=== PATIENT | male | born 1940 | race Caucasian/White ===

== ENCOUNTER 2017-06-21 13:30 | Emergency (ER) | payer OTHER ==
[~2017-06-21] VITALS: Ht 167.6 cm; Wt 50.0 kg
[2017-06-21 13:32] VITALS: BP 138/74; PULSE 90; RESP 16; TEMP 98.2; O2SAT 99
--- NOTE | 2017-06-21 14:06 | PD ---
HPI Chief Complaint: Respiratory Distress Time Seen by Provider: 13:45 Travel History International Travel<30 days: No Contact w/Intl Traveler<30days: No Traveled to known affect area: No History of Present Illness HPI This patient complains of shortness of breath. He is been short of breath for many many years. Worse with exertion. Has been diagnosed with [facility]best[facility]. He came here today after 42 years of these symptoms because he is frustrated and doesn't believe that the asbestosis is causing the shortness of breath. He notes that his oxygen saturations always seem to be good when checked so he thinks it might be something else. He denies fever or productive cough. He has no chest pain today. Patient has poor appetite and is very malnourished. He denies any acute pain. Symptoms severity is moderate. No alleviating factors. PFSH Past Medical History COPD: Yes Respiratory: Yes (asbestosis) Tetanus Vaccination: Unknown Social History Alcohol Use: No Tobacco Use: No Substance Use: No Allergies-Medications (Allergen,Severity, Reaction): Coded Allergies: No Known Allergies (Verified Allergy, Unknown, 06/21/17) Reported Meds & Prescriptions Reported Meds & Active Scripts Active No Active Prescriptions or Reported Medications Review of Systems General / Constitutional: Positive: Weight Loss, No: Fever Eyes: No: Visual changes HENT: No: Headaches Cardiovascular: No: Chest Pain or Discomfort Respiratory: Positive: Shortness of Breath Gastrointestinal: Positive: Loss of Appetite, No: Abdominal Pain Genitourinary: No: Dysuria Musculoskeletal: No: Pain Skin: No Rash Neurologic: No: Weakness Psychiatric: No: Depression Endocrine: No: Polydipsia Hematologic/Lymphatic: No: Easy Bruising Physical Exam Narrative GENERAL: Malnourished appearing well-developed patient in no apparent distress. SKIN: Focused skin assessment reveals no rash and nodules. Skin is Warm and dry. HEAD: Atraumatic. Normocephalic. Has temporal wasting EYES: Pupils equal and round. No scleral icterus. No injection or drainage. ENT: No nasal bleeding or discharge. Mucous membranes pink and moist. NECK: Trachea midline. No JVD. CARDIOVASCULAR: Regular rate and rhythm. No murmur appreciated. RESPIRATORY: No accessory muscle use. Diminished breath sounds but Clear to auscultation. Breath sounds equal bilaterally. GASTROINTESTINAL: Abdomen soft, non-tender, nondistended. Hepatic and splenic margins not palpable. MUSCULOSKELETAL: No obvious deformities. No clubbing. No cyanosis. No edema. All of his ribs visible beneath the skin NEUROLOGICAL: Awake and alert. No obvious cranial nerve deficits. Motor grossly within normal limits. Normal speech. PSYCHIATRIC: Appropriate mood and affect; insight and judgment normal. Data Data Last Documented VS Vital Signs Date Time Temp Pulse Resp B/P (MAP) Pulse Ox O2 Delivery O2 Flow Rate FiO2 06/21/17 13:46 19 06/21/17 13:32 98.2 90 138/74 (95) 99 Orders Orders Iv Access Insert/Monitor (06/21/17 13:54) Complete Blood Count With Diff (06/21/17 13:54) Comprehensive Metabolic Panel (06/21/17 13:54) Chest, Single Ap (06/21/17 ) Electrocardiogram (06/21/17 ) Preparation Plant Supervisor / Telemetry [id number] (06/21/17 13:54) Labs Laboratory Tests Test 06/21/17 14:00 White Blood Count 7.2 TH/MM3 Red Blood Count 5.22 MIL/MM3 Hemoglobin 15.5 GM/DL Hematocrit 46.8 % Mean Corpuscular Volume 89.7 FL Mean Corpuscular Hemoglobin 29.6 PG Mean Corpuscular Hemoglobin Concent 33.0 % Red Cell Distribution Width 14.4 % Platelet Count 214 TH/MM3 Mean Platelet Volume 8.4 FL Neutrophils (%) (Auto) 69.7 % Lymphocytes (%) (Auto) 21.1 % Monocytes (%) (Auto) 7.2 % Eosinophils (%) (Auto) 1.5 % Basophils (%) (Auto) 0.5 % Neutrophils # (Auto) 5.0 TH/MM3 Lymphocytes # (Auto) 1.5 TH/MM3 Monocytes # (Auto) 0.5 TH/MM3 Eosinophils # (Auto) 0.1 TH/MM3 Basophils # (Auto) 0.0 TH/MM3 CBC Comment DIFF FINAL Differential Comment Blood Urea Nitrogen 14 MG/DL Creatinine 0.69 MG/DL Random Glucose 100 MG/DL Total Protein 8.3 GM/DL Albumin 3.5 GM/DL Calcium Level 9.0 MG/DL Alkaline Phosphatase 81 U/L Aspartate Amino Transf (AST/SGOT) 22 U/L Alanine Aminotransferase (ALT/SGPT) 22 U/L Total Bilirubin 0.7 MG/DL Sodium Level 138 MEQ/L Potassium Level 4.4 MEQ/L Chloride Level 101 MEQ/L Carbon Dioxide Level 32.3 MEQ/L Anion Gap 5 MEQ/L Estimat Glomerular Filtration Rate 112 ML/MIN MDM Medical Decision Making Medical Screen Exam Complete: Yes Emergency Medical Condition: Yes Medical Record Reviewed: Yes Differential Diagnosis asbestosis, asthma, COPD, undiagnosed cancer Narrative Course I have reviewed the patient's electronic medical record. IV placed CBC is normal Metabolic profile is normal LFTs are normal I reviewed his EKG which shows sinus rhythm with occasional ectopic beat, rate 85 Extended cardiac monitoring shows sinus rhythm in the 80s with occasional ectopic beat I reviewed his chest x-ray which shows abnormal findings which would be consistent with asbestosis or silicosis. Radiology suggested an outpatient CT might be of benefit. I reviewed this with the patient. He has already had a CT of the chest done by the DC. It was done several years ago. I asked him to follow his [place] physician discussed whether repeating that or any other testing would be important. His saturations are good and he is stable for outpatient follow-up. Diagnosis Primary Impression: Shortness of breath Additional Impression: Malnourished Qualified Codes: E46 - Unspecified protein-calorie malnutrition Additional Instructions: The patient was advised to follow up with their physician and return if they worsen. Med/Other Pt SpecificInfo: Other Scripts No Active Prescriptions or Reported Meds Disposition: 01 DISCHARGE HOME Condition: Stable Esdras Kaye MD Jun 21, 2017 14:06
[2017-06-21 14:13] LABS: BASOPHIL % 0.5 % (0.0-2.0); EOSINOPHIL # 0.1 TH/MM3 (0-0.4); EOSINOPHIL % 1.5 % (0.0-4.0); HEMATOCRIT 46.8 % (39.0-51.0); HEMO FLAGS DIFF FINAL; LYMPH % 21.1 % (9.0-44.0); LYMPHOCYTE # 1.5 TH/MM3 (1.0-4.8); MEAN CELL VOLUME 89.7 FL (80.0-100.0); MEAN CORPUSCULAR HEMOGLOBIN 29.6 PG (27.0-34.0); MONO % 7.2 % (0.0-8.0); NEUT % 69.7 % (16.0-70.0); PLATELET COUNT 214 TH/MM3 (150-450); RED BLOOD COUNT 5.22 MIL/MM3 (4.50-5.90); RED CELL DISTRIBUTION WIDTH 14.4 % (11.6-17.2); WHITE BLOOD COUNT 7.2 TH/MM3 (4.0-11.0)
[2017-06-21 14:30] LABS: ALKALINE PHOSPHATASE 81 U/L (45-117); TOTAL BILIRUBIN ADULT 0.7 MG/DL (0.2-1.0)
[2017-06-21 14:35] LABS: ALT (GPT) 22 U/L (12-78); ANION GAP 5 MEQ/L (5-15); AST (GOT) 22 U/L (15-37); BICARBONATE 32.3 MEQ/L (21.0-32.0); BLOOD UREA NITROGEN 14 MG/DL (7-18); CHLORIDE 101 MEQ/L (98-107); GLOMERULAR FILTRATION RATE 112 ML/MIN (>89); POTASSIUM 4.4 MEQ/L (3.5-5.1); SODIUM (NA) 138 MEQ/L (136-145)
--- NOTE | 2017-06-21 15:01 | RADRPT ---
EXAM DATE/TIME: 06/21/2017 14:27 [facility] COMPARISON: No previous studies available for comparison. EXTERNAL COMPARISON : [facility] a couple years ago, pt. unsure. INDICATIONS : Short of breath. weakness a,d chest pain. MEDICAL HISTORY : None. SURGICAL HISTORY : None. ENCOUNTER: Initial ACUITY: >1 year PAIN SCORE: 3/10 LOCATION: Bilateral chest FINDINGS: There is severe pulmonary fibrosis with volume loss and severe retraction of the mediastinum and june r structures bilaterally with extensive pleural thickening in the right apex. There is bilateral pleu ral calcification characteristic of asbestos exposure. There is pleural plaque on both hemidiaphragms . No calcified nodes are identified. There is no evidence of pneumonia. CONCLUSION: 1. Severe hilar retraction and upper lobe volume loss with bilateral pleural calcification. The findi ngs could be seen with asbestosis or silicosis. CT scan is recommended for further evaluation if clin ically indicated. Cruz Byrd MD on June 21, 2017 at 14:55 Board Certified Radiologist. This report was verified electronically.
[2017-06-21 16:53] VITALS: BP 107/58
--- NOTE | 2017-06-22 14:26 | EKG ---
Date Performed: 06/21/2017 Time Performed: 14:03:33 PTAGE: 76 years EKG: Normal Sinus rhythm Atrial premature complexes Nonspecific atrial abnormality NO PREVIOUS TRACING DOCTOR: Kilo Hassan Interpretating Date/Time 06/22/2017 14:25:43
== END 2017-06-21 16:56 | disposition home or self-care (01) ==
LOC: NEPD 13:30
DX: R06.02 Shortness of breath (principal); E46 Unspecified protein-calorie malnutrition; R94.31 Abnormal electrocardiogram [ECG] [EKG]; Z87.09 Personal history of other diseases of the respiratory system
CPT/HCPCS: 71010; 80053; 85025; 93005; 99285

== ENCOUNTER 2017-09-23 07:56 | Inpatient (IN) | payer OTHER, MEDICARE ==
[~2017-09-23] VITALS: Ht 167.6 cm; Wt 46.0 kg
[2017-09-23] VITALS (11 sets, daily range): BP systolic 81–112; BP diastolic 52–69; PULSE 103–152; RESP 20–40; TEMP 97.4–98.3; O2SAT 90–100
[2017-09-23] MEDS ORDERED: DIGOXIN 0.5 MG/2 ML VIAL IV PUSH ONE (08:15)
[2017-09-23] MEDS: SODIUM CHLORIDE 0.9% FLUSH 10 ML FLUSH IVF PRN (08:23)
[2017-09-23] MEDS ORDERED: DILTIAZEM HCL 25 MG/5 ML VIAL IV ONE (08:30)
[2017-09-23] MEDS ORDERED: PHENYLEPH/NS 1000 MCG/10 ML SYR IV ONE (08:30)
--- NOTE | 2017-09-23 08:46 | PD ---
HPI Chief Complaint: Cardiac Complaint Time Seen by Provider: 08:10 Travel History International Travel<30 days: No Contact w/Intl Traveler<30days: No Traveled to known affect area: No History of Present Illness HPI This is a 77-year-old male who presents to the emergency department with increasing shortness of breath overnight, constant, severe. His reports that he's been gasping for air. History is somewhat limited as the patient is in respiratory distress. reports that [facility] He has known asbestosis but it's never been decided that he needed oxygen. He also has an irregular heartbeat. Currently he is not on any medicines. He was told by the CA that he may have a lesion in his heart described as a " maker". They have a cardiac catheterization scheduled for him in November. She says for 6-7 years he's been losing weight and has been increasingly short of breath. She says he mostly sits on the couch. He denies any chest pain, productive cough or fever. PFS Past Medical History Atrial Fibrillation: Yes COPD: Yes Respiratory: Yes (asbestosis) Past Surgical History Surgical History: No Previous Surgery Social History Alcohol Use: No Tobacco Use: No Substance Use: No Allergies-Medications (Allergen,Severity, Reaction): Coded Allergies: No Known Allergies (Verified , 06/21/17) Reported Meds & Prescriptions Reported Meds & Active Scripts Active No Active Prescriptions or Reported Medications Review of Systems Except as stated in HPI: all other systems reviewed are Neg Physical Exam Narrative GENERAL: Cachectic, moderate respiratory distress SKIN: Dry with skin tenting HEAD: Atraumatic. Normocephalic. EYES: Pupils equal and round. No injection or drainage. ENT: Moist mucous membranes NECK: Trachea midline. CARDIOVASCULAR: Regular rate and rhythm. No murmur appreciated. RESPIRATORY: No wheezing, tachypnea, accessory muscle use, speaking 2-3 word sentences GASTROINTESTINAL: Abdomen soft, non-tender, nondistended. MUSCULOSKELETAL: No obvious deformities. NEUROLOGICAL: Awake and alert. No obvious cranial nerve deficits. Moving all extremities. PSYCHIATRIC: Appropriate mood and affect; insight and judgment normal. Data Data Last Documented VS Vital Signs Date Time Temp Pulse Resp B/P (MAP) Pulse Ox O2 Delivery O2 Flow Rate FiO2 09/23/17 10:17 124 24 106/61 (76) 97 Nasal Cannula 3.00 09/23/17 08:49 40 09/23/17 08:16 97.4 Orders Orders Complete Blood Count With Diff (09/23/17 08:11) Comprehensive Metabolic Panel (09/23/17 08:11) B-Type Natriuretic Peptide (09/23/17 08:11) Act Partial Throm Time (Ptt) (09/23/17 08:11) Prothrombin Time / Inr (Pt) (09/23/17 08:11) Troponin I (09/23/17 08:11) Arterial Blood Gas (Abg) (09/23/17 08:11) Iv Access Insert/Monitor (09/23/17 08:11) Ecg Monitoring (09/23/17 08:11) Oximetry (09/23/17 08:11) Oxygen Administration (09/23/17 08:11) Chest, Single Ap (09/23/17 08:11) Ct Pulmonary Angiogram (09/23/17 08:11) Sodium Chloride 0.9% Flush (Ns Flush) (09/23/17 08:15) Resp Bipap / Cpap Non Invas Vt (09/23/17 08:11) Digoxin Inj (Lanoxin Inj) (09/23/17 08:15) Phenyleph/Ns 1000 Mcg/10ml Syr (Neosynep (09/23/17 08:30) Diltiazem Inj (Cardizem Inj) (09/23/17 08:30) Blood Culture (09/23/17 09:35) Lactic Acid (09/23/17 09:35) Vancomycin Inj (Vancomycin Inj) (09/23/17 09:45) Cefepime Inj (Maxipime Inj) (09/23/17 09:45) Sodium Chlorid 0.9% 500 Ml Inj (Ns 500 M (09/23/17 09:45) Sodium Chlorid 0.9% 500 Ml Inj (Ns 500 M (09/23/17 09:45) Admit Order (Ed Use Only) (09/23/17 11:09) Labs Laboratory Tests Test 09/23/17 08:22 09/23/17 09:00 09/23/17 10:00 White Blood Count 25.7 TH/MM3 Red Blood Count 4.64 MIL/MM3 Hemoglobin 13.9 GM/DL Hematocrit 42.6 % Mean Corpuscular Volume 91.8 FL Mean Corpuscular Hemoglobin 30.0 PG Mean Corpuscular Hemoglobin Concent 32.7 % Red Cell Distribution Width 15.0 % Platelet Count 177 TH/MM3 Mean Platelet Volume 9.4 FL Neutrophils (%) (Auto) 93.1 % Lymphocytes (%) (Auto) 1.8 % Monocytes (%) (Auto) 5.0 % Eosinophils (%) (Auto) 0.0 % Basophils (%) (Auto) 0.1 % Neutrophils # (Auto) 23.9 TH/MM3 Lymphocytes # (Auto) 0.5 TH/MM3 Monocytes # (Auto) 1.3 TH/MM3 Eosinophils # (Auto) 0.0 TH/MM3 Basophils # (Auto) 0.0 TH/MM3 CBC Comment AUTO DIFF Differential Total Cells Counted 100 Neutrophils % (Manual) 72 % Band Neutrophils % 22 % Lymphocytes % 2 % Monocytes % 3 % Neutrophils # (Manual) 24.4 TH/MM3 Metamyelocytes 1 % Differential Comment FINAL DIFF MANUAL Platelet Estimate NORMAL Platelet Morphology Comment NORMAL Red Cell Morphology Comment NORMAL Prothrombin Time 15.6 SEC Prothromb Time International Ratio 1.5 RATIO Activated Partial Thromboplast Time 33.2 SEC Blood Urea Nitrogen 21 MG/DL Creatinine 1.07 MG/DL Random Glucose 71 MG/DL Total Protein 6.8 GM/DL Albumin 2.5 GM/DL Calcium Level 8.1 MG/DL Alkaline Phosphatase 73 U/L Aspartate Amino Transf (AST/SGOT) 36 U/L Alanine Aminotransferase (ALT/SGPT) 18 U/L Total Bilirubin 2.2 MG/DL Sodium Level 134 MEQ/L Potassium Level 4.8 MEQ/L Chloride Level 102 MEQ/L Carbon Dioxide Level 19.9 MEQ/L Anion Gap 12 MEQ/L Estimat Glomerular Filtration Rate 67 ML/MIN Troponin I 0.02 NG/ML B-Type Natriuretic Peptide 287 PG/ML Blood Gas Puncture Site LT BRACHIAL Blood Gas Patient Temperature 37.0 Blood Gas HCO3 21 mmol/L Blood Gas Base Excess -3.6 mmol/L Blood Gas Oxygen Saturation 96 % Arterial Blood pH 7.38 Arterial Blood Partial Pressure CO2 36 mmHg Arterial Blood Partial Pressure O2 104 mmHG Arterial Blood Oxygen Content 17.9 Vol % Arterial Blood Carboxyhemoglobin 1.2 % Arterial Blood Methemoglobin 0.6 % Blood Gas Hemoglobin 13.1 G/DL Oxygen Delivery Device BIPAP Blood Gas Ventilator Setting 8 IPAP/4 EPAP Blood Gas Inspired Oxygen 40 % Lactic Acid Level 7.1 mmol/L MDM Medical Decision Making Medical Screen Exam Complete: Yes Emergency Medical Condition: Yes Interpretation(s) Afebrile, tachycardic, hypoxic, normotensive Leukocytosis 22% bands Lactic acid is 7.1 Last 24 hours Impressions Chest X-Ray 09/23/17810 Signed Impressions: Service Date/Time: Saturday, September 23, 2017 09:00 - CONCLUSION: 1. Stable chest x-ray with abnormal bilateral upper lung zone pleural-parenchymal opacity with areas of cavitation. There is also abnormal volume loss in the upper lung zones. 2. 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 Nathan Cid MD CT Angiography 09/23/17810 Signed Impressions: Service Date/Time: Saturday, September 23, 2017 11:49 - CONCLUSION: 1. No evidence for pulmonary embolism. 2. Extensive bilateral cavitary pneumonia in the upper lobes, could be necrotizing pneumonia, tuberculosis, or secondary fungal infection with progressive massive fibrosis. 3. Prominent cavity right apex measures 3.8 x 4.1 cm. 4. Pleural plaques which can be seen with asbestosis exposure. Joni Galo MD Differential Diagnosis Atrial fibrillation with RVR, pneumonia, sepsis, malignancy Narrative Course This is a 77-year-old male who presents to the emergency department with increasing shortness of breath that has been going on for several days. When EMS arrived the patient received a 20 mg IV diltiazem bolus because his heart rate was in the 200s. Here in the emergency department the patient continued to be in atrial fibrillation with RVR. His blood pressure was on the low side. He was given a dose of IV digoxin. He was started on BiPAP for increased work of breathing. Chest x-ray demonstrated bilateral upper lobe cavitary lesions. Patient was found to have a leukocytosis and a 22% bandemia. Cultures were obtained and he was started on broad-spectrum antibiotics. He was put in isolation for possible tuberculosis. Lactic acid was 7.1. Patient was resuscitated with 1.5 L of normal saline. This was done at a slower rate initially due to the patient's atrial fibrillation because I was concerned for potential volume overload. Patient's blood pressure and heart rate significantly improved. Patient was titrated off of BiPAP. He is admitted to the intensive care unit for further management. Critical Care Narrative Aggregate critical care time was 50 minutes. Time to perform other separately billable procedures was not included in the critical care time. My time did not include minutes spent treating any other patients simultaneously or on activities that did not directly contribute to the patient's treatment. The services I provided to this patient were to treat and/or prevent clinically significant deterioration that could result in: Disability, I provided critical care services requiring my management, as noted below: Chart data review, documentation time, medication orders and management, vital sign assessments/reviewing monitor data, ordering and reviewing lab tests, ordering and interpreting/reviewing x-rays and diagnostic studies, care of the patient and discussion of the patient with the admitting physicians. Physician Communication Physician Communication Discussed with Dr. Armando Diagnosis Primary Impression: Severe sepsis Admitting Information Admitting Physician Requests: Admit Scripts No Active Prescriptions or Reported Meds Yvonne Mott MD Sep 23, 2017 08:46
[2017-09-23 08:49] LABS: AUTOMATED NEUTROPHIL # 23.9 TH/MM3 (1.8-7.7); BASOPHIL % 0.1 % (0.0-2.0); HEMATOCRIT 42.6 % (39.0-51.0); LYMPH % 1.8 % (9.0-44.0); LYMPHOCYTE # 0.5 TH/MM3 (1.0-4.8); MEAN CELL VOLUME 91.8 FL (80.0-100.0); MEAN CORPUSCULAR HGB CONC 32.7 % (32.0-36.0); NEUT % 93.1 % (16.0-70.0); PLATELET COUNT 177 TH/MM3 (150-450); RED BLOOD COUNT 4.64 MIL/MM3 (4.50-5.90); WHITE BLOOD COUNT 25.7 TH/MM3 (4.0-11.0)
[2017-09-23 08:53] LABS: HEMO FLAGS AUTO DIFF
[2017-09-23 08:58] LABS: APTT (PATIENT) 33.2 SEC (24.3-30.1); INTERNATIONAL NORMALIZED RATIO 1.5 RATIO; PROTHROMBIN TIME - PATIENT 15.6 SEC (9.8-11.6)
[2017-09-23 09:09] LABS: ALKALINE PHOSPHATASE 73 U/L (45-117); TOTAL BILIRUBIN ADULT 2.2 MG/DL (0.2-1.0)
[2017-09-23 09:16] LABS: BLOOD GAS BASE EXCESS -3.6 mmol/L (-2-2); BLOOD GAS CARBOXYHEMOGLOBIN 1.2 % (0-4); BLOOD GAS HCO3 21 mmol/L (22-26); BLOOD GAS METHEMOGLOBIN 0.6 % (0-2); BLOOD GAS O2 HGB SATURATION 96 % (90-100); BLOOD GAS OXYGEN CONTENT 17.9 Vol % (12.0-20.0); BLOOD GAS PCO2 36 mmHg (38-42); BLOOD GAS PO2 104 mmHG (61-120); BLOOD GAS TOTAL HGB 13.1 G/DL (12.0-16.0); CRITICAL VALUE NO; DRAW SITE LT BRACHIAL; FIO2 40 %; OXYGEN DEVICE BIPAP; VENT SETTINGS 8 IPAP/4 EPAP
[2017-09-23 09:17] LABS: NUMBER OF ARTERIAL PUNCTURES 1; STAT YES
--- NOTE | 2017-09-23 09:26 | RADRPT ---
EXAM DATE/TIME: 09/23/2017 09:00 [facility] COMPARISON: CHEST SINGLE AP, June 21, 2017, 14:27. INDICATIONS : Short of breath. MEDICAL HISTORY : asbestosis SURGICAL HISTORY : None. ENCOUNTER: Initial ACUITY: 1 day PAIN SCORE: 0/10 LOCATION: Bilateral chest FINDINGS: Portable AP view of the chest demonstrates a normal-sized cardiac silhouette. There is severe bilater al upper lung zone pleural-parenchymal opacity with areas of cavitation. Pleural based calcifications are present. There is volume loss in the upper lung zones with elevation of the hilar structures. No pleural effusion is identified. No pneumothorax is seen. Bones demonstrate no acute finding. CONCLUSION: 1. Stable chest x-ray with abnormal bilateral upper lung zone pleural-parenchymal opacity with areas of cavitation. There is also abnormal volume loss in the upper lung zones. 2. 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 Nathan Cid MD on September 23, 2017 at 9:15 Board Certified Radiologist. This report was verified electronically.
[2017-09-23 09:27] LABS: ALT (GPT) 18 U/L (12-78); ANION GAP 12 MEQ/L (5-15); AST (GOT) 36 U/L (15-37); BICARBONATE 19.9 MEQ/L (21.0-32.0); BLOOD UREA NITROGEN 21 MG/DL (7-18); CHLORIDE 102 MEQ/L (98-107); GLOMERULAR FILTRATION RATE 67 ML/MIN (>89); SODIUM (NA) 134 MEQ/L (136-145)
[2017-09-23 09:28] LABS: POTASSIUM 4.8 MEQ/L (3.5-5.1)
[2017-09-23 09:33] LABS: BANDS 22 % (0-6); METAMYELOCYTES 1 % (0-1); NEUTROPHIL # MANUAL DIFF 24.4 TH/MM3 (1.8-7.7); PLATELET ESTIMATE SMEAR NORMAL (NORMAL); PLATELET MORPHOLOGY NORMAL (NORMAL); POLYS (SEG NEUTROPHILS) 72 % (16-70); SCAN/DIFF FINAL DIFF MANUAL; WBC DIFF SAMPLE 100
[2017-09-23] MEDS ORDERED: CEFEPIME INJ 2,000 MG in SODIUM CHLORIDE 0.9% INJ 100 ML IV ONE (09:45)
[2017-09-23] MEDS ORDERED: VANCOMYCIN INJ 600 MG in SODIUM CHLOR 0.9% 250 ML INJ 250 ML IV ONE (09:45)
[2017-09-23] MEDS ORDERED: SODIUM CHLORID 0.9% 500 ML INJ 500 ML IV ONE ×3 (09:45→11:30)
[2017-09-23] MEDS ORDERED: GLUCAGON 1 MG/ML VIAL OTHER PRN (12:00)
[2017-09-23] MEDS ORDERED: SENNOSIDES 8.6 MG TAB PO PRN (12:00)
[2017-09-23] MEDS ORDERED: DEXTROSE 50% IN WATER 50 ML VIAL(D50) IV PUSH PRN (12:00)
[2017-09-23] MEDS ORDERED: MAGNESIUM HYDROXIDE SUSP 30 ML CUP PO PRN (12:00)
[2017-09-23] MEDS ORDERED: MISCELLANEOUS NURSING INFORMATION XX SCH (12:00)
[2017-09-23] MEDS ORDERED: RESP: ALBUTEROL 2.5 MG/IPRATROPIUM 0.5 MG NEB (PRN) INH (12:00)
[2017-09-23] MEDS ORDERED: LACTULOSE SYRUP 20 GM/30 ML CUP PO PRN (12:00)
[2017-09-23] MEDS: INSULIN NovoLIN REGULAR SUPPLEMENTAL SCALE SQ SCH ×3 (12:00→20:00)
[2017-09-23] MEDS ORDERED: CHLORHEXIDINE GLUCONATE 2 % 1 PACK (2 CLOTHS) TOP PRN (12:00)
[2017-09-23] MEDS ORDERED: BISACODYL 10 MG SUPP RECTAL PRN (12:00)
[2017-09-23] MEDS: RESP: ALBUTEROL 2.5 MG/IPRATROPIUM 0.5 MG NEB (SCH) INH ×4 (12:00→20:54)
[2017-09-23] MEDS ORDERED: IOHEXOL 350 MG/ML 10 ML VIAL (for RAD DIAG) IVCONTRAST ONE (12:09)
--- NOTE | 2017-09-23 12:34 | MH ---
cc: FAUSTINO PEREA M.D. DATE OF ADMISSION 09/23/2017 DATE OF 1940 HISTORY The patient is a 77-year-old male with a past medical history of asbestos exposure, paroxysmal atrial fibrillation who presented to [facility] ED with worsening shortness of breath. The patient states that he has been short of breath for several years. However, his dyspnea worsened last night. He also reports productive cough with clear phlegm, however he denies any fever, chills or any constitutional symptoms. He was hospitalized five years ago for pneumonia in [place]. The patient denies any use of oxygen at home and he is not on any bronchodilators. He denies any hemoptysis. He was seen by a rack washer [place] the [place], however, he has not seen him for a long time. Also, he is scheduled to undergo cardiac catheterization in November for a lesion in his heart according to his . On arrival to the ED, the patient was hypotensive with a systolic blood pressure in the 80s, tachycardiac with a heart rate of 130-150. He was given 1.5 liters of normal saline. His laboratory data is significant for leukocytosis with WBC 25.7 associated with bandemia and lactic acid level of 7.1. Chest x-ray in the ED showed bilateral upper lung zone pleural parenchymal opacity with areas of cavitation and volume loss in the upper lung zones. 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 He was given vancomycin and cefepime in the ED. Also, he received digoxin 0.25, Cardizem 50 mg IV push. PAST MEDICAL HISTORY Significant for: 1. Paroxysmal atrial fibrillation 2. History of asbestos exposure. PAST SURGICAL HISTORY Unremarkable SOCIAL HISTORY Nonsmoker, nondrinker. MEDICATIONS AT HOME None reported. FAMILY HISTORY Reviewed and noncontributory to present illness. ALLERGIES NO KNOWN DRUG ALLERGIES. REVIEW OF SYSTEMS As per HPI. The rest of the review of systems is unremarkable PHYSICAL EXAM This is a 77-year-old male lying in bed in mild respiratory distress. VITAL SIGNS: Temperature 97.4 rectally, pulse of 132, blood pressure 106/61, sats 97-99% on three liters oxygen. HEENT: Atraumatic, normocephalic, pupils equal, round and reactive to light and accommodation, extraocular muscles intact. Conjunctivae pink. Nonicteric sclerae. Oral mucosa within normal. NECK: Supple. No JVD, adenopathy or thyromegaly. Trachea midline. CARDIOVASCULAR: Tachycardiac normal S1-S2. No murmurs, rubs or gallops. PULMONARY: Bilateral equal entry with coarse breath sounds. ABDOMEN: Soft, nontender, no distension. Positive bowel sounds. EXTREMITIES: No cyanosis, or edema. NEUROLOGIC: No focal sensory deficit. LABORATORY DATA Sodium 134, potassium 4.8, chloride 102, CO2 19.9, BUN 21, creatinine 1.27, glucose 71, lactic acid 7.1, total bilirubin 2.2, AST 36, ALT 18, total bili 2.2, troponin 0.02, BNP 287. WBC 25.7, hemoglobin 13.9, hematocrit 42, platelet count 177, INR 1.5, PT 50.6, PTT 33.2. Blood gas on BiPap showed a pH of 7.38, CO2 36, pAO2 104, bicarb of 21, saturation 96%. RADIOGRAPHY CT chest showed bilateral upper lung zone pleural parenchymal opacity with areas of cavitation and volume loss in the upper lobe lung zone. 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 Initial EKG in the ED showed a sinus rhythm with a rate of 77 beats per minute. IMPRESSION 1. Acute hypoxemic respiratory insufficiency. 2. Probable pneumonia 3. Leukocytosis with bandemia. 4. Lactic acidemia 5. History of asbestos exposure. 6. Paroxysmal atrial fibrillation 7. Mild hyponatremia RECOMMENDATIONS 1. Monitor neuro status closely and avoid any sedatives. 2. Continue with oxygen and maintain sats above 92%. 3. Bronchodilators in the form of DuoNeb q. 4+ q. two p.r.n. for shortness of breath. 4. Noninvasive positive pressure ventilation p.r.n. 5. Agree with CT scan of the chest for further evaluation of the pulmonary parenchyma. We will consult pulmonary service. The patient might need bronchoscopy with a BAL. 6. Monitor heart rate and blood pressure closely and maintain MAP greater than 65 mmHg. We will obtain 2-D echo to evaluate LV function and to rule out regional wall motion abnormalities. Serial lactic acid monitoring. He received 1.5 liters of crystalloid in the ED. 7. We will continue with maintenance fluids D5 NS at 84 mL an hour. 8. Monitor renal function I's and O's and electrolyte replacement per protocol. 9. Keep n.p.o. for now and place on Protonix 40 mg daily for GI prophylaxis. 10. We will place on broad-spectrum antibiotics in the form of vancomycin and Zosyn. Monitor for signs of infections which include fever and WBC. 11. Follow up on blood cultures which was performed in the ED. 12. In addition, we will obtain a sputum culture with gram stain. 13. Also, we will check strep pneumonia and Legionella antigen and rule out influenza. 14. We will consult infectious disease service. 15. Monitor CBC. 16. Place on sliding scale insulin with Accu-Chek's to maintain euglycemia. 17. GI prophylaxis with Protonix 40 mg daily and DVT prophylaxis with SCD's on heparin subcu. 18. Further recommendations will be based on hospital course. Thank you. MD BERTRAND Vieira/CHRISTO /11:57 AM /12:18 PM
--- NOTE | 2017-09-23 12:49 | RADRPT ---
EXAM DATE/TIME: 09/23/2017 11:49 [facility] COMPARISON: CHEST SINGLE AP, September 23, 2017, 9:00. INDICATIONS : Shortness of breath. IV CONTRAST: 70 cc Omnipaque 350 (iohexol) IV RADIATION DOSE: 6.00 CTDIvol (mGy) MEDICAL HISTORY : Cardiovascular disease. Chronic obstructive pulmonary disease. SURGICAL HISTORY : None. ENCOUNTER: Initial ACUITY: 1 day PAIN SCALE: 0/10 LOCATION: chest TECHNIQUE: Volumetric scanning of the chest was performed using a pulmonary embolism protocol MIP images were re constructed. Using automated exposure control and adjustment of the mA and/or kV according to patien t size, radiation dose was kept as low as reasonably achievable to obtain optimal diagnostic quality images. DICOM format image data is available electronically for review and comparison. Follow-up recommendations for detected pulmonary nodules are based at a minimum on nodule size and pa tient risk factors according to Fleischner Society Guidelines. FINDINGS: PULMONARY ARTERIES: No filling defects are seen in the pulmonary arteries through the segmental level. LUNGS: There is extensive upper lobe consolidation with cavitary process bilaterally. Consolidation also see n within the left lower lobe and patchy densities right lower lobe. Bronchiectatic changes in the rig ht middle lobe. Right upper lobe cavity with fluid measures 4.1 x 3.8 cm. PLEURAE: Calcified bilateral pleural plaques. MEDIASTINUM: There is good visualization of the great vessels of the middle mediastinum. No evidence of mediastin al or hilar adenopathy/mass. MUSCULOSKELETAL: Within normal limits for patient age. MISCELLANEOUS: The visualized upper abdominal organs demonstrate no acute abnormality. CONCLUSION: 1. No evidence for pulmonary embolism. 2. Extensive bilateral cavitary pneumonia in the upper lobes, could be necrotizing pneumonia, tubercu losis, or secondary fungal infection with progressive massive fibrosis. 3. Prominent cavity right apex measures 3.8 x 4.1 cm. 4. Pleural plaques which can be seen with asbestosis exposure. Joni Galo MD on September 23, 2017 at 12:44 Board Certified Radiologist. This report was verified electronically.
[2017-09-23] MEDS: DEXT 5%-NACL 0.9% 1000 ML INJ 1,000 ML IV SCH ×3 (13:37→19:00)
[2017-09-23] MEDS: PANTOPRAZOLE SODIUM 40 MG VIAL IV PUSH SCH (13:37)
[2017-09-23] MEDS: HEPARIN SODIUM - SQ 10,000 UNITS/ML VIAL SQ SCH (14:00)
--- NOTE | 2017-09-23 14:15 | EKG ---
Date Performed: 09/23/2017 Time Performed: 11:22:24 PTAGE: 77 years EKG: Sinus rhythm RIGHT BUNDLE BRANCH BLOCK LEFT ANTERIOR FASCICULAR BLOCK ABNORMAL ECG Compared to prior electrocardi ogram, complete right bundle branch block and left anterior fascicular joyce now present. DOCTOR: Chucky Lyles Interpretating Date/Time 09/23/2017 14:14:54
[2017-09-23] MEDS: PIPERACIL-TAZO 4.5 GM PREMIX 100 ML IV SCH ×2 (15:00→20:08)
--- NOTE | 2017-09-23 16:06 | PD.ID.CON ---
History of Present Illness Service ID Consult Requested By Dr Fitzpatrick Reason for Consult PNA, leukocytosis Primary Care Physician [facility] Diagnoses: History of Present Illness 77 yo male with long standing COPD, asbestosis and silicosis presents with long standing worsening SOB, prooductive cough and new onset hemoptysis Pt is loosing weight and now looks very emaciated On presentation he is afebrile amnd hypotensive His WBC is 25 Ka nd he has lactic acodosis of 7.1 CTA showed Extensive bilateral cavitary pneumonia in the upper lobes, could be necrotizing pneumonia, tuberculosis, or secondary fungal infection with progressive massive fibrosis, prominent cavity right apex measures 3.8 x 4.1 cm. Pt denies known exposure to TB Travel history includes [place], [place] (remote) Lived in [place] and [place] Review of Systems Constitutional: COMPLAINS OF: Weight loss Respiratory: COMPLAINS OF: Cough, Hemoptysis, Shortness of breath Except as stated in HPI: all other systems reviewed are Neg Past Family Social History Allergies: Coded Allergies: No Known Allergies (Verified , 06/21/17) Past Medical History 1. Atrial arrhythmias. 2. Questionable coronary disease, not confirmed. 3. COPD Past Surgical History none Active Ordered Medications Medications where reviewed in EMR Antibiotics Include: lolis cesar Family History reviewed non contributoryu Social History and living with his . 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 Smoked many, many years ago but quit 40+ years ago and there is no alcohol use. Physical Exam Vital Signs Vital Signs Date Time Temp Pulse Resp B/P (MAP) Pulse Ox O2 Delivery O2 Flow Rate FiO2 09/23/17 15:00 105 09/23/17 14:21 (82) Nasal Cannula 3.00 40 09/23/17 14:04 104 28 109/69 (82) 95 Nasal Cannula 3.00 09/23/17 11:21 132 25 94/64 (74) 99 Nasal Cannula 3.00 09/23/17 10:17 124 24 106/61 (76) 97 Nasal Cannula 3.00 09/23/17 08:49 130 24 92/66 (75) 100 BiPAP 40 09/23/17 08:30 95 BiPAP 40 09/23/17 08:30 123 31 81/59 (66) BiPAP 2.00 40 12/8/17 08:25 99 40 09/23/17 08:16 97.4 152 40 83/52 (62) 09/23/17 08:15 152 40 88 Nasal Cannula 2.00 Physical Exam CONSTITUTIONAL/GENERAL: This is a thin cachectic elderly patient, in no apparent distress. TUBES/LINES/DRAINS: SKIN: No jaundice, rashes, or lesions. Skin temperature appropriate. Not diaphoretic. HEAD: Atraumatic. Normocephalic. EYES: Pupils equal and round and reactive. Extraocular motions intact. No scleral icterus. No injection or drainage. Fundi not examined. ENT: Hearing grossly normal. Nose without bleeding or purulent drainage. Throat without visible erythema, exudates, masses, or lesions. NECK: Trachea midline. Supple, nontender. No palpable thyroid enlargement or nodularity. CARDIOVASCULAR: Regular rate and rhythm without murmurs, gallops, or rubs. No JVD. Peripheral pulses symmetric. RESPIRATORY/CHEST: Symmetric, unlabored respirations. Rhonchi mosly on the L to auscultation. Breath sounds diminished bilaterally. No wheezes, rales, or rhonchi. GASTROINTESTINAL: Abdomen soft, non-tender, nondistended. No hepato-splenomegaly , or palpable masses. No guarding. Bowel sounds present. GENITOURINARY: Without palpable bladder distension. MUSCULOSKELETAL: Extremities without clubbing, cyanosis, or edema. No joint tenderness or effusion noted. No calf tenderness. No mottling or clubbing. LYMPHATICS: No palpable cervical or supraclavicular adenopathy. NEUROLOGICAL: Awake and alert. Motor and sensory grossly within normal limits. Follows commands. Clear speech. Moves all extremities. PSYCHIATRIC: No obvious anxiety/depression. no apparent hallucinations or other psychotic thought process. Laboratory Laboratory Tests Test 09/23/17 08:22 09/23/17 09:00 09/23/17 10:00 09/23/17 13:30 White Blood Count 25.7 Red Blood Count 4.64 Hemoglobin 13.9 Hematocrit 42.6 Mean Corpuscular Volume 91.8 Mean Corpuscular Hemoglobin 30.0 Mean Corpuscular Hemoglobin Concent 32.7 Red Cell Distribution Width 15.0 Platelet Count 177 Mean Platelet Volume 9.4 Neutrophils (%) (Auto) 93.1 Lymphocytes (%) (Auto) 1.8 Monocytes (%) (Auto) 5.0 Eosinophils (%) (Auto) 0.0 Basophils (%) (Auto) 0.1 Neutrophils # (Auto) 23.9 Lymphocytes # (Auto) 0.5 Monocytes # (Auto) 1.3 Eosinophils # (Auto) 0.0 Basophils # (Auto) 0.0 CBC Comment AUTO DIFF Differential Total Cells Counted 100 Neutrophils % (Manual) 72 Band Neutrophils % 22 Lymphocytes % 2 Monocytes % 3 Neutrophils # (Manual) 24.4 Metamyelocytes 1 Differential Comment FINAL DIFF MANUAL Platelet Estimate NORMAL Platelet Morphology Comment NORMAL Red Cell Morphology Comment NORMAL Prothrombin Time 15.6 Prothromb Time International Ratio 1.5 Activated Partial Thromboplast Time 33.2 Blood Urea Nitrogen 21 Creatinine 1.07 Random Glucose 71 Total Protein 6.8 Albumin 2.5 Calcium Level 8.1 Alkaline Phosphatase 73 Aspartate Amino Transf (AST/SGOT) 36 Alanine Aminotransferase (ALT/SGPT) 18 Total Bilirubin 2.2 Sodium Level 134 Potassium Level 4.8 Chloride Level 102 Carbon Dioxide Level 19.9 Anion Gap 12 Estimat Glomerular Filtration Rate 67 Troponin I 0.02 B-Type Natriuretic Peptide 287 Blood Gas Puncture Site LT BRACHIAL Blood Gas Patient Temperature 37.0 Blood Gas HCO3 21 Blood Gas Base Excess -3.6 Blood Gas Oxygen Saturation 96 Arterial Blood pH 7.38 Arterial Blood Partial Pressure CO2 36 Arterial Blood Partial Pressure O2 104 Arterial Blood Oxygen Content 17.9 Arterial Blood Carboxyhemoglobin 1.2 Arterial Blood Methemoglobin 0.6 Blood Gas Hemoglobin 13.1 Oxygen Delivery Device BIPAP Blood Gas Ventilator Setting 8 IPAP/4 EPAP Blood Gas Inspired Oxygen 40 Lactic Acid Level 7.1 Date/Time Source Procedure Growth Status 09/23/17 10:00 Blood Peripheral Aerobic Blood Culture Pending Received 09/23/17 10:00 Blood Peripheral Anaerobic Blood Culture Pending Received Result Diagram: 09/23/1782109/23/17821 Imaging Last Impressions Chest X-Ray 09/23/17810 Signed Impressions: Service Date/Time: Saturday, September 23, 2017 09:00 - CONCLUSION: 1. Stable chest x-ray with abnormal bilateral upper lung zone pleural-parenchymal opacity with areas of cavitation. There is also abnormal volume loss in the upper lung zones. 2. 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 Nathan Cid MD CT Angiography 09/23/17810 Signed Impressions: Service Date/Time: Saturday, September 23, 2017 11:49 - CONCLUSION: 1. No evidence for pulmonary embolism. 2. Extensive bilateral cavitary pneumonia in the upper lobes, could be necrotizing pneumonia, tuberculosis, or secondary fungal infection with progressive massive fibrosis. 3. Prominent cavity right apex measures 3.8 x 4.1 cm. 4. Pleural plaques which can be seen with asbestosis exposure. Joni Galo MD Assessment and Plan Assessment and Plan Extensive bilateral cavitary pneumonia in the upper lobes, ( necrotizing pneumonia, tuberculosis, or secondary fungal infection) with progressive massive fibrosis cont broad spectrum abx fu routine, AFB, fungal clx isolation P MTB probe ? bronchoscopy Discussed Condition With Bailey Hernandes MD Sep 23, 2017 16:06
[2017-09-23] MEDS: VANCOMYCIN INJ 1,000 MG in SODIUM CHLOR 0.9% 250 ML INJ 250 ML IV SCH (17:29)
--- NOTE | 2017-09-23 18:34 | MB ---
cc: Samantha MORALES M.D. DATE OF CONSULTATION: 09/23/2017. HISTORY OF PRESENT ILLNESS: Mr. Albarran is a 77-year-old white male with an apparent longstanding history of asbestosis / silicosis with fibrosis. He told me that a pulmonary physician in [place] told him as long ago as thirty years ago that he asbestosis of the lung. 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 He has lived in this area for about four years and is followed by the [facility] [place] locally and a [place] pulmonary physician as well. Treatment really is not available for this disease, but he has been under supervision with them. No chronic oxygen use. No history of bronchodilator use. He presented yesterday to the hospital very ill in respiratory distress, fever, lactic acidosis with a white count of 25,000 and a probable new left lower lobe infiltrate. CT scan is quite abnormal with almost complete scarring and fibrosis with cysts in the upper lobe and a new left lower lobe infiltrate as I suspect this is the area of infection. The patient is not aware of having had previous exposure to tuberculosis. He has only been ill for about 48 hours, although he is chronically ill with shortness of breath, weakness and gradual weight loss over the last few years. His confirms this at the bedside. He was resuscitated in the emergency room with fluids, antibiotics, oxygen and placed on BiPAP and is currently on several liters of oxygen by nasal cannula and comfortable. PAST MEDICAL HISTORY: 1. Atrial arrhythmias. 2. Questionable coronary disease, not confirmed. 3. No previous history of stroke, diabetes or myocardial infarction. SOCIAL HISTORY: and living with his . 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 Smoked many, many years ago but quit years ago and there is no alcohol use. ALLERGIES: NONE KNOWN. MEDICATIONS: Reviewed in the electronic medical record. PHYSICAL EXAMINATION: GENERAL: This is a thin white male really in no distress at rest although he does speak in chopped up sentences. VITAL SIGNS: Saturations are 95% on nasal cannula, currently afebrile, heart rate is 100, blood pressure is 100/60, respirations 24. HEAD, EYES, EARS, NOSE, THROAT: The sclerae are nonicteric. NECK: No adenopathy in the neck or supraclavicular regions. CHEST/LUNGS: Breath sounds are diminished in the upper lobes, congestion with rales, particularly at the left base. No wheezing. Regular rhythm. No harsh murmur. No audible S3. No pitting edema or calf tenderness. LABS: Labs are reviewed. CT scan is very abnormal with multiple cysts in the upper lobe and extensive scarring and fibrosis. He has calcification in the pleura and an infiltrate in the left lower lobe. DISCUSSION: Mr. Albarran presents probably with silicosis/asbestosis, progressive massive fibrosis with infection in the lung presumably. Cultures have been sent including sputum. He is on broad-spectrum antibiotics and infectious disease was consulted. I have asked his to pick up man the disc, he has had CT scans at the [facility] so that we can compare the previous scans to the one that he has currently. At some point, when his condition is stabilized, depending on what those other scans look like, bronchoscopy may be helpful. Further diagnostic and/or therapeutic intervention will depend on his ongoing clinical course. R. MD SULEIMAN Howard/JUAN CARLOS /3:48 PM /6:20 PM
[2017-09-23] MEDS: DOCUSATE SODIUM 50 MG/SENNA 8.6 MG TAB PO SCH (20:07)
[2017-09-24] VITALS (13 sets, daily range): BP systolic 75–191; BP diastolic 53–88; PULSE 89–164; RESP 16–28; TEMP 97–98.5; O2SAT 24–100
[2017-09-24] MEDS: HEPARIN SODIUM - SQ 10,000 UNITS/ML VIAL SQ SCH ×2 (00:34→14:00)
[2017-09-24] MEDS: RESP: ALBUTEROL 2.5 MG/IPRATROPIUM 0.5 MG NEB (SCH) INH ×4 (01:05→20:48)
[2017-09-24] MEDS: PIPERACIL-TAZO 4.5 GM PREMIX 100 ML IV SCH ×4 (01:38→19:54)
[2017-09-24] MEDS: VANCOMYCIN INJ 1,000 MG in SODIUM CHLOR 0.9% 250 ML INJ 250 ML IV SCH (04:00)
[2017-09-24] MEDS ORDERED: SODIUM CHLOR 0.9% 1000 ML INJ 1,000 ML IV ONE ×2 (04:00)
[2017-09-24] MEDS ORDERED: ALBUMIN 5% INJ 500 ML IV ONE (04:00)
[2017-09-24] MEDS: CHLORHEXIDINE GLUCONATE 2 % 1 PACK (2 CLOTHS) TOP SCH (04:00)
[2017-09-24] MEDS: INSULIN NovoLIN REGULAR SUPPLEMENTAL SCALE SQ SCH ×6 (04:00→20:00)
[2017-09-24 05:09] LABS: ALKALINE PHOSPHATASE 56 U/L (45-117); ALT (GPT) 16 U/L (12-78); ANION GAP 7 MEQ/L (5-15); AST (GOT) 28 U/L (15-37); BICARBONATE 26.1 MEQ/L (21.0-32.0); BLOOD UREA NITROGEN 16 MG/DL (7-18); CHLORIDE 104 MEQ/L (98-107); GLOMERULAR FILTRATION RATE 131 ML/MIN (>89); MAGNESIUM 1.8 MG/DL (1.5-2.5); POTASSIUM 4.1 MEQ/L (3.5-5.1); SODIUM (NA) 137 MEQ/L (136-145); TOTAL BILIRUBIN ADULT 1.3 MG/DL (0.2-1.0)
[2017-09-24] MEDS ORDERED: FUROSEMIDE 40 MG/4 ML VIAL ONE (06:48)
[2017-09-24 07:14] LABS: BLOOD GAS BASE EXCESS -7.5 mmol/L (-2-2); BLOOD GAS CARBOXYHEMOGLOBIN 0.4 % (0-4); BLOOD GAS HCO3 20 mmol/L (22-26); BLOOD GAS METHEMOGLOBIN 1.1 % (0-2); BLOOD GAS O2 HGB SATURATION 96 % (90-100); BLOOD GAS OXYGEN CONTENT 16.3 Vol % (12.0-20.0); BLOOD GAS PCO2 58 mmHg (38-42); BLOOD GAS PO2 133 mmHg (61-120); BLOOD GAS TOTAL HGB 11.9 G/DL (12.0-16.0); TEMP CORR TO 98.6
[2017-09-24 07:15] LABS: CRITICAL VALUE YES; DRAW SITE RT RADIAL; FIO2 100 %; NUMBER OF ARTERIAL PUNCTURES 1; OXYGEN DEVICE BIPAP 5EPAP/12IPAP; STAT YES; ULNAR PULSE PRESENT
[2017-09-24] MEDS ORDERED: ETOMIDATE 40 MG/20 ML VIAL ONE (07:27)
[2017-09-24] MEDS ORDERED: PROPOFOL 500 MG/50 ML INJ 50 ML ONE (07:27)
--- NOTE | 2017-09-24 07:55 | HHI.CCPN ---
Subjective Remarks/Hospital Course The patient is a 77-year-old male with a past medical history of asbestos exposure, paroxysmal atrial fibrillation who presented to [facility] ED with worsening shortness of breath. The patient states that he has been short of breath for several years. However, his dyspnea worsened last night. He also reports productive cough with clear phlegm, however he denies any fever, chills or any constitutional symptoms. He was hospitalized five years ago for pneumonia in [place]. The patient denies any use of oxygen at home and he is not on any bronchodilators. He denies any hemoptysis. He was seen by a engine boss at the [facility], however, he has not seen him for a long time. Also, he is scheduled to undergo cardiac catheterization in November for a lesion in his heart according to his . On arrival to the ED, the patient was hypotensive with a systolic blood pressure in the 80s, tachycardiac with a heart rate of 130-150. He was given 1.5 liters of normal saline. His laboratory data is significant for leukocytosis with WBC 25.7 associated with bandemia and lactic acid level of 7.1. Chest x-ray in the ED showed bilateral upper lung zone pleural parenchymal opacity with areas of cavitation and volume loss in the upper lung zones. 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 He was given vancomycin and cefepime in the ED. Also, he received digoxin 0.25, Cardizem 15 mg IV push. 09/24 Patient was given 2L NS boluses and Albumin overnight for tachycardia ABG showed acute hypercapnic resp acidosis he was subsequently intubated and placed on mechanical ventilation. Afebrile. Objective Vital Signs Date Time Temp Pulse Resp B/P (MAP) Pulse Ox O2 Delivery O2 Flow Rate FiO2 09/24/17 06:45 96 100 09/24/17 04:00 164 09/24/17 04:00 98.4 27 93/65 (74) 09/23/17 20:58 Nasal Cannula 2.00 Intake and Output 09/24/17 09/24/17 09/25/17 08:00 16:00 00:00 Intake Total 3050 ml Output Total 450 ml Balance 2600 ml Result Diagram: 09/23/17 0822 09/24/17 0414 Other Results Laboratory Tests Test 09/23/17 08:22 09/23/17 09:00 09/23/17 10:00 09/23/17 14:50 White Blood Count 25.7 TH/MM3 Red Blood Count 4.64 MIL/MM3 Hemoglobin 13.9 GM/DL Hematocrit 42.6 % Mean Corpuscular Volume 91.8 FL Mean Corpuscular Hemoglobin 30.0 PG Mean Corpuscular Hemoglobin Concent 32.7 % Red Cell Distribution Width 15.0 % Platelet Count 177 TH/MM3 Mean Platelet Volume 9.4 FL Neutrophils (%) (Auto) 93.1 % Lymphocytes (%) (Auto) 1.8 % Monocytes (%) (Auto) 5.0 % Eosinophils (%) (Auto) 0.0 % Basophils (%) (Auto) 0.1 % Neutrophils # (Auto) 23.9 TH/MM3 Lymphocytes # (Auto) 0.5 TH/MM3 Monocytes # (Auto) 1.3 TH/MM3 Eosinophils # (Auto) 0.0 TH/MM3 Basophils # (Auto) 0.0 TH/MM3 CBC Comment AUTO DIFF Differential Total Cells Counted 100 Neutrophils % (Manual) 72 % Band Neutrophils % 22 % Lymphocytes % 2 % Monocytes % 3 % Neutrophils # (Manual) 24.4 TH/MM3 Metamyelocytes 1 % Differential Comment FINAL DIFF MANUAL Platelet Estimate NORMAL Platelet Morphology Comment NORMAL Red Cell Morphology Comment NORMAL Prothrombin Time 15.6 SEC Prothromb Time International Ratio 1.5 RATIO Activated Partial Thromboplast Time 33.2 SEC Blood Urea Nitrogen 21 MG/DL Creatinine 1.07 MG/DL Random Glucose 71 MG/DL Total Protein 6.8 GM/DL Albumin 2.5 GM/DL Calcium Level 8.1 MG/DL Alkaline Phosphatase 73 U/L Aspartate Amino Transf (AST/SGOT) 36 U/L Alanine Aminotransferase (ALT/SGPT) 18 U/L Total Bilirubin 2.2 MG/DL Sodium Level 134 MEQ/L Potassium Level 4.8 MEQ/L Chloride Level 102 MEQ/L Carbon Dioxide Level 19.9 MEQ/L Anion Gap 12 MEQ/L Estimat Glomerular Filtration Rate 67 ML/MIN Troponin I 0.02 NG/ML B-Type Natriuretic Peptide 287 PG/ML Blood Gas Puncture Site LT BRACHIAL Blood Gas Patient Temperature 37.0 Blood Gas HCO3 21 mmol/L Blood Gas Base Excess -3.6 mmol/L Blood Gas Oxygen Saturation 96 % Arterial Blood pH 7.38 Arterial Blood Partial Pressure CO2 36 mmHg Arterial Blood Partial Pressure O2 104 mmHG Arterial Blood Oxygen Content 17.9 Vol % Arterial Blood Carboxyhemoglobin 1.2 % Arterial Blood Methemoglobin 0.6 % Blood Gas Hemoglobin 13.1 G/DL Oxygen Delivery Device BIPAP Blood Gas Ventilator Setting 8 IPAP/4 EPAP Blood Gas Inspired Oxygen 40 % Lactic Acid Level 7.1 mmol/L Test 09/23/17 16:09 09/24/17 01:05 09/24/17 04:14 09/24/17 07:06 Lactic Acid Level 3.5 mmol/L 2.1 mmol/L Blood Urea Nitrogen 16 MG/DL Creatinine 0.60 MG/DL Random Glucose 105 MG/DL Total Protein 6.1 GM/DL Albumin 2.1 GM/DL Calcium Level 8.3 MG/DL Phosphorus Level 2.3 MG/DL Magnesium Level 1.8 MG/DL Alkaline Phosphatase 56 U/L Aspartate Amino Transf (AST/SGOT) 28 U/L Alanine Aminotransferase (ALT/SGPT) 16 U/L Total Bilirubin 1.3 MG/DL Sodium Level 137 MEQ/L Potassium Level 4.1 MEQ/L Chloride Level 104 MEQ/L Carbon Dioxide Level 26.1 MEQ/L Anion Gap 7 MEQ/L Estimat Glomerular Filtration Rate 131 ML/MIN Blood Gas Puncture Site RT RADIAL Blood Gas Patient Temperature 98.6 Blood Gas HCO3 20 mmol/L Blood Gas Base Excess -7.5 mmol/L Blood Gas Oxygen Saturation 96 % Arterial Blood pH 7.16 Arterial Blood Partial Pressure CO2 58 mmHg Arterial Blood Partial Pressure O2 133 mmHg Arterial Blood Oxygen Content 16.3 Vol % Arterial Blood Carboxyhemoglobin 0.4 % Arterial Blood Methemoglobin 1.1 % Blood Gas Hemoglobin 11.9 G/DL Oxygen Delivery Device BIPAP 5EPAP/12IPAP Blood Gas Inspired Oxygen 100 % Imaging Last Impressions Chest X-Ray 09/23/17810 Signed Impressions: Service Date/Time: Saturday, September 23, 2017 09:00 - CONCLUSION: 1. Stable chest x-ray with abnormal bilateral upper lung zone pleural-parenchymal opacity with areas of cavitation. There is also abnormal volume loss in the upper lung zones. 2. 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 Nathan Cid MD CT Angiography 09/23/17810 Signed Impressions: Service Date/Time: Saturday, September 23, 2017 11:49 - CONCLUSION: 1. No evidence for pulmonary embolism. 2. Extensive bilateral cavitary pneumonia in the upper lobes, could be necrotizing pneumonia, tuberculosis, or secondary fungal infection with progressive massive fibrosis. 3. Prominent cavity right apex measures 3.8 x 4.1 cm. 4. Pleural plaques which can be seen with asbestosis exposure. Joni Galo MD Objective Remarks GENERAL: Patient is intubated and on mechanical ventilation SKIN: Warm and dry. HEAD: Normocephalic. EYES: No scleral icterus. No injection or drainage. NECK: Supple, trachea midline. No JVD or lymphadenopathy. CARDIOVASCULAR:Tachycardic without murmurs, gallops, or rubs. RESPIRATORY: Breath sounds equal bilaterally. Coarse BS GASTROINTESTINAL: Abdomen soft, non-tender, nondistended. MUSCULOSKELETAL: No cyanosis, or edema. Neuro: Intubated A/P Assessment and Plan 1. Acute hypoxemic respiratory Resp - intubated today 2. Probable pneumonia 3. Leukocytosis with bandemia. 4. Lactic acidemia.. resolving 5. History of asbestos exposure. 6. Paroxysmal atrial fibrillation 7. Mild hyponatremia Plan Neuro: Place on Fentanyl/ Versed infusion for sedation. Monitor neuro status. Daily sedation vacation when appropriate Pulm: Continue with vent support and maintain sats above 92%. Bronchodilators, vent bundle. Check CXR and ABG post intubation. Pulm is following- Dr. Aly. ? need bronch CT chest: Extensive bilateral cavitary pneumonia in the upper lobes, ( necrotizing pneumonia, tuberculosis, or secondary fungal infection) with progressive massive fibrosis CV: Monitor HR and BP and maintain MAP>65 mmHg. For 2-D echo to evaluate LV function Serial lactic acid monitoring ( trending down) : Monitor renal function I's and O's and electrolyte replacement per protocol. d/c IVF and diurese with Lasix 40mg x1 GI: on Protonix 40 mg daily for GI prophylaxis. Start tube feeds- Glucerna 1.5 with goal rate 45ml/hr ID: Continue with abx( vancomycin and Zosyn). Monitor for signs of infections ( fever and WBC) ID is following- Dr. Samson Follow up on BC, strep pneumonia and Legionella urinary Ag pending Heme: Monitor CBC. Endo: SSI with Accu-Chek's to maintain euglycemia. GI prophylaxis with Protonix 40 mg daily and DVT prophylaxis with SCD's on heparin subcu. Level 3 Prabha,Alaa MD Sep 24, 2017 07:55
[2017-09-24] MEDS ORDERED: POTASSIUM PHOSPHATE MONOBASIC 500 MG TAB PO PRN (08:00)
[2017-09-24] MEDS ORDERED: POTASSIUM CHLOR 40 MEQ PREMIX 100 ML IV PRN ×2 (08:00)
[2017-09-24] MEDS ORDERED: POTASSIUM PHOSPHATE MONOBASIC 500 MG TAB PO/TUBE PRN (08:00)
[2017-09-24] MEDS ORDERED: MAGNESIUM OXIDE 400 MG TAB PO PRN (08:00)
[2017-09-24] MEDS ORDERED: POTASSIUM CHLORIDE 25 MEQ EFFERVESCENT TAB PO PRN (08:00)
[2017-09-24] MEDS ORDERED: MAGNESIUM SULFATE INJ 4 GM in SODIUM CHLORIDE 0.9% INJ 92 ML IV PRN (08:00)
[2017-09-24] MEDS ORDERED: SODIUM PHOSPHATE INJ 30 MMOL in SODIUM CHLOR 0.9% 250 ML INJ 240 ML IV PRN (08:00)
[2017-09-24] MEDS ORDERED: POTASSIUM PHOSPHATE INJ 30 MMOL in SODIUM CHLOR 0.9% 250 ML INJ 250 ML IV PRN (08:00)
[2017-09-24] MEDS ORDERED: MAGNESIUM SULFATE INJ 2 GM in SODIUM CHLORIDE 0.9% INJ 96 ML IV PRN (08:00)
[2017-09-24] MEDS ORDERED: fentaNYL DRIP 250 ML IV PRN (08:00)
[2017-09-24] MEDS ORDERED: FUROSEMIDE 40 MG/4 ML VIAL IV PUSH ONE (08:00)
--- NOTE | 2017-09-24 08:17 | RADRPT ---
EXAM DATE/TIME: 09/24/2017 07:56 [facility] COMPARISON: CT PULMONARY ANGIOGRAM, September 23, 2017, 11:49. CHEST SINGLE AP, September 23, 2017, 9:00. INDICATIONS : Status post intubation. Evaluate for ET tube placement. MEDICAL HISTORY : Asbestosis. SURGICAL HISTORY : None. ENCOUNTER: Subsequent ACUITY: 1 day PAIN SCORE: Non-responsive. LOCATION: chest FINDINGS: Patient has been intubated with ET tube approximately 6 and is above the fabián. There is redemonstra tion of extensive bilateral airspace consolidation with cavitary change in the upper lobes. No signif icant pneumothorax. Cardiomediastinal contours are stable. Remainder of exam is unchanged. CONCLUSION: 1. ET tube 6 cm above the fabián. 2. Redemonstration of extensive bilateral airspace consolidation with cavitary change in the upper lo bes. 3. No significant interval change. Varun Simmons MD on September 24, 2017 at 8:11 Board Certified Radiologist. This report was verified electronically.
[2017-09-24 08:39] LABS: AUTOMATED NEUTROPHIL # 12.3 TH/MM3 (1.8-7.7); BASOPHIL % 0.1 % (0.0-2.0); HEMATOCRIT 39.9 % (39.0-51.0); LYMPH % 4.2 % (9.0-44.0); LYMPHOCYTE # 0.6 TH/MM3 (1.0-4.8); MEAN CELL VOLUME 92.4 FL (80.0-100.0); MEAN CORPUSCULAR HEMOGLOBIN 29.6 PG (27.0-34.0); MONO % 4.4 % (0.0-8.0); NEUT % 91.3 % (16.0-70.0); PLATELET COUNT 172 TH/MM3 (150-450); RED BLOOD COUNT 4.32 MIL/MM3 (4.50-5.90); RED CELL DISTRIBUTION WIDTH 15.1 % (11.6-17.2); WHITE BLOOD COUNT 13.5 TH/MM3 (4.0-11.0)
[2017-09-24 08:42] LABS: HEMO FLAGS AUTO DIFF
[2017-09-24] MEDS ORDERED: MIDAZOLAM HCL 5 MG/ML VIAL (1 ML) ONE (08:47)
[2017-09-24] MEDS ORDERED: MIDAZOLAM 100 MG/100 ML INJ 100 ML IV PRN (09:00)
[2017-09-24] MEDS ORDERED: MIDAZOLAM HCL 2 MG/2 ML VIAL IV PUSH ONE (09:00)
[2017-09-24] MEDS: DOCUSATE SODIUM 50 MG/SENNA 8.6 MG TAB PO SCH ×2 (09:00→19:54)
[2017-09-24] MEDS: PANTOPRAZOLE SODIUM 40 MG VIAL IV PUSH SCH (09:03)
[2017-09-24 09:10] LABS: BANDS 15 % (0-6); NEUTROPHIL # MANUAL DIFF 12.2 TH/MM3 (1.8-7.7); POLYS (SEG NEUTROPHILS) 75 % (16-70); TOXIC GRANULATION 1+ (NORMAL); TOXIC VACUOLATION PRESENT (NONE SEEN); WBC DIFF SAMPLE 100
[2017-09-24 09:11] LABS: OVALOCYTES 1+ (NORMAL); PLATELET ESTIMATE SMEAR NORMAL (NORMAL); PLATELET MORPHOLOGY NORMAL (NORMAL); SCAN/DIFF FINAL DIFF MANUAL
[2017-09-24 09:56] LABS: BLOOD GAS BASE EXCESS -6.7 mmol/L (-2-2); BLOOD GAS CARBOXYHEMOGLOBIN 0.6 % (0-4); BLOOD GAS HCO3 20 mmol/L (22-26); BLOOD GAS METHEMOGLOBIN 1.2 % (0-2); BLOOD GAS O2 HGB SATURATION 97 % (90-100); BLOOD GAS OXYGEN CONTENT 15.8 Vol % (12.0-20.0); BLOOD GAS PCO2 57 mmHg (38-42); BLOOD GAS PO2 172 mmHg (61-120); BLOOD GAS TOTAL HGB 11.4 G/DL (12.0-16.0); CRITICAL VALUE YES; FIO2 80 %; OXYGEN DEVICE VENTILATOR; TEMP CORR TO 98.6; VENT SETTINGS A/C 450/16/5PEEP
[2017-09-24 09:57] LABS: DRAW SITE RT FEMORAL; NUMBER OF ARTERIAL PUNCTURES 1; STAT NO
[2017-09-24 11:28] LABS: MAGNESIUM 1.7 MG/DL (1.5-2.5)
[2017-09-24 12:52] LABS: BLOOD GAS BASE EXCESS -4.1 mmol/L (-2-2); BLOOD GAS CARBOXYHEMOGLOBIN 0.8 % (0-4); BLOOD GAS HCO3 20 mmol/L (22-26); BLOOD GAS O2 HGB SATURATION 98 % (90-100); BLOOD GAS OXYGEN CONTENT 15.8 Vol % (12.0-20.0); BLOOD GAS PCO2 33 mmHg (38-42); BLOOD GAS PO2 206 mmHg (61-120); BLOOD GAS TOTAL HGB 11.2 G/DL (12.0-16.0); CRITICAL VALUE NO; DRAW SITE RT FEMORAL; FIO2 60 %; NUMBER OF ARTERIAL PUNCTURES 1; OXYGEN DEVICE VENTILATOR; STAT NO; TEMP CORR TO 98.6; VENT SETTINGS A/C 500/24/5PEEP
[2017-09-24] MEDS: AZITHROMYCIN INJ 500 MG in SODIUM CHLOR 0.9% 250 ML INJ 250 ML IV SCH (14:20)
[2017-09-24] MEDS: methylPREDNISolone SOD SUCC 40 MG/1 ML VIAL IV PUSH SCH ×2 (14:22→19:54)
--- NOTE | 2017-09-24 14:52 | ECHRPT ---
Indication: afib CONCLUSIONS The left ventricular systolic function is mildly reduced with an estimated ejection fraction in the range of 45- 50%. Normal left ventricular size. The left ventricle is not well visualized. [id number] mitral valve regurgitation. No aortic valve regurgitation. No aortic valve stenosis. There is mild tricuspid valve regurgitation. The estimated pulmonary arterial pressure is 39.4 mmHg. BP: / HR: Rhythm: MEASUREMENTS (Male / Female) Normal Values Technical Quality:Fair 2D ECHO LV Diastolic Diameter PLAX 3.3 cm 4.2 - 5.9 / 3.9 - 5.3 cm LV Systolic Diameter PLAX 2.8 cm IVS Diastolic Thickness 1.4 cm 0.6 - 1.0 / 0.6 - 0.9 cm LVPW Diastolic Thickness 1.0 cm 0.6 - 1.0 / 0.6 - 0.9 cm LV Relative Wall Thickness 0.7 RV Internal Dim ED PLAX 2.4 cm M-MODE Aortic Root Diameter MM 3.3 cm LA Systolic Diameter MM 3.3 cm LA Ao Ratio MM 1.0 AV Cusp Separation MM 1.9 cm DOPPLER TR Peak Velocity 271.0 cm/s TR Peak Gradient 29.4 mmHg Right Atrial Pressure 10.0 mmHg Pulmonary Artery Systolic Pressu 39.4 mmHg Right Ventricular Systolic Press 39.4 mmHg FINDINGS LEFT VENTRICLE The left ventricular systolic function is mildly reduced with an estimated ejection fraction in the range of 45- 50%. Normal left ventricular size. The left ventricle is not well visualized. RIGHT VENTRICLE Normal right ventricular size and systolic function. LEFT ATRIUM The left atrial size is normal. RIGHT ATRIUM The right atrial size is normal. ATRIAL SEPTUM Normal atrial septal thickness without atrial level shunting by limited color doppler interrogation. AORTA The aortic root and proximal ascending aorta are normal in size on limited imaging. MITRAL VALVE [id number] mitral valve regurgitation. AORTIC VALVE Trileaflet aortic valve. No aortic valve regurgitation. No aortic valve stenosis. TRICUSPID VALVE Structurally normal tricuspid valve. There is mild tricuspid valve regurgitation. The estimated pulmonary arterial pressure is 39.4 mmHg. PULMONARY VALVE No pulmonary valve regurgitation or stenosis. VESSELS The inferior vena cava is normal in size. PERICARDIUM No pericardial effusion. Juvenal Wong MD, FACC (Electronically Signed) Final Date:24 September 2017 14:51
[2017-09-25] VITALS (18 sets, daily range): BP systolic 91–109; BP diastolic 58–64; PULSE 82–91; RESP 24; TEMP 97.2–98.3; O2SAT 96–100
[2017-09-25] MEDS: PIPERACIL-TAZO 4.5 GM PREMIX 100 ML IV SCH ×4 (03:39→19:54)
[2017-09-25] MEDS: HEPARIN SODIUM - SQ 10,000 UNITS/ML VIAL SQ SCH ×2 (03:39→15:27)
[2017-09-25] MEDS: VANCOMYCIN INJ 1,000 MG in SODIUM CHLOR 0.9% 250 ML INJ 250 ML IV SCH ×2 (03:40→16:00)
[2017-09-25] MEDS: INSULIN NovoLIN REGULAR SUPPLEMENTAL SCALE SQ SCH ×6 (03:40→19:55)
[2017-09-25] MEDS: CHLORHEXIDINE GLUCONATE 2 % 1 PACK (2 CLOTHS) TOP SCH (04:00)
[2017-09-25] MEDS: methylPREDNISolone SOD SUCC 40 MG/1 ML VIAL IV PUSH SCH ×2 (05:39→19:54)
[2017-09-25 07:02] LABS: AUTOMATED NEUTROPHIL # 6.3 TH/MM3 (1.8-7.7); BASOPHIL % 0.1 % (0.0-2.0); HEMATOCRIT 31.8 % (39.0-51.0); HEMO FLAGS DIFF FINAL; LYMPHOCYTE # 0.4 TH/MM3 (1.0-4.8); MEAN CELL VOLUME 88.5 FL (80.0-100.0); MEAN CORPUSCULAR HEMOGLOBIN 30.3 PG (27.0-34.0); MEAN CORPUSCULAR HGB CONC 34.2 % (32.0-36.0); MONO % 4.2 % (0.0-8.0); NEUT % 89.7 % (16.0-70.0); PLATELET COUNT 160 TH/MM3 (150-450); RED BLOOD COUNT 3.59 MIL/MM3 (4.50-5.90); RED CELL DISTRIBUTION WIDTH 14.4 % (11.6-17.2)
[2017-09-25 07:20] LABS: ALKALINE PHOSPHATASE 125 U/L (45-117); ALT (GPT) 98 U/L (12-78); ANION GAP 11 MEQ/L (5-15); AST (GOT) 105 U/L (15-37); BICARBONATE 25.6 MEQ/L (21.0-32.0); BLOOD UREA NITROGEN 23 MG/DL (7-18); CHLORIDE 102 MEQ/L (98-107); GLOMERULAR FILTRATION RATE 131 ML/MIN (>89); SODIUM (NA) 139 MEQ/L (136-145); TOTAL BILIRUBIN ADULT 1.7 MG/DL (0.2-1.0)
--- NOTE | 2017-09-25 07:40 | HHI.CCPN ---
Subjective Remarks/Hospital Course The patient is a 77-year-old male with a past medical history of asbestos exposure, paroxysmal atrial fibrillation who presented to [facility] ED with worsening shortness of breath. The patient states that he has been short of breath for several years. However, his dyspnea worsened last night. He also reports productive cough with clear phlegm, however he denies any fever, chills or any constitutional symptoms. He was hospitalized five years ago for pneumonia in [place]. The patient denies any use of oxygen at home and he is not on any bronchodilators. He denies any hemoptysis. He was seen by a line locator at the [place], however, he has not seen him for a long time. Also, he is scheduled to undergo cardiac catheterization in November for a lesion in his heart according to his . On arrival to the ED, the patient was hypotensive with a systolic blood pressure in the 80s, tachycardiac with a heart rate of 130-150. He was given 1.5 liters of normal saline. His laboratory data is significant for leukocytosis with WBC 25.7 associated with bandemia and lactic acid level of 7.1. Chest x-ray in the ED showed bilateral upper lung zone pleural parenchymal opacity with areas of cavitation and volume loss in the upper lung zones. 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 He was given vancomycin and cefepime in the ED. Also, he received digoxin 0.25, Cardizem 15 mg IV push. 09/24 Patient was given 2L NS boluses and Albumin overnight for tachycardia ABG showed acute hypercapnic resp acidosis he was subsequently intubated and placed on mechanical ventilation. Afebrile. 09/25 Patient is sedated with Versed, Fentanyl and intubated. Afebrile. Objective Vital Signs Date Time Temp Pulse Resp B/P (MAP) Pulse Ox O2 Delivery O2 Flow Rate FiO2 09/25/17 07:30 100 35 09/25/17 06:00 83 09/25/17 04:00 98.3 24 92/64 (73) 09/23/17 20:58 Nasal Cannula 2.00 Intake and Output 09/25/17 09/25/17 09/26/17 08:00 16:00 00:00 Intake Total 100 ml Output Total 1400 ml Balance -1300 ml Result Diagram: 09/25/17 0532 09/24/17 0414 Other Results Laboratory Tests Test 09/24/17 08:25 09/24/17 09:50 09/24/17 10:18 09/24/17 12:45 White Blood Count 13.5 TH/MM3 Red Blood Count 4.32 MIL/MM3 Hemoglobin 12.8 GM/DL Hematocrit 39.9 % Mean Corpuscular Volume 92.4 FL Mean Corpuscular Hemoglobin 29.6 PG Mean Corpuscular Hemoglobin Concent 32.0 % Red Cell Distribution Width 15.1 % Platelet Count 172 TH/MM3 Mean Platelet Volume 8.5 FL Neutrophils (%) (Auto) 91.3 % Lymphocytes (%) (Auto) 4.2 % Monocytes (%) (Auto) 4.4 % Eosinophils (%) (Auto) 0.0 % Basophils (%) (Auto) 0.1 % Neutrophils # (Auto) 12.3 TH/MM3 Lymphocytes # (Auto) 0.6 TH/MM3 Monocytes # (Auto) 0.6 TH/MM3 Eosinophils # (Auto) 0.0 TH/MM3 Basophils # (Auto) 0.0 TH/MM3 CBC Comment AUTO DIFF Differential Total Cells Counted 100 Neutrophils % (Manual) 75 % Band Neutrophils % 15 % Lymphocytes % 6 % Monocytes % 4 % Neutrophils # (Manual) 12.2 TH/MM3 Differential Comment FINAL DIFF MANUAL Toxic Granulation 1+ Toxic Vacuolation PRESENT Platelet Estimate NORMAL Platelet Morphology Comment NORMAL Ovalocytes 1+ Lactic Acid Level 3.9 mmol/L Blood Gas Puncture Site RT FEMORAL RT FEMORAL Blood Gas Patient Temperature 98.6 98.6 Blood Gas HCO3 20 mmol/L 20 mmol/L Blood Gas Base Excess -6.7 mmol/L -4.1 mmol/L Blood Gas Oxygen Saturation 97 % 98 % Arterial Blood pH 7.18 7.40 Arterial Blood Partial Pressure CO2 57 mmHg 33 mmHg Arterial Blood Partial Pressure O2 172 mmHg 206 mmHg Arterial Blood Oxygen Content 15.8 Vol % 15.8 Vol % Arterial Blood Carboxyhemoglobin 0.6 % 0.8 % Arterial Blood Methemoglobin 1.2 % 1.0 % Blood Gas Hemoglobin 11.4 G/DL 11.2 G/DL Oxygen Delivery Device VENTILATOR VENTILATOR Blood Gas Ventilator Setting A/C 450/16/5PEEP A/C 500/24/5PEEP Blood Gas Inspired Oxygen 80 % 60 % Phosphorus Level 3.1 MG/DL Magnesium Level 1.7 MG/DL Test 09/25/17 05:32 White Blood Count 7.0 TH/MM3 Red Blood Count 3.59 MIL/MM3 Hemoglobin 10.9 GM/DL Hematocrit 31.8 % Mean Corpuscular Volume 88.5 FL Mean Corpuscular Hemoglobin 30.3 PG Mean Corpuscular Hemoglobin Concent 34.2 % Red Cell Distribution Width 14.4 % Platelet Count 160 TH/MM3 Mean Platelet Volume 8.9 FL Neutrophils (%) (Auto) 89.7 % Lymphocytes (%) (Auto) 6.0 % Monocytes (%) (Auto) 4.2 % Eosinophils (%) (Auto) 0.0 % Basophils (%) (Auto) 0.1 % Neutrophils # (Auto) 6.3 TH/MM3 Lymphocytes # (Auto) 0.4 TH/MM3 Monocytes # (Auto) 0.3 TH/MM3 Eosinophils # (Auto) 0.0 TH/MM3 Basophils # (Auto) 0.0 TH/MM3 CBC Comment DIFF FINAL Differential Comment Imaging Last Impressions Chest X-Ray 09/24/17 0000 Signed Impressions: Service Date/Time: Sunday, September 24, 2017 07:56 - CONCLUSION: 1. ET tube 6 cm above the fabián. 2. Redemonstration of extensive bilateral airspace consolidation with cavitary change in the upper lobes. 3. No significant interval change. Varun Simmons MD CT Angiography 09/23/17 0811 Signed Impressions: Service Date/Time: Saturday, September 23, 2017 11:49 - CONCLUSION: 1. No evidence for pulmonary embolism. 2. Extensive bilateral cavitary pneumonia in the upper lobes, could be necrotizing pneumonia, tuberculosis, or secondary fungal infection with progressive massive fibrosis. 3. Prominent cavity right apex measures 3.8 x 4.1 cm. 4. Pleural plaques which can be seen with asbestosis exposure. Joni Galo MD Objective Remarks GENERAL: Patient is intubated and on mechanical ventilation SKIN: Warm and dry. HEAD: Normocephalic. EYES: No scleral icterus. No injection or drainage. NECK: Supple, trachea midline. No JVD or lymphadenopathy. CARDIOVASCULAR:Tachycardic without murmurs, gallops, or rubs. RESPIRATORY: Breath sounds equal bilaterally. Coarse BS GASTROINTESTINAL: Abdomen soft, non-tender, nondistended. MUSCULOSKELETAL: No cyanosis, or edema. Neuro: Intubated A/P Assessment and Plan 1. Acute hypoxemic respiratory Resp - intubated today 2. Probable pneumonia 3. Leukocytosis with bandemia. 4. Lactic acidemia.. resolving 5. History of asbestos exposure. 6. Paroxysmal atrial fibrillation 7. Mild hyponatremia Plan Neuro: On Fentanyl/ Versed infusion for sedation. Monitor neuro status. Daily sedation vacation Pulm: Continue with vent support and maintain sats above 92%. Bronchodilators, vent bundle., solumederol 40mg Q8, check CXR Pulm is following- Dr. Aly. will likely need bronch when stable discussed with patient's . CT chest: Extensive bilateral cavitary pneumonia in the upper lobes, ( necrotizing pneumonia, tuberculosis, or secondary fungal infection) with progressive massive fibrosis CV: Monitor HR and BP and maintain MAP>65 mmHg. For 2-D echo to evaluate LV function Serial lactic acid monitoring : Monitor renal function I's and O's and electrolyte replacement per protocol. Place on Lasix 40mg IV daily GI: on Protonix 40 mg daily for GI prophylaxis. On tube feeds- Glucerna 1.5 with goal rate 45ml/hr Monitor LFT's, check US liver and Hepatis profile. ID: Continue with abx( vancomycin and Zosyn). Monitor for signs of infections ( fever and WBC) ID is following- Dr. Samson Follow up on BC, strep pneumonia and Legionella urinary Ag pending Heme: Monitor CBC. Endo: SSI with Accu-Chek's to maintain euglycemia. GI prophylaxis with Protonix 40 mg daily and DVT prophylaxis with SCD's on heparin subcu. Level 3 Mellisa Armando MD Sep 25, 2017 07:40
[2017-09-25 07:49] LABS: POTASSIUM 2.8 MEQ/L (3.5-5.1)
[2017-09-25] MEDS ORDERED: FUROSEMIDE 40 MG/4 ML VIAL IV PUSH SCH (08:00)
[2017-09-25] MEDS: RESP: ALBUTEROL 2.5 MG/IPRATROPIUM 0.5 MG NEB (SCH) INH ×3 (08:00→19:46)
--- NOTE | 2017-09-25 08:49 | RADRPT ---
EXAM DATE/TIME: 09/25/2017 08:03 [facility] COMPARISON: CHEST SINGLE AP, September 24, 2017, 7:56. INDICATIONS : Ventilator dependent respiratory failure. MEDICAL HISTORY : Asbestosis. SURGICAL HISTORY : ENCOUNTER: Subsequent ACUITY: 2 days PAIN SCORE: Non-responsive. LOCATION: Bilateral chest FINDINGS: Extensive bilateral upper lobe predominant consolidation again noted. Calcified bilateral fiber thora antonietta. No pleural effusion seen. No pneumothorax. Endotracheal tube tip is approximately 4 cm above the fabián. There is a nasogastric tube coiled in t he stomach. CONCLUSION: No significant change extensive, bilateral upper lobe predominant pulmonary consolidation. Nathan Trujillo MD on September 25, 2017 at 8:46 Board Certified Radiologist. This report was verified electronically.
[2017-09-25] MEDS: PANTOPRAZOLE SODIUM 40 MG VIAL IV PUSH SCH (09:00)
[2017-09-25] MEDS: DOCUSATE SODIUM 50 MG/SENNA 8.6 MG TAB PO SCH ×2 (09:00→19:54)
[2017-09-25] MEDS: AZITHROMYCIN INJ 500 MG in SODIUM CHLOR 0.9% 250 ML INJ 250 ML IV SCH (13:15)
[2017-09-25] MEDS: POTASSIUM CHLOR 20 MEQ PREMIX 100 ML IV PRN ×2 (13:16→15:27)
[2017-09-26] VITALS (25 sets, daily range): BP systolic 74–147; BP diastolic 50–100; PULSE 68–95; RESP 17–25; TEMP 96.8–97.5; O2SAT 83–100
[2017-09-26] MEDS: PIPERACIL-TAZO 4.5 GM PREMIX 100 ML IV SCH ×4 (01:50→21:00)
[2017-09-26] MEDS: HEPARIN SODIUM - SQ 10,000 UNITS/ML VIAL SQ SCH ×2 (01:50→15:51)
[2017-09-26] MEDS: VANCOMYCIN INJ 1,000 MG in SODIUM CHLOR 0.9% 250 ML INJ 250 ML IV SCH (03:21)
[2017-09-26] MEDS: CHLORHEXIDINE GLUCONATE 2 % 1 PACK (2 CLOTHS) TOP SCH (04:00)
[2017-09-26] MEDS: INSULIN NovoLIN REGULAR SUPPLEMENTAL SCALE SQ SCH ×6 (04:00→20:00)
[2017-09-26 05:49] LABS: AUTOMATED NEUTROPHIL # 9.7 TH/MM3 (1.8-7.7); BASOPHIL % 0.1 % (0.0-2.0); EOSINOPHIL % 0.1 % (0.0-4.0); HEMATOCRIT 32.1 % (39.0-51.0); HEMO FLAGS DIFF FINAL; LYMPH % 4.6 % (9.0-44.0); LYMPHOCYTE # 0.5 TH/MM3 (1.0-4.8); MEAN CELL VOLUME 89.2 FL (80.0-100.0); MEAN CORPUSCULAR HGB CONC 33.6 % (32.0-36.0); MONO % 5.9 % (0.0-8.0); NEUT % 89.3 % (16.0-70.0); PLATELET COUNT 172 TH/MM3 (150-450); RED CELL DISTRIBUTION WIDTH 14.8 % (11.6-17.2); WHITE BLOOD COUNT 10.8 TH/MM3 (4.0-11.0)
[2017-09-26 06:01] LABS: BICARBONATE 28.8 MEQ/L (21.0-32.0); POTASSIUM 3.1 MEQ/L (3.5-5.1)
[2017-09-26] MEDS: POTASSIUM CHLOR 20 MEQ PREMIX 100 ML IV PRN ×2 (06:38→12:01)
--- NOTE | 2017-09-26 07:34 | HHI.CCPN ---
Subjective Remarks/Hospital Course The patient is a 77-year-old male with a past medical history of asbestos exposure, paroxysmal atrial fibrillation who presented to [facility] ED with worsening shortness of breath. The patient states that he has been short of breath for several years. However, his dyspnea worsened last night. He also reports productive cough with clear phlegm, however he denies any fever, chills or any constitutional symptoms. He was hospitalized five years ago for pneumonia in [place]. The patient denies any use of oxygen at home and he is not on any bronchodilators. He denies any hemoptysis. He was seen by a global recruiter at the [place], however, he has not seen him for a long time. Also, he is scheduled to undergo cardiac catheterization in November for a lesion in his heart according to his . On arrival to the ED, the patient was hypotensive with a systolic blood pressure in the 80s, tachycardiac with a heart rate of 130-150. He was given 1.5 liters of normal saline. His laboratory data is significant for leukocytosis with WBC 25.7 associated with bandemia and lactic acid level of 7.1. Chest x-ray in the ED showed bilateral upper lung zone pleural parenchymal opacity with areas of cavitation and volume loss in the upper lung zones. 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 He was given vancomycin and cefepime in the ED. Also, he received digoxin 0.25, Cardizem 15 mg IV push. 09/24 Patient was given 2L NS boluses and Albumin overnight for tachycardia ABG showed acute hypercapnic resp acidosis he was subsequently intubated and placed on mechanical ventilation. Afebrile. 09/25 Patient is sedated with Versed, Fentanyl and intubated. Afebrile. 09/26 No events overnight. Sedated and intubated. Afebrile. Objective Vital Signs Date Time Temp Pulse Resp B/P (MAP) Pulse Ox O2 Delivery O2 Flow Rate FiO2 09/26/17 06:00 95 09/26/17 04:34 100 35 09/26/17 04:00 97.1 24 92/57 (69) 09/23/17 20:58 Nasal Cannula 2.00 Intake and Output 09/26/17 09/26/17 09/27/17 08:00 16:00 00:00 Intake Total 900 ml Output Total 450 ml Balance 450 ml Result Diagram: 09/26/17 0416 09/26/17 0416 Other Results Laboratory Tests Test 09/25/17 09:20 09/25/17 17:58 09/26/17 04:16 Lactic Acid Level 1.5 mmol/L White Blood Count 10.8 TH/MM3 Red Blood Count 3.60 MIL/MM3 Hemoglobin 10.8 GM/DL Hematocrit 32.1 % Mean Corpuscular Volume 89.2 FL Mean Corpuscular Hemoglobin 30.0 PG Mean Corpuscular Hemoglobin Concent 33.6 % Red Cell Distribution Width 14.8 % Platelet Count 172 TH/MM3 Mean Platelet Volume 9.0 FL Neutrophils (%) (Auto) 89.3 % Lymphocytes (%) (Auto) 4.6 % Monocytes (%) (Auto) 5.9 % Eosinophils (%) (Auto) 0.1 % Basophils (%) (Auto) 0.1 % Neutrophils # (Auto) 9.7 TH/MM3 Lymphocytes # (Auto) 0.5 TH/MM3 Monocytes # (Auto) 0.6 TH/MM3 Eosinophils # (Auto) 0.0 TH/MM3 Basophils # (Auto) 0.0 TH/MM3 CBC Comment DIFF FINAL Differential Comment Blood Urea Nitrogen 31 MG/DL Creatinine 0.56 MG/DL Random Glucose 123 MG/DL Calcium Level 7.9 MG/DL Sodium Level 143 MEQ/L Potassium Level 3.1 MEQ/L Chloride Level 106 MEQ/L Carbon Dioxide Level 28.8 MEQ/L Anion Gap 8 MEQ/L Estimat Glomerular Filtration Rate 142 ML/MIN Imaging Last Impressions Chest X-Ray 09/25/17 0000 Signed Impressions: Service Date/Time: Monday, September 25, 2017 08:03 - CONCLUSION: No significant change extensive, bilateral upper lobe predominant pulmonary consolidation. Nathan Trujillo MD CT Angiography 09/23/17 0811 Signed Impressions: Service Date/Time: Saturday, September 23, 2017 11:49 - CONCLUSION: 1. No evidence for pulmonary embolism. 2. Extensive bilateral cavitary pneumonia in the upper lobes, could be necrotizing pneumonia, tuberculosis, or secondary fungal infection with progressive massive fibrosis. 3. Prominent cavity right apex measures 3.8 x 4.1 cm. 4. Pleural plaques which can be seen with asbestosis exposure. Joni Galo MD Objective Remarks GENERAL: Patient is intubated and on mechanical ventilation SKIN: Warm and dry. HEAD: Normocephalic. EYES: No scleral icterus. No injection or drainage. NECK: Supple, trachea midline. No JVD or lymphadenopathy. CARDIOVASCULAR:Tachycardic without murmurs, gallops, or rubs. RESPIRATORY: Breath sounds equal bilaterally. Coarse BS GASTROINTESTINAL: Abdomen soft, non-tender, nondistended. MUSCULOSKELETAL: No cyanosis, or edema. Neuro: Intubated A/P Assessment and Plan 1. Acute hypoxemic respiratory Resp - intubated today 2. Probable pneumonia 3. Leukocytosis with bandemia. 4. Lactic acidemia.. resolving 5. History of asbestos exposure. 6. Paroxysmal atrial fibrillation 7. Mild hyponatremia Plan Neuro: On Fentanyl/ Versed infusion for sedation. Monitor neuro status. Daily sedation vacation Pulm: Continue with vent support and maintain sats above 92%. Bronchodilators, vent bundle., solumederol 40mg BID Pulm is following- Dr. Aly. Discussed with patient's re need for bronch and she is agreeable to it. CT chest: Extensive bilateral cavitary pneumonia in the upper lobes, ( necrotizing pneumonia, tuberculosis, or secondary fungal infection) with progressive massive fibrosis CV: Monitor HR and BP and maintain MAP>65 mmHg. Echo showed EF 45=50% Lactic acid resolved : Monitor renal function I's and O's and electrolyte replacement per protocol. On Lasix 40mg IV daily. Needs K replacement today GI: on Protonix 40 mg daily for GI prophylaxis. On tube feeds- TF on hold for US today(Glucerna 1.5 with goal rate 45ml/hr) Monitor LFT's, for US liver, Hepatis profile pending ID: Continue with abx( vancomycin and Zosyn). Monitor for signs of infections ( fever and WBC) ID is following- Dr. Samson Follow up on BC, strep pneumonia and Legionella urinary Ag pending Heme: Monitor CBC. Endo: SSI with Accu-Chek's to maintain euglycemia. GI prophylaxis with Protonix 40 mg daily and DVT prophylaxis with SCD's on heparin subcu. Level 3 Mellisa Armando MD Sep 26, 2017 07:34
[2017-09-26] MEDS: RESP: ALBUTEROL 2.5 MG/IPRATROPIUM 0.5 MG NEB (SCH) INH ×3 (07:46→20:18)
[2017-09-26 07:52] LABS: INDIRECT BILIRUBIN 0.6 MG/DL (0.0-0.8); MAGNESIUM 1.7 MG/DL (1.5-2.5); TOTAL BILIRUBIN ADULT 0.9 MG/DL (0.2-1.0)
[2017-09-26] MEDS: FUROSEMIDE 40 MG/4 ML VIAL IV PUSH SCH (09:20)
[2017-09-26] MEDS: methylPREDNISolone SOD SUCC 40 MG/1 ML VIAL IV PUSH SCH ×2 (09:21→21:00)
[2017-09-26] MEDS: PANTOPRAZOLE SODIUM 40 MG VIAL IV PUSH SCH (09:21)
--- NOTE | 2017-09-26 11:22 | RADRPT ---
EXAM DATE/TIME: 09/26/2017 10:44 [facility] COMPARISON: No previous studies available for comparison. INDICATIONS : Increased lab values. MEDICAL HISTORY : Afib. COPD. Dyspnea. Hemoptysis. SURGICAL HISTORY : Unable to obtain ENCOUNTER: Initial ACUITY: 1 day PAIN SCORE: Nonresponsive. LOCATION: Bilateral upper quadrant MEASUREMENTS: LIVER: 14.3 cm length COMMON DUCT: 6 mm RIGHT KIDNEY: 11.3 x 5.2 x 4.9 cm SPLEEN: 8.8 cm length FINDINGS: LIVER: Normal echotexture without focal lesion or ductal dilatation. COMMON DUCT: No intraluminal mass or stone visualized. GALLBLADDER: Mild prominence of the gallbladder wall is noted. There is trace pericholecystic fluid. There are no intraluminal filling defects. PANCREAS: The visualized portions are within normal limits. RIGHT KIDNEY: No hydronephrosis, stone or mass. SPLEEN: No focal lesion. CONCLUSION: 1. Mildly distended gallbladder with minimal wall prominence and trace pericholecystic fluid. 2. No evidence of cholelithiasis. 3. Otherwise unremarkable exam. Kun Garcia MD on September 26, 2017 at 11:18 Board Certified Radiologist. This report was verified electronically.
[2017-09-26] MEDS: DOCUSATE SODIUM 50 MG/SENNA 8.6 MG TAB PO SCH ×2 (12:02→21:00)
--- NOTE | 2017-09-26 13:12 | HHI.IDPN ---
Subjective Subjective Remarks now intubated sp bronch afebrile, VSS are o/w unstable Antibiotics antwon cesar Allergies: Coded Allergies: No Known Allergies (Verified , 06/21/17) Objective . Vital Signs Date Time Temp Pulse Resp B/P (MAP) Pulse Ox O2 Delivery O2 Flow Rate FiO2 09/26/17 11:36 99 40 09/26/17 10:10 100 100 09/26/17 07:46 100 35 09/26/17 06:00 95 09/26/17 04:34 100 35 09/26/17 04:00 78 09/26/17 04:00 35 09/26/17 04:00 97.1 78 24 92/57 (69) 100 09/26/17 02:00 82 09/26/17 01:04 99 35 09/26/17 00:00 97.5 87 19 91/59 (70) 100 09/26/17 00:00 35 09/26/17 00:00 87 09/25/17 22:00 87 09/25/17 20:00 85 09/25/17 20:00 97.2 85 24 98/61 (73) 100 09/25/17 20:00 35 09/25/17 19:46 96 35 09/25/17 18:00 86 09/25/17 16:00 97.7 91 24 101/58 (72) 96 09/25/17 16:00 86 09/25/17 15:16 100 35 09/25/17 14:00 86 . Laboratory Tests Test 09/25/17 05:32 09/26/17 04:16 White Blood Count 7.0 TH/MM3 10.8 TH/MM3 Red Blood Count 3.59 MIL/MM3 3.60 MIL/MM3 Hemoglobin 10.9 GM/DL 10.8 GM/DL Hematocrit 31.8 % 32.1 % Mean Corpuscular Volume 88.5 FL 89.2 FL Mean Corpuscular Hemoglobin 30.3 PG 30.0 PG Mean Corpuscular Hemoglobin Concent 34.2 % 33.6 % Red Cell Distribution Width 14.4 % 14.8 % Platelet Count 160 TH/MM3 172 TH/MM3 Mean Platelet Volume 8.9 FL 9.0 FL Neutrophils (%) (Auto) 89.7 % 89.3 % Lymphocytes (%) (Auto) 6.0 % 4.6 % Monocytes (%) (Auto) 4.2 % 5.9 % Eosinophils (%) (Auto) 0.0 % 0.1 % Basophils (%) (Auto) 0.1 % 0.1 % Neutrophils # (Auto) 6.3 TH/MM3 9.7 TH/MM3 Lymphocytes # (Auto) 0.4 TH/MM3 0.5 TH/MM3 Monocytes # (Auto) 0.3 TH/MM3 0.6 TH/MM3 Eosinophils # (Auto) 0.0 TH/MM3 0.0 TH/MM3 Basophils # (Auto) 0.0 TH/MM3 0.0 TH/MM3 CBC Comment DIFF FINAL DIFF FINAL Differential Comment Laboratory Tests Test 09/25/17 05:32 09/25/17 09:20 09/26/17 04:16 Blood Urea Nitrogen 23 MG/DL 31 MG/DL Creatinine 0.60 MG/DL 0.56 MG/DL Random Glucose 91 MG/DL 123 MG/DL Total Protein 5.7 GM/DL 5.3 GM/DL Albumin 2.2 GM/DL 2.0 GM/DL Calcium Level 8.1 MG/DL 7.9 MG/DL Alkaline Phosphatase 125 U/L 104 U/L Aspartate Amino Transf (AST/SGOT) 105 U/L 49 U/L Alanine Aminotransferase (ALT/SGPT) 98 U/L 73 U/L Total Bilirubin 1.7 MG/DL 0.9 MG/DL Sodium Level 139 MEQ/L 143 MEQ/L Potassium Level 2.8 MEQ/L 3.1 MEQ/L Chloride Level 102 MEQ/L 106 MEQ/L Carbon Dioxide Level 25.6 MEQ/L 28.8 MEQ/L Anion Gap 11 MEQ/L 8 MEQ/L Estimat Glomerular Filtration Rate 131 ML/MIN 142 ML/MIN Lactic Acid Level 1.5 mmol/L Phosphorus Level 1.6 MG/DL Magnesium Level 1.7 MG/DL Direct Bilirubin 0.3 MG/DL Indirect Bilirubin 0.6 MG/DL Microbiology Date/Time Source Procedure Growth Status 09/26/17 10:30 Bronchial Washings Right Upper Lobe Fungal Smear Pending Received 09/26/17 10:30 Bronchial Washings Right Upper Lobe Fungal Culture Pending Received 09/26/17 10:30 Bronchial Washings Right Upper Lobe Acid Fast Stain Pending Received 09/26/17 10:30 Bronchial Washings Right Upper Lobe Mycobacterial Culture Pending Received 09/26/17 10:30 Bronchial Washings Right Upper Lobe Gram Stain Pending Received 09/26/17 10:30 Bronchial Washings Right Upper Lobe Bronchial Culture Pending Received 09/24/17 12:10 Sputum Endotracheal Fungal Smear - Final NO FUNGAL ELEMENTS SEEN. Resulted 09/24/17 12:10 Sputum Endotracheal Fungal Culture Pending Resulted 09/24/17 12:10 Sputum Endotracheal Gram Stain - Final Resulted 09/24/17 12:10 Sputum Endotracheal Sputum Culture - Preliminary LIGHT GROWTH NORMAL RESPIRATORY CHI... Resulted 09/23/17 14:50 Sputum Expectorated Sputum Gram Stain - Final Resulted 09/23/17 14:50 Sputum Expectorated Sputum Sputum Culture - Preliminary HEAVY GROWTH NORMAL RESPIRATORY CHI... Resulted Imaging Last Impressions Liver Ultrasound 09/26/17 0000 Signed Impressions: Service Date/Time: Tuesday, September 26, 2017 10:44 - CONCLUSION: 1. Mildly distended gallbladder with minimal wall prominence and trace pericholecystic fluid. 2. No evidence of cholelithiasis. 3. Otherwise unremarkable exam. Kun Garcia MD Chest X-Ray 09/25/17 0000 Signed Impressions: Service Date/Time: Monday, September 25, 2017 08:03 - CONCLUSION: No significant change extensive, bilateral upper lobe predominant pulmonary consolidation. Nathan Trujillo MD CT Angiography 09/23/17 0811 Signed Impressions: Service Date/Time: Saturday, September 23, 2017 11:49 - CONCLUSION: 1. No evidence for pulmonary embolism. 2. Extensive bilateral cavitary pneumonia in the upper lobes, could be necrotizing pneumonia, tuberculosis, or secondary fungal infection with progressive massive fibrosis. 3. Prominent cavity right apex measures 3.8 x 4.1 cm. 4. Pleural plaques which can be seen with asbestosis exposure. Joni Galo MD Physical Exam CONSTITUTIONAL/GENERAL: This is a thin cachectic elderly patient, in no apparent distress. TUBES/LINES/DRAINS: SKIN: No jaundice, rashes, or lesions. Skin temperature appropriate. EYES: Pupils equal and round and reactive. No scleral icterus. No injection or drainage. Fundi not examined. ENT: Nose without bleeding or purulent drainage. Orally intubated CARDIOVASCULAR: Regular rate and rhythm without murmurs, gallops, or rubs. No JVD. Peripheral pulses symmetric. RESPIRATORY/CHEST: Symmetric, unlabored respirations.Clear to auscultation. Breath sounds diminished bilaterally. No wheezes, rales, or rhonchi. GASTROINTESTINAL: Abdomen soft, non-tender, nondistended. No hepato-splenomegaly , or palpable masses. No guarding. Bowel sounds present. GENITOURINARY: Without palpable bladder distension. MUSCULOSKELETAL: Extremities without clubbing, cyanosis, or edema. No joint tenderness or effusion noted. No calf tenderness. No mottling or clubbing. NEUROLOGICAL:sedated intubated PSYCHIATRIC: unable to assess Assessment & Plan Remarks Extensive bilateral cavitary pneumonia in the upper lobes, ( necrotizing pneumonia, tuberculosis, or secondary fungal infection) with progressive massive fibrosis sp bronch - P studies Abn LFTs and mild changes on US - dw Dr Babb: no specific findings cont broad spectrum abx fu routine, AFB, fungal clx will add more fungal studies if bronch is unrevealing cont isolation P MTB probe fu LFTs, clincially Bailey Samson MD Sep 26, 2017 13:12
[2017-09-26] MEDS: AZITHROMYCIN INJ 500 MG in SODIUM CHLOR 0.9% 250 ML INJ 250 ML IV SCH (14:00)
[2017-09-26] MEDS ORDERED: Vancomycin Consult Pharmacy 1 EA OTHER SCH (19:00)
[2017-09-26] MEDS ORDERED: PHARMACY ORDERED LAB ONE (19:45)
[2017-09-27] VITALS (18 sets, daily range): BP systolic 90–145; BP diastolic 53–90; PULSE 78–112; RESP 18–35; TEMP 97.5–97.9; O2SAT 94–100
[2017-09-27] MEDS: HEPARIN SODIUM - SQ 10,000 UNITS/ML VIAL SQ SCH ×2 (01:12→16:08)
[2017-09-27] MEDS: PIPERACIL-TAZO 4.5 GM PREMIX 100 ML IV SCH ×4 (01:12→20:56)
[2017-09-27 03:00] LABS: POTASSIUM 3.7 MEQ/L (3.5-5.1); VANCOMYCIN TROUGH 6.5 MCG/ML (5.0-10.0)
[2017-09-27] MEDS: INSULIN NovoLIN REGULAR SUPPLEMENTAL SCALE SQ SCH ×6 (04:00→20:00)
[2017-09-27] MEDS: CHLORHEXIDINE GLUCONATE 2 % 1 PACK (2 CLOTHS) TOP SCH (04:00)
[2017-09-27] MEDS ORDERED: VANCOMYCIN INJ 1,000 MG in SODIUM CHLOR 0.9% 250 ML INJ 250 ML IV SCH (07:00)
--- NOTE | 2017-09-27 07:58 | HHI.CCPN ---
Subjective Remarks/Hospital Course The patient is a 77-year-old male with a past medical history of asbestos exposure, paroxysmal atrial fibrillation who presented to [facility] ED with worsening shortness of breath. The patient states that he has been short of breath for several years. However, his dyspnea worsened last night. He also reports productive cough with clear phlegm, however he denies any fever, chills or any constitutional symptoms. He was hospitalized five years ago for pneumonia in [place]. The patient denies any use of oxygen at home and he is not on any bronchodilators. He denies any hemoptysis. He was seen by a sales appointment coordinator at the [place], however, he has not seen him for a long time. Also, he is scheduled to undergo cardiac catheterization in November for a lesion in his heart according to his . On arrival to the ED, the patient was hypotensive with a systolic blood pressure in the 80s, tachycardiac with a heart rate of 130-150. He was given 1.5 liters of normal saline. His laboratory data is significant for leukocytosis with WBC 25.7 associated with bandemia and lactic acid level of 7.1. Chest x-ray in the ED showed bilateral upper lung zone pleural parenchymal opacity with areas of cavitation and volume loss in the upper lung zones. 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 He was given vancomycin and cefepime in the ED. Also, he received digoxin 0.25, Cardizem 15 mg IV push. 09/24 Patient was given 2L NS boluses and Albumin overnight for tachycardia ABG showed acute hypercapnic resp acidosis he was subsequently intubated and placed on mechanical ventilation. Afebrile. 09/25 Patient is sedated with Versed, Fentanyl and intubated. Afebrile. 09/26 No events overnight. Sedated and intubated. Afebrile. 09/27 Patient was self extubated overnight. Awake and alert. On 3L oxygen Objective Vital Signs Date Time Temp Pulse Resp B/P (MAP) Pulse Ox O2 Delivery O2 Flow Rate FiO2 09/27/17 04:30 100 Nasal Cannula 3 09/27/17 04:00 97.5 85 18 90/53 (65) 09/27/17 04:00 40 Intake and Output 09/27/17 09/27/17 09/28/17 08:00 16:00 00:00 Intake Total 1596 ml Output Total 1100 ml Balance 496 ml Result Diagram: 09/26/17 0416 09/27/17 0130 Other Results Laboratory Tests Test 09/27/17 01:30 Potassium Level 3.7 MEQ/L Phosphorus Level 3.6 MG/DL Vancomycin Level Trough 6.5 MCG/ML Imaging Last Impressions Liver Ultrasound 09/26/17 0000 Signed Impressions: Service Date/Time: Tuesday, September 26, 2017 10:44 - CONCLUSION: 1. Mildly distended gallbladder with minimal wall prominence and trace pericholecystic fluid. 2. No evidence of cholelithiasis. 3. Otherwise unremarkable exam. Kun Garcia MD Chest X-Ray 09/25/17 0000 Signed Impressions: Service Date/Time: Monday, September 25, 2017 08:03 - CONCLUSION: No significant change extensive, bilateral upper lobe predominant pulmonary consolidation. Nathan Trujillo MD CT Angiography 09/23/17 0811 Signed Impressions: Service Date/Time: Saturday, September 23, 2017 11:49 - CONCLUSION: 1. No evidence for pulmonary embolism. 2. Extensive bilateral cavitary pneumonia in the upper lobes, could be necrotizing pneumonia, tuberculosis, or secondary fungal infection with progressive massive fibrosis. 3. Prominent cavity right apex measures 3.8 x 4.1 cm. 4. Pleural plaques which can be seen with asbestosis exposure. Joni Galo MD Objective Remarks GENERAL: Patient is 77 yo lying in be din NAD SKIN: Warm and dry. HEAD: Normocephalic. EYES: No scleral icterus. No injection or drainage. NECK: Supple, trachea midline. No JVD or lymphadenopathy. CARDIOVASCULAR:Tachycardic without murmurs, gallops, or rubs. RESPIRATORY: Breath sounds equal bilaterally. few Coarse BS GASTROINTESTINAL: Abdomen soft, non-tender, nondistended. MUSCULOSKELETAL: No cyanosis, or edema. Neuro: Awake. A/P Assessment and Plan 1. Acute hypoxemic respiratory Resp - self extubated 2. Probable pneumonia 3. Leukocytosis with bandemia. 4. Lactic acidemia.. resolving 5. History of asbestos exposure. 6. Paroxysmal atrial fibrillation 7. Mild hyponatremia Plan Neuro: Awake and alert Pulm: Continue with oxygen and maintain sats above 92%. Bronchodilators., solumederol 40mg BID, IS Pulm is following- Dr. Aly. s/p bronch 09/26: Minimal secretions b/ l. Follow up on BAL results CT chest: Extensive bilateral cavitary pneumonia in the upper lobes, ( necrotizing pneumonia, tuberculosis, or secondary fungal infection) with progressive massive fibrosis CV: Monitor HR and BP and maintain MAP>65 mmHg. Echo showed EF 45=50% Lactic acid resolved : Monitor renal function I's and O's and electrolyte replacement per protocol. On Lasix 40mg IV daily. GI: on Protonix 40 mg daily for GI prophylaxis. Speech eval, diet per speech Monitor LFT's, for US liver:Mildly distended gallbladder with minimal wall prominence and trace pericholecystic fluid. No evidence of cholelithiasis Hepatis profile negative ID: Continue with abx( vancomycin and Zosyn). Monitor for signs of infections ( fever and WBC) ID is following- Dr. Samson, Follow up on BAL results Heme: Monitor CBC. Endo: SSI with Accu-Chek's to maintain euglycemia. GI prophylaxis with Protonix 40 mg daily and DVT prophylaxis with SCD's on heparin subcu. Follow up on labs Level 3 Mellisa Armando MD Sep 27, 2017 07:58
[2017-09-27] MEDS: RESP: ALBUTEROL 2.5 MG/IPRATROPIUM 0.5 MG NEB (SCH) INH ×3 (08:10→20:14)
[2017-09-27] MEDS: DOCUSATE SODIUM 50 MG/SENNA 8.6 MG TAB PO SCH ×2 (09:00→20:56)
[2017-09-27 09:05] LABS: AUTOMATED NEUTROPHIL # 9.7 TH/MM3 (1.8-7.7); BASOPHIL % 0.3 % (0.0-2.0); HEMATOCRIT 38.4 % (39.0-51.0); LYMPH % 3.7 % (9.0-44.0); LYMPHOCYTE # 0.4 TH/MM3 (1.0-4.8); MEAN CELL VOLUME 89.7 FL (80.0-100.0); MEAN CORPUSCULAR HGB CONC 33.4 % (32.0-36.0); MONO % 6.8 % (0.0-8.0); NEUT % 89.2 % (16.0-70.0); PLATELET COUNT 215 TH/MM3 (150-450); RED BLOOD COUNT 4.28 MIL/MM3 (4.50-5.90); RED CELL DISTRIBUTION WIDTH 14.8 % (11.6-17.2); WHITE BLOOD COUNT 10.9 TH/MM3 (4.0-11.0)
[2017-09-27 09:12] LABS: HEMO FLAGS AUTO DIFF
[2017-09-27] MEDS: FUROSEMIDE 40 MG/4 ML VIAL IV PUSH SCH (09:18)
[2017-09-27] MEDS: methylPREDNISolone SOD SUCC 40 MG/1 ML VIAL IV PUSH SCH ×2 (09:18→20:56)
[2017-09-27] MEDS: PANTOPRAZOLE SODIUM 40 MG VIAL IV PUSH SCH (09:21)
[2017-09-27 09:52] LABS: ACANTHOCYTES OCC (NORMAL); OVALOCYTES 1+ (NORMAL); PLATELET ESTIMATE SMEAR NORMAL (NORMAL); PLATELET MORPHOLOGY ENLARGED (NORMAL); SCAN/DIFF AUTO DIFF CONFIRMED; TOXIC GRANULATION 1+ (NORMAL)
[2017-09-27 09:53] LABS: ANION GAP 8 MEQ/L (5-15); AST (GOT) 52 U/L (15-37); BICARBONATE 31.1 MEQ/L (21.0-32.0); BLOOD UREA NITROGEN 38 MG/DL (7-18); CHLORIDE 105 MEQ/L (98-107); GLOMERULAR FILTRATION RATE 92 ML/MIN (>89); MAGNESIUM 2.3 MG/DL (1.5-2.5); POTASSIUM 3.9 MEQ/L (3.5-5.1); SODIUM (NA) 144 MEQ/L (136-145)
[2017-09-27 10:01] LABS: ALKALINE PHOSPHATASE 119 U/L (45-117); ALT (GPT) 76 U/L (12-78); TOTAL BILIRUBIN ADULT 0.8 MG/DL (0.2-1.0)
--- NOTE | 2017-09-27 12:35 | HHI.IDPN ---
Subjective Subjective Remarks pt self extubated and is doing remakably well he is on ventimask and is faily alert and coherent Prelim studies all negative (AFB/fungal/g-stain), immature growth on bronch Antibiotics azithro zosyn vanco Allergies: Coded Allergies: No Known Allergies (Verified , 06/21/17) Objective . Vital Signs Date Time Temp Pulse Resp B/P (MAP) Pulse Ox O2 Delivery O2 Flow Rate FiO2 09/27/17 04:30 100 Nasal Cannula 3 09/27/17 04:00 97.5 85 18 90/53 (65) 99 09/27/17 04:00 40 09/27/17 01:08 99 40 09/27/17 00:00 40 09/27/17 00:00 97.5 78 18 99/57 (71) 100 09/26/17 20:17 100 Ventilator 40 09/26/17 20:04 100 35 09/26/17 20:00 96.8 85 19 95/61 (72) 100 09/26/17 20:00 40 09/26/17 16:00 35 09/26/17 16:00 77 24 104/61 (75) 99 09/26/17 15:40 99 40 09/26/17 15:00 74 24 88/52 (64) 99 09/26/17 14:00 70 24 98/59 (72) 100 09/26/17 13:00 70 17 107/64 (78) 100 09/26/17 12:45 77 25 105/64 (78) 97 09/26/17 12:30 68 24 92/55 (67) 99 . Laboratory Tests Test 09/26/17 04:16 09/27/17 06:40 White Blood Count 10.8 TH/MM3 10.9 TH/MM3 Red Blood Count 3.60 MIL/MM3 4.28 MIL/MM3 Hemoglobin 10.8 GM/DL 12.8 GM/DL Hematocrit 32.1 % 38.4 % Mean Corpuscular Volume 89.2 FL 89.7 FL Mean Corpuscular Hemoglobin 30.0 PG 30.0 PG Mean Corpuscular Hemoglobin Concent 33.6 % 33.4 % Red Cell Distribution Width 14.8 % 14.8 % Platelet Count 172 TH/MM3 215 TH/MM3 Mean Platelet Volume 9.0 FL 9.6 FL Neutrophils (%) (Auto) 89.3 % 89.2 % Lymphocytes (%) (Auto) 4.6 % 3.7 % Monocytes (%) (Auto) 5.9 % 6.8 % Eosinophils (%) (Auto) 0.1 % 0.0 % Basophils (%) (Auto) 0.1 % 0.3 % Neutrophils # (Auto) 9.7 TH/MM3 9.7 TH/MM3 Lymphocytes # (Auto) 0.5 TH/MM3 0.4 TH/MM3 Monocytes # (Auto) 0.6 TH/MM3 0.7 TH/MM3 Eosinophils # (Auto) 0.0 TH/MM3 0.0 TH/MM3 Basophils # (Auto) 0.0 TH/MM3 0.0 TH/MM3 CBC Comment DIFF FINAL AUTO DIFF Differential Comment AUTO DIFF CONFIRMED Toxic Granulation 1+ Platelet Estimate NORMAL Platelet Morphology Comment ENLARGED Ovalocytes 1+ Acanthocytes OCC Laboratory Tests Test 09/26/17 04:16 09/27/17 01:30 09/27/17 06:40 Blood Urea Nitrogen 31 MG/DL 38 MG/DL Creatinine 0.56 MG/DL 0.82 MG/DL Random Glucose 123 MG/DL 132 MG/DL Calcium Level 7.9 MG/DL 8.4 MG/DL Sodium Level 143 MEQ/L 144 MEQ/L Potassium Level 3.1 MEQ/L 3.7 MEQ/L 3.9 MEQ/L Chloride Level 106 MEQ/L 105 MEQ/L Carbon Dioxide Level 28.8 MEQ/L 31.1 MEQ/L Anion Gap 8 MEQ/L 8 MEQ/L Estimat Glomerular Filtration Rate 142 ML/MIN 92 ML/MIN Phosphorus Level 1.6 MG/DL 3.6 MG/DL 4.8 MG/DL Magnesium Level 1.7 MG/DL 2.3 MG/DL Total Bilirubin 0.9 MG/DL 0.8 MG/DL Direct Bilirubin 0.3 MG/DL Indirect Bilirubin 0.6 MG/DL Aspartate Amino Transf (AST/SGOT) 49 U/L 52 U/L Alanine Aminotransferase (ALT/SGPT) 73 U/L 76 U/L Alkaline Phosphatase 104 U/L 119 U/L Total Protein 5.3 GM/DL 6.4 GM/DL Albumin 2.0 GM/DL 2.3 GM/DL Microbiology Date/Time Source Procedure Growth Status 09/26/17 10:30 Bronchial Washings Right Upper Lobe Fungal Smear - Final NO FUNGAL ELEMENTS SEEN. Resulted 09/26/17 10:30 Bronchial Washings Right Upper Lobe Fungal Culture Pending Resulted 09/26/17 10:30 Bronchial Washings Right Upper Lobe Acid Fast Stain - Final NO ACID FAST BACILLI SEEN Resulted 09/26/17 10:30 Bronchial Washings Right Upper Lobe Mycobacterial Culture Pending Resulted 09/26/17 10:30 Bronchial Washings Right Upper Lobe Gram Stain - Final Resulted 09/26/17 10:30 Bronchial Washings Right Upper Lobe Bronchial Culture - Preliminary IMMATURE GROWTH - REINCUBATE Resulted Imaging Last Impressions Liver Ultrasound 09/26/17 0000 Signed Impressions: Service Date/Time: Tuesday, September 26, 2017 10:44 - CONCLUSION: 1. Mildly distended gallbladder with minimal wall prominence and trace pericholecystic fluid. 2. No evidence of cholelithiasis. 3. Otherwise unremarkable exam. Kun Garcia MD Chest X-Ray 09/25/17 0000 Signed Impressions: Service Date/Time: Monday, September 25, 2017 08:03 - CONCLUSION: No significant change extensive, bilateral upper lobe predominant pulmonary consolidation. Nathan Trujillo MD CT Angiography 09/23/17 0811 Signed Impressions: Service Date/Time: Saturday, September 23, 2017 11:49 - CONCLUSION: 1. No evidence for pulmonary embolism. 2. Extensive bilateral cavitary pneumonia in the upper lobes, could be necrotizing pneumonia, tuberculosis, or secondary fungal infection with progressive massive fibrosis. 3. Prominent cavity right apex measures 3.8 x 4.1 cm. 4. Pleural plaques which can be seen with asbestosis exposure. Joni Galo MD Physical Exam CONSTITUTIONAL/GENERAL: This is a thin cachectic elderly patient, in no apparent distress. TUBES/LINES/DRAINS: SKIN: No jaundice, rashes, or lesions. Skin temperature appropriate. EYES: Pupils equal and round and reactive. No scleral icterus. No injection or drainage. Fundi not examined. ENT: Nose without bleeding or purulent drainage. Orally intubated CARDIOVASCULAR: Regular rate and rhythm without murmurs, gallops, or rubs. No JVD. Peripheral pulses symmetric. RESPIRATORY/CHEST: Symmetric, unlabored respirations. b/l rhonchi to auscultation. Breath sounds diminished bilaterally. No wheezes, rales, or rhonchi. GASTROINTESTINAL: Abdomen soft, non-tender, nondistended. No hepato-splenomegaly , or palpable masses. No guarding. Bowel sounds present. GENITOURINARY: Without palpable bladder distension. MUSCULOSKELETAL: Extremities without clubbing, cyanosis, or edema. No joint tenderness or effusion noted. No calf tenderness. No mottling or clubbing. NEUROLOGICAL: awake, alert PSYCHIATRIC: calm and cooperative Assessment & Plan Remarks Extensive bilateral cavitary pneumonia in the upper lobes, ( necrotizing pneumonia, tuberculosis, or secondary fungal infection) with progressive massive fibrosis sp bronch - P studies AFB, fungal stains negative Abn LFTs and mild changes on US - dw Dr Babb: no specific findings cont broad spectrum abx fu routine, AFB, fungal clx cont isolation P MTB probe fu LFTs, clincially dw Bailey Hernandes MD Sep 27, 2017 12:35
[2017-09-27] MEDS: AZITHROMYCIN INJ 500 MG in SODIUM CHLOR 0.9% 250 ML INJ 250 ML IV SCH (16:07)
[2017-09-27] MEDS: VANCOMYCIN INJ 1,000 MG in SODIUM CHLOR 0.9% 250 ML INJ 250 ML IV SCH (20:56)
[2017-09-28] VITALS (14 sets, daily range): BP systolic 113–138; BP diastolic 68–96; PULSE 85–105; RESP 24–28; TEMP 97.8–98.4; O2SAT 94–99
[2017-09-28] MEDS: HEPARIN SODIUM - SQ 10,000 UNITS/ML VIAL SQ SCH ×2 (02:12→14:08)
[2017-09-28] MEDS: PIPERACIL-TAZO 4.5 GM PREMIX 100 ML IV SCH ×4 (02:12→20:59)
[2017-09-28] MEDS: INSULIN NovoLIN REGULAR SUPPLEMENTAL SCALE SQ SCH ×6 (04:00→20:00)
[2017-09-28] MEDS: CHLORHEXIDINE GLUCONATE 2 % 1 PACK (2 CLOTHS) TOP SCH (04:00)
[2017-09-28 04:37] LABS: M. TUBERCULOSIS PCR NOT DETECTED (NOT DETECT)
[2017-09-28] MEDS: VANCOMYCIN INJ 1,000 MG in SODIUM CHLOR 0.9% 250 ML INJ 250 ML IV SCH ×2 (05:32→17:25)
[2017-09-28 07:16] LABS: AUTOMATED NEUTROPHIL # 8.5 TH/MM3 (1.8-7.7); BASOPHIL % 0.1 % (0.0-2.0); HEMO FLAGS DIFF FINAL; LYMPH % 4.4 % (9.0-44.0); LYMPHOCYTE # 0.4 TH/MM3 (1.0-4.8); MEAN CELL VOLUME 89.9 FL (80.0-100.0); MEAN CORPUSCULAR HEMOGLOBIN 29.5 PG (27.0-34.0); MEAN CORPUSCULAR HGB CONC 32.9 % (32.0-36.0); MONO % 6.4 % (0.0-8.0); NEUT % 89.1 % (16.0-70.0); PLATELET COUNT 214 TH/MM3 (150-450); RED BLOOD COUNT 4.23 MIL/MM3 (4.50-5.90); RED CELL DISTRIBUTION WIDTH 14.7 % (11.6-17.2); WHITE BLOOD COUNT 9.5 TH/MM3 (4.0-11.0)
[2017-09-28 07:44] LABS: ALT (GPT) 71 U/L (12-78); ANION GAP 6 MEQ/L (5-15); AST (GOT) 41 U/L (15-37); BICARBONATE 36.1 MEQ/L (21.0-32.0); BLOOD UREA NITROGEN 30 MG/DL (7-18); CHLORIDE 104 MEQ/L (98-107); GLOMERULAR FILTRATION RATE 152 ML/MIN (>89); MAGNESIUM 2.3 MG/DL (1.5-2.5); POTASSIUM 3.3 MEQ/L (3.5-5.1); SODIUM (NA) 146 MEQ/L (136-145)
[2017-09-28 07:58] LABS: ALKALINE PHOSPHATASE 97 U/L (45-117); TOTAL BILIRUBIN ADULT 0.8 MG/DL (0.2-1.0)
--- NOTE | 2017-09-28 08:17 | HHI.CCPN ---
Subjective Remarks/Hospital Course The patient is a 77-year-old male with a past medical history of asbestos exposure, paroxysmal atrial fibrillation who presented to [facility] ED with worsening shortness of breath. The patient states that he has been short of breath for several years. However, his dyspnea worsened last night. He also reports productive cough with clear phlegm, however he denies any fever, chills or any constitutional symptoms. He was hospitalized five years ago for pneumonia in [place]. The patient denies any use of oxygen at home and he is not on any bronchodilators. He denies any hemoptysis. He was seen by a liquor inspector at the [place], however, he has not seen him for a long time. Also, he is scheduled to undergo cardiac catheterization in November for a lesion in his heart according to his . On arrival to the ED, the patient was hypotensive with a systolic blood pressure in the 80s, tachycardiac with a heart rate of 130-150. He was given 1.5 liters of normal saline. His laboratory data is significant for leukocytosis with WBC 25.7 associated with bandemia and lactic acid level of 7.1. Chest x-ray in the ED showed bilateral upper lung zone pleural parenchymal opacity with areas of cavitation and volume loss in the upper lung zones. 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 He was given vancomycin and cefepime in the ED. Also, he received digoxin 0.25, Cardizem 15 mg IV push. 09/24 Patient was given 2L NS boluses and Albumin overnight for tachycardia ABG showed acute hypercapnic resp acidosis he was subsequently intubated and placed on mechanical ventilation. Afebrile. 09/25 Patient is sedated with Versed, Fentanyl and intubated. Afebrile. 09/26 No events overnight. Sedated and intubated. Afebrile. 09/27 Patient was self extubated overnight. Awake and alert. On 3L oxygen 09/28 No events overnight. On 4L oxygen with good sats. Objective Vital Signs Date Time Temp Pulse Resp B/P (MAP) Pulse Ox O2 Delivery O2 Flow Rate FiO2 09/28/17 06:00 86 09/28/17 04:00 98.3 28 126/72 (90) 98 09/27/17 20:14 Nasal Cannula 4.00 09/27/17 04:00 40 Intake and Output 09/28/17 09/28/17 09/29/17 08:00 16:00 00:00 Intake Total 350 ml Output Total 300 ml Balance 50 ml Result Diagram: 09/28/17 0455 09/28/17 0455 Other Results Laboratory Tests Test 09/27/17 23:00 09/28/17 04:55 M. tuberculosis Complex DNA (PCR) NOT DETECTED White Blood Count 9.5 TH/MM3 Red Blood Count 4.23 MIL/MM3 Hemoglobin 12.5 GM/DL Hematocrit 38.0 % Mean Corpuscular Volume 89.9 FL Mean Corpuscular Hemoglobin 29.5 PG Mean Corpuscular Hemoglobin Concent 32.9 % Red Cell Distribution Width 14.7 % Platelet Count 214 TH/MM3 Mean Platelet Volume 9.0 FL Neutrophils (%) (Auto) 89.1 % Lymphocytes (%) (Auto) 4.4 % Monocytes (%) (Auto) 6.4 % Eosinophils (%) (Auto) 0.0 % Basophils (%) (Auto) 0.1 % Neutrophils # (Auto) 8.5 TH/MM3 Lymphocytes # (Auto) 0.4 TH/MM3 Monocytes # (Auto) 0.6 TH/MM3 Eosinophils # (Auto) 0.0 TH/MM3 Basophils # (Auto) 0.0 TH/MM3 CBC Comment DIFF FINAL Differential Comment Blood Urea Nitrogen 30 MG/DL Creatinine 0.53 MG/DL Random Glucose 114 MG/DL Total Protein 6.3 GM/DL Albumin 2.5 GM/DL Calcium Level 8.6 MG/DL Phosphorus Level 3.1 MG/DL Magnesium Level 2.3 MG/DL Alkaline Phosphatase 97 U/L Aspartate Amino Transf (AST/SGOT) 41 U/L Alanine Aminotransferase (ALT/SGPT) 71 U/L Total Bilirubin 0.8 MG/DL Sodium Level 146 MEQ/L Potassium Level 3.3 MEQ/L Chloride Level 104 MEQ/L Carbon Dioxide Level 36.1 MEQ/L Anion Gap 6 MEQ/L Estimat Glomerular Filtration Rate 152 ML/MIN Imaging Last Impressions Liver Ultrasound 09/26/17 0000 Signed Impressions: Service Date/Time: Tuesday, September 26, 2017 10:44 - CONCLUSION: 1. Mildly distended gallbladder with minimal wall prominence and trace pericholecystic fluid. 2. No evidence of cholelithiasis. 3. Otherwise unremarkable exam. Kun Garcia MD Chest X-Ray 09/25/17 0000 Signed Impressions: Service Date/Time: Monday, September 25, 2017 08:03 - CONCLUSION: No significant change extensive, bilateral upper lobe predominant pulmonary consolidation. Nathan Trujillo MD CT Angiography 09/23/17 0811 Signed Impressions: Service Date/Time: Saturday, September 23, 2017 11:49 - CONCLUSION: 1. No evidence for pulmonary embolism. 2. Extensive bilateral cavitary pneumonia in the upper lobes, could be necrotizing pneumonia, tuberculosis, or secondary fungal infection with progressive massive fibrosis. 3. Prominent cavity right apex measures 3.8 x 4.1 cm. 4. Pleural plaques which can be seen with asbestosis exposure. Joni Galo MD Objective Remarks GENERAL: Patient is 77 yo lying in be din NAD SKIN: Warm and dry. HEAD: Normocephalic. EYES: No scleral icterus. No injection or drainage. NECK: Supple, trachea midline. No JVD or lymphadenopathy. CARDIOVASCULAR:Tachycardic without murmurs, gallops, or rubs. RESPIRATORY: Breath sounds equal bilaterally. few Coarse BS GASTROINTESTINAL: Abdomen soft, non-tender, nondistended. MUSCULOSKELETAL: No cyanosis, or edema. Neuro: Awake. A/P Assessment and Plan 1. Acute hypoxemic respiratory Resp - self extubated 2. Probable pneumonia 3. Leukocytosis with bandemia. 4. Lactic acidemia.. resolving 5. History of asbestos exposure. 6. Paroxysmal atrial fibrillation 7. Mild hyponatremia Plan Neuro: Awake and alert Pulm: Continue with oxygen and maintain sats above 92%. Bronchodilators., solumederol 40mg BID, IS, add Symbicort. Check CXR Pulm is following- Dr. Aly. s/p bronch 09/26: Minimal secretions b/ l. Follow up on BAL results CT chest: Extensive bilateral cavitary pneumonia in the upper lobes, ( necrotizing pneumonia, tuberculosis, or secondary fungal infection) with progressive massive fibrosis CV: Monitor HR and BP and maintain MAP>65 mmHg. Echo showed EF 45=50% Lactic acid resolved : Monitor renal function I's and O's and electrolyte replacement per protocol. On Lasix 40mg IV daily. GI: on Protonix 40 mg daily for GI prophylaxis. Speech eval- diet per speech Monitor LFT's( trending down) US liver: Mildly distended gallbladder with minimal wall prominence and trace pericholecystic fluid. No evidence of cholelithiasis Hepatis profile negative ID: Continue with abx(Azithromycin, vancomycin and Zosyn). Monitor for signs of infections( fever and WBC) ID is following- Dr. Samson, Follow up on BAL results-NGTD M. TB DNA PCR is negative Heme: Monitor CBC. Endo: SSI with Accu-Chek's to maintain euglycemia. GI prophylaxis with Protonix 40 mg daily and DVT prophylaxis with SCD's on heparin subcu. PT/OT Level 3 Mellisa Armando MD Sep 28, 2017 08:17
[2017-09-28] MEDS: BUDESONIDE-FORMOTEROL 160/4.5 MCG INHALER INH SCH ×2 (09:00→20:59)
[2017-09-28] MEDS: DOCUSATE SODIUM 50 MG/SENNA 8.6 MG TAB PO SCH ×2 (09:00→21:00)
--- NOTE | 2017-09-28 09:12 | RADRPT ---
EXAM DATE/TIME: 09/28/2017 08:26 [facility] COMPARISON: CHEST SINGLE AP, June 21, 2017, 14:27. CHEST SINGLE AP, September 25, 2017, 8:03. INDICATIONS : Infiltrates. MEDICAL HISTORY : Cardiovascular disease. Chronic obstructive pulmonary disease SURGICAL HISTORY : None. ENCOUNTER: Subsequent ACUITY: 4 - 6 days PAIN SCORE: 0/10 LOCATION: Bilateral chest FINDINGS: Extensive pleural parenchymal opacity remains evident throughout the upper lung hernandez. Dense calcifi ed pleural plaque remains evident bilaterally. Lower lobes are hyperinflated but demonstrate significant interstitial disease. Endotracheal and nasogastric tubes have been removed. There has been no overall change in the appearance of the chest following extubation. CONCLUSION: 1. Status post extubation with no significant change in appearance the chest. 2. Extensive pleural-parenchymal density with calcified pleural plaque as described characteristic of severe chronic fibrotic disease. Kun Garcia MD on September 28, 2017 at 9:06 Board Certified Radiologist. This report was verified electronically.
[2017-09-28] MEDS: RESP: ALBUTEROL 2.5 MG/IPRATROPIUM 0.5 MG NEB (SCH) INH (09:14)
[2017-09-28] MEDS: methylPREDNISolone SOD SUCC 40 MG/1 ML VIAL IV PUSH SCH ×2 (09:30→20:59)
[2017-09-28] MEDS: FUROSEMIDE 40 MG/4 ML VIAL IV PUSH SCH (09:30)
[2017-09-28] MEDS: PANTOPRAZOLE SODIUM 40 MG VIAL IV PUSH SCH (09:31)
[2017-09-28] MEDS: POTASSIUM CHLOR 20 MEQ PREMIX 100 ML IV PRN ×2 (10:54→15:40)
[2017-09-28] MEDS: AZITHROMYCIN INJ 500 MG in SODIUM CHLOR 0.9% 250 ML INJ 250 ML IV SCH (14:09)
[2017-09-29] VITALS (11 sets, daily range): BP systolic 117–137; BP diastolic 73–95; PULSE 96–121; RESP 17–23; TEMP 97.5–98.1; O2SAT 95–100
[2017-09-29] MEDS: HEPARIN SODIUM - SQ 10,000 UNITS/ML VIAL SQ SCH ×2 (02:06→13:50)
[2017-09-29] MEDS: PIPERACIL-TAZO 4.5 GM PREMIX 100 ML IV SCH ×2 (02:06→08:16)
[2017-09-29] MEDS: INSULIN NovoLIN REGULAR SUPPLEMENTAL SCALE SQ SCH ×6 (04:00→20:00)
[2017-09-29] MEDS: CHLORHEXIDINE GLUCONATE 2 % 1 PACK (2 CLOTHS) TOP SCH (04:00)
[2017-09-29 04:54] LABS: AUTOMATED NEUTROPHIL # 8.8 TH/MM3 (1.8-7.7); HEMATOCRIT 38.3 % (39.0-51.0); HEMO FLAGS DIFF FINAL; LYMPH % 4.4 % (9.0-44.0); LYMPHOCYTE # 0.4 TH/MM3 (1.0-4.8); MEAN CELL VOLUME 90.1 FL (80.0-100.0); MEAN CORPUSCULAR HEMOGLOBIN 29.2 PG (27.0-34.0); MEAN CORPUSCULAR HGB CONC 32.4 % (32.0-36.0); MONO % 6.1 % (0.0-8.0); NEUT % 89.5 % (16.0-70.0); PLATELET COUNT 234 TH/MM3 (150-450); RED BLOOD COUNT 4.25 MIL/MM3 (4.50-5.90); RED CELL DISTRIBUTION WIDTH 14.4 % (11.6-17.2); WHITE BLOOD COUNT 9.8 TH/MM3 (4.0-11.0)
[2017-09-29 05:19] LABS: BICARBONATE 35.4 MEQ/L (21.0-32.0); POTASSIUM 3.8 MEQ/L (3.5-5.1)
[2017-09-29] MEDS ORDERED: PHARMACY ORDERED LAB ONE (05:45)
--- NOTE | 2017-09-29 07:38 | HHI.CCPN ---
Subjective Remarks/Hospital Course The patient is a 77-year-old male with a past medical history of asbestos exposure, paroxysmal atrial fibrillation who presented to [facility] ED with worsening shortness of breath. The patient states that he has been short of breath for several years. However, his dyspnea worsened last night. He also reports productive cough with clear phlegm, however he denies any fever, chills or any constitutional symptoms. He was hospitalized five years ago for pneumonia in [place]. The patient denies any use of oxygen at home and he is not on any bronchodilators. He denies any hemoptysis. He was seen by a buhr mill operator at the [place], however, he has not seen him for a long time. Also, he is scheduled to undergo cardiac catheterization in November for a lesion in his heart according to his . On arrival to the ED, the patient was hypotensive with a systolic blood pressure in the 80s, tachycardiac with a heart rate of 130-150. He was given 1.5 liters of normal saline. His laboratory data is significant for leukocytosis with WBC 25.7 associated with bandemia and lactic acid level of 7.1. Chest x-ray in the ED showed bilateral upper lung zone pleural parenchymal opacity with areas of cavitation and volume loss in the upper lung zones. 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 He was given vancomycin and cefepime in the ED. Also, he received digoxin 0.25, Cardizem 15 mg IV push. 09/24 Patient was given 2L NS boluses and Albumin overnight for tachycardia ABG showed acute hypercapnic resp acidosis he was subsequently intubated and placed on mechanical ventilation. Afebrile. 09/25 Patient is sedated with Versed, Fentanyl and intubated. Afebrile. 09/26 No events overnight. Sedated and intubated. Afebrile. 09/27 Patient was self extubated overnight. Awake and alert. On 3L oxygen 09/28 No events overnight. On 4L oxygen with good sats. 09/29 No events overnight. On 4L oxygen. Afebrile. Objective Vital Signs Date Time Temp Pulse Resp B/P (MAP) Pulse Ox O2 Delivery O2 Flow Rate FiO2 09/29/17 06:00 96 09/29/17 04:00 98.1 22 137/79 (98) 95 09/28/17 20:45 Nasal Cannula 4.00 09/27/17 04:00 40 Intake and Output 09/29/17 09/29/17 09/30/17 08:00 16:00 00:00 Intake Total 580 ml Output Total 450 ml Balance 130 ml Result Diagram: 09/29/17 0430 09/29/17 0430 Other Results Laboratory Tests Test 09/28/17 15:49 09/29/17 04:30 White Blood Count 9.8 TH/MM3 Red Blood Count 4.25 MIL/MM3 Hemoglobin 12.4 GM/DL Hematocrit 38.3 % Mean Corpuscular Volume 90.1 FL Mean Corpuscular Hemoglobin 29.2 PG Mean Corpuscular Hemoglobin Concent 32.4 % Red Cell Distribution Width 14.4 % Platelet Count 234 TH/MM3 Mean Platelet Volume 8.6 FL Neutrophils (%) (Auto) 89.5 % Lymphocytes (%) (Auto) 4.4 % Monocytes (%) (Auto) 6.1 % Eosinophils (%) (Auto) 0.0 % Basophils (%) (Auto) 0.0 % Neutrophils # (Auto) 8.8 TH/MM3 Lymphocytes # (Auto) 0.4 TH/MM3 Monocytes # (Auto) 0.6 TH/MM3 Eosinophils # (Auto) 0.0 TH/MM3 Basophils # (Auto) 0.0 TH/MM3 CBC Comment DIFF FINAL Differential Comment Blood Urea Nitrogen 26 MG/DL Creatinine 0.53 MG/DL Random Glucose 135 MG/DL Calcium Level 8.4 MG/DL Phosphorus Level 2.8 MG/DL Magnesium Level 2.0 MG/DL Sodium Level 141 MEQ/L Potassium Level 3.8 MEQ/L Chloride Level 102 MEQ/L Carbon Dioxide Level 35.4 MEQ/L Anion Gap 4 MEQ/L Estimat Glomerular Filtration Rate 152 ML/MIN Imaging Last Impressions Chest X-Ray 09/28/17 0000 Signed Impressions: Service Date/Time: Thursday, September 28, 2017 08:26 - CONCLUSION: 1. Status post extubation with no significant change in appearance the chest. 2. Extensive pleural-parenchymal density with calcified pleural plaque as described characteristic of severe chronic fibrotic disease. Kun Garcia MD Liver Ultrasound 09/26/17 0000 Signed Impressions: Service Date/Time: Tuesday, September 26, 2017 10:44 - CONCLUSION: 1. Mildly distended gallbladder with minimal wall prominence and trace pericholecystic fluid. 2. No evidence of cholelithiasis. 3. Otherwise unremarkable exam. Kun Garcia MD CT Angiography 09/23/17 0811 Signed Impressions: Service Date/Time: Saturday, September 23, 2017 11:49 - CONCLUSION: 1. No evidence for pulmonary embolism. 2. Extensive bilateral cavitary pneumonia in the upper lobes, could be necrotizing pneumonia, tuberculosis, or secondary fungal infection with progressive massive fibrosis. 3. Prominent cavity right apex measures 3.8 x 4.1 cm. 4. Pleural plaques which can be seen with asbestosis exposure. Joni Galo MD Objective Remarks GENERAL: Patient is 77 yo lying in be din NAD SKIN: Warm and dry. HEAD: Normocephalic. EYES: No scleral icterus. No injection or drainage. NECK: Supple, trachea midline. No JVD or lymphadenopathy. CARDIOVASCULAR:Tachycardic without murmurs, gallops, or rubs. RESPIRATORY: Breath sounds equal bilaterally. few Coarse BS GASTROINTESTINAL: Abdomen soft, non-tender, nondistended. MUSCULOSKELETAL: No cyanosis, or edema. Neuro: Awake. A/P Assessment and Plan 1. Acute hypoxemic respiratory Resp - self extubated 2. Probable pneumonia 3. Leukocytosis with bandemia. 4. Lactic acidemia.. resolving 5. History of asbestos exposure. 6. Paroxysmal atrial fibrillation 7. Mild hyponatremia Plan Neuro: Awake and alert Pulm: Continue with oxygen and maintain sats above 92%. Bronchodilators., solumederol 40mg BID, IS, Symbicort Pulm is following- Dr. Aly. s/p bronch 09/26: Minimal secretions b/ l. Follow up on BAL results CT chest: Extensive bilateral cavitary pneumonia in the upper lobes, ( necrotizing pneumonia, tuberculosis, or secondary fungal infection) with progressive massive fibrosis CV: Monitor HR and BP and maintain MAP>65 mmHg. Echo showed EF 45-50% Lactic acid resolved. Cards eval. : Monitor renal function I's and O's and electrolyte replacement per protocol. d/c Lasix GI: on Protonix 40 mg daily for GI prophylaxis. On PO diet Monitor LFT's( trending down) US liver: Mildly distended gallbladder with minimal wall prominence and trace pericholecystic fluid. No evidence of cholelithiasis Hepatis profile negative ID: Continue with abx per ID( Zosyn, Vanco). Monitor for signs of infections( fever and WBC) ID is following- Dr. Samson, Follow up on BAL results-NGTD M. TB DNA PCR is negative Heme: Monitor CBC. Endo: SSI with Accu-Chek's to maintain euglycemia. GI prophylaxis with Protonix 40 mg daily and DVT prophylaxis with SCD's on heparin subcu. PT/OT Will transfer to floor and consult HEPAS Level 3 Mellisa Armando MD Sep 29, 2017 07:38
[2017-09-29] MEDS: methylPREDNISolone SOD SUCC 40 MG/1 ML VIAL IV PUSH SCH ×2 (08:16→21:14)
[2017-09-29] MEDS: PANTOPRAZOLE SODIUM 40 MG VIAL IV PUSH SCH (08:16)
[2017-09-29] MEDS: FUROSEMIDE 40 MG/4 ML VIAL IV PUSH SCH (08:17)
[2017-09-29] MEDS: DOCUSATE SODIUM 50 MG/SENNA 8.6 MG TAB PO SCH ×2 (08:17→21:00)
[2017-09-29] MEDS: BUDESONIDE-FORMOTEROL 160/4.5 MCG INHALER INH SCH ×2 (09:10→21:13)
--- NOTE | 2017-09-29 11:05 | HHI.IDPN ---
Subjective Subjective Remarks doing well, transferred to floor he is on NC O2 and is faily alert and coherent Prelim studies all negative (AFB/fungal/g-stain), routine with nl resp nely Antibiotics antwon cesar Allergies: Coded Allergies: No Known Allergies (Verified , 06/21/17) Objective . Vital Signs Date Time Temp Pulse Resp B/P (MAP) Pulse Ox O2 Delivery O2 Flow Rate FiO2 09/29/17 10:00 104 09/29/17 10:00 104 20 117/76 (90) 100 09/29/17 09:00 96 23 133/90 (104) 100 09/29/17 08:00 97 09/29/17 08:00 97.8 97 20 133/95 (108) 97 09/29/17 06:00 96 09/29/17 04:00 97 09/29/17 04:00 98.1 97 22 137/79 (98) 95 09/29/17 02:00 97 09/29/17 00:00 98.1 97 22 124/85 (98) 97 09/29/17 00:00 97 09/28/17 22:00 101 09/28/17 20:45 99 Nasal Cannula 4.00 09/28/17 20:00 104 09/28/17 20:00 97.9 104 24 113/79 (90) 95 09/28/17 18:00 100 09/28/17 16:00 101 09/28/17 16:00 98.4 101 25 136/81 (99) 94 09/28/17 14:00 104 09/28/17 12:00 98.0 105 26 130/96 (107) 95 09/28/17 12:00 105 . Laboratory Tests Test 09/28/17 04:55 09/29/17 04:30 White Blood Count 9.5 TH/MM3 9.8 TH/MM3 Red Blood Count 4.23 MIL/MM3 4.25 MIL/MM3 Hemoglobin 12.5 GM/DL 12.4 GM/DL Hematocrit 38.0 % 38.3 % Mean Corpuscular Volume 89.9 FL 90.1 FL Mean Corpuscular Hemoglobin 29.5 PG 29.2 PG Mean Corpuscular Hemoglobin Concent 32.9 % 32.4 % Red Cell Distribution Width 14.7 % 14.4 % Platelet Count 214 TH/MM3 234 TH/MM3 Mean Platelet Volume 9.0 FL 8.6 FL Neutrophils (%) (Auto) 89.1 % 89.5 % Lymphocytes (%) (Auto) 4.4 % 4.4 % Monocytes (%) (Auto) 6.4 % 6.1 % Eosinophils (%) (Auto) 0.0 % 0.0 % Basophils (%) (Auto) 0.1 % 0.0 % Neutrophils # (Auto) 8.5 TH/MM3 8.8 TH/MM3 Lymphocytes # (Auto) 0.4 TH/MM3 0.4 TH/MM3 Monocytes # (Auto) 0.6 TH/MM3 0.6 TH/MM3 Eosinophils # (Auto) 0.0 TH/MM3 0.0 TH/MM3 Basophils # (Auto) 0.0 TH/MM3 0.0 TH/MM3 CBC Comment DIFF FINAL DIFF FINAL Differential Comment Laboratory Tests Test 09/28/17 04:55 09/29/17 04:30 Blood Urea Nitrogen 30 MG/DL 26 MG/DL Creatinine 0.53 MG/DL 0.53 MG/DL Random Glucose 114 MG/DL 135 MG/DL Total Protein 6.3 GM/DL Albumin 2.5 GM/DL Calcium Level 8.6 MG/DL 8.4 MG/DL Phosphorus Level 3.1 MG/DL 2.8 MG/DL Magnesium Level 2.3 MG/DL 2.0 MG/DL Alkaline Phosphatase 97 U/L Aspartate Amino Transf (AST/SGOT) 41 U/L Alanine Aminotransferase (ALT/SGPT) 71 U/L Total Bilirubin 0.8 MG/DL Sodium Level 146 MEQ/L 141 MEQ/L Potassium Level 3.3 MEQ/L 3.8 MEQ/L Chloride Level 104 MEQ/L 102 MEQ/L Carbon Dioxide Level 36.1 MEQ/L 35.4 MEQ/L Anion Gap 6 MEQ/L 4 MEQ/L Estimat Glomerular Filtration Rate 152 ML/MIN 152 ML/MIN Imaging Last Impressions Chest X-Ray 09/28/17 0000 Signed Impressions: Service Date/Time: Thursday, September 28, 2017 08:26 - CONCLUSION: 1. Status post extubation with no significant change in appearance the chest. 2. Extensive pleural-parenchymal density with calcified pleural plaque as described characteristic of severe chronic fibrotic disease. Kun Garcia MD Liver Ultrasound 09/26/17 0000 Signed Impressions: Service Date/Time: Tuesday, September 26, 2017 10:44 - CONCLUSION: 1. Mildly distended gallbladder with minimal wall prominence and trace pericholecystic fluid. 2. No evidence of cholelithiasis. 3. Otherwise unremarkable exam. Kun Garcia MD CT Angiography 09/23/17 0811 Signed Impressions: Service Date/Time: Saturday, September 23, 2017 11:49 - CONCLUSION: 1. No evidence for pulmonary embolism. 2. Extensive bilateral cavitary pneumonia in the upper lobes, could be necrotizing pneumonia, tuberculosis, or secondary fungal infection with progressive massive fibrosis. 3. Prominent cavity right apex measures 3.8 x 4.1 cm. 4. Pleural plaques which can be seen with asbestosis exposure. Joni Galo MD Physical Exam CONSTITUTIONAL/GENERAL: This is a thin cachectic elderly patient, in no apparent distress. TUBES/LINES/DRAINS: SKIN: No jaundice, rashes, or lesions. Skin temperature appropriate. EYES: Pupils equal and round and reactive. No scleral icterus. No injection or drainage. Fundi not examined. ENT: Nose without bleeding or purulent drainage. Orally intubated CARDIOVASCULAR: Regular rate and rhythm without murmurs, gallops, or rubs. No JVD. Peripheral pulses symmetric. RESPIRATORY/CHEST: Symmetric, unlabored respirations. b/l rhonchi to auscultation. Breath sounds diminished bilaterally. No wheezes, rales, or rhonchi. GASTROINTESTINAL: Abdomen soft, non-tender, nondistended. No hepato-splenomegaly , or palpable masses. No guarding. Bowel sounds present. GENITOURINARY: Without palpable bladder distension. MUSCULOSKELETAL: Extremities without clubbing, cyanosis, or edema. No joint tenderness or effusion noted. No calf tenderness. No mottling or clubbing. NEUROLOGICAL: awake, alert PSYCHIATRIC: calm and cooperative Assessment & Plan Remarks Extensive bilateral cavitary pneumonia in the upper lobes, ( necrotizing pneumonia, tuberculosis, or secondary fungal infection) with progressive massive fibrosis sp bronch - P studies AFB, fungal stains negative Abn LFTs and mild changes on US - dw Dr Babb: no specific findings His findings are probably from his exctensive fibrosis, doubt infection dc broad spectrum abx fu AFB, fungal clx untill final fu LFTs, clincially dw Bailey Hernandes MD Sep 29, 2017 11:05
--- NOTE | 2017-09-29 12:26 | PD.CONS ---
HPI Consult Requested By Primary Care Physician [facility] History of Present Illness 77 y/o M male with long standing COPD, asbestosis and silicosis with long standing worsening SOB admitted with SOB, productive cough and new onset hemoptysis, associated with weight loss. On admission leukocytosis, lactic acidosis and afib with RVR. CTA showed extensive bilateral cavitary pneumonia in the upper lobes and prominent cavity right apex. Echo performed showed EF 45 -50% Cardiology consulted for evaluation. Negative Troponin, elevated BNP. Now reports atypical chest pain at times localized on the left precordium, lasting seconds, no palpations. He is followed by [facility] cardiology schedule to have a LHC on 11/29/17. Review of Systems Consitutional: DENIES: Fatigue, Fever, Chills, Weight gain, Weight loss Eyes: DENIES: Amaurosis Fugax, Change in vision HEENT: DENIES: Lightheadedness, Change in hearing Respiratory: COMPLAINS OF: Shortness of breath, DENIES: See HPI, Cough, Snoring , Wheezing, Sputum production Cardiovascular: COMPLAINS OF: Chest pain, DENIES: See HPI, Palpitations, Syncope, Tachycardia Gastrointestinal: DENIES: Nausea, Vomiting, Change in bowel habits, Reflux, Bloody stools, Melena Genitourinary: DENIES: Urinary incontinence, Difficulty voiding Integumentary: DENIES: Rash Neurologic: DENIES: Tingling or numbness, Memory problems, Poor Balance, Stroke symptoms Musculoskeletal: DENIES: Joint pain, Muscle pain, Limited range of motion, Back pain Psychiatric: DENIES: Anxiety, Depression, Sleep disturbances Hematologic: DENIES: Bruising tendencies, Bleeding tendencies Endocrine: DENIES: Weight gain, Weight loss, Thyroid disease Past Family Social History Allergies: Coded Allergies: No Known Allergies (Verified , 06/21/17) Past Medical History 1. Atrial arrhythmias. 2. Questionable coronary disease, not confirmed. 3. COPD Past Surgical History none Reported Medications Reported Meds & Active Scripts Active No Active Prescriptions or Reported Medications Active Ordered Medications Current Medications Medications (Trade) Dose Ordered Sig/Jacob Route Start Time Stop Time Status Last Admin (NS Flush) 2 ml UNSCH PRN IVF 09/23/17 08:15 09/23/17 08:23 (Protonix Inj) 40 mg DAILY IV PUSH 09/23/17 12:00 09/29/17 08:16 (Duoneb Neb) 1 ampule Q2HR NEB PRN INH 09/23/17 12:00 09/28/17 20:39 (Heparin Inj) 5,000 units Q12H SQ 09/23/17 14:00 09/29/17 02:06 Miscellaneous Information 1 Q361D XX 09/23/17 12:00 (Chlorhexidine 2% Cloth) Taper DAILY@04 TOP 09/24/17 04:00 09/20/18 03:59 09/29/17 04:00 (Chlorhexidine 2% Cloth) 3 pack UNSCH PRN TOP 09/23/17 12:00 (Vielka-Colace) 1 tab BID PO 09/23/17 21:00 09/26/17 12:02 (Milk Of Magnesia Liq) 30 ml Q12H PRN PO 09/23/17 12:00 09/26/17 12:02 (Senokot) 17.2 mg Q12H PRN PO 09/23/17 12:00 (Dulcolax Supp) 10 mg DAILY PRN RECTAL 09/23/17 12:00 (Lactulose Liq) 30 ml DAILY PRN PO 09/23/17 12:00 (D50w (Vial) Inj) 50 ml UNSCH PRN IV PUSH 09/23/17 12:00 (Glucagon Inj) 1 mg UNSCH PRN OTHER 09/23/17 12:00 (NovoLIN R SUPPLEMENTAL SCALE) 1 Q4H SQ 09/23/17 12:00 09/28/17 16:31 Potassium Chloride 100 ml @ 50 mls/hr Q2H PRN IV 09/24/17 08:00 Potassium Chloride 100 ml @ 50 mls/hr Q2H PRN IV 09/24/17 08:00 09/26/17 12:01 (K-Lyte Cl Eff) 50 meq UNSCH PRN PO 09/24/17 08:00 Potassium Chloride 100 ml @ 25 mls/hr UNSCH PRN IV 09/24/17 08:00 Potassium Chloride 100 ml @ 50 mls/hr Q2H PRN IV 09/24/17 08:00 09/28/17 15:40 Magnesium Sulfate 4 gm/Sodium Chloride 100 ml @ 50 mls/hr UNSCH PRN IV 09/24/17 08:00 (Mag-Ox) 800 mg UNSCH PRN PO 09/24/17 08:00 Magnesium Sulfate 2 gm/Sodium Chloride 100 ml @ 50 mls/hr UNSCH PRN IV 09/24/17 08:00 (K-Phos) 2,000 mg Q4H PRN PO 09/24/17 08:00 Sodium Phosphate 30 mmol/Sodium Chloride 250 ml @ 42 mls/hr UNSCH PRN IV 09/24/17 08:00 (K-Phos) 2,000 mg UNSCH PRN PO/TUBE 09/24/17 08:00 Potassium Phosphate 30 mmol/ Sodium Chloride 260 ml @ 42 mls/hr UNSCH PRN IV 09/24/17 08:00 (Lasix Inj) 40 mg DAILY IV PUSH 09/26/17 09:00 09/29/17 08:17 (SoluMEDROL INJ) 40 mg BID IV PUSH 09/25/17 21:00 09/29/17 08:16 (Symbicort 160-4.5 Mcg Inh) 2 puff Q12HR INH 09/28/17 09:00 09/29/17 09:10 Family History reviewed non contributory Social History and living with his . 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 Smoked many, many years ago but quit 40+ years ago and there is no alcohol use. Physical Exam Vital Signs Vital Signs Date Time Temp Pulse Resp B/P (MAP) Pulse Ox O2 Delivery O2 Flow Rate FiO2 09/29/17 10:00 104 09/29/17 10:00 97.7 104 20 117/76 (90) 100 09/29/17 09:00 96 23 133/90 (104) 100 09/29/17 08:00 97 09/29/17 08:00 97.8 97 20 133/95 (108) 97 09/29/17 06:00 96 09/29/17 04:00 97 09/29/17 04:00 98.1 97 22 137/79 (98) 95 09/29/17 02:00 97 09/29/17 00:00 98.1 97 22 124/85 (98) 97 09/29/17 00:00 97 09/28/17 22:00 101 09/28/17 20:45 99 Nasal Cannula 4.00 09/28/17 20:00 104 09/28/17 20:00 97.9 104 24 113/79 (90) 95 09/28/17 18:00 100 09/28/17 16:00 101 09/28/17 16:00 98.4 101 25 136/81 (99) 94 09/28/17 14:00 104 Physical Exam GENERAL: Well-nourished, well-developed patient. SKIN: Warm and dry. HEAD: Normocephalic. EYES: No scleral icterus. No injection or drainage. NECK: Supple, trachea midline. No JVD or lymphadenopathy. CARDIOVASCULAR: Regular rate and rhythm without murmurs, gallops, or rubs. RESPIRATORY: Breath sounds equal bilaterally. No accessory muscle use. GASTROINTESTINAL: Abdomen soft, non-tender, nondistended. EXTREMITIES: No cyanosis, or edema. NEUROLOGICAL: Awake, alert, and oriented x 3. Non-focal. Laboratory Laboratory Tests Test 09/28/17 15:49 09/29/17 04:30 White Blood Count 9.8 Red Blood Count 4.25 Hemoglobin 12.4 Hematocrit 38.3 Mean Corpuscular Volume 90.1 Mean Corpuscular Hemoglobin 29.2 Mean Corpuscular Hemoglobin Concent 32.4 Red Cell Distribution Width 14.4 Platelet Count 234 Mean Platelet Volume 8.6 Neutrophils (%) (Auto) 89.5 Lymphocytes (%) (Auto) 4.4 Monocytes (%) (Auto) 6.1 Eosinophils (%) (Auto) 0.0 Basophils (%) (Auto) 0.0 Neutrophils # (Auto) 8.8 Lymphocytes # (Auto) 0.4 Monocytes # (Auto) 0.6 Eosinophils # (Auto) 0.0 Basophils # (Auto) 0.0 CBC Comment DIFF FINAL Differential Comment Blood Urea Nitrogen 26 Creatinine 0.53 Random Glucose 135 Calcium Level 8.4 Phosphorus Level 2.8 Magnesium Level 2.0 Sodium Level 141 Potassium Level 3.8 Chloride Level 102 Carbon Dioxide Level 35.4 Anion Gap 4 Estimat Glomerular Filtration Rate 152 Date/Time Source Procedure Growth Status 09/23/17 10:00 Blood Peripheral Aerobic Blood Culture - Final NO GROWTH IN 5 DAYS Complete 09/23/17 10:00 Blood Peripheral Anaerobic Blood Culture - Final NO GROWTH IN 5 DAYS Complete 09/26/17 10:30 Bronchial Washings Right Upper Lobe Fungal Smear - Final NO FUNGAL ELEMENTS SEEN. Resulted 09/26/17 10:30 Bronchial Washings Right Upper Lobe Fungal Culture Pending Resulted Result Diagram: 09/29/17 0430 09/29/17 0430 Imaging Last Impressions Chest X-Ray 09/28/17 0000 Signed Impressions: Service Date/Time: Thursday, September 28, 2017 08:26 - CONCLUSION: 1. Status post extubation with no significant change in appearance the chest. 2. Extensive pleural-parenchymal density with calcified pleural plaque as described characteristic of severe chronic fibrotic disease. Kun Garcia MD Liver Ultrasound 09/26/17 0000 Signed Impressions: Service Date/Time: Tuesday, September 26, 2017 10:44 - CONCLUSION: 1. Mildly distended gallbladder with minimal wall prominence and trace pericholecystic fluid. 2. No evidence of cholelithiasis. 3. Otherwise unremarkable exam. Kun Garcia MD CT Angiography 09/23/17 0811 Signed Impressions: Service Date/Time: Saturday, September 23, 2017 11:49 - CONCLUSION: 1. No evidence for pulmonary embolism. 2. Extensive bilateral cavitary pneumonia in the upper lobes, could be necrotizing pneumonia, tuberculosis, or secondary fungal infection with progressive massive fibrosis. 3. Prominent cavity right apex measures 3.8 x 4.1 cm. 4. Pleural plaques which can be seen with asbestosis exposure. Joni Galo MD Assessment and Plan Problem List: (1) Atrial fibrillation ICD Codes: I48.91 - Unspecified atrial fibrillation Plan: 77 y/o M with atypical chest pain. PMHx significant for severe Lung disease. ECHO reviewed by me EF 45-50% in the setting of Afib with RVR. Agree that we will need invasive cardiac work up at some point, however Mr Albarran wants to wait until his schedule [facility]. In the meantime we can optimize CAD therapy as tolerated by HR and BP. Recommendations: 1. ASA 2. Afib rate control and OAC if no contraindications 3 BB, ACEi, Statins, Imdur 4. PT/OT 5. 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 F/U with [facility] upon discharge Thank you for the opportunity to participate in the care of this patient Will be available on a PRN basis for any questions or concerns Problem Qualifiers (1) Atrial fibrillation: Qualified Codes: I48.2 - Chronic atrial fibrillation Juan Ng MD Sep 29, 2017 12:26
[2017-09-29] MEDS: METOPROLOL TARTRATE 25 MG TAB PO SCH (21:14)
[2017-09-30] VITALS (10 sets, daily range): BP systolic 117–151; BP diastolic 65–95; PULSE 82–113; RESP 17–18; TEMP 97.3–98.8; O2SAT 94–99
[2017-09-30] MEDS: INSULIN NovoLIN REGULAR SUPPLEMENTAL SCALE SQ SCH ×3 (04:00→08:00)
[2017-09-30] MEDS: CHLORHEXIDINE GLUCONATE 2 % 1 PACK (2 CLOTHS) TOP SCH (04:00)
[2017-09-30] MEDS: HEPARIN SODIUM - SQ 10,000 UNITS/ML VIAL SQ SCH ×2 (04:11→12:58)
[2017-09-30 06:18] LABS: HEMO FLAGS DIFF FINAL; LYMPH % 4.8 % (9.0-44.0); LYMPHOCYTE # 0.5 TH/MM3 (1.0-4.8); MEAN CELL VOLUME 90.4 FL (80.0-100.0); MEAN CORPUSCULAR HEMOGLOBIN 29.5 PG (27.0-34.0); MEAN CORPUSCULAR HGB CONC 32.6 % (32.0-36.0); MONO % 6.2 % (0.0-8.0); PLATELET COUNT 262 TH/MM3 (150-450); RED BLOOD COUNT 4.43 MIL/MM3 (4.50-5.90); RED CELL DISTRIBUTION WIDTH 14.2 % (11.6-17.2); WHITE BLOOD COUNT 11.2 TH/MM3 (4.0-11.0)
[2017-09-30 06:53] LABS: ALT (GPT) 63 U/L (12-78); ANION GAP 3 MEQ/L (5-15); AST (GOT) 25 U/L (15-37); BICARBONATE 36.8 MEQ/L (21.0-32.0); BLOOD UREA NITROGEN 22 MG/DL (7-18); CHLORIDE 98 MEQ/L (98-107); GLOMERULAR FILTRATION RATE 188 ML/MIN (>89); POTASSIUM 3.9 MEQ/L (3.5-5.1); SODIUM (NA) 138 MEQ/L (136-145)
[2017-09-30 06:55] LABS: ALKALINE PHOSPHATASE 103 U/L (45-117); TOTAL BILIRUBIN ADULT 0.9 MG/DL (0.2-1.0)
[2017-09-30] MEDS: ISOSORBIDE MONONITRATE 30 MG TAB PO SCH (06:56)
[2017-09-30] MEDS: DOCUSATE SODIUM 50 MG/SENNA 8.6 MG TAB PO SCH ×2 (09:00→21:00)
[2017-09-30] MEDS ORDERED: ASPIRIN EC 81 MG TABEC PO SCH (09:00)
[2017-09-30] MEDS: BUDESONIDE-FORMOTEROL 160/4.5 MCG INHALER INH SCH ×2 (09:00→21:18)
[2017-09-30] MEDS: FUROSEMIDE 40 MG/4 ML VIAL IV PUSH SCH (10:13)
[2017-09-30] MEDS: PANTOPRAZOLE SODIUM 40 MG VIAL IV PUSH SCH (10:13)
[2017-09-30] MEDS: methylPREDNISolone SOD SUCC 40 MG/1 ML VIAL IV PUSH SCH ×2 (10:13→21:18)
[2017-09-30] MEDS: METOPROLOL TARTRATE 25 MG TAB PO SCH ×2 (10:13→21:15)
[2017-09-30] MEDS: ATORVASTATIN 10 MG TAB PO SCH (10:14)
--- NOTE | 2017-09-30 10:51 | HHI.FF ---
Face to Face Verification Diagnosis: (1) Silicotic fibrosis (massive) of lung (2) Asbestosis (3) Pulmonary fibrosis (4) Atrial fibrillation Physical Therapy Order: Evaluate and Treat, Improve ambulation, Strength and gait training Home Health Nursing Order: Signs/symptoms of disease process Oxygen administration education Medication education-adverse effect Nursing assessment with vital signs I have seen patient Radha AlbarranJr on 09/30/17. My clinical findings support the need for the requested home health care services because: Ltd mobility - disease progression Patient has SOB Deconditioned w/ increased weakness Limited ability to care for self Need for psychosocial assistance High risk of falls Infection w/ risk of complications I certify that my clinical findings support that this patient is homebound because: Unsteady gait/balance Unsafe to leave home unassisted Need for psychosocial assistance [id number] bed/chair Unable to use public transportation Kimberly Bynum DO Sep 30, 2017 10:51 am
[2017-09-30] MEDS ORDERED: WALKER WHEELS/F1 MIS (10:53)
[2017-09-30 11:37] LABS: BLOOD GAS CARBOXYHEMOGLOBIN 1.5 % (0-4); BLOOD GAS HCO3 34 mmol/L (22-26); BLOOD GAS METHEMOGLOBIN 1.1 % (0-2); BLOOD GAS O2 HGB SATURATION 92 % (90-100); BLOOD GAS PCO2 50 mmHg (38-42); BLOOD GAS PO2 72 mmHg (61-120); BLOOD GAS TOTAL HGB 13.9 G/DL (12.0-16.0); CRITICAL VALUE NO; DRAW SITE RT RADIAL; NUMBER OF ARTERIAL PUNCTURES 1; TEMP CORR TO 98.6
[2017-09-30 11:38] LABS: STAT NO; ULNAR PULSE PRESENT
[2017-09-30 12:39] LABS: C. DIFF EPI 027 PRESUMPTIVE NEGATIVE (NEGATIVE)
[2017-09-30 14:35] LABS: CRYPTOCOCCUS ANTIGEN Negative (Negative)
--- NOTE | 2017-09-30 14:51 | HHI.PR ---
Subjective Remarks Follow up for asbestosis, silicosis associated pulmonary fibrosis, Atrial fibrillation. Patient is doing well at rest, does not require any supplemental O2. However, on ambulation he gets short of breath. Denies any fever, chills. However, he complains of significant diarrhea. Objective Vitals Vital Signs Date Time Temp Pulse Resp B/P (MAP) Pulse Ox O2 Delivery O2 Flow Rate FiO2 09/30/17 11:44 97.5 106 18 117/80 (92) 98 09/30/17 07:45 Room Air 09/30/17 07:45 102 09/30/17 07:35 98.4 108 17 128/95 (106) 94 09/30/17 04:59 97.7 102 18 151/87 (108) 94 09/30/17 01:02 97.6 82 18 124/69 (87) 99 09/29/17 20:32 98.0 120 20 120/73 (89) 95 09/29/17 20:23 Nasal Cannula 4.00 09/29/17 20:23 121 09/29/17 16:52 98.1 98 17 124/75 (91) 98 I/O 09/29/17 09/29/17 09/29/17 09/30/17 09/30/17 09/30/17 07:00 15:00 23:00 07:00 15:00 23:00 Intake Total 580 ml 240 ml 200 ml Output Total 450 ml 1200 ml 550 ml 1 ml Balance 130 ml -1200 ml -310 ml 199 ml Intake Oral 480 ml 240 ml 200 ml IV Total 100 ml Output Urine Total 450 ml 1200 ml 550 ml Stool Total 1 ml # Bowel Movements 1 Result Diagram: 09/30/17 0543 09/30/17 0543 Imaging Last Impressions Chest X-Ray 09/28/17 0000 Signed Impressions: Service Date/Time: Thursday, September 28, 2017 08:26 - CONCLUSION: 1. Status post extubation with no significant change in appearance the chest. 2. Extensive pleural-parenchymal density with calcified pleural plaque as described characteristic of severe chronic fibrotic disease. Kun Garcia MD Liver Ultrasound 09/26/17 0000 Signed Impressions: Service Date/Time: Tuesday, September 26, 2017 10:44 - CONCLUSION: 1. Mildly distended gallbladder with minimal wall prominence and trace pericholecystic fluid. 2. No evidence of cholelithiasis. 3. Otherwise unremarkable exam. Kun Garcia MD CT Angiography 09/23/17 0811 Signed Impressions: Service Date/Time: Saturday, September 23, 2017 11:49 - CONCLUSION: 1. No evidence for pulmonary embolism. 2. Extensive bilateral cavitary pneumonia in the upper lobes, could be necrotizing pneumonia, tuberculosis, or secondary fungal infection with progressive massive fibrosis. 3. Prominent cavity right apex measures 3.8 x 4.1 cm. 4. Pleural plaques which can be seen with asbestosis exposure. Joni Galo MD Objective Remarks GENERAL: Alert, Oriented x 3, NAD. SKIN: Warm and dry. HEAD: Normocephalic. EYES: No scleral icterus. No injection or drainage. NECK: Supple, trachea midline. No JVD or lymphadenopathy. CARDIOVASCULAR: Irreg irreg without murmurs, gallops, or rubs. RESPIRATORY: Poor air entry, diminished breath sounds. No accessory muscle use. GASTROINTESTINAL: Abdomen soft, non-tender, nondistended. MUSCULOSKELETAL: No cyanosis, or edema. BACK: Nontender without obvious deformity. No CVA tenderness. Procedures Echo 09/24/2017 The left ventricular systolic function is mildly reduced with an estimated ejection fraction in the range of 45- 50%. Normal left ventricular size. The left ventricle is not well visualized. [id number] mitral valve regurgitation. No aortic valve regurgitation. No aortic valve stenosis. There is mild tricuspid valve regurgitation. The estimated pulmonary arterial pressure is 39.4 mmHg. A/P Problem List: (1) Pulmonary fibrosis ICD Code: J84.10 - Pulmonary fibrosis, unspecified (2) Asbestosis ICD Code: J61 - Pneumoconiosis due to asbestos and other mineral fibers (3) Silicotic fibrosis (massive) of lung ICD Code: J62.8 - Pneumoconiosis due to other dust containing silica (4) Atrial fibrillation ICD Code: I48.91 - Unspecified atrial fibrillation (5) Diarrhea ICD Code: R19.7 - Diarrhea, unspecified Assessment and Plan Mr. Albarran is a pleasant 77 year old male with a history of asbestosis, silicosis , afib who was admitted to the hospital on 09/23/2017 due to shortness of breath. He reported acute on chronic dyspnea. At home he does not use supplemental O2 and does not use bronchodilators. His laboratory data is significant for leukocytosis with WBC 25.7 associated with bandemia and lactic acid level of 7.1. Chest x-ray in the ED showed bilateral upper lung zone pleural parenchymal opacity with areas of cavitation and volume loss in the upper lung zones. 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 He was given vancomycin and cefepime in the ED. Also, he received digoxin 0.25, Cardizem 15 mg IV push. He was intubated on 09/24/2017 due to hypercapnic respiratory failure. Following self-extubation on 09/27/2017 , he remained on 3L of O2 via [place]. Pulmonology, ID, hospitalist were consulted. - Pulmonary fibrosis - Silicotic fibrosis - Asbestosis - Acute hypercapnic respiratory failure - Acute hypoxic respiratory failure - Currently at rest does not require any supplemental O2. - We will obtain O2 walk test. Due to diarrhea, he could to perform the test. RT will try in the AM. - Continue DuoNeb, Symbicort. - Discussed with Pulm (Dr. Aly). We will switch steroid from IV to Prednisone 20mg Qday - Upon discharge, consider Prednisone 20mg Qday X 5 days then 10mg Qday X 5 days then 5mg Qday X 5 days. - ID recommends no abx at this point. - Follow up with Pulmonology in the outpatient setting. - Atrial fibrillation - [id number] score would be 2 (Age > 74). - Discussed at length with patient/ regarding anti-coagulation - Will start patient on Apixaban 5mg BID. Once he reaches age 80, this can be reduced to 2.5mg BID. - Continue Metoprolol 25mg BID for rate control. - Will add Diltiazem 120mg Qday. - Follow up with [facility]. - Diarrhea - We obtained C. Diff PCR which was negative. - Will start patient on Loperamide. - If diarrhea subsides, patient can likely be discharged on 10/01/2017 Full code. Heparin SQ for now. D/C heparin and start Apixaban tomorrow AM. Problem Qualifiers (1) Atrial fibrillation: Qualified Codes: I48.2 - Chronic atrial fibrillation Kimberly Bynum DO Sep 30, 2017 14:51
[2017-09-30] MEDS: LOPERAMIDE HCL 2 MG CAP PO PRN ×2 (17:48→21:15)
[2017-09-30] MEDS: SODIUM CHLORIDE 0.9% FLUSH 10 ML FLUSH IVF PRN (21:18)
[2017-10-01] VITALS (8 sets, daily range): BP systolic 86–124; BP diastolic 53–81; PULSE 98–112; RESP 18–20; TEMP 97.3–98.2; O2SAT 93–98
[2017-10-01] MEDS: CHLORHEXIDINE GLUCONATE 2 % 1 PACK (2 CLOTHS) TOP SCH (04:00)
[2017-10-01] MEDS: ISOSORBIDE MONONITRATE 30 MG TAB PO SCH (06:23)
[2017-10-01] MEDS ORDERED: DILTIAZEM-CD 120 MG CAP ER PO SCH (09:00)
[2017-10-01] MEDS: BUDESONIDE-FORMOTEROL 160/4.5 MCG INHALER INH SCH ×2 (09:00→22:00)
[2017-10-01] MEDS: TORSEMIDE 5 MG TAB PO SCH (09:29)
[2017-10-01] MEDS: DOCUSATE SODIUM 50 MG/SENNA 8.6 MG TAB PO SCH ×2 (09:29→21:00)
[2017-10-01] MEDS: PANTOPRAZOLE SOD 40 MG DELAYED RELEASE TAB PO SCH (09:29)
[2017-10-01] MEDS: ATORVASTATIN 10 MG TAB PO SCH (09:30)
[2017-10-01] MEDS: METOPROLOL TARTRATE 25 MG TAB PO SCH ×2 (09:30→21:49)
[2017-10-01] MEDS: APIXABAN 5 MG TABLET PO SCH ×2 (09:30→21:49)
[2017-10-01] MEDS: predniSONE 20 MG TAB PO SCH (09:30)
--- NOTE | 2017-10-01 09:43 | HHI.PR ---
Subjective Remarks patient seen with heart rate in the 110-120s- -telemetry in sinus rhythm with occasional PVCs subjectively he can feel palpitations when HR goes up and gets short of breath Objective Vitals Vital Signs Date Time Temp Pulse Resp B/P (MAP) Pulse Ox O2 Delivery O2 Flow Rate FiO2 10/01/17 08:00 97.8 106 18 118/70 (86) 93 10/01/17 05:07 97.5 98 18 122/81 (95) 94 10/01/17 04:02 100 10/01/17 00:56 98.2 103 18 124/75 (91) 94 09/30/17 23:10 98 09/30/17 21:58 Room Air 09/30/17 20:38 97.3 113 18 125/65 (85) 94 09/30/17 20:36 101 09/30/17 15:39 98.8 113 18 123/92 (102) 94 09/30/17 12:10 102 09/30/17 11:44 97.5 106 18 117/80 (92) 98 I/O 09/30/17 09/30/17 09/30/17 10/01/17 10/01/17 10/01/17 07:00 15:00 23:00 07:00 15:00 23:00 Intake Total 200 ml 360 ml Output Total 1 ml 400 ml 300 ml Balance 199 ml -40 ml -300 ml Intake Oral 200 ml 360 ml Output Urine Total 400 ml 300 ml Stool Total 1 ml # Voids 2 # Bowel Movements 3 Result Diagram: 09/30/17 0543 09/30/17 0543 Imaging Last Impressions Chest X-Ray 09/28/17 0000 Signed Impressions: Service Date/Time: Thursday, September 28, 2017 08:26 - CONCLUSION: 1. Status post extubation with no significant change in appearance the chest. 2. Extensive pleural-parenchymal density with calcified pleural plaque as described characteristic of severe chronic fibrotic disease. Kun Garcia MD Liver Ultrasound 09/26/17 0000 Signed Impressions: Service Date/Time: Tuesday, September 26, 2017 10:44 - CONCLUSION: 1. Mildly distended gallbladder with minimal wall prominence and trace pericholecystic fluid. 2. No evidence of cholelithiasis. 3. Otherwise unremarkable exam. Kun Garcia MD CT Angiography 09/23/17 0811 Signed Impressions: Service Date/Time: Saturday, September 23, 2017 11:49 - CONCLUSION: 1. No evidence for pulmonary embolism. 2. Extensive bilateral cavitary pneumonia in the upper lobes, could be necrotizing pneumonia, tuberculosis, or secondary fungal infection with progressive massive fibrosis. 3. Prominent cavity right apex measures 3.8 x 4.1 cm. 4. Pleural plaques which can be seen with asbestosis exposure. Joni Galo MD Objective Remarks awake and alert, oriented x 3 anicteric lungs- decreased breath sounds, no rales or wheezes regular rhythm HR- 116 abdomen soft, nontender extremities no edema neuro exam- non focal Procedures Echo 09/24/2017 The left ventricular systolic function is mildly reduced with an estimated ejection fraction in the range of 45- 50%. Normal left ventricular size. The left ventricle is not well visualized. [id number]-mg-[id number] mitral valve regurgitation. No aortic valve regurgitation. No aortic valve stenosis. There is mild tricuspid valve regurgitation. The estimated pulmonary arterial pressure is 39.4 mmHg. A/P Problem List: (1) Pulmonary fibrosis ICD Code: J84.10 - Pulmonary fibrosis, unspecified (2) Asbestosis ICD Code: J61 - Pneumoconiosis due to asbestos and other mineral fibers (3) Silicotic fibrosis (massive) of lung ICD Code: J62.8 - Pneumoconiosis due to other dust containing silica (4) Atrial fibrillation ICD Code: I48.91 - Unspecified atrial fibrillation (5) Diarrhea ICD Code: R19.7 - Diarrhea, unspecified Assessment and Plan Mr. Albarran is a pleasant 77 year old male with a history of asbestosis, silicosis , afib who was admitted to the hospital on 09/23/2017 due to shortness of breath. He reported acute on chronic dyspnea. At home he does not use supplemental O2 and does not use bronchodilators. His laboratory data is significant for leukocytosis with WBC 25.7 associated with bandemia and lactic acid level of 7.1. Chest x-ray in the ED showed bilateral upper lung zone pleural parenchymal opacity with areas of cavitation and volume loss in the upper lung zones. 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 He was given vancomycin and cefepime in the ED. Also, he received digoxin 0.25, Cardizem 15 mg IV push. He was intubated on 09/24/2017 due to hypercapnic respiratory failure. Following self-extubation on 09/27/2017 , he remained on 3L of O2 via [place]. Pulmonology, ID, hospitalist were consulted. 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 - Perform a walk test now - - Continue DuoNeb, Symbicort. - Pulm (Dr. Aly). switched steroid from IV to Prednisone 20mg Qday 10/01 - Upon discharge, consider Prednisone 20mg Qday X 5 days then 10mg Qday X 5 days then 5mg Qday X 5 days. - ID recommends no abx at this point. - Follow up with Pulmonology in the outpatient setting. - CM- consult- arrange for home 02 - Atrial fibrillation- now in SR- possibly intermittent a fib - [id number] score would be 2 (Age > 74). - Discussed at length with patient/ regarding anti-coagulation - started patient on Apixaban 5mg BID. Once he reaches age 80, this can be reduced to 2.5mg BID. - Continue Metoprolol 25mg BID for rate control. - increase Cardizem CD 180 mg daily- - continue to monitor- increase and adjust dose for better rate control - Follow up with [facility]. - Diarrhea - resolved - We obtained C. Diff PCR which was negative. - Will start patient on Loperamide. - If diarrhea subsides, patient can likely be discharged on 10/01/2017 Full code. on Apixaban D/w and patient- that his pulmonary status is limiting his physical activity and can cause tachycardia learn to walk and pace and limited as tolerated by his pulmonary status has walker at home Home health care arranged- through [place] Problem Qualifiers (1) Atrial fibrillation: Qualified Codes: I48.2 - Chronic atrial fibrillation Skip Boyd MD Oct 01, 2017 09:43
[2017-10-01] MEDS ORDERED: OXYGENDME NAS.CANULA (12:50)
[2017-10-01] MEDS ORDERED: NEBUKIT5 FACE.MASK (13:00)
[2017-10-02] VITALS (8 sets, daily range): BP systolic 90–112; BP diastolic 55–69; PULSE 73–94; RESP 18–19; TEMP 97.1–98; O2SAT 93–99
[2017-10-02] MEDS: CHLORHEXIDINE GLUCONATE 2 % 1 PACK (2 CLOTHS) TOP SCH (04:00)
[2017-10-02] MEDS: ISOSORBIDE MONONITRATE 30 MG TAB PO SCH (06:30)
[2017-10-02] MEDS: predniSONE 20 MG TAB PO SCH (08:37)
[2017-10-02] MEDS: TORSEMIDE 5 MG TAB PO SCH (08:37)
[2017-10-02] MEDS: DOCUSATE SODIUM 50 MG/SENNA 8.6 MG TAB PO SCH ×3 (08:37→21:00)
[2017-10-02] MEDS: DILTIAZEM-CD 180 MG CAP ER PO SCH (08:37)
[2017-10-02] MEDS: PANTOPRAZOLE SOD 40 MG DELAYED RELEASE TAB PO SCH (08:37)
[2017-10-02] MEDS: APIXABAN 5 MG TABLET PO SCH (08:37)
[2017-10-02] MEDS: ATORVASTATIN 10 MG TAB PO SCH (08:38)
[2017-10-02] MEDS: METOPROLOL TARTRATE 25 MG TAB PO SCH (08:38)
[2017-10-02] MEDS: BUDESONIDE-FORMOTEROL 160/4.5 MCG INHALER INH SCH ×2 (08:38→21:00)
--- NOTE | 2017-10-02 10:06 | HHI.PR ---
Subjective Remarks feeling better review telemetry- sinus rhythm- occasionally goes into fib rhythm overall rate better controlled Objective Vitals Vital Signs Date Time Temp Pulse Resp B/P (MAP) Pulse Ox O2 Delivery O2 Flow Rate FiO2 10/02/17 08:00 97.1 92 18 112/69 (83) 97 10/02/17 04:00 97.2 94 18 106/68 (81) 97 10/02/17 00:30 79 10/02/17 00:00 97.1 73 18 96/65 (75) 95 10/01/17 20:00 98.0 112 20 116/74 (88) 98 10/01/17 20:00 109 10/01/17 20:00 Nasal Cannula 2.00 10/01/17 16:13 97/53 (68) 10/01/17 16:00 108 10/01/17 16:00 97.3 100 18 86/56 (66) 97 10/01/17 12:00 97.7 102 18 99/67 (78) 96 10/01/17 11:33 2.00 I/O 10/01/17 10/01/17 10/01/17 10/02/17 10/02/17 10/02/17 07:00 15:00 23:00 07:00 15:00 23:00 Output Total 300 ml 1300 ml Balance -300 ml -1300 ml Output Urine Total 300 ml 1300 ml Result Diagram: 09/30/17 0543 09/30/17 0543 Imaging Last Impressions Chest X-Ray 09/28/17 0000 Signed Impressions: Service Date/Time: Thursday, September 28, 2017 08:26 - CONCLUSION: 1. Status post extubation with no significant change in appearance the chest. 2. Extensive pleural-parenchymal density with calcified pleural plaque as described characteristic of severe chronic fibrotic disease. Kun Garcia MD Liver Ultrasound 09/26/17 0000 Signed Impressions: Service Date/Time: Tuesday, September 26, 2017 10:44 - CONCLUSION: 1. Mildly distended gallbladder with minimal wall prominence and trace pericholecystic fluid. 2. No evidence of cholelithiasis. 3. Otherwise unremarkable exam. Kun Garcia MD CT Angiography 09/23/17 0811 Signed Impressions: Service Date/Time: Saturday, September 23, 2017 11:49 - CONCLUSION: 1. No evidence for pulmonary embolism. 2. Extensive bilateral cavitary pneumonia in the upper lobes, could be necrotizing pneumonia, tuberculosis, or secondary fungal infection with progressive massive fibrosis. 3. Prominent cavity right apex measures 3.8 x 4.1 cm. 4. Pleural plaques which can be seen with asbestosis exposure. Joni Galo MD Objective Remarks awake and alert, oriented x 3 anicteric lungs- decreased breath sounds, no rales or wheezes regular rhythm HR- 88/min abdomen soft, nontender extremities no edema neuro exam- non focal Procedures Echo 09/24/2017 The left ventricular systolic function is mildly reduced with an estimated ejection fraction in the range of 45- 50%. Normal left ventricular size. The left ventricle is not well visualized. [id number] mitral valve regurgitation. No aortic valve regurgitation. No aortic valve stenosis. There is mild tricuspid valve regurgitation. The estimated pulmonary arterial pressure is 39.4 mmHg. A/P Problem List: (1) Pulmonary fibrosis ICD Code: J84.10 - Pulmonary fibrosis, unspecified (2) Asbestosis ICD Code: J61 - Pneumoconiosis due to asbestos and other mineral fibers (3) Silicotic fibrosis (massive) of lung ICD Code: J62.8 - Pneumoconiosis due to other dust containing silica (4) Atrial fibrillation ICD Code: I48.91 - Unspecified atrial fibrillation (5) Diarrhea ICD Code: R19.7 - Diarrhea, unspecified Assessment and Plan Mr. Albarran is a pleasant 77 year old male with a history of asbestosis, silicosis , afib who was admitted to the hospital on 09/23/2017 due to shortness of breath. He reported acute on chronic dyspnea. At home he does not use supplemental O2 and does not use bronchodilators. His laboratory data is significant for leukocytosis with WBC 25.7 associated with bandemia and lactic acid level of 7.1. Chest x-ray in the ED showed bilateral upper lung zone pleural parenchymal opacity with areas of cavitation and volume loss in the upper lung zones. 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 He was given vancomycin and cefepime in the ED. Also, he received digoxin 0.25, Cardizem 15 mg IV push. He was intubated on 09/24/2017 due to hypercapnic respiratory failure. Following self-extubation on 09/27/2017 , he remained on 3L of O2 via [place]. Pulmonology, ID, hospitalist were consulted. 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 - Pulm (Dr. Aly). switched steroid from IV to Prednisone 20mg Qday 10/01 - Upon discharge, consider Prednisone 20mg Qday X 5 days then 10mg Qday X 5 days then 5mg Qday X 5 days. - ID recommends no abx at this point. - Follow up with Pulmonology in the outpatient setting. - CM- consult- arrange for home - Atrial fibrillation- intermittent- in and out of a fib- overall rate better controlled - [id number] score would be 2 (Age > 74). - Discussed at length with patient/ regarding anti-coagulation - started patient on Apixaban 5mg BID. Once he reaches age 80, this can be reduced to 2.5mg BID. - Continue Metoprolol 25mg BID for rate control. - Cardizem CD 180 mg daily-increased 10/02 - continue to monitor- increase and adjust dose for better rate control - Follow up with [facility]. - Diarrhea - resolved - We obtained C. Diff PCR which was negative. - Will start patient on Loperamide. - If diarrhea subsides, patient can likely be discharged on 10/01/2017 Full code. on Apixaban D/w and patient- that his pulmonary status is limiting his physical activity and can cause tachycardia learn to walk and pace and limited as tolerated by his pulmonary status has walker at home Home health care arranged- through [place] DC planning- tomorrow- needs home health care and DME through [place]- close this weekend Problem Qualifiers (1) Atrial fibrillation: Qualified Codes: I48.2 - Chronic atrial fibrillation Skip Boyd MD Oct 02, 2017 10:06
[2017-10-03 00:50] VITALS: BP 98/65; PULSE 80; RESP 20; TEMP 98.1; O2SAT 96
[2017-10-03] MEDS: CHLORHEXIDINE GLUCONATE 2 % 1 PACK (2 CLOTHS) TOP SCH (00:51)
[2017-10-03 01:00] VITALS: BP 95/61; PULSE 84; RESP 19; TEMP 98.1; O2SAT 95
[2017-10-03] MEDS: METOPROLOL TARTRATE 25 MG TAB PO SCH ×2 (01:31→09:28)
[2017-10-03] MEDS: APIXABAN 5 MG TABLET PO SCH ×2 (01:31→09:28)
[2017-10-03 04:40] VITALS: BP 101/66; PULSE 76; RESP 21; TEMP 97.7; O2SAT 96
[2017-10-03] MEDS: ISOSORBIDE MONONITRATE 30 MG TAB PO SCH (08:02)
[2017-10-03 08:09] VITALS: BP 119/75; PULSE 81; RESP 20; TEMP 97.7; O2SAT 98
[2017-10-03] MEDS ORDERED: CLOTRIMAZOLE 10 MG TROCHE BUCCAL SCH (08:30)
--- NOTE | 2017-10-03 08:33 | HHI.PR ---
Subjective Remarks no complains of chest pains or shortness of breath- near baseline complains of throat pain- on exam- with oral thrush Objective Vitals Vital Signs Date Time Temp Pulse Resp B/P (MAP) Pulse Ox O2 Delivery O2 Flow Rate FiO2 10/03/17 08:09 97.7 81 20 119/75 (90) 98 10/03/17 04:40 97.7 76 21 101/66 (78) 96 10/03/17 01:00 98.1 84 19 95/61 (72) 95 10/03/17 00:50 98.1 80 20 98/65 (76) 96 10/02/17 21:00 Nasal Cannula 2.00 10/02/17 20:30 98.0 84 19 95/61 (72) 95 10/02/17 16:00 97.5 87 18 90/55 (67) 99 10/02/17 14:00 93 10/02/17 12:00 97.8 84 18 98/55 (69) 97 I/O 10/02/17 10/02/17 10/02/17 10/03/17 10/03/17 10/03/17 07:00 15:00 23:00 07:00 15:00 23:00 Intake Total 1050 ml 650 ml Output Total 1300 ml 600 ml 600 ml 300 ml Balance -1300 ml 450 ml 50 ml -300 ml Intake Oral 1050 ml 650 ml Output Urine Total 1300 ml 600 ml 600 ml 300 ml # Bowel Movements 0 0 Result Diagram: 09/30/17 0543 09/30/17 0543 Imaging Last Impressions Chest X-Ray 09/28/17 0000 Signed Impressions: Service Date/Time: Thursday, September 28, 2017 08:26 - CONCLUSION: 1. Status post extubation with no significant change in appearance the chest. 2. Extensive pleural-parenchymal density with calcified pleural plaque as described characteristic of severe chronic fibrotic disease. Kun Garcia MD Liver Ultrasound 09/26/17 0000 Signed Impressions: Service Date/Time: Tuesday, September 26, 2017 10:44 - CONCLUSION: 1. Mildly distended gallbladder with minimal wall prominence and trace pericholecystic fluid. 2. No evidence of cholelithiasis. 3. Otherwise unremarkable exam. Kun Garcia MD CT Angiography 09/23/17 0811 Signed Impressions: Service Date/Time: Saturday, September 23, 2017 11:49 - CONCLUSION: 1. No evidence for pulmonary embolism. 2. Extensive bilateral cavitary pneumonia in the upper lobes, could be necrotizing pneumonia, tuberculosis, or secondary fungal infection with progressive massive fibrosis. 3. Prominent cavity right apex measures 3.8 x 4.1 cm. 4. Pleural plaques which can be seen with asbestosis exposure. Joni Galo MD Objective Remarks awake and alert, oriented x 3 + oral thrush anicteric lungs- decreased breath sounds, no rales or wheezes regular rhythm - sinus- rate 70s abdomen soft, nontender extremities no edema neuro exam- non focal Procedures Echo 09/24/2017 The left ventricular systolic function is mildly reduced with an estimated ejection fraction in the range of 45- 50%. Normal left ventricular size. The left ventricle is not well visualized. Vungv-mg-iyaf mitral valve regurgitation. No aortic valve regurgitation. No aortic valve stenosis. There is mild tricuspid valve regurgitation. The estimated pulmonary arterial pressure is 39.4 mmHg. A/P Problem List: (1) Pulmonary fibrosis ICD Code: J84.10 - Pulmonary fibrosis, unspecified (2) Asbestosis ICD Code: J61 - Pneumoconiosis due to asbestos and other mineral fibers (3) Silicotic fibrosis (massive) of lung ICD Code: J62.8 - Pneumoconiosis due to other dust containing silica (4) Atrial fibrillation ICD Code: I48.91 - Unspecified atrial fibrillation (5) Diarrhea ICD Code: R19.7 - Diarrhea, unspecified Assessment and Plan Mr. Albarran is a pleasant 77 year old male with a history of asbestosis, silicosis , afib who was admitted to the hospital on 09/23/2017 due to shortness of breath. He reported acute on chronic dyspnea. At home he does not use supplemental O2 and does not use bronchodilators. His laboratory data is significant for leukocytosis with WBC 25.7 associated with bandemia and lactic acid level of 7.1. Chest x-ray in the ED showed bilateral upper lung zone pleural parenchymal opacity with areas of cavitation and volume loss in the upper lung zones. 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 He was given vancomycin and cefepime in the ED. Also, he received digoxin 0.25, Cardizem 15 mg IV push. He was intubated on 09/24/2017 due to hypercapnic respiratory failure. Following self-extubation on 09/27/2017 , he remained on 3L of O2 via [place]. Pulmonology, ID, hospitalist were consulted. 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 - Pulm (Dr. Aly). switched steroid from IV to Prednisone 20mg Qday 10/01 - Upon discharge, consider Prednisone 20mg Qday X 5 days then 10mg Qday X 5 days then 5mg Qday X 5 days. - ID recommends no abx at this point. - Follow up with Pulmonology in the outpatient setting. - - home 02 delivered to room - Atrial fibrillation- intermittent- in and out of a fib- overall rate better controlled- now in SR - [id number] score would be 2 (Age > 74). - Discussed at length with patient/ regarding anti-coagulation - started patient on Apixaban 5mg BID. - Continue Metoprolol 25mg BID for rate control. - Cardizem CD 180 mg daily-increased 10/02 - Follow up with [facility]. - per he has a scheduled cardiac cath- in Nov. Oral thrush- Nystatin swish and spit 4-6 ml po 4x a day Diflucan 200 mg po x 7 days - Diarrhea - resolved - We obtained C. Diff PCR which was negative. Full code. on Apixaban D/w and patient- that his pulmonary status is limiting his physical activity and can cause tachycardia learn to walk and pace and limited as tolerated by his pulmonary status has walker at home Home health care arranged- through [place] DC planning- tomorrow- needs home health care and DME through [place]- close this weekend Problem Qualifiers (1) Atrial fibrillation: Qualified Codes: I48.2 - Chronic atrial fibrillation Skip Boyd MD Oct 03, 2017 08:33
[2017-10-03] MEDS ORDERED: Budeson-Formot 160-4.5 Mcg Inh INH (08:46)
[2017-10-03] MEDS ORDERED: ISOS30TA3 PO (08:46)
[2017-10-03] MEDS ORDERED: Nystatin Liq SWISH-SWAL (08:46)
[2017-10-03] MEDS ORDERED: METO25TA3 PO (08:46)
[2017-10-03] MEDS ORDERED: TORS5TAB2 PO (08:46)
[2017-10-03] MEDS ORDERED: DIFL100T PO (08:46)
[2017-10-03] MEDS ORDERED: APIX5TAB PO (08:46)
[2017-10-03] MEDS ORDERED: CARD180C5 PO (08:46)
[2017-10-03] MEDS ORDERED: LIPI10TA PO (08:46)
[2017-10-03] MEDS ORDERED: PRED5TAB PO (08:51)
[2017-10-03] MEDS ORDERED: PANT40TA3 PO (08:52)
[2017-10-03] MEDS ORDERED: FLUCONAZOLE 100 MG TAB PO SCH (09:00)
[2017-10-03] MEDS: DOCUSATE SODIUM 50 MG/SENNA 8.6 MG TAB PO SCH (09:00)
[2017-10-03] MEDS: ATORVASTATIN 10 MG TAB PO SCH (09:00)
[2017-10-03] MEDS: BUDESONIDE-FORMOTEROL 160/4.5 MCG INHALER INH SCH (09:00)
[2017-10-03] MEDS ORDERED: NYSTATIN SUSP 500,000 U/5 ML CUP SWISH-SWAL SCH (09:00)
--- NOTE | 2017-10-03 09:06 | HHI.DS ---
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 Normal left ventricular size. The left ventricle is not well visualized. [id number] mitral valve regurgitation. No aortic valve regurgitation. No aortic valve stenosis. There is mild tricuspid valve regurgitation. The estimated pulmonary arterial pressure is 39.4 mmHg. Brief History - From Admission The patient is a 77-year-old male with a past medical history of asbestos exposure, paroxysmal atrial fibrillation who presented to [facility] ED with worsening shortness of breath. The patient states that he has been short of breath for several years. However, his dyspnea worsened last night. He also reports productive cough with clear phlegm, however he denies any fever, chills or any constitutional symptoms. He was hospitalized five years ago for pneumonia in [place]. The patient denies any use of oxygen at home and he is not on any bronchodilators. He denies any hemoptysis. He was seen by a fur cutter at the [place], however, he has not seen him for a long time. Also, he is scheduled to undergo cardiac catheterization in November for a lesion in his heart according to his . On arrival to the ED, the patient was hypotensive with a systolic blood pressure in the 80s, tachycardiac with a heart rate of 130-150. He was given 1.5 liters of normal saline. His laboratory data is significant for leukocytosis with WBC 25.7 associated with bandemia and lactic acid level of 7.1. Chest x-ray in the ED showed bilateral upper lung zone pleural parenchymal opacity with areas of cavitation and volume loss in the upper lung zones. 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 He was given vancomycin and cefepime in the ED. Also, he received digoxin 0.25, Cardizem 50 mg IV push. CBC/BMP: 09/30/17 0543 09/30/17 0543 Significant Findings Laboratory Tests Test 09/30/17 11:00 09/30/17 11:27 Blood Gas HCO3 34 mmol/L (22-26) Blood Gas Base Excess 10.0 mmol/L (-2-2) Arterial Blood pH 7.45 (7.380-7.420) Arterial Blood Partial Pressure CO2 50 mmHg (38-42) Imaging Last Impressions Chest X-Ray 09/28/17 0000 Signed Impressions: Service Date/Time: Thursday, September 28, 2017 08:26 - CONCLUSION: 1. Status post extubation with no significant change in appearance the chest. 2. Extensive pleural-parenchymal density with calcified pleural plaque as described characteristic of severe chronic fibrotic disease. Kun Garcia MD Liver Ultrasound 09/26/17 0000 Signed Impressions: Service Date/Time: Tuesday, September 26, 2017 10:44 - CONCLUSION: 1. Mildly distended gallbladder with minimal wall prominence and trace pericholecystic fluid. 2. No evidence of cholelithiasis. 3. Otherwise unremarkable exam. Kun Garcia MD CT Angiography 09/23/17 0811 Signed Impressions: Service Date/Time: Saturday, September 23, 2017 11:49 - CONCLUSION: 1. No evidence for pulmonary embolism. 2. Extensive bilateral cavitary pneumonia in the upper lobes, could be necrotizing pneumonia, tuberculosis, or secondary fungal infection with progressive massive fibrosis. 3. Prominent cavity right apex measures 3.8 x 4.1 cm. 4. Pleural plaques which can be seen with asbestosis exposure. Joni Galo MD PE at Discharge awake and alert, oriented x 3 + oral thrush anicteric lungs- decreased breath sounds, no rales or wheezes regular rhythm - sinus- rate 70s abdomen soft, nontender extremities no edema neuro exam- non focal Pt update on day of discharge afebrile good sats at 2 LNC in sinus rhythm throat discomfort- thrush on exam Hospital Course Mr. Albarran is a pleasant 77 year old male with a history of asbestosis, silicosis , afib who was admitted to the hospital on 09/23/2017 due to shortness of breath. He reported acute on chronic dyspnea. At home he does not use supplemental O2 and does not use bronchodilators. His laboratory data is significant for leukocytosis with WBC 25.7 associated with bandemia and lactic acid level of 7.1. Chest x-ray in the ED showed bilateral upper lung zone pleural parenchymal opacity with areas of cavitation and volume loss in the upper lung zones. 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 He was given vancomycin and cefepime in the ED. Also, he received digoxin 0.25, Cardizem 15 mg IV push. He was intubated on 09/24/2017 due to hypercapnic respiratory failure. Following self-extubation on 09/27/2017 , he remained on 3L of O2 via NC. Pulmonology, ID, hospitalist were consulted. 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 - Pulm (Dr. Aly). - Upon discharge, Prednisone taper on DC - ID recommends no abx at this point. - Follow up with Pulmonology in the outpatient setting. - - [place] 02 delivered to room - Atrial fibrillation- intermittent- in and out of a fib- overall rate better controlled- now in SR - [id number] score would be 2 (Age > 74). - Discussed at length with patient/ regarding anti-coagulation - started patient on Apixaban 5mg BID. - Continue Metoprolol 25mg BID for rate control. - Cardizem CD 180 mg daily-increased 10/02 - Follow up with [place] [facility]. - per he has a scheduled cardiac cath- in Nov. Oral thrush- Nystatin swish and spit 4-6 ml po 4x a day Diflucan 200 mg po x 7 days - Diarrhea - resolved - We obtained C. Diff PCR which was negative. Full code. on Apixaban D/w and patient- that his pulmonary status is limiting his physical activity and can cause tachycardia learn to walk and pace and limited as tolerated by his pulmonary status has walker at home [facility] - to call [place] [facility] for earlier appt Pt Condition on Discharge: Stable Discharge Disposition: Disch w/ Home Health Serv Discharge Time: > 30 minutes Discharge Instructions DIET: Follow Instructions for: Heart Healthy Diet Activities you can perform: Weight Bearing as Ozzy Activities to Avoid: Strenuous Activity Follow up Referrals: Cardiology with [facility] PCP Follow-up with [facility] Pulmonology - 1 Week with Samantha Aly MD New Medications: Nebulizer Kit/Tubing/Mout (Nebulizer Kit/Tubing/Mout) 1 Kit Kit KIT FACE.MASK DIRECTED for Breathing Treatment, #1 0 Refills Oxygen (O2) (Oxygen (O2)) Device LITER YUDITH.CANULA CONTINUOUS for Prevent Hypoxemia, #2 Oxygen Concentrator Portable Gaseous 2 L/min via Nasal Canula Continuous For 99 months Prednisone (Prednisone) 5 Mg Tab 5 MG PO DAILY for RESP failure for 9 Days, #12 TAB 0 Refills take 2 tablets (10 mg) daily foor 3 day then take one tabnlet (5 mg) daily for 3 days then 1/2 tablet (2.5 mg) for 3 days then DC Walker with Front Wheels (Walker with Front Wheels) 1 Mis Mis EA .ROUTE DIRECTED, #1 0 Refills Apixaban (Eliquis) 5 Mg Tab 5 MG PO BID for arrhyt for 30 Days, #60 TAB 2 Refills Atorvastatin (Lipitor) 10 Mg Tab 10 MG PO DAILY for HLP for 30 Days, #30 TAB take at hs Diltiazem CD 24 HR (Cardizem CD 24 HR) 180 Mg Caper 180 MG PO DAILY for arrhyt for 30 Days, #30 CAP Fluconazole (Diflucan) 100 Mg Tab 100 MG PO DAILY for oral candid for 7 Days, #7 TAB Isosorbide Mononitrate ER (Isosorbide Mononitrate ER) 30 Mg Leora 30 MG PO DAILY@07 for CARDIO for 30 Days, TAB Metoprolol Tartrate (Metoprolol Tartrate) 25 Mg Tab 25 MG PO Q12HR for arrhyt for 30 Days, #60 TAB Pantoprazole (Pantoprazole) 40 Mg Tab 40 MG PO DAILY for GIpro for 30 Days, #30 TAB Torsemide (Torsemide) 5 Mg Tab 10 MG PO DAILY for cardio for 30 Days, #30 TAB once daily [Budeson-Formot 160-4.5 Mcg Inh] () 60 PUFF AERO 2 PUFF INH Q12HR for RESP for 30 Days, #1 1 Refill gargel after each use [Nystatin Liq] () 5 ML SUSP 6 ML SWISH-SWAL QID for oeral candidaiase for 10 Days, ML Skip Boyd MD Oct 03, 2017 09:06
[2017-10-03] MEDS: predniSONE 20 MG TAB PO SCH (09:28)
[2017-10-03] MEDS: PANTOPRAZOLE SOD 40 MG DELAYED RELEASE TAB PO SCH (09:28)
[2017-10-03] MEDS: DILTIAZEM-CD 180 MG CAP ER PO SCH (09:28)
[2017-10-03] MEDS: TORSEMIDE 5 MG TAB PO SCH (09:29)
[2017-10-03 10:33] VITALS: PULSE 80
--- NOTE | 2017-10-03 14:45 | MD ---
cc: Samantha MORALES ADMISSION DATE: 09/23/2017 DISCHARGE DATE: 10/03/2017 HISTORY: Mr. Albarran is a 77-year-old white male admitted on 09/23 and seen in consultation by me on presentation. He was admitted to the intensive care unit with pneumonia and a very abnormal CT scan. He had a history of at least twenty years of abnormal chest x-rays and CT scans and had been followed by a billet header in the [place] and then when he moved here through the [facility]. They told him that he had a significant fibrosis in his lung probably from previous silica and asbestos exposure and he had never even required oxygen. He had a minimal distant prior smoking history and was not felt to have COPD. In fact he had been on bronchodilators at times in the past and they were never helpful. However, on presentation here. He was quite ill with fever, elevated white count and probably new lower lobe infiltrates, although we have no old films for comparison. He was suspected of having pneumonia. He also had atrial fibrillation with RVR and probably mild congestive heart failure. He actually did not do well initially. He ended up on ventilatory support but fortunately considering the extent of underlying fibrosis in his lungs, he was able to be weaned and extubated and he is currently on 2 liters of oxygen with saturations from 95% to 99%. On room air at rest, he is in the low 90s but with minimal exertion, he desaturates. His chest x-ray on 09/28 post extubation continued to reveal particularly extensive upper lobe densities and what appears to be extensive pleuroparenchymal scarring along with calcification and some mild persistent lower lobe infiltrates as well. The patient has improved considerably, although he is quite short of breath when he exerts himself and he is quite debilitated at present. He has elected not to do a detention facility but would like to go home with some home health care. We were not able to obtain old films from the ID but I have explained to him and his how important it is to compare old CT scans with our CT scans to see what, if any, new disease there is. He plans to do that post discharge with the ID billet header, although I have explained to them that I would be happy to see him back in the office as well if the patient is to stay here locally. He has also had problems with atrial fibrillation, probably mild congestive heart failure and intermittent chest pain for which he was actually being evaluated at the ID as an outpatient as well. He had a scheduled appointment in November with the ID family and consumer science professor. Our family and consumer science professor offered to proceed with a diagnostic evaluation now but at this point the patient prefers to wait recognizing that there may be cardiovascular problems that have not been fully addressed and if he were to have persistent problems or recurrent difficulty with breathing he would have to return to the emergency room. Home health care has been arranged through the [facility] with the primary hospitalist here. The patient will continue on oxygen. He does have a nebulizer which I suggested he might use just on a p.r.n. basis so he does not aggravate his atrial fibrillation. He will also be on a tapering course of prednisone over fifteen days. Infectious disease had followed him and suggested he had had adequate antibiotic treatment and he has had no recurrent fever. All of this has been thoroughly reviewed with the patient and his . The last blood gas that we did was on 09/30 and his pO2 was 72 at rest with a pH 7.45 and a pCO2 of 50. The patient will call my office if he would like to follow up there, otherwise he will be following up at the ID and recognizes that he is to return to the emergency room here if he has significant recurrent shortness of breath. R. MD SULEIMAN Howard/JUAN CARLOS /12:15 PM /2:40 PM
== END 2017-10-03 11:52 | disposition home health service (06) | DRG 166 ==
LOC: NEPC 07:56 → NEDA 11:10 → HIMW 14:30 → N05B 09-29 12:13
PROVIDERS: ADMIT Internal Medicine Critical Care Medicine; ATTEND Internal Medicine
PROC: 5A09357 Assistance with Respiratory Ventilation, Less than 24 Consecutive Hours, Continuous Positive Airway Pressure (ICD-10-PCS; 2017-09-23)
PROC: 0BH18EZ Insertion of Endotracheal Airway into Trachea, Via Natural or Artificial Opening Endoscopic (ICD-10-PCS; principal; 2017-09-24)
PROC: 5A1945Z Respiratory Ventilation, 24-96 Consecutive Hours (ICD-10-PCS; 2017-09-24)
PROC: 0B9C8ZX Drainage of Right Upper Lung Lobe, Via Natural or Artificial Opening Endoscopic, Diagnostic (ICD-10-PCS; 2017-09-26)
DX: J96.02 Acute respiratory failure with hypercapnia (principal); J18.9 Pneumonia, unspecified organism; E87.2 Acidosis; R64 Cachexia; J44.0 Chronic obstructive pulmonary disease with (acute) lower respiratory infection; B37.0 Candidal stomatitis; I48.0 Paroxysmal atrial fibrillation; I50.9 Heart failure, unspecified; E87.1 Hypo-osmolality and hyponatremia; Z68.1 Body mass index [BMI] 19.9 or less, adult; J92.0 Pleural plaque with presence of asbestos; J62.8 Pneumoconiosis due to other dust containing silica; J96.01 Acute respiratory failure with hypoxia; I48.2 Chronic atrial fibrillation; R19.7 Diarrhea, unspecified; R07.89 Other chest pain; Z87.891 Personal history of nicotine dependence
CPT/HCPCS: 31500; 36600; 71010; 71275; 76705; 76937; 80048; 80053; 80074; 80076; 80202; 82805; 82948; 83605; 83735; 83880; 84100; 84132; 84484; 85007; 85025; 85027; 85610; 85730; 87015; 87040; 87070; 87102; 87116; 87205; 87206; 87449; 87493; 87556; 87641; 87798; 87899; 93005; 93306; 94002; 94003; 94150; 94620; 94640; 94664; 96374; 96375; C9113; J0456; J0692; J1160; J1644; J1940; J2250; J2543; J2920; J3370; J3480; J7030; J7040; J7042; J7050; J7512; P9045; Q9967

== ENCOUNTER 2017-11-27 19:58 | Emergency (ER) | payer OTHER ==
[~2017-11-27] VITALS: Ht 167.6 cm; Wt 50.0 kg
[~2017-11-27 19:58] MED LIST: APIX5TAB PO; Budeson-Formot 160-4.5 Mcg Inh INH; CARD180C5 PO; DIFL100T PO; ISOS30TA3 PO; LIPI10TA PO; METO25TA3 PO; NEBUKIT5 FACE.MASK; Nystatin Liq SWISH-SWAL; OXYGENDME NAS.CANULA; PANT40TA3 PO; PRED5TAB PO; TORS5TAB2 PO; WALKER WHEELS/F1 MIS
[2017-11-27 20:00] VITALS: BP 123/59; PULSE 105; RESP 18; TEMP 98.6; O2SAT 92
[2017-11-27] MEDS ORDERED: FURO20TA PO (20:28)
[2017-11-27 20:29] VITALS: BP 140/73; PULSE 90; RESP 18; O2SAT 92
--- NOTE | 2017-11-27 20:42 | PD ---
HPI Chief Complaint: Cardiac Complaint Time Seen by Provider: 20:32 Travel History International Travel<30 days: No Contact w/Intl Traveler<30days: No Traveled to known affect area: No History of Present Illness HPI The patient is a 77 year old male who presents to the [facility] emergency department with a history of reportedly 3 days ago developing cough and congestion. The patient reports that he has a history of asbestosis exposure and pneumonia in September 2017. The patient also has a history of paroxysmal atrial fibrillation. He is chronically anticoagulated on Eliquis. The patient reports that he was told that if his heart rate goes above 120 he needs to come to the emergency department. He reports that it did become elevated earlier today. He reports that he has been progressively weak today. He reports that the weakness is generalized. He denies having any focal weakness, difficulty with word finding ability, vision changes, facial droop, or numbness or tingling to his extremities that is new. The patient reports having chronic numbness to bilateral lower extremities. Otherwise on review of systems, the patient reports having a fever with a T-max at 100. The patient denies having any neck pain, chest pain, abdominal pain, vomiting, diarrhea, or urinary symptoms. The patient reports having worsening shortness of breath. The patient denies having his influenza vaccination this season. [facility] Past Medical History Narrative Medical The patient's past medical history is significant for having a recent admission for sepsis and September 2017, history of asbestosis exposure, history of paroxysmal atrial fibrillation, pneumonia. Atrial Fibrillation: Yes COPD: Yes Diminished Hearing: No Genitourinary: No Musculoskeletal: No Neurologic: No Reproductive: No Respiratory: Yes Past Surgical History Surgical History: No Previous Surgery Social History Alcohol Use: No Tobacco Use: No Substance Use: No Allergies-Medications (Allergen,Severity, Reaction): Coded Allergies: No Known Allergies (Verified , 11/27/17) Reported Meds & Prescriptions Reported Meds & Active Scripts Active Zithromax (Azithromycin) 250 Mg Tab 250 Mg PO DAILY 4 Days Cefuroxime (Cefuroxime Axetil) 500 Mg Tab 500 Mg PO BID 10 Days Pantoprazole (Pantoprazole Sodium) 40 Mg Tab 40 Mg PO DAILY 30 Days Cardizem CD 24 HR (Diltiazem CD 24 HR) 180 Mg Caper 180 Mg PO DAILY 30 Days Metoprolol Tartrate 25 Mg Tab 25 Mg PO Q12HR 30 Days Isosorbide Mononitrate ER (Isosorbide Mononitrate) 30 Mg Leora 30 Mg PO DAILY@ 07 30 Days Lipitor (Atorvastatin Calcium) 10 Mg Tab 10 Mg PO DAILY 30 Days take at hs Eliquis (Apixaban) 5 Mg Tab 5 Mg PO BID 30 Days Oxygen (O2) Device Liter YUDITH.CANULA CONTINUOUS Oxygen Concentrator Portable Gaseous 2 L/min via Nasal Canula Continuous For 99 months Walker with Front Wheels (Device) 1 Mis Mis Ea .ROUTE DIRECTED Reported Furosemide 20 Mg Tab 20 Mg PO DAILY Review of Systems Except as stated in HPI: all other systems reviewed are Neg General / Constitutional: No: Fever Eyes: No: Visual changes HENT: No: Headaches Cardiovascular: Positive: Palpitations, Tachycardia, No: Chest Pain or Discomfort Respiratory: No: Shortness of Breath Gastrointestinal: No: Abdominal Pain Genitourinary: No: Dysuria Musculoskeletal: No: Pain Skin: No Rash Neurologic: Positive: Weakness (Generalized weakness), No: Focal Abnormalities , Change in Mentation, Slurred Speech, Sensory Disturbance Psychiatric: No: Depression Endocrine: No: Polydipsia Hematologic/Lymphatic: No: Easy Bruising Physical Exam Narrative General: The patient is a well-developed cachectic appearing male in no acute distress. Head and Neck exam: Head is normocephalic atraumatic. Eyes: EOMI, pupils are equal round and reactive to light. Nose: Midline septum with pink mucous membranes Mouth: Dentition unremarkable. Moist mucus membranes. Posterior oropharynx is not erythematous. No tonsillar hypertrophy. Uvula midline. Airway patent. Neck: No palpable lymphadenopathy. No nuchal rigidity. No thyromegaly. Cardiovascular: Regular rate and rhythm without murmurs, gallops, or rubs. No pulse deficit to the extremities on simultaneous auscultation and palpation of his radial artery. Lungs: Clear to auscultation bilaterally. No wheezes, rhonchi, or rales. Abdomen: Soft, without tenderness to palpation in all 4 quadrants of the abdomen. No guarding, rebound, or rigidity. Normal bowel sounds are audible. No tenderness on palpation of McBurney's point. Negative Crawford sign. Extremities: No clubbing, cyanosis, or edema. 2+ pulses in bilateral upper extremities, 1+ pulses in bilateral lower extremities. No calf tenderness on palpation. Less than 3 second capillary refill Back: No spinous process tenderness to palpation. No costovertebral angle tenderness to palpation. Neurologic Exam: Grossly nonfocal. Skin Exam: No rash noted. Intact skin that is warm and dry. Data Data Last Documented VS Vital Signs Date Time Temp Pulse Resp B/P (MAP) Pulse Ox O2 Delivery O2 Flow Rate FiO2 11/27/17 21:04 94 Nasal Cannula 2.00 11/27/17 21:04 16 11/27/17 20:29 90 11/27/17 20:00 98.6 Orders Orders Electrocardiogram (11/27/17 20:37) B-Type Natriuretic Peptide (11/27/17 20:37) Ckmb (Isoenzyme) Profile (11/27/17 20:37) Complete Blood Count With Diff (11/27/17 20:37) Comprehensive Metabolic Panel (11/27/17 20:37) Digoxin (11/27/17 20:37) Magnesium (Mg) (11/27/17 20:37) Prothrombin Time / Inr (Pt) (11/27/17 20:37) Act Partial Throm Time (Ptt) (11/27/17 20:37) Troponin I (11/27/17 20:37) Lipase (11/27/17 20:37) Chest, Single Ap (11/27/17 20:37) Ecg Monitoring (11/27/17 20:37) Bilateral Bp Monitoring (11/27/17 20:37) Iv Access Insert/Monitor (11/27/17 20:37) Oximetry (11/27/17 20:37) Oxygen Administration (11/27/17 20:37) Sodium Chloride 0.9% Flush (Ns Flush) (11/27/17 20:45) Influenzae A/B Antigen (11/27/17 20:54) Sodium Chlor 0.9% 250 Ml Inj (Ns 250 Ml (11/27/17 21:30) Sodium Chlor 0.9% 250 Ml Inj (Ns 250 Ml (11/27/17 22:45) Ceftriaxone Inj (Rocephin Inj) (11/27/17 22:45) Azithromycin Inj (Zithromax Inj) (11/27/17 22:45) Blood Culture (11/27/17 22:39) Labs Laboratory Tests Test 11/27/17 20:40 White Blood Count 10.4 TH/MM3 Red Blood Count 4.63 MIL/MM3 Hemoglobin 14.1 GM/DL Hematocrit 41.8 % Mean Corpuscular Volume 90.3 FL Mean Corpuscular Hemoglobin 30.5 PG Mean Corpuscular Hemoglobin Concent 33.7 % Red Cell Distribution Width 14.9 % Platelet Count 265 TH/MM3 Mean Platelet Volume 9.1 FL Neutrophils (%) (Auto) 79.8 % Lymphocytes (%) (Auto) 9.3 % Monocytes (%) (Auto) 10.3 % Eosinophils (%) (Auto) 0.2 % Basophils (%) (Auto) 0.4 % Neutrophils # (Auto) 8.3 TH/MM3 Lymphocytes # (Auto) 1.0 TH/MM3 Monocytes # (Auto) 1.1 TH/MM3 Eosinophils # (Auto) 0.0 TH/MM3 Basophils # (Auto) 0.0 TH/MM3 CBC Comment DIFF FINAL Differential Comment Prothrombin Time 12.7 SEC Prothromb Time International Ratio 1.3 RATIO Activated Partial Thromboplast Time 30.8 SEC Blood Urea Nitrogen 14 MG/DL Creatinine 0.68 MG/DL Random Glucose 102 MG/DL Total Protein 7.8 GM/DL Albumin 2.8 GM/DL Calcium Level 9.3 MG/DL Magnesium Level 2.0 MG/DL Alkaline Phosphatase 99 U/L Aspartate Amino Transf (AST/SGOT) 27 U/L Alanine Aminotransferase (ALT/SGPT) 19 U/L Total Bilirubin 0.8 MG/DL Sodium Level 135 MEQ/L Potassium Level 4.3 MEQ/L Chloride Level 96 MEQ/L Carbon Dioxide Level 33.0 MEQ/L Anion Gap 6 MEQ/L Estimat Glomerular Filtration Rate 114 ML/MIN Total Creatine Kinase 47 U/L Troponin I LESS THAN 0.02 NG/ML B-Type Natriuretic Peptide 138 PG/ML Lipase 233 U/L Digoxin Level 0.1 NG/ML MDM Medical Decision Making Medical Screen Exam Complete: Yes Emergency Medical Condition: Yes Medical Record Reviewed: Yes Interpretation(s) Last Impressions Chest X-Ray 11/27/172036 Signed Impressions: Service Date/Time: Monday, November 27, 2017 21:01 - CONCLUSION: Extensive, stable, bilateral upper lung consolidative and pleural-parenchymal opacities. No new findings. Sameer Peterson MD Differential Diagnosis Influenza, versus pneumonia, versus electrolyte derangement, versus dehydration Narrative Course During the course of the patient's emergency department visit, the patient's history, examination, and differential diagnosis were reviewed with the patient. The patient was placed on a vehicle monitor technician with oximetry and frequent blood pressure monitoring. The patient had IV access obtained and blood work sent for analysis. An EKG was done on arrival that shows a sinus rhythm heart rate of 95, QRS duration is 90 ms, QTC [address] segment elevation. T waves are inverted in aVL. The patient was initially provided normal saline at 250 mL IV fluid bolus 1. The patient's laboratory studies were reviewed and remarkable for a white count of 10.4, hemoglobin 14.1, platelets 265 with 79.8 neutrophils, 10.3 monocytes, CMP is remarkable for sodium of 135, chloride 96, bicarb 33, cardiac enzymes within normal limits, BNP 138, albumin 2.8, lipase 233, PT 12.7, INR 1.3, PTT 30.8, digoxin 0.1. Influenza testing is negative. Radiology studies were reviewed and remarkable for a chest x-ray that shows extensive stable bilateral upper lobe consolidative and pleural parenchymal opacities, no new findings. Given the patient's history of lung disease and symptoms of upper respiratory infection the patient was treated with Rocephin and Zithromax. The patient will be discharged home with a prescription for Ceftin and Zithromax. The patient is instructed regarding the importance of close follow-up with his primary care physician and sand tester. During the course of the patient's emergency department visit, his vital signs have remained stable. Heart rate improved and continues to be in the 90s, O2 saturations between 92 and 94%. The patient has remained in a sinus rhythm during his observation in the emergency department. The patient is resting comfortably and feels better, is alert and in no distress. The patient's results and examination findings were discussed with the patient. The repeat examination is unremarkable and benign. The history, exam, diagnostic testing, and current condition do not suggest any significant pathology to warrant further testing, continued ED treatment, admission, or surgical evaluation at this point. The vital signs have been stable. The patient does not have uncontrollable pain, intractable vomiting, or other significant symptoms. The patient's condition is stable and appropriate for discharge. The patient will pursue further outpatient evaluation with a primary care physician or other designated or consulting physician as indicated in the discharge instructions. The patient expressed understanding and was agreeable with this plan. Diagnosis Primary Impression: Upper respiratory infection Qualified Codes: J06.9 - Acute upper respiratory infection, unspecified Additional Impressions: Palpitations History of asbestosis Referrals: Primary Care Physician 2 days Code And Test Clerk 1 week Patient Instructions: General Instructions, Heart Palpitations (ED), Upper Respiratory Infection (ED) Med/Other Pt SpecificInfo: Prescription(s) given Scripts Azithromycin (Zithromax) 250 Mg Tab 250 MG PO DAILY for Infection for 4 Days, #4 TAB 0 Refills Prov: Celeste Hassan MD 11/27/17 Cefuroxime (Cefuroxime) 500 Mg Tab 500 MG PO BID for Infection for 10 Days, #20 TAB 0 Refills Prov: Celeste Hassan MD 11/27/17 Disposition: 01 DISCHARGE HOME Condition: Stable Celeste Hassan MD Nov 27, 2017 20:42
[2017-11-27] MEDS ORDERED: SODIUM CHLORIDE 0.9% FLUSH 10 ML FLUSH IVF PRN (20:45)
[2017-11-27 21:04] VITALS: RESP 16; O2SAT 94
--- NOTE | 2017-11-27 21:18 | RADRPT ---
EXAM DATE/TIME: 11/27/2017 21:01 [facility] COMPARISON: CHEST SINGLE AP, September 28, 2017, 8:26. INDICATIONS : General illness. MEDICAL HISTORY : Cardiovascular disease. Chronic obstructive pulmonary disease. SURGICAL HISTORY : None. ENCOUNTER: Initial ACUITY: 1 day PAIN SCORE: 0/10 LOCATION: Bilateral chest FINDINGS: Severe consolidative opacities in the upper one half of both chest with loss of delineation of the [place] perior mediastinal margins, cystic areas, air bronchograms, calcified pleura and upper retraction of the hilum is unchanged from prior chest x-ray 09/28/17. Bilateral diaphragmatic calcification is als o stable. No new findings. CONCLUSION: Extensive, stable, bilateral upper lung consolidative and pleural-parenchymal opacities. No new find ings. Sameer Peterson MD on November 27, 2017 at 21:14 Board Certified Radiologist. This report was verified electronically.
[2017-11-27] MEDS ORDERED: SODIUM CHLOR 0.9% 250 ML INJ 250 ML IV ONE ×2 (21:30→22:45)
[2017-11-27 21:34] LABS: AUTOMATED NEUTROPHIL # 8.3 TH/MM3 (1.8-7.7); BASOPHIL % 0.4 % (0.0-2.0); EOSINOPHIL % 0.2 % (0.0-4.0); HEMATOCRIT 41.8 % (39.0-51.0); HEMOGLOBIN 14.1 GM/DL (13.0-17.0); LYMPH % 9.3 % (9.0-44.0); MEAN CELL VOLUME 90.3 FL (80.0-100.0); MEAN CORPUSCULAR HEMOGLOBIN 30.5 PG (27.0-34.0); MEAN CORPUSCULAR HGB CONC 33.7 % (32.0-36.0); MEAN PLATELET VOLUME 9.1 FL (7.0-11.0); MONO % 10.3 % (0.0-8.0); MONOCYTE # 1.1 TH/MM3 (0-0.9); NEUT % 79.8 % (16.0-70.0); PLATELET COUNT 265 TH/MM3 (150-450); RED BLOOD COUNT 4.63 MIL/MM3 (4.50-5.90); RED CELL DISTRIBUTION WIDTH 14.9 % (11.6-17.2); WHITE BLOOD COUNT 10.4 TH/MM3 (4.0-11.0)
[2017-11-27 21:46] LABS: INTERNATIONAL NORMALIZED RATIO 1.3 RATIO; PROTHROMBIN TIME - PATIENT 12.7 SEC (9.8-11.6)
[2017-11-27 21:57] LABS: ALT (GPT) 19 U/L (12-78)
[2017-11-27 22:30] LABS: ALBUMIN 2.8 GM/DL (3.4-5.0); ALKALINE PHOSPHATASE 99 U/L (45-117); AST (GOT) 27 U/L (15-37); BLOOD UREA NITROGEN 14 MG/DL (7-18); CALCIUM 9.3 MG/DL (8.5-10.1); CHLORIDE 96 MEQ/L (98-107); CREATININE 0.68 MG/DL (0.60-1.30); DIGOXIN 0.1 NG/ML (0.8-2.0); GLOMERULAR FILTRATION RATE 114 ML/MIN (>89); GLUCOSE,RANDOM 102 MG/DL (74-106); SODIUM (NA) 135 MEQ/L (136-145); TOTAL BILIRUBIN ADULT 0.8 MG/DL (0.2-1.0); TOTAL PROTEIN 7.8 GM/DL (6.4-8.2); TROPONIN I LESS THAN 0.02 NG/ML (0.02-0.05)
[2017-11-27] MEDS ORDERED: AZITHROMYCIN INJ 500 MG in SODIUM CHLOR 0.9% 250 ML INJ 250 ML IV ONE (22:45)
[2017-11-27] MEDS ORDERED: cefTRIAXone INJ 1,000 MG in SODIUM CHLORIDE 0.9% INJ 100 ML IV ONE (22:45)
[2017-11-27] MEDS ORDERED: ZITH250T PO (23:18)
[2017-11-27] MEDS ORDERED: CEFU1TAB20 PO (23:18)
[2017-11-28] VITALS: BP 122/64; PULSE 85; RESP 18; O2SAT 94
--- NOTE | 2017-11-28 11:59 | EKG ---
Date Performed: 11/27/2017 Time Performed: 20:28:33 PTAGE: 77 years EKG: Sinus rhythm LEFT ATRIAL ENLARGEMENT POSSIBLE RIGHT VENTRICULAR CONDUCTION DELAY Compared to previous tracing Rig ht bundle branch block is no longer present ABNORMAL ECG PREVIOUS TRACING : 09/23/2017 11.22 DOCTOR: Cruz Brumfield Interpretating Date/Time 11/28/2017 11:58:02
== END 2017-11-28 00:58 | disposition home or self-care (01) ==
LOC: NEPE 19:58
DX: J06.9 Acute upper respiratory infection, unspecified (principal); R00.2 Palpitations; R06.02 Shortness of breath; R94.31 Abnormal electrocardiogram [ECG] [EKG]; R20.0 Anesthesia of skin; J44.9 Chronic obstructive pulmonary disease, unspecified; J61 Pneumoconiosis due to asbestos and other mineral fibers; Z79.01 Long term (current) use of anticoagulants
CPT/HCPCS: 71045; 80053; 80162; 82550; 83690; 83735; 83880; 84484; 85025; 85610; 85730; 87040; 87804; 93005; 96361; 96365; 96367; 99285; J0456; J0696; J7050

== ENCOUNTER 2018-01-03 16:40 | Emergency (ER) | payer OTHER ==
[~2018-01-03 16:40] MED LIST changes: -Budeson-Formot 160-4.5 Mcg Inh INH; +CEFU1TAB20 PO; -DIFL100T PO; +FURO20TA PO; -NEBUKIT5 FACE.MASK; -Nystatin Liq SWISH-SWAL; -PRED5TAB PO; -TORS5TAB2 PO; +ZITH250T PO
[2018-01-03 16:49] VITALS: BP 117/75; PULSE 97; RESP 20; TEMP 97.8; O2SAT 95
--- NOTE | 2018-01-03 17:32 | RADRPT ---
EXAM DATE/TIME: 01/03/2018 17:08 [facility] COMPARISON: CHEST SINGLE AP, November 27, 2017, 21:01. INDICATIONS : Short of breath. MEDICAL HISTORY : Cardiovascular disease. Chronic obstructive pulmonary disease. Afib. COPD. Dyspnea. Hemoptysis. SURGICAL HISTORY : None. ENCOUNTER: Initial ACUITY: 1 day PAIN SCORE: 0/10 LOCATION: Bilateral chest FINDINGS: Compared to the prior study of 11/27/2017 there is been no significant changes with the dense parenchy mal consolidation involving both upper lung hernandez. There is chronic interstitial changes in both low er lung hernandez. There are calcified pleural and diaphragmatic plaques. The heart size is unchanged. N o definite pleural effusions. The bony structures are stable. CONCLUSION: No significant interval change. Alberto Grey MD on January 03, 2018 at 17:29 Board Certified Radiologist. This report was verified electronically.
--- NOTE | 2018-01-03 19:39 | PD ---
HPI Chief Complaint: Cardiac Complaint Time Seen by Provider: 16:49 Travel History International Travel<30 days: No Contact w/Intl Traveler<30days: No Traveled to known affect area: No History of Present Illness HPI 77-year-old male presents emergency department for evaluation of intermittent chest pain. It is left-sided. I does have associated worsening short of breath. The patient is always short of breath but he states it is worse with the pain. Denies any nausea or vomiting. No diaphoresis. No lightheaded sensation. Patient did recently have a cardiac [facility] on Tuesday. PFSH Past Medical History Atrial Fibrillation: Yes Cardiovascular Problems: Yes (CAD) COPD: Yes Diminished Hearing: No Genitourinary: No Musculoskeletal: No Neurologic: No Reproductive: No Respiratory: Yes (COPD- ASBESTOSIS) Social History Alcohol Use: No Tobacco Use: No Substance Use: No Allergies-Medications (Allergen,Severity, Reaction): Coded Allergies: No Known Allergies (Verified , 11/27/17) Reported Meds & Prescriptions Reported Meds & Active Scripts Active Zithromax (Azithromycin) 250 Mg Tab 250 Mg PO DAILY 4 Days Cefuroxime (Cefuroxime Axetil) 500 Mg Tab 500 Mg PO BID 10 Days Pantoprazole (Pantoprazole Sodium) 40 Mg Tab 40 Mg PO DAILY 30 Days Cardizem CD 24 HR (Diltiazem CD 24 HR) 180 Mg Caper 180 Mg PO DAILY 30 Days Metoprolol Tartrate 25 Mg Tab 25 Mg PO Q12HR 30 Days Isosorbide Mononitrate ER (Isosorbide Mononitrate) 30 Mg Leora 30 Mg PO DAILY@ 07 30 Days Lipitor (Atorvastatin Calcium) 10 Mg Tab 10 Mg PO DAILY 30 Days take at hs Eliquis (Apixaban) 5 Mg Tab 5 Mg PO BID 30 Days Oxygen (O2) Device Liter YUDITH.CANULA CONTINUOUS Oxygen Concentrator Portable Gaseous 2 L/min via Nasal Canula Continuous For 99 months Walker with Front Wheels (Device) 1 Mis Mis Ea .ROUTE DIRECTED Reported Furosemide 20 Mg Tab 20 Mg PO DAILY Review of Systems Except as stated in HPI: all other systems reviewed are Neg Physical Exam Narrative Well-nourished male patient. Appears without distress. He appears nontoxic. He is in a wheelchair. He has even respirations. Elevated heart rate. He moves all extremities. He does speak clearly. Data Data Last Documented VS Vital Signs Date Time Temp Pulse Resp B/P (MAP) Pulse Ox O2 Delivery O2 Flow Rate FiO2 01/03/18 16:49 97.8 97 20 117/75 (89) 95 Orders Orders Chest, Pa & Lat (01/03/18 16:52) MDM Medical Decision Making Medical Screen Exam Complete: Yes Emergency Medical Condition: Yes Medical Record Reviewed: Yes Differential Diagnosis ACS versus pleuritic pain versus chest wall pain versus pneumonia Narrative Course 77-year-old male presents emergency department for evaluation of chest pain. Workup is initiated in triage. Prior to bed placement, patient chooses to leave. AMA: The risks of leaving against medical advice without further evaluation treatment were discussed with the patient. These risks include cardiac dysfunction, cardiac dysrhythmia, possible heart attack, possible stroke or . The patient indicated understanding of these risks and appeared to have the capacity to make this decision. Diagnosis Primary Impression: Chest pain Disposition: 07 AGAINST MEDICAL ADVICE Condition: Stable HankinsNatalie duque GE Jan 03, 2018 19:39
== END 2018-01-03 19:33 | disposition left against medical advice (07) ==
LOC: NED 16:40
DX: R07.9 Chest pain, unspecified (principal); Z53.21 Procedure and treatment not carried out due to patient leaving prior to being seen by health care provider; R06.02 Shortness of breath; I48.91 Unspecified atrial fibrillation; J44.9 Chronic obstructive pulmonary disease, unspecified; I25.10 Atherosclerotic heart disease of native coronary artery without angina pectoris
CPT/HCPCS: 71046; 99283

== ENCOUNTER 2018-07-27 16:13 | Inpatient (IN) ==
[2018-07-27] MEDS ORDERED: Sod Chloride 0.9% Inj 1,000 ML IV.SIG SCH (16:45)
--- NOTE | 2018-07-27 17:05 | XR ---
EXAM DATE: 07/27/2018 4:29 PM EDT AGE/SEX: 77 years / Male INDICATIONS: Palpitations and short of breath. CLINICAL DATA: This is the patient's initial encounter. Patient reports that signs and symptoms have been present for 2 days and indicates a pain score of 0/10. MEDICAL/SURGICAL HISTORY: Chronic obstructive pulmonary disease. A-fib. None. COMPARISON: [facility] [place], [place]. . FINDINGS: Persistent dense airspace consolidation in the upper lung zones with diffuse interstitial prominence and chronic appearing pleural thickening/plaque. There is slight increased patchy airspace opacities in the left lower lung zone in comparison to prior exam. Cardiomediastinal contours are stable. Bony thorax is intact. CONCLUSION: 1. Extensive stable chronic interstitial and parenchymal changes, as above. 2. Slight increased patchy airspace opacities in the left lower lung zone concerning for superimpose d pneumonia or aspiration in the appropriate clinical setting.h Electronically signed by: Varun Simmons MD 07/27/2018 5:03 PM EDT
--- NOTE | 2018-07-27 17:06 | ED ---
HPI General Chief complaint: Chest Pain Stated complaint: cardiac Time Seen by Provider: 07/27/18 16:22 History of Present Illness HPI narrative: 77-year-old male with a history of COPD, CAD, hyperlipidemia, atrial fibrillation presents to the emergency department for evaluation of shortness of breath for 3-4 days. Patient states that over the past 3-4 days he has had runny nose, nasal congestion, sinus pressure, cough, shortness of breath, weakness and low-grade fevers. States that he has felt his heart rate has been elevated as well. He admits he has not been eating or drinking very much over the last several days due to feeling slightly nauseous. He denies any abdominal pain, diarrhea, black or bloody stool, chest pain, lightheadedness , dizziness, syncope, presyncope. No other complaints. Related Data Home Medications Medication Instructions Recorded Confirmed atorvastatin 10 mg PO HS 07/27/18 07/27/18 clopidogrel 75 mg PO DAILY 07/27/18 07/27/18 diltiazem HCl 180 mg PO DAILY 07/27/18 07/27/18 food supplemt, lactose-reduced 1 can PO BID 07/27/18 07/27/18 [Ensure] furosemide 20 mg PO DAILY 07/27/18 07/27/18 isosorbide mononitrate 30 mg PO DAILY 07/27/18 07/27/18 megestrol 10 ml PO DAILY 07/27/18 07/27/18 metoprolol tartrate 50 mg PO BID 07/27/18 07/27/18 multivitamin [Multiple Vitamins] 1 tab PO DAILY 07/27/18 07/27/18 pantoprazole 40 mg PO DAILY 07/27/18 07/27/18 Allergies Allergy/AdvReac Type Severity Reaction Status Date / Time No Known Allergies Allergy Verified 11/27/17 20:16 Review of Systems ROS: all other systems reviewed are negative [facility] Medical History Medical History A-fib (Acute) Asbestosis (Acute) CAD (coronary artery disease) (Acute) COPD (chronic obstructive pulmonary disease) (Acute) Fibrosis of lung (Acute) Glaucoma (Acute) Hyperlipidemia (Acute) Underweight (Acute) Vertigo (Acute) Social History Social History Substance History: No History of Abuse Smoking Status: Former smoker How Often Do You Have a Drink Containing Alcohol: Never Recent Travel in [facility] within the Last 8 Weeks: No Recent Out of Country Travel within the Last 8 Weeks: No Immunization History Tetanus Immunization: Unsure Exam Narrative Exam Narrative: GENERAL: Cachectic male patient in no acute distress who is nontoxic appearing. SKIN: Warm and dry without any obvious rashes or lesions. HEAD: Normocephalic and atraumatic. EYES: No injection, drainage, or hyphema noted. PERRLA. EOMI. ENT: Clear nasal drainage with erythema of nasal mucosa. Oropharynx is clear and the TMs are normal with good landmarks. NECK: Supple and the trachea is midline. CARDIOVASCULAR: Regular rate and rhythm. RESPIRATORY: Breath sounds are equal bilaterally with no accessory muscle use, wheezing, rhonchi, or crackles. GASTROINTESTINAL: Abdomen is soft, non-tender, and nondistended. MUSCULOSKELETAL: No obvious deformities, swelling, cyanosis, or ecchymosis is present throughout the upper and lower extremities. Patient has full range of motion without any signs of neurovascular compromise. Distal pulses are 2+ throughout. NEUROLOGICAL: Awake, alert, and oriented. Normal speech and gait. Cranial nerves are grossly intact. Course Initial Documented Vital Signs Temperature 98.8 F 07/27/18 16:16 Pulse Rate 142 H 07/27/18 16:16 Respiratory Rate 20 07/27/18 16:16 Blood Pressure 136/61 07/27/18 16:16 Pulse Oximetry 95 07/27/18 16:16 Last Documented Vital Signs Temperature 98.8 F 07/27/18 16:16 Pulse Rate 139 H 07/27/18 16:37 Respiratory Rate 24 07/27/18 16:20 Blood Pressure 170/87 H 07/27/18 16:20 Pulse Oximetry 95 07/27/18 16:29 Medical Decision Making [facility] Narrative Medical decision making narrative: 77-year-old male presents to the emergency department for evaluation of cough and cold symptoms with shortness of breath and elevated heart rate. Patient is afebrile. EKG shows sinus tachycardia with a ventricular rate of 133 bpm, no acute ST elevations or depressions. IV access is obtained, labs of been drawn and sent. Patient is placed on cardiac telemetry and pulse oximetry monitoring. Patient administered 1 L of IV fluids and DuoNeb. CBC shows slightly elevated white blood cell count of 11.9, otherwise unremarkable. INR is elevated at 1.7. CMP is unremarkable. Troponin is less than 0.02. BNP is slightly elevated at 118. Lactic acid is elevated at 3.6. Chest x-ray shows extensive chronic interstitial and parenchymal changes which are stable with slight increased patchy airspace opacities in the left lower lung concerning for superimposed pneumonia or aspiration. Influenza swab is negative. CT pulmonary angiogram shows patchy infiltrate in the left lower lung with extensive chronic appearing changes elsewhere, no PE. Patient administered another 500 cc bolus of IV fluids and Zithromax and Rocephin IV. Patient is still tachycardic in the 120s, sinus tachycardia. Patient to be admitted for sepsis with community-acquired pneumonia and sinus tachycardia. Discussed with Dr. Ms. pastrana [facility] who accepts patient for admission. Medical Screen Exam Complete: Yes Emergency Medical Condition: Yes Differential Diagnosis Differential Diagnosis: Sepsis versus pneumonia versus COPD exacerbation versus PE Lab Data Result diagrams: 07/27/18 16:50 07/27/18 16:50 Lab Results 07/27/18 07/27/18 07/27/18 Range/Units 16:50 16:50 16:50 WBC 11.9 H (4.0-11.0) th/mm3 RBC 4.57 (4.50-5.90) mil/mm3 Hgb 13.7 (13.0-17.0) gm/dL Hct 41.8 (39.0-51.0) % MCV 91.4 (80.0-100.0) fL MCH 30.1 (27.0-34.0) pg MCHC 32.9 (32.0-36.0) % RDW 14.9 (11.6-17.2) % Plt Count 247 (150-450) th/mm3 MPV 9.1 (7.0-11.0) fL Neut % (Auto) 75.4 H (16.0-70.0) % Lymph % (Auto) 13.2 (9.0-44.0) % [place] % (Auto) 11.1 H (0.0-8.0) % Eos % (Auto) 0.2 (0.0-4.0) % Baso % (Auto) 0.1 (0.0-2.0) % Neut # (Auto) 9.0 H (1.8-7.7) th/mm3 Lymph # (Auto) 1.6 (1.0-4.8) th/mm3 [place] # (Auto) 1.3 H (0.0-0.9) th/mm3 Eos # (Auto) 0.0 (0.0-0.4) th/mm3 Baso # (Auto) 0.0 (0.0-0.2) th/mm3 WBC Differential . Differential Comment Auto diff final PT 17.6 H (9.8-11.6) sec INR 1.7 Ratio APTT 36.4 H (24.3-30.1) sec Sodium 138 (136-145) meq/L Potassium 4.6 (3.5-5.1) meq/L Chloride 98 (98-107) meq/L Carbon Dioxide 27.4 (21.0-32.0) meq/L Anion Gap 13 (5-15) meq/L BUN 10 (7-18) mg/dL Creatinine 0.75 (0.60-1.30) mg/dL Estimated GFR Greater than 89 (>89) mL/min Random Glucose 118 H (74-106) mg/dL Lactic Acid (0.4-2.0) mmol/L Calcium 8.9 (8.5-10.1) mg/dL Total Bilirubin 1.0 (0.2-1.0) mg/dL AST 18 (15-37) U/L ALT 16 (12-78) U/L Alkaline Phosphatase 93 (45-117) U/L Troponin I Less than 0.02 L (0.02-0.05) ng/mL B-Natriuretic Peptide (0-100) pg/mL Total Protein 8.0 (6.4-8.2) g/dL Albumin 2.7 L (3.4-5.0) g/dL Urine Color (Yellw/Straw) Urine Clarity (Clear) Urine pH (5.0-8.5) Ur Specific [place] (1.002-1.035) Urine Protein (Neg-Trace) mg/dL Urine Glucose (UA) (Negative) mg/dL Urine Ketones (Negative) mg/dL Urine Occult Blood (Negative) Urine Nitrate (Negative) Urine Bilirubin (Negative) Urine Urobilinogen (Less than 2) mg/dL Ur Leukocyte Esterase (Negative) Urine RBC (0-3) /hpf Urine WBC (0-5) /hpf Ur Squamous Epith Cells (0-5) /hpf Urine Bacteria (None) /hpf Urine Mucus (Occasional) /lpf Micro UA Comment Ur Microscopic Review Urine Culture Comments 07/27/18 07/27/18 07/27/18 Range/Units 16:50 16:50 18:50 WBC (4.0-11.0) th/mm3 RBC (4.50-5.90) mil/mm3 Hgb (13.0-17.0) gm/dL Hct (39.0-51.0) % MCV (80.0-100.0) fL MCH (27.0-34.0) pg MCHC (32.0-36.0) % RDW (11.6-17.2) % Plt Count (150-450) th/mm3 MPV (7.0-11.0) fL Neut % (Auto) (16.0-70.0) % Lymph % (Auto) (9.0-44.0) % [place] % (Auto) (0.0-8.0) % Eos % (Auto) (0.0-4.0) % Baso % (Auto) (0.0-2.0) % Neut # (Auto) (1.8-7.7) th/mm3 Lymph # (Auto) (1.0-4.8) th/mm3 [place] # (Auto) (0.0-0.9) th/mm3 Eos # (Auto) (0.0-0.4) th/mm3 Baso # (Auto) (0.0-0.2) th/mm3 WBC Differential Differential Comment PT (9.8-11.6) sec INR Ratio APTT (24.3-30.1) sec Sodium (136-145) meq/L Potassium (3.5-5.1) meq/L Chloride (98-107) meq/L Carbon Dioxide (21.0-32.0) meq/L Anion Gap (5-15) meq/L BUN (7-18) mg/dL Creatinine (0.60-1.30) mg/dL Estimated GFR (>89) mL/min Random Glucose (74-106) mg/dL Lactic Acid 3.6 H (0.4-2.0) mmol/L Calcium (8.5-10.1) mg/dL Total Bilirubin (0.2-1.0) mg/dL AST (15-37) U/L ALT (12-78) U/L Alkaline Phosphatase (45-117) U/L Troponin I (0.02-0.05) ng/mL B-Natriuretic Peptide 118 H (0-100) pg/mL Total Protein (6.4-8.2) g/dL Albumin (3.4-5.0) g/dL Urine Color Yellow (Yellw/Straw) Urine Clarity Hazy H (Clear) Urine pH 5.0 (5.0-8.5) Ur Specific [place] 1.018 (1.002-1.035) Urine Protein Negative (Neg-Trace) mg/dL Urine Glucose (UA) 50 (Negative) mg/dL Urine Ketones Trace H (Negative) mg/dL Urine Occult Blood Small H (Negative) Urine Nitrate Negative (Negative) Urine Bilirubin Negative (Negative) Urine Urobilinogen Less than 2 (Less than 2) mg/dL Ur Leukocyte Esterase Negative (Negative) Urine RBC 2 (0-3) /hpf Urine WBC 1 (0-5) /hpf Ur Squamous Epith Cells <1 (0-5) /hpf Urine Bacteria Rare H (None) /hpf Urine Mucus Few H (Occasional) /lpf Micro UA Comment Culture not ind Ur Microscopic Review Not Reportable Urine Culture Comments Culture not ind 07/27/18 Range/Units 19:28 WBC (4.0-11.0) th/mm3 RBC (4.50-5.90) mil/mm3 Hgb (13.0-17.0) gm/dL Hct (39.0-51.0) % MCV (80.0-100.0) fL MCH (27.0-34.0) pg MCHC (32.0-36.0) % RDW (11.6-17.2) % Plt Count (150-450) th/mm3 MPV (7.0-11.0) fL Neut % (Auto) (16.0-70.0) % Lymph % (Auto) (9.0-44.0) % [place] % (Auto) (0.0-8.0) % Eos % (Auto) (0.0-4.0) % Baso % (Auto) (0.0-2.0) % Neut # (Auto) (1.8-7.7) th/mm3 Lymph # (Auto) (1.0-4.8) th/mm3 [place] # (Auto) (0.0-0.9) th/mm3 Eos # (Auto) (0.0-0.4) th/mm3 Baso # (Auto) (0.0-0.2) th/mm3 WBC Differential Differential Comment PT (9.8-11.6) sec INR Ratio APTT (24.3-30.1) sec Sodium (136-145) meq/L Potassium (3.5-5.1) meq/L Chloride (98-107) meq/L Carbon Dioxide (21.0-32.0) meq/L Anion Gap (5-15) meq/L BUN (7-18) mg/dL Creatinine (0.60-1.30) mg/dL Estimated GFR (>89) mL/min Random Glucose (74-106) mg/dL Lactic Acid 1.3 (0.4-2.0) mmol/L Calcium (8.5-10.1) mg/dL Total Bilirubin (0.2-1.0) mg/dL AST (15-37) U/L ALT (12-78) U/L Alkaline Phosphatase (45-117) U/L Troponin I (0.02-0.05) ng/mL B-Natriuretic Peptide (0-100) pg/mL Total Protein (6.4-8.2) g/dL Albumin (3.4-5.0) g/dL Urine Color (Yellw/Straw) Urine Clarity (Clear) Urine pH (5.0-8.5) Ur Specific [place] (1.002-1.035) Urine Protein (Neg-Trace) mg/dL Urine Glucose (UA) (Negative) mg/dL Urine Ketones (Negative) mg/dL Urine Occult Blood (Negative) Urine Nitrate (Negative) Urine Bilirubin (Negative) Urine Urobilinogen (Less than 2) mg/dL Ur Leukocyte Esterase (Negative) Urine RBC (0-3) /hpf Urine WBC (0-5) /hpf Ur Squamous Epith Cells (0-5) /hpf Urine Bacteria (None) /hpf Urine Mucus (Occasional) /lpf Micro UA Comment Ur Microscopic Review Urine Culture Comments Imaging Data Radiologist's impression: Chest X-Ray 07/27/18 16:29 CONCLUSION: 1. Extensive stable chronic interstitial and parenchymal changes, as above. 2. Slight increased patchy airspace opacities in the left lower lung zone concerning for superimposed pneumonia or aspiration in the appropriate clinical setting.h Chest CTA 07/27/18 18:42 CONCLUSION: 1. Patchy mild infiltrate in the left lower lung may be acute inflammatory in nature. 2. Extensive chronic appearing changes elsewhere as described in detail. 3. No findings to suggest pulmonary embolism Discharge Plan Discharge Disposition Patient Disposition: 30 Still Patient Discharge Details Diagnosis: Sepsis, CAP (community acquired pneumonia), Sinus tachycardia Physicians Team ED Provider: Jackelyn Romano ED Midlevel Provider: Sandhya Beltran Primary Care Provider: [facility],Physician 's Rxs /Orders / Referrals /Forms Prescriptions: No Action multivitamin [Multiple Vitamins] Tablet 1 tab PO DAILY RF: 0 megestrol 400 mg/10 mL (40 mg/mL) Suspension 10 ml PO DAILY RF: 0 atorvastatin 20 mg Tablet 10 mg PO HS RF: 0 diltiazem HCl 180 mg Capsule,Extended Release 24 Hr 180 mg PO DAILY RF: 0 isosorbide mononitrate 30 mg Tablet Extended Release 24 Hr 30 mg PO DAILY RF: 0 clopidogrel 75 mg Tablet 75 mg PO DAILY RF: 0 pantoprazole 40 mg Tablet,Delayed Release (Dr/Ec) 40 mg PO DAILY RF: 0 metoprolol tartrate 50 mg Tablet 50 mg PO BID RF: 0 furosemide 20 mg Tablet 20 mg PO DAILY RF: 0 food supplemt, lactose-reduced [Ensure] Liquid 1 can PO BID RF: 0 Discharge Instructions Patient Printed Instructions: Chest Pain (ED) Discharge Interventions Interventions: Vital Signs Last Done: 07/27/18 16:20 Status ED Status: With Doctor
[2018-07-27 17:21] LABS: Baso % (Auto) 0.1 % (0.0-2.0); Eos % (Auto) 0.2 % (0.0-4.0); Hematocrit 41.8 % (39.0-51.0); Hemoglobin 13.7 gm/dL (13.0-17.0); Lymph # (Auto) 1.6 th/mm3 (1.0-4.8); Lymph % (Auto) 13.2 % (9.0-44.0); Mean Corpuscular HGB Conc 32.9 % (32.0-36.0); Mean Corpuscular Hemoglobin 30.1 pg (27.0-34.0); Mean Corpuscular Volume 91.4 fL (80.0-100.0); Mean Platelet Volume 9.1 fL (7.0-11.0); Mono # (Auto) 1.3 th/mm3 (0.0-0.9); Mono % (Auto) 11.1 % (0.0-8.0); Neut % (Auto) 75.4 % (16.0-70.0); Platelet Count 247 th/mm3 (150-450); Red Blood Count 4.57 mil/mm3 (4.50-5.90); Red Cell Distribution Width 14.9 % (11.6-17.2); White Blood Count 11.9 th/mm3 (4.0-11.0)
[2018-07-27 17:39] LABS: Alkaline Phosphatase 93 U/L (45-117)
[2018-07-27 17:42] LABS: Alanine Aminotransferase 16 U/L (12-78); Albumin 2.7 g/dL (3.4-5.0); Anion Gap 13 meq/L (5-15); Aspartate Aminotransferase 18 U/L (15-37); Blood Urea Nitrogen 10 mg/dL (7-18); Calcium 8.9 mg/dL (8.5-10.1); Carbon Dioxide 27.4 meq/L (21.0-32.0); Chloride 98 meq/L (98-107); Glomerular Filtration Rate Greater Than 89 mL/min (>89); Glucose,Random 118 mg/dL (74-106); Potassium 4.6 meq/L (3.5-5.1); Sodium 138 meq/L (136-145)
[2018-07-27 17:45] LABS: Activated Partial Thrombo Time 36.4 sec (24.3-30.1); INR 1.7 Ratio; Prothrombin Time 17.6 sec (9.8-11.6)
[2018-07-27] MEDS ORDERED: Sodium Chlor 0.9% Inj 500 ML IV.SIG SCH ×2 (19:00→21:00)
[2018-07-27 19:08] LABS: Bacteria,Urine Rare /hpf; Bilirubin,Urine Negative (Negative); Clarity,Urine Hazy (Clear); Color,Urine Yellow (Yellw/Straw); Glucose,Urine (UA) 50 mg/dL (Negative); Leukocyte Esterase,Urine Negative (Negative); Mucus,Urine Few /lpf (Occasional); Nitrite,Urine Negative (Negative); Specific Gravity,Urine 1.018 (1.002-1.035); Squamous Epithelial Cell,Urine <1 /hpf (0-5)
--- NOTE | 2018-07-27 20:25 | CT ---
EXAM DATE: 07/27/2018 7:57 PM EDT AGE/SEX: 77 years / Male INDICATIONS: Shortness of breath and atrial fibrillation. CLINICAL DATA: This is the patient's initial encounter. Patient reports that signs and symptoms have been present for 3 days and indicates a pain score of 3/10. MEDICAL/SURGICAL HISTORY: Cardiovascular disease. Chronic obstructive pulmonary disease. None. RADIATION DOSE: 6.05 CTDI (mGy) COMPARISON: [facility] – [place] PULMONARY [place]GIO[place], 09/23/2017. . TECHNIQUE: Volumetric scanning was performed using a multi-row detector CT scanner during bolus infu belkis of 71 ml Omnipaque 350 (iohexol) nonionic water-soluble contrast as a single exam dose. The oralia a was post processed with a variety of visualization algorithms including full volume maximum intensi ty projection and sliding thin slab reformation. Using automated exposure control and adjustment of the mA and/or kV according to patient size, radiation dose was kept as low as reasonably achievable t o obtain optimal diagnostic quality images. DICOM format image data is available electronically for review and comparison. FINDINGS: There is stable near complete consolidation in the upper lung zones with superior parenchymal retract ion which is unchanged. There is severe attenuation, near obliteration of upper lobe segmental vessel s and there is a small filling defect in the right upper lobe pulmonary artery which was not seen pre viously. This felt more likely to represent in situ thrombus than embolus given the overall configura tion. The normal caliber lower lung zone vessels are free of filling defects. In the lower lung zones, there are patchy areas of mild infiltrate, mainly on the left which may refl ect some degree of acute inflammatory infiltrate. Extensive calcified pleural plaquing is again noted. There are coronary artery calcifications noted. No definite mediastinal mass. CONCLUSION: 1. Patchy mild infiltrate in the left lower lung may be acute inflammatory in nature. 2. Extensive chronic appearing changes elsewhere as described in detail. 3. No findings to suggest pulmonary embolism Electronically signed by: Nathan Simpson MD 07/27/2018 8:24 PM EDT
[2018-07-27] MEDS ORDERED: Azithromycin Inj 500 MG in Sodium Chlor 0.9% Inj 250 ML IV.SIG ONE (20:59)
[2018-07-27] MEDS ORDERED: Bisacodyl 10 MG Supp RECTAL PRN (21:21)
[2018-07-27] MEDS ORDERED: Acetaminophen 325 MG Tablet PO PRN (21:21)
--- NOTE | 2018-07-27 21:23 | P.HPIM ---
History of Present Illness Primary Care Physician: [facility] History of Present Illness: This is a 77-year-old male with a PMH of HTN, Asbestosis, COPD, Fibrosis, Vertigo and A. fib who [facility] of A. fib with RVR. Pt reports nasal congestion, SOB and generalized weakness x2-3 days, [facility] and was found to be in A-fib w/ RVR, HR 120's at which time he was referred to the ER. Pt denies c/o chest pain, main complaint is SOB. On arrival, BP 136/61, HR 142, O2 sat 95% on RA, Afebrile. WBC 11.9. INR 1.7. Chemistry unremarkable. Lactic acid 3.6. Troponin negative. BNP 118. UA negative for UTI. Exar with extensive stable chronic interstitial and parenchymal changes, increased patchy airspace opacity left lower lung concerning for pneumonia. CTA Chest patchy infiltrate left lower lung, extensive chronic appearing changes elsewhere. S/p Rocephin/Zithro in ER. Currently in Sinus Tachycardia w/ HR 100's. - Diagnosis (1) Afib (2) PNA (pneumonia) (3) SOB (shortness of breath) Review of Systems PAST FAMILY HISTORY: Reviewed. No h/o DM or CAD All other systems reviewed negative except as stated in [facility] - History History Provided By: Patient, Family Member - Medical History Medical History: Medical History (Last Updated 07/27/18 @ 16:28 by Mehreen Jacobs) A-fib Asbestosis CAD (coronary artery disease) COPD (chronic obstructive pulmonary disease) Fibrosis of lung Glaucoma Hyperlipidemia Underweight Vertigo - Tobacco History Smoking Status: Former smoker - Alcohol History How Often Do You Have a Drink Containing Alcohol: Never - Substance Use History Substance History: No History of Abuse - Travel History Recent Travel in the [place] Within the Last 8 Weeks: No Recent Travel Out of the Country Within the Last 8 Weeks: No - Immunization History Tetanus Immunization: Unsure Medications and Allergies Active Medications: Active Medications Sodium Chloride (Ns Inj) 1,000 mls @ 0 mls/hr IV.SIG BOLUS JAIR Last Infusion: 07/27/18 18:59 Dose: Infused Sodium Chloride (Ns Inj) 500 mls @ 0 mls/hr IV.SIG BOLUS JAIR Last Infusion: 07/27/18 20:11 Dose: Infused Sodium Chloride (Ns Inj) 500 mls @ 0 mls/hr IV.SIG BOLUS JAIR Last Admin: 07/27/18 21:08 Dose: 1,000 mls/hr Azithromycin 500 mg/ Sodium (Chloride) 250 mls @ 250 mls/hr IV.SIG ONCE ONE Stop: 07/27/18 21:58 Ceftriaxone Sodium 1,000 mg/ (Sodium Chloride) 100 mls @ 200 mls/hr IV.SIG ONCE ONE Stop: 07/27/18 21:28 Last Admin: 07/27/18 21:08 Dose: 200 mls/hr Allergies Allergy/AdvReac Type Severity Reaction Status Date / Time No Known Allergies Allergy Verified 11/27/17 20:16 Home Medications Medication Instructions Recorded Confirmed Type atorvastatin 10 mg PO HS 07/27/18 07/27/18 History clopidogrel 75 mg PO DAILY 07/27/18 07/27/18 History diltiazem HCl 180 mg PO DAILY 07/27/18 07/27/18 History food supplemt, lactose-reduced 1 can PO BID 07/27/18 07/27/18 History [Ensure] furosemide 20 mg PO DAILY 07/27/18 07/27/18 History isosorbide mononitrate 30 mg PO DAILY 07/27/18 07/27/18 History megestrol 10 ml PO DAILY 07/27/18 07/27/18 History metoprolol tartrate 50 mg PO BID 07/27/18 07/27/18 History multivitamin [Multiple Vitamins] 1 tab PO DAILY 07/27/18 07/27/18 History pantoprazole 40 mg PO DAILY 07/27/18 07/27/18 History Exam Vital signs: Vital Signs 07/27/18 16:16 07/27/18 16:20 07/27/18 16:29 Temperature 98.8 F Pulse Rate 142 H 131 H Respiratory Rate 20 24 Blood Pressure 136/61 170/87 H Pulse Oximetry 95 95 95 07/27/18 16:37 Temperature Pulse Rate 139 H Respiratory Rate Blood Pressure Pulse Oximetry Intake & Output 07/27/18 07/27/18 07/28/18 06:59 18:59 06:59 Intake Total 1000 / 1000 500 / 500 Balance 1000 / 1000 500 / 500 Weight 49.081 kg Intake: IV 1000 / 1000 500 / 500 NS Inj 1,000 ML @ Wide Open IV. 1000 / 1000 SIG BOLUS JAIR Rx#:[id number] NS Inj 500 ML @ Wide Open IV. 500 / 500 SIG BOLUS JAIR Rx#:[id number] Narrative: PE: GENERAL: Thin, chronically ill-appearing elderly white male in no acute distress. Son-in-law at bedside. SKIN: Focused skin assessment warm and dry. HEENT: PERRLA, EOMI. No scleral icterus or conjunctival pallor. No lid lag or facial droop. CARDIOVASCULAR: Sinus tachycardia, HR 90-100's. No obvious murmurs to auscultation. No chest tenderness to palpation. RESPIRATORY: No obvious rhonchi or wheezing. Clear to auscultation. Breath sounds equal bilaterally. GASTROINTESTINAL: Abdomen soft, non-tender, nondistended. BS normal. MUSCULOSKELETAL: Extremities without clubbing, cyanosis, or edema. No obvious deformities. NEUROLOGICAL: Awake, alert and oriented x4. No focal neurologic deficits. Moving both upper and lower extremities spontaneously. PSYCHIATRIC: Appropriate mood and affect. Insight and judgment normal. Results - Labs CBC & Chem 7: 07/27/18 16:50 07/27/18 16:50 Labs: Short CBC 07/27/18 Range/Units 16:50 WBC 11.9 H (4.0-11.0) th/mm3 Hgb 13.7 (13.0-17.0) gm/dL Hct 41.8 (39.0-51.0) % Plt Count 247 (150-450) th/mm3 BMP 07/27/18 16:50 Sodium 138 Potassium 4.6 Chloride 98 Carbon Dioxide 27.4 BUN 10 Creatinine 0.75 Calcium 8.9 Cardiac Enzymes 07/27/18 Range/Units 16:50 Troponin I Less than 0.02 L (0.02-0.05) ng/mL Liver Function 07/27/18 Range/Units 16:50 Total Bilirubin 1.0 (0.2-1.0) mg/dL AST 18 (15-37) U/L ALT 16 (12-78) U/L Alkaline Phosphatase 93 (45-117) U/L Albumin 2.7 L (3.4-5.0) g/dL Urine 07/27/18 Range/Units 18:50 Urine Color Yellow (Yellw/Straw) Urine Clarity Hazy H (Clear) Urine pH 5.0 (5.0-8.5) Ur Specific Paia 1.018 (1.002-1.035) Urine Protein Negative (Neg-Trace) mg/dL Urine Glucose (UA) 50 (Negative) mg/dL - Imaging Impressions Chest X-Ray 07/27/18 16:29 CONCLUSION: 1. Extensive stable chronic interstitial and parenchymal changes, as above. 2. Slight increased patchy airspace opacities in the left lower lung zone concerning for superimposed pneumonia or aspiration in the appropriate clinical setting.h Chest CTA 07/27/18 18:42 CONCLUSION: 1. Patchy mild infiltrate in the left lower lung may be acute inflammatory in nature. 2. Extensive chronic appearing changes elsewhere as described in detail. 3. No findings to suggest pulmonary embolism Caprini VTE Risk Assessment Caprini VTE Risk Assessment: No/Low Risk (score <= 1) Caprini Risk Assessment Model: Point Value = 1 Point Value = 2 Point Value = 3 Point Value = 5 Age 41-60 Minor surgery BMI > 25 kg/m2 Swollen legs Varicose veins or History of unexplained or recurrent spontaneous Oral contraceptives or hormone replacement Sepsis (< 1 month) Serious lung disease, including pneumonia (< 1 month) Abnormal pulmonary function Acute myocardial infarction Congestive heart failure (< 1 month) History of inflammatory bowel disease Medical patient at bed rest Age 61-74 Arthroscopic surgery Major open surgery (> 45 min) Laparoscopic surgery (> 45 min) Malignancy Confined to bed (> 72 hours) Immobilizing plaster cast Central venous access Age >= 75 History of VTE Family history of VTE Factor V Leiden Prothrombin [id number] Lupus anticoagulant Anticardiolipin antibodies Elevated serum homocysteine Heparin-induced thrombocytopenia Other congenital or acquired thrombophilia Stroke (< 1 month) Elective arthroplasty Hip, pelvis, or leg fracture Acute spinal cord injury (< 1 month) Prophylaxis Regimen: Total Risk Factor Score Risk Level Prophylaxis Regimen 0-1 Low Early ambulation 2 Moderate Order ONE of the following: *Sequential Compression Device (SCD) *Heparin 5000 units SQ BID 3-4 Higher Order ONE of the following medications: *Heparin 5000 units SQ TID *Enoxaparin/Lovenox 40 mg SQ daily (WT < 150 kg, CrCl > 30 mL/min) *Enoxaparin/Lovenox 30 mg SQ daily (WT < 150 kg, CrCl > 10-29 mL/min) *Enoxaparin/Lovenox 30 mg SQ BID (WT < 150 kg, CrCl > 30 mL/min) AND/OR *Sequential Compression Device (SCD) 5 or more Highest Order ONE of the following medications: *Heparin 5000 units SQ TID (Preferred with Epidurals) *Enoxaparin/Lovenox 40 mg SQ daily (WT < 150 kg, CrCl > 30 mL/min) *Enoxaparin/Lovenox 30 mg SQ daily (WT < 150 kg, CrCl > 10-29 mL/min) *Enoxaparin/Lovenox 30 mg SQ BID (WT < 150 kg, CrCl > 30 mL/min) AND *Sequential Compression Device (SCD) Assessment and Plan - Assessment (1) Afib Code(s): I48.91 - Unspecified atrial fibrillation Status: Acute (2) PNA (pneumonia) Code(s): J18.9 - Pneumonia, unspecified organism Status: Acute (3) SOB (shortness of breath) Code(s): R06.02 - Shortness of breath Status: Acute - Plan A/P: 1. A-fib: episode of A-fib w/ RVR, now resolved, currently in Sinus Tachycardia w/ HR 90-100's, telemetry, monitor closely, resume home Cardizem PO , Check Echo to eval for valvular abnormalities/cardiomyopathy, check trop to eval for underlying ischemia. Consult Cardiology as needed. 2. PNA: CXR w/ LLL PNA, images reviewed, s/p Rocephin/Zithro in ER, will continue w/ IV Abx. 3. SOB: Multifactorial-likely due to PNA/nasal congestion w/ post-nasal drip and bronchospasm/Chronic Lung Fibrosis, O2 sat normal, will monitor closely. DuoNeb-substitute Albuterol for Xopenex in light of A-fib/tachycardia. Symbicort. CTA Chest negative for PE, images reviewed. 4. DVT Prophylaxis: SCD/Teds 5. Social work for d/c planning as needed 6. Case discussed w/ ER physician at length, labs/records/imaging reviewed by me.
[2018-07-27] MEDS: Sod Chloride 0.9% Inj 1,000 ML IV.CONT SCH (23:02)
[2018-07-28 06:55] LABS: Albumin 2.1 g/dL (3.4-5.0); Anion Gap 6 meq/L (5-15); Aspartate Aminotransferase 14 U/L (15-37); Blood Urea Nitrogen 5 mg/dL (7-18); Carbon Dioxide 27.4 meq/L (21.0-32.0); Chloride 103 meq/L (98-107); Glomerular Filtration Rate Greater Than 89 mL/min (>89); Glucose,Random 76 mg/dL (74-106); Potassium 3.7 meq/L (3.5-5.1); Sodium 136 meq/L (136-145)
[2018-07-28 06:57] LABS: Alanine Aminotransferase 13 U/L (12-78); Alkaline Phosphatase 70 U/L (45-117); Total Protein 6.2 g/dL (6.4-8.2)
[2018-07-28 07:29] LABS: Baso % (Auto) 0.2 % (0.0-2.0); Eos % (Auto) 0.1 % (0.0-4.0); Hematocrit 34.9 % (39.0-51.0); Hemoglobin 11.6 gm/dL (13.0-17.0); Lymph % (Auto) 10.5 % (9.0-44.0); Mean Corpuscular HGB Conc 33.2 % (32.0-36.0); Mean Corpuscular Volume 90.5 fL (80.0-100.0); Mean Platelet Volume 8.3 fL (7.0-11.0); Mono # (Auto) 1.2 th/mm3 (0.0-0.9); Mono % (Auto) 12.8 % (0.0-8.0); Neut % (Auto) 76.4 % (16.0-70.0); Platelet Count 209 th/mm3 (150-450); Red Blood Count 3.86 mil/mm3 (4.50-5.90); Red Cell Distribution Width 14.4 % (11.6-17.2); White Blood Count 9.2 th/mm3 (4.0-11.0)
[2018-07-28] MEDS: Megestrol Acetate Liq 400 MG/10 ML UDC PO SCH (09:42)
[2018-07-28] MEDS: Sod Chloride 0.9% Inj 1,000 ML IV.CONT SCH ×2 (09:42→18:44)
[2018-07-28] MEDS: Isosorbide Mononitrate 30 MG ER 24HR Tablet (Imdur) PO SCH ×2 (09:43→11:08)
[2018-07-28] MEDS: Metoprolol Tartrate 50 MG Tablet PO SCH ×5 (09:44→20:23)
[2018-07-28] MEDS: Senna/Docusate Sodium 8.6/50 MG Tablet PO SCH ×3 (09:44→20:21)
[2018-07-28] MEDS: Budesonide-Formoterol 160/4.5 MCG 6 GM Inhaler INH SCH ×2 (09:45→20:22)
[2018-07-28] MEDS: dilTIAZem CD 180 MG Capsule PO SCH ×3 (09:56→13:52)
--- NOTE | 2018-07-28 10:05 | P.PNIM ---
Subjective Interval history: f/u; pneumonia/ a-fib with mild to moderate sob and on oxygen via [place]. no fever today. denies chest pain or dizziness. has productive cough of yellowish sputum. Physical Exam Vital signs: Vital Signs 07/27/18 16:16 07/27/18 16:20 07/27/18 16:29 Temperature 98.8 F Pulse Rate 142 H 131 H Respiratory Rate 20 24 Blood Pressure 136/61 170/87 H Pulse Oximetry 95 95 95 07/27/18 16:37 07/27/18 21:21 07/27/18 22:47 Temperature 99.9 F H Pulse Rate 139 H 118 H 120 H Respiratory Rate 18 Blood Pressure 141/63 H Pulse Oximetry 95 07/28/18 00:19 07/28/18 01:23 07/28/18 03:21 Temperature 98 F Pulse Rate 124 H Respiratory Rate 18 Blood Pressure 100/56 L Pulse Oximetry 95 95 95 07/28/18 08:00 Temperature 97.5 F L Pulse Rate 114 H Respiratory Rate 16 Blood Pressure 107/56 L Pulse Oximetry 97 Intake & Output 07/27/18 07/28/18 07/28/18 18:59 06:59 18:59 Intake Total 1000 / 1000 1350 / 1350 Balance 1000 / 1000 1350 / 1350 Weight 49.081 kg 48.988 kg Intake: IV 1000 / 1000 1350 / 1350 Azithromycin Inj 500 MG In NS 250 / 250 Inj 250 ML @ 250 mls/hr IV.SIG ONCE ONE Rx#:[id number] NS Inj 1,000 ML @ Wide Open IV. 1000 / 1000 SIG BOLUS JAIR Rx#:[id number] NS Inj 500 ML @ Wide Open IV. 1000 / 1000 SIG BOLUS JAIR Rx#:[id number] Rocephin Inj 1,000 MG In NS Inj 100 / 100 100 ML @ 200 mls/hr IV.SIG ONCE ONE Rx#:[id number] Other: # Voids 3 Date of Last Bowel Movement 07/26/18 Weight On Admission 48.988 kg - Constitutional mild distress - Routine Respiratory Exam Present: CTA bilaterally - Routine Cardiovascular Exam Present: RRR - Routine Abdominal Exam Present: soft - Routine Extremities Exam Comments: no pedal edema. - Routine Neurological Exam Present: alert, oriented X3 Results - Labs CBC & Chem 7: 07/28/18 06:22 07/28/18 06:10 Laboratory Results - last 24 hr 07/27/18 07/27/18 07/27/18 16:50 16:50 16:50 WBC 11.9 H RBC 4.57 Hgb 13.7 Hct 41.8 MCV 91.4 MCH 30.1 MCHC 32.9 RDW 14.9 Plt Count 247 MPV 9.1 Neut % (Auto) 75.4 H Lymph % (Auto) 13.2 Platte % (Auto) 11.1 H Eos % (Auto) 0.2 Baso % (Auto) 0.1 Neut # (Auto) 9.0 H Lymph # (Auto) 1.6 Platte # (Auto) 1.3 H Eos # (Auto) 0.0 Baso # (Auto) 0.0 WBC Differential . Differential Comment Auto diff final PT 17.6 H INR 1.7 APTT 36.4 H Sodium 138 Potassium 4.6 Chloride 98 Carbon Dioxide 27.4 Anion Gap 13 BUN 10 Creatinine 0.75 Estimated GFR Greater than 89 Random Glucose 118 H Lactic Acid Calcium 8.9 Total Bilirubin 1.0 AST 18 ALT 16 Alkaline Phosphatase 93 Troponin I Less than 0.02 L B-Natriuretic Peptide Total Protein 8.0 Albumin 2.7 L Urine Color Urine Clarity Urine pH Ur Specific [place] Urine Protein Urine Glucose (UA) Urine Ketones Urine Occult Blood Urine Nitrate Urine Bilirubin Urine Urobilinogen Ur Leukocyte Esterase Urine RBC Urine WBC Ur Squamous Epith Cells Urine Bacteria Urine Mucus Micro UA Comment Ur Microscopic Review Urine Culture Comments 07/27/18 07/27/18 07/27/18 16:50 16:50 18:50 WBC RBC Hgb Hct MCV MCH MCHC RDW Plt Count MPV Neut % (Auto) Lymph % (Auto) Platte % (Auto) Eos % (Auto) Baso % (Auto) Neut # (Auto) Lymph # (Auto) Platte # (Auto) Eos # (Auto) Baso # (Auto) WBC Differential Differential Comment PT INR APTT Sodium Potassium Chloride Carbon Dioxide Anion Gap BUN Creatinine Estimated GFR Random Glucose Lactic Acid 3.6 H Calcium Total Bilirubin AST ALT Alkaline Phosphatase Troponin I B-Natriuretic Peptide 118 H Total Protein Albumin Urine Color Yellow Urine Clarity Hazy H Urine pH 5.0 Ur Specific [place] 1.018 Urine Protein Negative Urine Glucose (UA) 50 Urine Ketones Trace H Urine Occult Blood Small H Urine Nitrate Negative Urine Bilirubin Negative Urine Urobilinogen Less than 2 Ur Leukocyte Esterase Negative Urine RBC 2 Urine WBC 1 Ur Squamous Epith Cells <1 Urine Bacteria Rare H Urine Mucus Few H Micro UA Comment Culture not ind Ur Microscopic Review Not Reportable Urine Culture Comments Culture not ind 07/27/18 07/28/18 07/28/18 19:28 00:01 06:10 WBC RBC Hgb Hct MCV MCH MCHC RDW Plt Count MPV Neut % (Auto) Lymph % (Auto) Platte % (Auto) Eos % (Auto) Baso % (Auto) Neut # (Auto) Lymph # (Auto) [place]atte # (Auto) Eos # (Auto) Baso # (Auto) WBC Differential Differential Comment PT INR APTT Sodium 136 Potassium 3.7 D Chloride 103 Carbon Dioxide 27.4 Anion Gap 6 BUN 5 L Creatinine 0.41 L Estimated GFR Greater than 89 Random Glucose 76 Lactic Acid 1.3 Calcium 8.0 L D Total Bilirubin 0.7 AST 14 L ALT 13 Alkaline Phosphatase 70 Troponin I Less than 0.02 L B-Natriuretic Peptide Total Protein 6.2 L D Albumin 2.1 L D Urine Color Urine Clarity Urine pH Ur Specific [place] Urine Protein Urine Glucose (UA) Urine Ketones Urine Occult Blood Urine Nitrate Urine Bilirubin Urine Urobilinogen Ur Leukocyte Esterase Urine RBC Urine WBC Ur Squamous Epith Cells Urine Bacteria Urine Mucus Micro UA Comment Ur Microscopic Review Urine Culture Comments 07/28/18 07/28/18 06:10 06:22 WBC 9.2 RBC 3.86 L Hgb 11.6 L D Hct 34.9 L MCV 90.5 MCH 30.0 MCHC 33.2 RDW 14.4 Plt Count 209 MPV 8.3 Neut % (Auto) 76.4 H Lymph % (Auto) 10.5 [place]atte % (Auto) 12.8 H Eos % (Auto) 0.1 Baso % (Auto) 0.2 Neut # (Auto) 7.0 Lymph # (Auto) 1.0 Platte # (Auto) 1.2 H Eos # (Auto) 0.0 Baso # (Auto) 0.0 WBC Differential . Differential Comment Auto diff final PT INR APTT Sodium Potassium Chloride Carbon Dioxide Anion Gap BUN Creatinine Estimated GFR Random Glucose Lactic Acid Calcium Total Bilirubin AST ALT Alkaline Phosphatase Troponin I Less than 0.02 L B-Natriuretic Peptide Total Protein Albumin Urine Color Urine Clarity Urine pH Ur Specific [place] Urine Protein Urine Glucose (UA) Urine Ketones Urine Occult Blood Urine Nitrate Urine Bilirubin Urine Urobilinogen Ur Leukocyte Esterase Urine RBC Urine WBC Ur Squamous Epith Cells Urine Bacteria Urine Mucus Micro UA Comment Ur Microscopic Review Urine Culture Comments Microbiology 07/27/18 16:55 Nasal Wash Influenza Types A,B Antigen - Final Negative for FLU A and B antigen Infection due to influenza A or B cannot be ruled out since the antigen present in the sample may be below the detection limit of the test. - Imaging Impressions Chest X-Ray 07/27/18 16:29 CONCLUSION: 1. Extensive stable chronic interstitial and parenchymal changes, as above. 2. Slight increased patchy airspace opacities in the left lower lung zone concerning for superimposed pneumonia or aspiration in the appropriate clinical setting.h Chest CTA 07/27/18 18:42 CONCLUSION: 1. Patchy mild infiltrate in the left lower lung may be acute inflammatory in nature. 2. Extensive chronic appearing changes elsewhere as described in detail. 3. No findings to suggest pulmonary embolism Assessment and Plan - Assessment (1) Afib Code(s): I48.91 - Unspecified atrial fibrillation Status: Acute (2) PNA (pneumonia) Code(s): J18.9 - Pneumonia, unspecified organism Status: Acute (3) SOB (shortness of breath) Code(s): R06.02 - Shortness of breath Status: Acute - Plan 1. A-fib with RVR- still tachycardic; will resume Metoprolol and Cardizem- will consider Cardizem drip if HR remains elevated. will resume Eliquis.echo pending. 2. PNA: CXR w/ LLL PNA; continue IV antibiotics and follow the cultures. keep on oxygen to keep O sat > 90%. 3. SOB: Multifactorial-likely due to PNA/Chronic Lung Fibrosis. continue neb treatment. continue Symbicort. check ABG and will consult pulmonary-CTA Chest negative for PE. of note the patient is on home oxygen. 4.moderate malnutrition; will consult cooler deliverer 5. DVT Prophylaxis: SCD/Teds/ resume Eliquis. consult PT/ST. Discussed Condition With: the patient.
--- NOTE | 2018-07-28 13:18 | MB ---
cc: Williams Cohne MD DATE: 07/28/2018 REASON FOR CONSULTATION: Bilateral lung infiltrates and pulmonary fibrosis. HISTORY OF PRESENT ILLNESS: This is a 77-year-old white male with a past history of asbestosis, pulmonary fibrosis and COPD with bronchiectasis being admitted through the emergency room with atrial fibrillation and rapid ventricular response. The patient apparently has lost weight over the past few months, up to 20 pounds and has become generally weak, dyspneic with minimal activity and has been on oxygen at 2 liters. He presented to the ER with dyspnea and his chest x-ray showed dense upper lobe infiltrates and pleural scarring and interstitial infiltrates as well. He was then started on IV antibiotics including Rocephin and Zithromax IV and placed on oxygen at 3 liters. Blood gases are pending. A CT scan was consistent with pneumonia as well as pulmonary fibrosis. The patient's heart rate has improved. His O2 saturation is over 92. He denies hemoptysis, fevers or chills, but still weak and orthopneic. PAST HISTORY: Past history has included history of chronic bronchitis, asbestosis, pulmonary fibrosis, and bronchiectasis. He has coronary artery disease and atrial fibrillation. He has had a history of hyperlipidemia, glaucoma, and vertigo. Denies significant surgery. 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 HABITS HISTORY: The patient smoked 1-2 packs per day for over 40 years and alcohol use occasional. 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 He was also exposed to silica dust and concrete. FAMILY HISTORY: Essentially noncontributory. There is a history of chronic lung disease. ALLERGIES: NO DRUG ALLERGIES ARE LISTED. MEDICATIONS: Listed. REVIEW OF SYSTEMS: The patient has lost weight. He has no leg swelling. Complains of palpitations, dizziness, glaucoma, blurry vision. He has weakness and loss of appetite and joint pains of his extremities. Denies any nausea, vomiting, GI bleed or urinary symptoms or flank pains. Some anxiety with depression. PHYSICAL EXAMINATION: GENERAL: This emaciated ill-looking elderly white male was pale and dyspneic. There was moderate clubbing. VITAL SIGNS: Blood pressure 130/80, pulse is 112, respirations 24, temperature 98.2. HEENT: Head was normocephalic. Pupils were reactive. Sclerae were clear. Throat was dry. Nasal mucosa edematous. NECK: Supple, no bruits. No venous distention or lymphadenopathy. CHEST: Distant breath sounds over the upper lung hernandez with occasional crackles throughout the lower lung hernandez. There are scattered wheezes heard. CARDIOVASCULAR: Heart sounds irregularly irregular, S1 and S2 with no murmur. ABDOMEN: Soft, scaphoid, without masses. No organomegaly. The bowel sounds are active. EXTREMITIES: No lesions. Minimal edema. Peripheral pulses are diminished. Reflexes are 1+ with no gross motor deficits. SKIN: No lesions were observed. ASSESSMENT AND PLAN: 1. Bilateral pneumonia with extensive upper lobe fibrotic lung disease. 2. Bronchiectasis with chronic bronchitis and chronic obstructive pulmonary disease. 3. Asbestosis with pulmonary fibrosis. 4. Atrial fibrillation with rapid ventricular response. PLAN: The patient will be maintained on O2 at 3-4 liters nasal cannula. A blood gas study will be obtained. Sputum will be sent for culture, Gram stain and AFB. Nebulized DuoNeb solution added every 4 hours and p.r.n. The patient will be placed on cefepime 1 g IV every 8 hours, Zithromax 500 mg IV daily and vancomycin. We will place him on Solu-Medrol 40 mg IV every 8 hours. I suggested to him that a bronchoscopy may provide us some more information as to the etiology of these infiltrates. However, there is a high risk of respiratory failure, bleeding and/or pneumothorax. The patient will have a pulmonary function study at the bedside as well and further workup will depend on the results. Williams Cohen MD VJD/chan , 12:49 PM , 01:05 PM
[2018-07-28] MEDS: MethylPREDNISolone Sod Succinate Inj 40 MG/ML Vial IV.PUSH SCH ×2 (13:50→21:19)
--- NOTE | 2018-07-28 16:27 | ECHRPT ---
Indication: Atrial Fib and Flutter CONCLUSIONS Normal left ventricular size. Wall thickness is normal. The left ventricular systolic function is normal with an estimated ejection fraction in the range of 55-60%. Trace mitral valve regurgitation. No aortic valve regurgitation. No aortic valve stenosis. There is mild tricuspid valve regurgitation. The estimated pulmonary arterial pressure is 47 mmHg. BP: / HR: Rhythm: MEASUREMENTS (Male / Female) Normal Values Technical Quality:Fair 2D ECHO LV Diastolic Diameter PLAX 3.7 cm 4.2 - 5.9 / 3.9 - 5.3 cm LV Systolic Diameter PLAX 3.1 cm IVS Diastolic Thickness 0.8 cm 0.6 - 1.0 / 0.6 - 0.9 cm LVPW Diastolic Thickness 1.0 cm 0.6 - 1.0 / 0.6 - 0.9 cm LV Relative Wall Thickness 0.5 RV Internal Dim ED PLAX 1.9 cm LVOT Diameter 1.7 cm Aortic Root Diameter 2.8 cm LA Systolic Diameter LX 2.5 cm 3.0 - 4.0 / 2.7 - 3.8 cm M-MODE AV Cusp Separation MM 2.0 cm DOPPLER AV Peak Velocity 79.6 cm/s AV Peak Gradient 2.5 mmHg LVOT Peak Velocity 65.6 cm/s LVOT Peak Gradient 1.7 mmHg AV Area Cont Eq pk 1.9 cm Mitral E Point Velocity 67.6 cm/s Mitral A Point Velocity 71.1 cm/s Mitral E to A Ratio 1.0 LV E' Lateral Velocity 8.1 cm/s Mitral E to LV E' Lateral Ratio 8.4 LV E' Septal Velocity 5.0 cm/s Mitral E to LV E' Septal Ratio 13.6 TR Peak Velocity 305.0 cm/s TR Peak Gradient 37.2 mmHg Right Atrial Pressure 10.0 mmHg Pulmonary Artery Systolic Pressu 47.2 mmHg Right Ventricular Systolic Press 47.2 mmHg PV Peak Velocity 65.9 cm/s PV Peak Gradient 1.7 mmHg FINDINGS LEFT VENTRICLE Normal left ventricular size. Wall thickness is normal. The left ventricular systolic function is normal with an estimated ejection fraction in the range of 55-60%. RIGHT VENTRICLE Normal right ventricular size and systolic function. LEFT ATRIUM The left atrial size is normal. RIGHT ATRIUM The right atrial size is normal. ATRIAL SEPTUM Normal atrial septal thickness without atrial level shunting by limited color doppler interrogation. AORTA The aortic root and proximal ascending aorta are normal in size on limited imaging. MITRAL VALVE Trace mitral valve regurgitation. AORTIC VALVE Trileaflet aortic valve. Aortic valve sclerosis is present. No aortic valve regurgitation. No aortic valve stenosis. TRICUSPID VALVE There is mild tricuspid valve regurgitation. The estimated pulmonary arterial pressure is 47 mmHg. PULMONARY VALVE No pulmonary valve regurgitation or stenosis. VESSELS The inferior vena cava is normal in size. PERICARDIUM No pericardial effusion. Juvenal Wong MD, FACC (Electronically Signed) Final Date:28 July 2018 16:26
[2018-07-28 19:55] LABS: ABG Base Excess 2.8 mmol/L (-2-2); ABG PCO2 42 mmHg (38-42); ABG PO2 90 mmHg (61-120)
--- NOTE | 2018-07-28 20:42 | ECG ---
Date Performed: 07/27/2018 Time Performed: 16:29:57 PTAGE: 77 years EKG: SINUS TACHYCARDIA INCOMPLETE RIGHT BUNDLE BRANCH BLOCK NONSPECIFIC T-WAVE ABNORMALITY ABNOR MAL RHYTHM ECG PREVIOUS TRACING : 11/27/2017 20.28 Since the previous tracing, no significant change noted DOCTOR: Junior Duran Interpretating Date/Time 07/28/2018 20:42:11
[2018-07-28] MEDS: Azithromycin Inj 500 MG in Sodium Chlor 0.9% Inj 250 ML IV.SIG SCH (22:06)
[2018-07-28] MEDS ORDERED: Dextrose 50% in Water 50 ML Vial IV.PUSH PRN (23:27)
[2018-07-29] MEDS: Sod Chloride 0.9% Inj 1,000 ML IV.CONT SCH ×2 (02:59→12:43)
[2018-07-29] MEDS: MethylPREDNISolone Sod Succinate Inj 40 MG/ML Vial IV.PUSH SCH ×3 (06:11→21:00)
[2018-07-29] MEDS: Insulin NovoLOG Aspart Correctional Sugar Inj SQ SCH ×4 (09:06→20:57)
[2018-07-29] MEDS: Budesonide-Formoterol 160/4.5 MCG 6 GM Inhaler INH SCH ×2 (09:07→21:01)
[2018-07-29] MEDS: Metoprolol Tartrate 50 MG Tablet PO SCH ×2 (09:13→20:56)
[2018-07-29] MEDS: Isosorbide Mononitrate 30 MG ER 24HR Tablet (Imdur) PO SCH (09:13)
[2018-07-29] MEDS: Senna/Docusate Sodium 8.6/50 MG Tablet PO SCH ×3 (09:13→20:57)
[2018-07-29] MEDS: dilTIAZem CD 180 MG Capsule PO SCH (09:14)
[2018-07-29] MEDS: Megestrol Acetate Liq 400 MG/10 ML UDC PO SCH (09:14)
--- NOTE | 2018-07-29 12:27 | P.PNIM ---
Subjective Interval history: f/u; pneumonia with mild sob. says that he's feeling better today. no fever. Physical Exam Vital signs: Vital Signs 07/28/18 13:30 07/28/18 16:00 07/28/18 20:00 Temperature 98.1 F Pulse Rate 89 91 H Respiratory Rate 18 22 Blood Pressure 104/59 L 126/68 Pulse Oximetry 96 96 97 07/28/18 20:03 07/28/18 21:21 07/28/18 23:40 Temperature Pulse Rate 97 H 90 Respiratory Rate 16 Blood Pressure Pulse Oximetry 96 07/29/18 00:00 07/29/18 00:26 07/29/18 03:23 Temperature 98.4 F 98.0 F Pulse Rate 91 H 98 H 99 H Respiratory Rate 18 20 Blood Pressure 106/55 L 109/64 Pulse Oximetry 97 96 07/29/18 04:00 07/29/18 04:39 07/29/18 07:28 Temperature Pulse Rate 86 70 Respiratory Rate 16 Blood Pressure Pulse Oximetry 95 07/29/18 07:43 07/29/18 08:12 07/29/18 09:00 Temperature 97.6 F Pulse Rate 87 104 H 86 Respiratory Rate 20 22 Blood Pressure 109/59 L Pulse Oximetry 95 07/29/18 11:52 Temperature 97.4 F L Pulse Rate 84 Respiratory Rate 20 Blood Pressure 102/58 L Pulse Oximetry 95 Intake & Output 07/28/18 07/29/18 07/29/18 18:59 06:59 18:59 Intake Total 1550 / 1550 Output Total 600 / 600 600 / 600 Balance -600 / -600 950 / 950 Intake: IV 1550 / 1550 NS Inj 1,000 ML @ 100 mls/hr IV 1000 / 1000 .CONT .Q10H JAIR Rx#:[id number] Azithromycin Inj 500 MG In NS 250 / 250 Inj 250 ML @ 250 mls/hr IV.SIG Q24H JAIR Rx#:[id number] Maxipime Inj 1,000 MG In NS Inj 300 / 300 100 ML @ 200 mls/hr IV.SIG Q8H JAIR Rx#:[id number] Output: Urine 600 / 600 600 / 600 - Constitutional mild distress - Routine Respiratory Exam Present: CTA bilaterally - Routine Cardiovascular Exam Present: RRR - Routine Abdominal Exam Present: soft - Routine Extremities Exam Comments: no pedal edema. - Routine Neurological Exam Present: alert, oriented X3 Results - Labs CBC & Chem 7: 07/28/18 06:22 07/28/18 06:10 Laboratory Results - last 24 hr 07/28/18 07/28/18 07/29/18 19:40 23:21 02:45 Puncture Site Right radial Patient Temperature 98.6 O2 Saturation 96 ABG pH 7.42 ABG pCO2 42 ABG pO2 90 ABG HCO3 27 H ABG O2 Content 16.8 ABG Base Excess 2.8 H ABG Methemoglobin 0.4 Jonathan Test Present Hemoglobin 12.4 Carboxyhemoglobin 1.3 O2 Delivery Device Nasal cannula Liter Flow 2.00 Critical Value No POC Glucose 221 H 184 H 07/29/18 07/29/18 07:48 12:11 Puncture Site Patient Temperature O2 Saturation ABG pH ABG pCO2 ABG pO2 ABG HCO3 ABG O2 Content ABG Base Excess ABG Methemoglobin Jonathan Test Hemoglobin Carboxyhemoglobin O2 Delivery Device Liter Flow Critical Value POC Glucose 209 H 138 H Microbiology 07/27/18 16:50 Blood - Peripheral Aerobic Blood Culture - Preliminary No growth in 2 days 07/27/18 16:50 Blood - Peripheral Anaerobic Blood Culture - Preliminary No growth in 2 days 07/27/18 16:45 Blood - Peripheral Aerobic Blood Culture - Preliminary No growth in 2 days 07/27/18 16:45 Blood - Peripheral Anaerobic Blood Culture - Preliminary No growth in 2 days 07/28/18 14:13 Sputum - Expectorated Sputum Gram Stain - Final Assessment and Plan - Assessment (1) Afib Code(s): I48.91 - Unspecified atrial fibrillation Status: Acute (2) PNA (pneumonia) Code(s): J18.9 - Pneumonia, unspecified organism Status: Acute (3) SOB (shortness of breath) Code(s): R06.02 - Shortness of breath Status: Acute - Plan 1. A-fib ; HR better controlled; will continue Metoprolol and Cardizem- resumed Eliquis- echo with EF 55%. 2. PNA with history of pulmonary fibrosis: CXR w/ LLL PNA; continue IV antibiotics, IV steroids and Symbicort and follow the cultures. keep on oxygen to keep O sat > 90%. CTA chest negative for PE. of note the patient is on home oxygen. pulmonary following. 4.moderate malnutrition; consulted boiler tester 5. DVT Prophylaxis: on Eliquis. consulted PT/ST. Discharge Planning: rehab was d/w the patient today; he wants to talk to his about it.
--- NOTE | 2018-07-29 14:52 | P.PN ---
Subjective Interval history: He is better today. On O2 3 L. Sats 96. Coughs up thick sputum. No fever. ABG's were adequate. he was evaluated at the [facility]. Physical Exam Vital signs: Vital Signs 07/28/18 16:00 07/28/18 20:00 07/28/18 20:03 Temperature 98.1 F Pulse Rate 89 91 H Respiratory Rate 18 22 Blood Pressure 104/59 L 126/68 Pulse Oximetry 96 97 96 07/28/18 21:21 07/28/18 23:40 07/29/18 00:00 Temperature Pulse Rate 97 H 90 91 H Respiratory Rate 16 Blood Pressure Pulse Oximetry 07/29/18 00:26 07/29/18 03:23 07/29/18 04:00 Temperature 98.4 F 98.0 F Pulse Rate 98 H 99 H 86 Respiratory Rate 18 20 Blood Pressure 106/55 L 109/64 Pulse Oximetry 97 96 07/29/18 04:39 07/29/18 07:28 07/29/18 07:43 Temperature 97.6 F Pulse Rate 70 87 Respiratory Rate 16 20 Blood Pressure 109/59 L Pulse Oximetry 95 95 07/29/18 08:12 07/29/18 09:00 07/29/18 11:52 Temperature 97.4 F L Pulse Rate 104 H 86 84 Respiratory Rate 22 20 Blood Pressure 102/58 L Pulse Oximetry 95 07/29/18 12:00 Temperature Pulse Rate 93 H Respiratory Rate Blood Pressure Pulse Oximetry Intake & Output 07/28/18 07/29/18 07/29/18 18:59 06:59 18:59 Intake Total 1550 / 1550 1000 / 1000 Output Total 600 / 600 600 / 600 Balance -600 / -600 950 / 950 1000 / 1000 Intake: IV 1550 / 1550 1000 / 1000 NS Inj 1,000 ML @ 60 mls/hr IV. 1000 / 1000 1000 / 1000 CONT .[id number] JAIR Rx#:[id number] Azithromycin Inj 500 MG In NS 250 / 250 Inj 250 ML @ 250 mls/hr IV.SIG Q24H JAIR Rx#:[id number] Maxipime Inj 1,000 MG In NS Inj 300 / 300 100 ML @ 200 mls/hr IV.SIG Q8H JAIR Rx#:[id number] Output: Urine 600 / 600 600 / 600 Narrative: PE: GENERAL: Thin, chronically ill-appearing elderly white male in no acute distress. SKIN: Focused skin assessment warm and dry. HEENT: PERRLA, EOMI. No scleral icterus or conjunctival pallor. No facial droop. CARDIOVASCULAR: Sinus tachycardia, HR 90-100's. No obvious murmurs to auscultation. No chest tenderness to palpation. RESPIRATORY:Few Wheezes and Breath sounds equal and decreased bilaterally. GASTROINTESTINAL: Abdomen soft, non-tender, nondistended. BS normal. MUSCULOSKELETAL: Extremities without clubbing, cyanosis, or edema. No obvious deformities. NEUROLOGICAL: Awake, alert and oriented x4. No focal neurologic deficits. Moving both upper and lower extremities spontaneously. PSYCHIATRIC: Appropriate mood and affect. Results - Labs CBC & Chem 7: 07/28/18 06:22 07/28/18 06:10 Laboratory Results - last 24 hr 07/28/18 07/28/18 07/29/18 19:40 23:21 02:45 Puncture Site Right radial Patient Temperature 98.6 O2 Saturation 96 ABG pH 7.42 ABG pCO2 42 ABG pO2 90 ABG HCO3 27 H ABG O2 Content 16.8 ABG Base Excess 2.8 H ABG Methemoglobin 0.4 Jonathan Test Present Hemoglobin 12.4 Carboxyhemoglobin 1.3 O2 Delivery Device Nasal cannula Liter Flow 2.00 Critical Value No POC Glucose 221 H 184 H 07/29/18 07/29/18 07:48 12:11 Puncture Site Patient Temperature O2 Saturation ABG pH ABG pCO2 ABG pO2 ABG HCO3 ABG O2 Content ABG Base Excess ABG Methemoglobin Jonathan Test Hemoglobin Carboxyhemoglobin O2 Delivery Device Liter Flow Critical Value POC Glucose 209 H 138 H Microbiology 07/27/18 16:50 Blood - Peripheral Aerobic Blood Culture - Preliminary No growth in 2 days 07/27/18 16:50 Blood - Peripheral Anaerobic Blood Culture - Preliminary No growth in 2 days 07/27/18 16:45 Blood - Peripheral Aerobic Blood Culture - Preliminary No growth in 2 days 07/27/18 16:45 Blood - Peripheral Anaerobic Blood Culture - Preliminary No growth in 2 days 07/28/18 14:13 Sputum - Expectorated Sputum Gram Stain - Final Assessment and Plan - Assessment (1) Pulmonary fibrosis Code(s): J84.10 - Pulmonary fibrosis, unspecified Status: Acute (2) CAP (community acquired pneumonia) Code(s): J18.9 - Pneumonia, unspecified organism Status: Acute (3) Sinus tachycardia Code(s): R00.0 - Tachycardia, unspecified Status: Acute (4) Afib Code(s): I48.91 - Unspecified atrial fibrillation Status: Acute (5) PNA (pneumonia) Code(s): J18.9 - Pneumonia, unspecified organism Status: Acute (6) SOB (shortness of breath) Code(s): R06.02 - Shortness of breath Status: Acute (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 Will leave on O2 3 L. 2. Continue antibiotics cefipime / Zithromax for 5 days 3. Duoneb nebs qid. 4. Continue solumedrol 40 mg IV Q8H 5. PFT in am. 6. Discussed about doing a Bronchoscopy and Lavage and the patient declined. (2) CAP (community acquired pneumonia) Qualifiers: Laterality: left Lung location: lower lobe of lung Qualified Code(s): J18.1 - Lobar pneumonia, unspecified organism
[2018-07-29] MEDS: Azithromycin Inj 500 MG in Sodium Chlor 0.9% Inj 250 ML IV.SIG SCH (23:00)
[2018-07-30 00:35] LABS: ABG Base Excess -0.2 mmol/L (-2-2); ABG PCO2 48 mmHg (38-42); ABG PO2 92 mmHg (61-120)
--- NOTE | 2018-07-30 00:40 | P.PNADD ---
Addendum to Inpatient Note Reason for Addendum: Additional Documentation Additional information: Resident team was called for a Halicat at ~0020. Upon arriving at the patient's room we were informed by nursing staff that the patient was having increased shortness of breath and that he was originally admitted for respiratory distress and sepsis. He was refusing breathing treatments. We spoke to Mr. Albarran who stated that he felt that the breathing treatments gave him increased anxiety. He also felt like his shortness of breath was due to mucus in his throat. He is usually on 2L O2 at home. He was ok with being intubated if need be. O: VS upon entering the room: T 97.1F, BP 124/92, HR 92, O2 Sat 96% on 5L NC General: elderly white male sitting up in bed, in moderate distress Cardio: RRR but rapid Respiratory: increased work of breathing with supraclavicular retractions, decreased air movement, diffuse crackles Extremities: no LE edema A/P Mr. Albarran is a 77yo white male with a PMH of silicosis presenting with respiratory distress refusing treatment, but satting well on 5L NC CXR at bedside showed increased opacities on of the left lower lobe from admission CXR. Official read pending. ABG pending Xopenex treatment ordered by nursing staff due to decreased side effect of tachycardia Transfer to C in case of intubation, spoke with Dr. Villarreal by phone SDW Dr. Underwood, KATH Villarreal
--- NOTE | 2018-07-30 00:46 | XR ---
EXAM DATE: 07/30/2018 12:16 AM EDT AGE/SEX: 77 years / Male INDICATIONS: Shortness of breath, HELICAT code. CLINICAL DATA: This is the patient's subsequent encounter. Patient reports that signs and symptoms h ave been present for 3 days and indicates a pain score of 0/10. MEDICAL/SURGICAL HISTORY: Chronic obstructive pulmonary disease. Cardiovascular disease. A-Fib . None. COMPARISON: [facility] [place] 1[place] SINGLE AP, 07/27/2018. . FINDINGS: There is extensive chronic consolidation and cavitation in the upper lungs bilaterally with marked pl eural thickening and extensive pleural calcification. Previously noted left basilar opacity on Octobe r 11 is stable. No new consolidation on the current exam. CONCLUSION: Stable chronic consolidation and cavitation in both upper lungs with extensive pleural thickening and calcification. Electronically signed by: Kendell Moreira MD 07/30/2018 12:45 AM EDT
[2018-07-30] MEDS ORDERED: RESP: Levalbuterol 1.25 MG/3 ML Neb (PRN) NEB (01:00)
--- NOTE | 2018-07-30 02:36 | P.CONCC ---
History of Present Illness Service: critical care medicine Consult date: 07/30/18 Requesting Physician: Meaghan Rockwell Reason for Consult: ACUTE RESP FAILURE Primary Care Provider: [facility] Chief Complaint: shortness of breath History of Present Illness: 77-year-old male with a medical history significant for hypertension, asbestosis , COPD/pulmonary fibrosis, A. fib who was admitted on 07/27 after [facility] of A. fib with RVR along with shortness of breath and generalized weakness for 2-3 days. CTA chest revealed patchy infiltrates in bilateral upper lobes with extensive chronic appearing changes elsewhere with increased patchy airspace opacities. Chest x-ray revealed pulmonary fibrosis with bilateral upper lobe infiltrates. Patient was admitted by hospitalist service initiated on empiric antibiotic steroids and bronchodilators and was also evaluated by Dr. Cruz from pulmonary medicine. Patient developed worsening shortness of breath around midnight about 20 minutes after breathing treatment for which a rapid response was called and patient was transferred to the ICU. He was initially on 3 L O2 nasal cannula however subsequently during rapid response was placed on 6 L nasal cannula. Patient felt that the breathing treatment appeared to have contributed to anxiety making him more short of breath. Critical care consult was requested by rapid response team following transfer to the ICU. When I evaluated the patient he was resting comfortably on 6 L nasal cannula though he did get short of breath on attempting to speak with me. He was maintaining O2 sats in the 97 % range on 6 L nasal cannula. He did have a productive cough at the time and denied any chest pain nausea or vomiting. Review of Systems All other systems reviewed negative except as stated in HPI PMFSH - History History Provided By: Patient - Medical History Medical History: Medical History (Last Reviewed 07/28/18 @ 10:52 by Mahamed Moran) A-fib Asbestosis CAD (coronary artery disease) COPD (chronic obstructive pulmonary disease) Fibrosis of lung Glaucoma Hyperlipidemia Underweight Vertigo - Tobacco History Second Hand Smoke Exposure: No Tobacco Use In Past 30 Days: No Smoking Status: Never smoker - Alcohol History How Often Do You Have a Drink Containing Alcohol: Never - Substance Use History Substance History: No History of Abuse - Travel History Recent Travel in the [place] Within the Last 8 Weeks: No Recent Travel Out of the Country Within the Last 8 Weeks: No - Immunization History Tetanus Immunization: Unsure Medications and Allergies Active Medications: Active Medications Acetaminophen (Tylenol) 650 mg PO Q4H PRN PRN Reason: Temp > 100.4 Al Hydroxide/Mg Hydroxide (Milk Of [place] Liq) 30 ml PO Q12H PRN PRN Reason: Mild Constipation Albuterol (Duoneb Neb (Jacob)) 1 ampul NEB Q6HR NEB [facility] Last Admin: 07/29/18 21:38 Dose: 1 ampul Apixaban (Eliquis) 5 mg PO BID [facility] Last Admin: 07/29/18 20:56 Dose: 5 mg Atorvastatin Calcium (Lipitor) 10 mg PO HS [facility] Last Admin: 07/29/18 20:56 Dose: 10 mg Bisacodyl (Dulcolax Supp) 10 mg RECTAL DAILY PRN PRN Reason: SEVERE CONSITIPATION Budesonide/Formoterol Fumarate (Symbicort 160/4.5 Mcg Inh) 2 puff INH BID [facility] Last Admin: 07/29/18 21:01 Dose: 2 puff Dextrose (D50w Vial) 50 ml IV.PUSH UNSCH PRN PRN Reason: PER HYPOGLYCEMIA PROTOCOL Diltiazem HCl (Cardizem Cd 24hr) 180 mg PO DAILY [facility] Last Admin: 07/29/18 09:14 Dose: 180 mg Glucagon (Glucagon Inj) 1 mg OTHER PRN PRN PRN Reason: for Hypoglycemia Protocol Sodium Chloride (Ns Inj) 1,000 mls @ 0 mls/hr IV.SIG BOLUS [facility] Last Infusion: 07/27/18 18:59 Dose: Infused Azithromycin 500 mg/ Sodium (Chloride) 250 mls @ 250 mls/hr IV.SIG Q24H [facility] Last Infusion: 07/30/18 01:41 Dose: Infused Sodium Chloride (Ns Inj) 1,000 mls @ 60 mls/hr IV.CONT .[id number] [facility] Last Infusion: 07/29/18 22:45 Dose: Infused Cefepime HCl 1,000 mg/ Sodium (Chloride) 100 mls @ 200 mls/hr IV.SIG Q8H [facility] Stop: 08/02/18 13:59 Last Infusion: 07/29/18 21:49 Dose: Infused Insulin Aspart (Novolog Insulin Correctional Sugar Inj) 0 unit SQ ACHS JACOB; Protocol Last Admin: 07/29/18 20:57 Dose: 2 unit Isosorbide Mononitrate (Imdur) 30 mg PO DAILY [facility] Last Admin: 07/29/18 09:13 Dose: 30 mg Lactulose (Lactulose Liq) 30 ml PO DAILY PRN PRN Reason: SEVERE CONSITIPATION Levalbuterol HCl (Xopenex Neb) 0.63 mg NEB Q6HR NEB PRN PRN Reason: SHORTNESS OF BREATH Megestrol Acetate (Megace Liq) 400 mg PO DAILY [facility] Last Admin: 07/29/18 09:14 Dose: 400 mg Methylprednisolone Sodium Succinate (Solumedrol Inj) 40 mg IV.PUSH Q8HR [facility] Stop: 08/01/18 23:59 Last Admin: 07/29/18 21:00 Dose: 40 mg Metoprolol Tartrate (Lopressor) 50 mg PO BID [facility] Last Admin: 07/29/18 20:56 Dose: 50 mg Multivitamins (Theragran) 1 tab PO DAILY [facility] Last Admin: 07/29/18 09:13 Dose: 1 tab Ondansetron HCl (Zofran Inj) 4 mg IV.PUSH Q6H PRN PRN Reason: NAUSEA OR VOMITING Pantoprazole Sodium (Protonix) 40 mg PO DAILY [facility] Last Admin: 07/29/18 09:13 Dose: 40 mg Senna/Docusate Sodium (Vielka-Colace) 1 tab PO BID [facility] Last Admin: 07/29/18 20:57 Dose: Not Given Sennosides (Senokot) 17.2 mg PO Q12H PRN PRN Reason: Moderate Constipation Allergies Allergy/AdvReac Type Severity Reaction Status Date / Time No Known Allergies Allergy Verified 11/27/17 20:16 Home Medications Medication Instructions Recorded Confirmed Type atorvastatin 10 mg PO HS 07/27/18 07/27/18 History clopidogrel 75 mg PO DAILY 07/27/18 07/27/18 History diltiazem HCl 180 mg PO DAILY 07/27/18 07/27/18 History food supplemt, lactose-reduced 1 can PO BID 07/27/18 07/27/18 History [Ensure] furosemide 20 mg PO DAILY 07/27/18 07/27/18 History isosorbide mononitrate 30 mg PO DAILY 07/27/18 07/27/18 History megestrol 10 ml PO DAILY 07/27/18 07/27/18 History metoprolol tartrate 50 mg PO BID 07/27/18 07/27/18 History multivitamin [Multiple Vitamins] 1 tab PO DAILY 07/27/18 07/27/18 History pantoprazole 40 mg PO DAILY 07/27/18 07/27/18 History apixaban 5 mg PO BID 07/28/18 07/28/18 History Physical Exam Vital signs: Vital Signs 07/29/18 03:23 07/29/18 04:00 07/29/18 04:39 Temperature 98.0 F Pulse Rate 99 H 86 70 Respiratory Rate 20 16 Blood Pressure 109/64 Pulse Oximetry 96 07/29/18 07:28 07/29/18 07:43 07/29/18 08:00 Temperature 97.6 F Pulse Rate 87 Respiratory Rate 20 Blood Pressure 109/59 L Pulse Oximetry 95 95 95 07/29/18 08:12 07/29/18 09:00 07/29/18 11:52 Temperature 97.4 F L Pulse Rate 104 H 86 84 Respiratory Rate 22 20 Blood Pressure 102/58 L Pulse Oximetry 95 07/29/18 12:00 07/29/18 15:04 07/29/18 15:34 Temperature 97.6 F Pulse Rate 93 H 92 H 95 H Respiratory Rate 20 20 Blood Pressure 101/56 L Pulse Oximetry 95 07/29/18 20:00 07/29/18 21:38 07/30/18 00:00 Temperature 97.2 F L 97.6 F Pulse Rate 96 H 84 79 Respiratory Rate 22 16 22 Blood Pressure 129/73 107/62 Pulse Oximetry 99 95 95 Intake & Output 07/29/18 07/29/18 07/30/18 06:59 18:59 06:59 Intake Total 1550 / 1550 1100 / 1100 1350 / 1350 Output Total 600 / 600 200 / 200 Balance 950 / 950 900 / 900 1350 / 1350 Intake: IV 1550 / 1550 1100 / 1100 1350 / 1350 NS Inj 1,000 ML @ 60 mls/hr IV. 1000 / 1000 1000 / 1000 1000 / 1000 CONT .[id number] JACOB Rx#:[id number] Azithromycin Inj 500 MG In NS 250 / 250 250 / 250 Inj 250 ML @ 250 mls/hr IV.SIG Q24H JACOB Rx#:[id number] Maxipime Inj 1,000 MG In NS Inj 300 / 300 100 / 100 100 / 100 100 ML @ 200 mls/hr IV.SIG Q8H JACOB Rx#:[id number] Output: Urine 600 / 600 200 / 200 Other: # Voids 1 Date of Last Bowel Movement 07/27/18 Narrative: HEENT/Neuro: No pallor or icterus, tongue moist, KAREN, Awake alert oriented 3 , nonfocal grossly, moving all 4 extremities Neck: No JVD Chest/pulmonary: Good air entry bilaterally, scattered rhonchi and crackles bilaterally, no wheezing Cardiovascular: S1-S2 regular no gallop or murmur GI/abdomen: Soft, nontender, bowel sounds present Extremities: Warm bilaterally, no edema Assessment and Plan - Assessment and Plan Plan: Chest X-Ray 07/27/18 16:29 CONCLUSION: 1. Extensive stable chronic interstitial and parenchymal changes, as above. 2. Slight increased patchy airspace opacities in the left lower lung zone concerning for superimposed pneumonia or aspiration in the appropriate clinical setting.h Chest CTA 07/27/18 18:42 CONCLUSION: 1. Patchy mild infiltrate in the left lower lung may be acute inflammatory in nature. 2. Extensive chronic appearing changes elsewhere as described in detail. 3. No findings to suggest pulmonary embolism Chest X-Ray 07/30/18 00:16 CONCLUSION: Stable chronic consolidation and cavitation in both upper lungs with extensive pleural thickening and calcification. 77-year-old male with: Acute on chronic respiratory failure Pneumonia Pulmonary fibrosis Asbestosis COPD A. fib CAD Hyperlipidemia Plan: Neuro: Follow neuro status. Cardiovascular: IV hydration, continue Eliquis, Cardizem, metoprolol, Imdur. Pulmonary: Supplemental O2, bronchodilators, IV steroids. Pulmonary following. Patient has refused bronchoscopy at this time. GI/liver: P.o. diet as tolerated Renal/: IV hydration, strict intake output, monitor and replete electrolytes, follow BUN/creatinine. ID: Empiric antibiotic coverage with IV cefepime and Zithromax. Endocrine: SSI for glycemic control as needed Heme: Follow CBC Prophylaxis: Protonix/SCDs/Eliquis Patient is okay with intubation if needed. I did discuss option of BiPAP if respiratory status worsens and he voiced understanding. Condition critical Time spent on critical care excluding procedures 40 minutes
[2018-07-30] MEDS: LEVALBUTEROL 0.63 MG/3 ML NEB ×4 (03:45→20:41)
[2018-07-30] MEDS: MethylPREDNISolone Sod Succinate Inj 40 MG/ML Vial IV.PUSH SCH ×3 (06:29→21:16)
[2018-07-30] MEDS: Sod Chloride 0.9% Inj 1,000 ML IV.CONT SCH (06:29)
[2018-07-30] MEDS: Insulin NovoLOG Aspart Correctional Sugar Inj SQ SCH ×4 (08:50→21:17)
[2018-07-30] MEDS: Metoprolol Tartrate 50 MG Tablet PO SCH ×2 (08:54→21:30)
[2018-07-30] MEDS: Isosorbide Mononitrate 30 MG ER 24HR Tablet (Imdur) PO SCH (08:54)
[2018-07-30] MEDS: dilTIAZem CD 180 MG Capsule PO SCH (08:54)
[2018-07-30] MEDS: Senna/Docusate Sodium 8.6/50 MG Tablet PO SCH ×2 (08:55→21:16)
[2018-07-30] MEDS: Megestrol Acetate Liq 400 MG/10 ML UDC PO SCH (08:55)
[2018-07-30 09:36] LABS: Baso % (Auto) 0.2 % (0.0-2.0); Hematocrit 36.3 % (39.0-51.0); Hemoglobin 11.9 gm/dL (13.0-17.0); Lymph # (Auto) 0.4 th/mm3 (1.0-4.8); Lymph % (Auto) 2.9 % (9.0-44.0); Mean Corpuscular HGB Conc 32.9 % (32.0-36.0); Mean Corpuscular Hemoglobin 29.5 pg (27.0-34.0); Mean Corpuscular Volume 89.9 fL (80.0-100.0); Mean Platelet Volume 8.4 fL (7.0-11.0); Mono # (Auto) 0.4 th/mm3 (0.0-0.9); Mono % (Auto) 2.8 % (0.0-8.0); Neut # (Auto) 12.5 th/mm3 (1.8-7.7); Neut % (Auto) 94.1 % (16.0-70.0); Platelet Count 317 th/mm3 (150-450); Red Blood Count 4.04 mil/mm3 (4.50-5.90); Red Cell Distribution Width 14.4 % (11.6-17.2); White Blood Count 13.3 th/mm3 (4.0-11.0)
[2018-07-30 09:44] LABS: INR 1.3 Ratio; Prothrombin Time 12.7 sec (9.8-11.6)
[2018-07-30 09:50] LABS: Albumin 2.4 g/dL (3.4-5.0); Anion Gap 6 meq/L (5-15); Aspartate Aminotransferase 19 U/L (15-37); Blood Urea Nitrogen 12 mg/dL (7-18); Calcium 8.7 mg/dL (8.5-10.1); Carbon Dioxide 28.1 meq/L (21.0-32.0); Chloride 104 meq/L (98-107); Glomerular Filtration Rate Greater Than 89 mL/min (>89); Glucose,Random 122 mg/dL (74-106); Magnesium 1.8 mg/dL (1.5-2.5); Potassium 3.9 meq/L (3.5-5.1); Sodium 138 meq/L (136-145)
[2018-07-30 09:52] LABS: Alanine Aminotransferase 22 U/L (12-78); Phosphorus 2.2 mg/dL (2.5-4.9)
[2018-07-30 09:54] LABS: Alkaline Phosphatase 86 U/L (45-117); Total Protein 7.1 g/dL (6.4-8.2)
[2018-07-30] MEDS: Budesonide-Formoterol 160/4.5 MCG 6 GM Inhaler INH SCH ×2 (11:58→21:17)
--- NOTE | 2018-07-30 14:34 | P.PN ---
Subjective Interval history: Was transferred to [facility] [place] for respiratory distress after a Neb treatment . Now on O2 at 5L. SOB at rest and has wheezing Physical Exam Vital signs: Vital Signs 07/29/18 15:04 07/29/18 15:34 07/29/18 20:00 Temperature 97.6 F 97.2 F L Pulse Rate 92 H 95 H 96 H Respiratory Rate 20 20 22 Blood Pressure 101/56 L 129/73 Pulse Oximetry 95 99 07/29/18 21:38 07/30/18 00:00 07/30/18 03:46 Temperature 97.6 F Pulse Rate 84 79 92 H Respiratory Rate 16 22 Blood Pressure 107/62 Pulse Oximetry 95 95 07/30/18 04:00 07/30/18 08:00 07/30/18 09:00 Temperature 97.4 F L 98.4 F Pulse Rate 88 84 106 H Respiratory Rate 22 21 Blood Pressure 131/70 118/70 Pulse Oximetry 96 96 07/30/18 09:52 07/30/18 12:00 Temperature 98.6 F Pulse Rate 82 86 Respiratory Rate 16 22 Blood Pressure 113/64 Pulse Oximetry 95 4 L Intake & Output 07/29/18 07/30/18 07/30/18 18:59 06:59 18:59 Intake Total 1100 / 1100 1650 / 1650 234 / 234 Output Total 200 / 200 600 / 600 Balance 900 / 900 1050 / 1050 234 / 234 Weight 48.8 kg Intake: IV 1100 / 1100 1350 / 1350 234 / 234 NS Inj 1,000 ML @ 60 mls/hr IV. 1000 / 1000 1000 / 1000 134 / 134 CONT .[id number] JAIR Rx#:[id number] Azithromycin Inj 500 MG In NS 250 / 250 Inj 250 ML @ 250 mls/hr IV.SIG Q24H JA[facility] Rx#:[id number] Maxipime Inj 1,000 MG In NS Inj 100 / 100 100 / 100 100 / 100 100 ML @ 200 mls/hr IV.SIG Q8H JAIR Rx#:[id number] Oral 300 / 300 Output: Urine 200 / 200 600 / 600 Other: # Voids 1 Date of Last Bowel Movement 07/27/18 07/27/18 Narrative: Elderly W/M appears chronically Ill. HEENT/Neuro: No pallor or icterus, tongue moist, KAREN, Awake alert oriented 3 , moving all 4 extremities, with no focal deficits. Neck: No JVD Chest/pulmonary: Good air entry bilaterally, scattered rhonchi and crackles bilaterally. Cardiovascular: S1-S2 regular no gallop or murmur GI/abdomen: Soft, nontender, bowel sounds present Extremities: Warm bilaterally, no edema. Wasted muscles. Results - Labs CBC & Chem 7: 07/30/18 09:15 07/30/18 09:15 Laboratory Results - last 24 hr 07/29/18 07/29/18 07/29/18 17:32 20:10 23:46 WBC RBC Hgb Hct MCV MCH MCHC RDW Plt Count MPV Neut % (Auto) Lymph % (Auto) [place] % (Auto) Eos % (Auto) Baso % (Auto) Neut # (Auto) Lymph # (Auto) [place] # (Auto) Eos # (Auto) Baso # (Auto) WBC Differential Differential Comment PT INR Puncture Site Patient Temperature O2 Saturation ABG pH ABG pCO2 ABG pO2 ABG HCO3 ABG O2 Content ABG Base Excess ABG Methemoglobin Jonathan Test Hemoglobin Carboxyhemoglobin O2 Delivery Device Liter Flow Critical Value Sodium Potassium Chloride Carbon Dioxide Anion Gap BUN Creatinine Estimated GFR POC Glucose 172 H 178 H 118 H Random Glucose Calcium Phosphorus Magnesium Total Bilirubin AST ALT Alkaline Phosphatase Total Protein Albumin Nasal Screen MRSA (PCR) 07/30/18 07/30/18 07/30/18 00:19 00:45 08:48 WBC RBC Hgb Hct MCV MCH MCHC RDW Plt Count MPV Neut % (Auto) Lymph % (Auto) [place] % (Auto) Eos % (Auto) Baso % (Auto) Neut # (Auto) Lymph # (Auto) [place] # (Auto) Eos # (Auto) Baso # (Auto) WBC Differential Differential Comment PT INR Puncture Site Right radial Patient Temperature 98.6 O2 Saturation 96 ABG pH 7.34 L ABG pCO2 48 H ABG pO2 92 ABG HCO3 25 ABG O2 Content 16.6 ABG Base Excess -0.2 ABG Methemoglobin 0.5 Jonathan Test Present Hemoglobin 12.3 Carboxyhemoglobin 0.8 O2 Delivery Device Nasal cannula Liter Flow 5.00 Critical Value No Sodium Potassium Chloride Carbon Dioxide Anion Gap BUN Creatinine Estimated GFR POC Glucose 121 H Random Glucose Calcium Phosphorus Magnesium Total Bilirubin AST ALT Alkaline Phosphatase Total Protein Albumin Nasal Screen MRSA (PCR) Mrsa detected 07/30/18 07/30/1807/30/18 09:15 09:15 09:15 WBC 13.3 H RBC 4.04 L Hgb 11.9 L Hct 36.3 L MCV 89.9 MCH 29.5 MCHC 32.9 RDW 14.4 Plt Count 317 D MPV 8.4 Neut % (Auto) 94.1 H Lymph % (Auto) 2.9 L [place] % (Auto) 2.8 Eos % (Auto) 0.0 Baso % (Auto) 0.2 Neut # (Auto) 12.5 H Lymph # (Auto) 0.4 L [place] # (Auto) 0.4 Eos # (Auto) 0.0 Baso # (Auto) 0.0 WBC Differential . Differential Comment Auto diff final PT 12.7 H INR 1.3 Puncture Site Patient Temperature O2 Saturation ABG pH ABG pCO2 ABG pO2 ABG HCO3 ABG O2 Content ABG Base Excess ABG Methemoglobin Jonathan Test Hemoglobin Carboxyhemoglobin O2 Delivery Device Liter Flow Critical Value Sodium 138 Potassium 3.9 Chloride 104 Carbon Dioxide 28.1 Anion Gap 6 BUN 12 Creatinine 0.52 L Estimated GFR Greater than 89 POC Glucose Random Glucose 122 H Calcium 8.7 Phosphorus 2.2 L Magnesium 1.8 Total Bilirubin 0.3 AST 19 ALT 22 Alkaline Phosphatase 86 Total Protein 7.1 D Albumin 2.4 L Nasal Screen MRSA (PCR) 07/30/18 11:09 WBC RBC Hgb Hct MCV MCH MCHC RDW Plt Count MPV Neut % (Auto) Lymph % (Auto) [place] % (Auto) Eos % (Auto) Baso % (Auto) Neut # (Auto) Lymph # (Auto) [place] # (Auto) Eos # (Auto) Baso # (Auto) WBC Differential Differential Comment PT INR Puncture Site Patient Temperature O2 Saturation ABG pH ABG pCO2 ABG pO2 ABG HCO3 ABG O2 Content ABG Base Excess ABG Methemoglobin Jonathan Test Hemoglobin Carboxyhemoglobin O2 Delivery Device Liter Flow Critical Value Sodium Potassium Chloride Carbon Dioxide Anion Gap BUN Creatinine Estimated GFR POC Glucose 163 H Random Glucose Calcium Phosphorus Magnesium Total Bilirubin AST ALT Alkaline Phosphatase Total Protein Albumin Nasal Screen MRSA (PCR) Microbiology 07/28/18 14:13 Sputum - Expectorated Sputum Gram Stain - Final 07/28/18 14:13 Sputum - Expectorated Sputum Sputum Culture - Final Heavy growth normal respiratory nely 07/27/18 16:50 Blood - Peripheral Aerobic Blood Culture - Preliminary No growth in 3 days 07/27/18 16:50 Blood - Peripheral Anaerobic Blood Culture - Preliminary No growth in 3 days 07/27/18 16:45 Blood - Peripheral Aerobic Blood Culture - Preliminary No growth in 3 days 07/27/18 16:45 Blood - Peripheral Anaerobic Blood Culture - Preliminary No growth in 3 days - Imaging Impressions Chest X-Ray 07/30/18 00:16 CONCLUSION: Stable chronic consolidation and cavitation in both upper lungs with extensive pleural thickening and calcification. Assessment and Plan - Assessment (1) Pulmonary fibrosis Code(s): J84.10 - Pulmonary fibrosis, unspecified Status: Acute (2) CAP (community acquired pneumonia) Code(s): J18.9 - Pneumonia, unspecified organism Status: Acute (3) Sinus tachycardia Code(s): R00.0 - Tachycardia, unspecified Status: Acute (4) Afib Code(s): I48.91 - Unspecified atrial fibrillation Status: Acute (5) PNA (pneumonia) Code(s): J18.9 - Pneumonia, unspecified organism Status: Acute (6) SOB (shortness of breath) Code(s): R06.02 - Shortness of breath Status: Acute (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 Will leave on O2 5 L. 2. Continue antibiotics cefipime / Zithromax 3. Duoneb nebs qid. 4. Continue solumedrol 40 mg IV Q8H 5. BIPAP12/5 CM if he desats on N/C 6. Discussed about doing a Bronchoscopy and Lavage and the patient declined. 7. CBC,BMP ,CXR in am (2) CAP (community acquired pneumonia) Qualifiers: Laterality: left Lung location: lower lobe of lung Qualified Code(s): J18.1 - Lobar pneumonia, unspecified organism
[2018-07-30] MEDS: Azithromycin Inj 500 MG in Sodium Chlor 0.9% Inj 250 ML IV.SIG SCH (23:00)
[2018-07-31] MEDS: LEVALBUTEROL 0.63 MG/3 ML NEB ×4 (04:06→20:48)
[2018-07-31] MEDS: MethylPREDNISolone Sod Succinate Inj 40 MG/ML Vial IV.PUSH SCH ×3 (06:09→23:35)
[2018-07-31] MEDS: Metoprolol Tartrate 50 MG Tablet PO SCH ×2 (08:33→23:34)
[2018-07-31] MEDS: Megestrol Acetate Liq 400 MG/10 ML UDC PO SCH (08:33)
[2018-07-31] MEDS: Senna/Docusate Sodium 8.6/50 MG Tablet PO SCH ×2 (08:33→23:33)
[2018-07-31] MEDS: Insulin NovoLOG Aspart Correctional Sugar Inj SQ SCH ×4 (08:33→23:33)
[2018-07-31] MEDS: dilTIAZem CD 180 MG Capsule PO SCH (08:33)
[2018-07-31] MEDS: Isosorbide Mononitrate 30 MG ER 24HR Tablet (Imdur) PO SCH (08:33)
[2018-07-31] MEDS: Budesonide-Formoterol 160/4.5 MCG 6 GM Inhaler INH SCH ×2 (08:34→23:35)
--- NOTE | 2018-07-31 08:59 | P.PNCC ---
Subjective Subjective Remarks/Hospital Course: 77-year-old male with a medical history significant for hypertension, asbestosis , COPD/pulmonary fibrosis, A. fib who was admitted on 07/27 after [facility] for episode of A. fib with RVR along with shortness of breath and generalized weakness for 2-3 days. CTA chest revealed patchy infiltrates in bilateral upper lobes with extensive chronic appearing changes elsewhere with increased patchy airspace opacities. Chest x-ray revealed pulmonary fibrosis with bilateral upper lobe infiltrates. Patient was admitted by hospitalist service initiated on empiric antibiotic steroids and bronchodilators and was also evaluated by Dr. Cruz from pulmonary medicine. Patient developed worsening shortness of breath around midnight about 20 minutes after breathing treatment for which a rapid response was called and patient was transferred to the ICU. He was initially on 3 L O2 nasal cannula however subsequently during rapid response was placed on 6 L nasal cannula. Patient felt that the breathing treatment appeared to have contributed to anxiety making him more short of breath. Critical care consult was requested by rapid response team following transfer to the ICU. When I evaluated the patient he was resting comfortably on 6 L nasal cannula though he did get short of breath on attempting to speak with me. He was maintaining O2 sats in the 97 % range on 6 L nasal cannula. He did have a productive cough at the time and denied any chest pain nausea or vomiting. 07/31 No events overnight. On 3L oxygen. Afebrile. Objective Vital Signs / I&O: Vital Signs 07/30/18 09:00 07/30/18 09:52 07/30/18 12:00 Temperature 98.6 F Pulse Rate 106 H 82 86 Respiratory Rate 16 22 Blood Pressure 113/64 Pulse Oximetry 95 91 L 07/30/18 15:54 07/30/18 16:00 07/30/18 19:00 Temperature 98.4 F 98.4 F Pulse Rate 97 H 94 H 69 Respiratory Rate 18 23 16 Blood Pressure 111/66 100/71 Pulse Oximetry 95 07/30/18 19:53 07/30/18 20:41 07/31/18 00:00 Temperature Pulse Rate 93 H 79 Respiratory Rate 32 H 20 Blood Pressure 98/61 L Pulse Oximetry 97 94 L 96 07/31/18 04:00 07/31/18 04:06 07/31/18 08:00 Temperature 97.8 F 97.7 F Pulse Rate 82 80 83 Respiratory Rate 24 26 H 23 Blood Pressure 106/58 L 114/68 Pulse Oximetry 95 94 L Intake & Output 07/30/18 07/31/18 07/31/18 18:59 06:59 18:59 Intake Total 734 / 734 600 / 600 100 / 100 Output Total 600 / 600 200 / 200 Balance 134 / 134 600 / 600 -100 / -100 Weight 54.9 kg Intake: IV 334 / 334 350 / 350 100 / 100 NS Inj 1,000 ML @ 60 mls/hr IV. 134 / 134 CONT .[id number] JAIR Rx#:[id number] Azithromycin Inj 500 MG In NS 250 / 250 Inj 250 ML @ 250 mls/hr IV.SIG Q24H JAIR Rx#:[id number] Maxipime Inj 1,000 MG In NS Inj 200 / 200 100 / 100 100 / 100 100 ML @ 200 mls/hr IV.SIG Q8H JAIR Rx#:[id number] Oral 400 / 400 250 / 250 Output: Urine 600 / 600 200 / 200 Other: Date of Last Bowel Movement 07/27/18 07/27/18 # Bowel Movements 0 Result Diagrams: 07/30/18 09:15 07/30/18 09:15 Other Results: Laboratory Results - last 12 hr 07/30/18 07/31/18 07/31/18 21:13 06:01 07:48 POC Glucose 184 H 116 H 123 H Imaging: Chest CTA 07/27/18 18:42 CONCLUSION: 1. Patchy mild infiltrate in the left lower lung may be acute inflammatory in nature. 2. Extensive chronic appearing changes elsewhere as described in detail. 3. No findings to suggest pulmonary embolism Chest X-Ray 07/30/18 00:16 CONCLUSION: Stable chronic consolidation and cavitation in both upper lungs with extensive pleural thickening and calcification. Objective Remarks: GENERAL: Patient is 77yo lying in bed in mild resp distress SKIN: Warm and dry. HEAD: Normocephalic. EYES: No scleral icterus. No injection or drainage. NECK: Supple, trachea midline. No JVD or lymphadenopathy. CARDIOVASCULAR: Regular rate and rhythm without murmurs, gallops, or rubs. RESPIRATORY: Breath sounds equal bilaterally. Coarse BS. GASTROINTESTINAL: Abdomen soft, non-tender, nondistended. MUSCULOSKELETAL: No cyanosis, or edema. Neuro: Awake, alert. Assessment and Plan - Assessment and Plan Plan: Acute hypoxemic and hypercapnic resp insuff Pneumonia Pulmonary fibrosis Asbestosis COPD Leukocytosis Anemia A. fib CAD Hyperlipidemia Plan: Neuro: Awake, alert avoid sedatives CV: Monitor HR and BP keep MAP>65mmHG continue Eliquis, Cardizem, metoprolol, Imdur, Lipitor. Echo 07/28: EF 55-60%, [id number] Pulm: Continue with oxygen keep sats >92% Bronchodilators, BIPAP PRN for resp distress Pulm is following-Dr. Cohen GI/liver: P.o. diet as tolerated Renal/: monitor renal function and replete electrolytes as needed ID: Empiric antibiotic coverage with IV cefepime and Zithromax. Monitor for signs of infections (Fever,WBC) Follow up on sputum cx 07/30: Pending Sputum 07/28: Normal resp nely BC and Influenza screening on 07/27: Negative Endocrine: SSI for glycemic control as needed Heme: Follow CBC Prophylaxis: Protonix/SCDs/Eliquis Level 2
--- NOTE | 2018-07-31 12:12 | P.DIET ---
Nutritional Evaluation Type of nutrition evaluation: initial Nutrition screening: Poor PO Intake Subjective Subjective Comments: Po intake for 07/30: B-25%, L-50%, D-50%. Ate 25% of his breakfast this morning. Objective - Diagnosis Sepsis, CAP, sinus tachycardia - Objective % IBW: 76 (IBW = 142#) Body Weight Used for Calculations: Actual (48.8 kg) Energy Needs - Lower Range (kCal/kg): 30 Energy Needs - Upper Range (kCal/kg): 35 Lower Limit kCal/kg (kCals): 1,464 Upper Limit kCal/kg (kCals): 1,708 Lower Limit Protein Factor (Grams per Kg): 1.2 Upper Limit Protein Factor (Grams per Kg): 1.5 Lower Protein Needs (Protein): 59 Upper Protein Needs (Protein): 73 Fluid Factor (ml/kg): 35 Estimated Fluid Needs (ml): 1,708 Dietitian Reviewed in Medical Record: Current diet, Curent medications, Intake & Output, Labs, Medical history Diet Order: Cardiac Objective Comments: Meds include Megace, Solumedrol, MVI, Protonix Assessment Assessment: Pt is at high nutrition risk 2' to dx, poor po intake and low wt for ht. He has been transferred to [facility] and is on O2. Will send Ensure Enlive tid and monitor acceptance. Each 8 oz serving provides 350 kcals and 20 gms protein. It is noted that the pt has been started on Megace which will hopefully improve appetite. Recommendations: 1. Continue current diet 2. Ensure Enlive tid. Dietitian to Monitor: Lab values, Supplement acceptance, Intake & Output, Diet tolerance, Weight change, PO Intake, Medical course
[2018-07-31 13:04] LABS: Baso % (Auto) 0.1 % (0.0-2.0); Hematocrit 35.9 % (39.0-51.0); Hemoglobin 11.8 gm/dL (13.0-17.0); Lymph # (Auto) 0.3 th/mm3 (1.0-4.8); Lymph % (Auto) 3.6 % (9.0-44.0); Mean Corpuscular Hemoglobin 29.6 pg (27.0-34.0); Mean Corpuscular Volume 89.8 fL (80.0-100.0); Mean Platelet Volume 7.5 fL (7.0-11.0); Mono # (Auto) 0.5 th/mm3 (0.0-0.9); Mono % (Auto) 5.5 % (0.0-8.0); Neut # (Auto) 7.9 th/mm3 (1.8-7.7); Neut % (Auto) 90.8 % (16.0-70.0); Platelet Count 328 th/mm3 (150-450); Red Cell Distribution Width 14.4 % (11.6-17.2); White Blood Count 8.7 th/mm3 (4.0-11.0)
[2018-07-31 13:23] LABS: Alanine Aminotransferase 21 U/L (12-78); Albumin 2.3 g/dL (3.4-5.0); Anion Gap 4 meq/L (5-15); Aspartate Aminotransferase 16 U/L (15-37); Blood Urea Nitrogen 15 mg/dL (7-18); Calcium 8.4 mg/dL (8.5-10.1); Carbon Dioxide 33.8 meq/L (21.0-32.0); Chloride 100 meq/L (98-107); Glomerular Filtration Rate Greater Than 89 mL/min (>89); Glucose,Random 123 mg/dL (74-106); Magnesium 2.1 mg/dL (1.5-2.5); Phosphorus 2.4 mg/dL (2.5-4.9); Potassium 4.1 meq/L (3.5-5.1); Sodium 138 meq/L (136-145)
[2018-07-31 13:26] LABS: Alkaline Phosphatase 71 U/L (45-117); Total Protein 6.3 g/dL (6.4-8.2)
--- NOTE | 2018-07-31 18:20 | P.PN ---
Subjective Interval history: he is better today. On O2 N/C at 3 l. No chest pain, or fever. Good output. Physical Exam Vital signs: Vital Signs 07/30/18 19:00 07/30/18 19:53 07/30/18 20:41 Temperature 98.4 F Pulse Rate 69 93 H Respiratory Rate 16 32 H Blood Pressure 100/71 Pulse Oximetry 97 94 L 07/31/18 00:00 07/31/18 04:00 07/31/18 04:06 Temperature 97.8 F Pulse Rate 79 82 80 Respiratory Rate 20 24 26 H Blood Pressure 98/61 L 106/58 L Pulse Oximetry 96 95 07/31/18 08:00 07/31/18 08:44 07/31/18 09:00 Temperature 97.7 F Pulse Rate 83 92 H 91 H Respiratory Rate 23 10 L 20 Blood Pressure 114/68 115/65 Pulse Oximetry 94 L 95 93 L 07/31/18 09:38 07/31/18 10:00 07/31/18 10:12 Temperature Pulse Rate 74 68 83 Respiratory Rate 20 0 L 14 Blood Pressure 101/59 L 105/64 Pulse Oximetry 95 93 L 07/31/18 11:00 07/31/18 12:00 07/31/18 13:00 Temperature 97.7 F Pulse Rate 78 75 87 Respiratory Rate 21 0 L 14 Blood Pressure 97/56 L 93/55 L 102/62 Pulse Oximetry 95 96 94 L 07/31/18 14:00 07/31/18 15:00 07/31/18 15:07 Temperature Pulse Rate 86 89 85 Respiratory Rate 19 3 L 16 Blood Pressure 96/55 L 100/59 L Pulse Oximetry 97 95 07/31/18 16:00 07/31/18 17:00 Temperature 96.7 F L Pulse Rate 83 74 Respiratory Rate 24 0 L Blood Pressure 100/67 93/53 L Pulse Oximetry 99 98 Intake & Output 07/30/18 07/31/18 07/31/18 18:59 06:59 18:59 Intake Total 734 / 734 600 / 600 200 / 200 Output Total 600 / 600 200 / 200 Balance 134 / 134 600 / 600 0 / 0 Weight 54.9 kg Intake: IV 334 / 334 350 / 350 200 / 200 NS Inj 1,000 ML @ 60 mls/hr IV. 134 / 134 CONT .[id number] [facility] Rx#:[id number] Azithromycin Inj 500 MG In NS 250 / 250 Inj 250 ML @ 250 mls/hr IV.SIG Q24H JAIR Rx#:[id number] Maxipime Inj 1,000 MG In NS Inj 200 / 200 100 / 100 200 / 200 100 ML @ 200 mls/hr IV.SIG Q8H JAIR Rx#:[id number] Oral 400 / 400 250 / 250 Output: Urine 600 / 600 200 / 200 Other: Date of Last Bowel Movement 07/27/18 07/27/18 # Bowel Movements 0 Narrative: Elderly W/M pale appears chronically Ill. HEENT/Neuro: No pallor or icterus, tongue moist, KAREN, Awake alert oriented 3, Neck: No JVD Chest/pulmonary: Good air entry bilaterally, scattered rhonchi and crackles bilaterally. Cardiovascular: S1-S2 regular no gallop or murmur GI/abdomen: Soft, nontender, bowel sounds present Extremities: Warm bilaterally, no edema. Wasted muscles. Neuro: moving all 4 extremities, with no focal deficits. Results - Labs CBC & Chem 7: 07/31/18 12:47 07/31/18 12:47 Laboratory Results - last 24 hr 07/30/18 07/31/18 07/31/18 21:13 06:01 07:48 WBC RBC Hgb Hct MCV MCH MCHC RDW Plt Count MPV Neut % (Auto) Lymph % (Auto) [place] % (Auto) Eos % (Auto) Baso % (Auto) Neut # (Auto) Lymph # (Auto) [place] # (Auto) Eos # (Auto) Baso # (Auto) WBC Differential Differential Comment Sodium Potassium Chloride Carbon Dioxide Anion Gap BUN Creatinine Estimated GFR POC Glucose 184 H 116 H 123 H Random Glucose Calcium Phosphorus Magnesium Total Bilirubin AST ALT Alkaline Phosphatase Total Protein Albumin 07/31/18 07/31/18 07/31/18 12:47 12:47 12:56 WBC 8.7 RBC 4.00 L Hgb 11.8 L Hct 35.9 L MCV 89.8 MCH 29.6 MCHC 33.0 RDW 14.4 Plt Count 328 MPV 7.5 Neut % (Auto) 90.8 H Lymph % (Auto) 3.6 L [place] % (Auto) 5.5 Eos % (Auto) 0.0 Baso % (Auto) 0.1 Neut # (Auto) 7.9 H Lymph # (Auto) 0.3 L [place] # (Auto) 0.5 Eos # (Auto) 0.0 Baso # (Auto) 0.0 WBC Differential . Differential Comment Auto diff final Sodium 138 Potassium 4.1 Chloride 100 Carbon Dioxide 33.8 H Anion Gap 4 L BUN 15 Creatinine 0.54 L Estimated GFR Greater than 89 POC Glucose 120 H Random Glucose 123 H Calcium 8.4 L Phosphorus 2.4 L Magnesium 2.1 Total Bilirubin 0.2 AST 16 ALT 21 Alkaline Phosphatase 71 Total Protein 6.3 L D Albumin 2.3 L 07/31/18 17:11 WBC RBC Hgb Hct MCV MCH MCHC RDW Plt Count MPV Neut % (Auto) Lymph % (Auto) [place] % (Auto) Eos % (Auto) Baso % (Auto) Neut # (Auto) Lymph # (Auto) [place] # (Auto) Eos # (Auto) Baso # (Auto) WBC Differential Differential Comment Sodium Potassium Chloride Carbon Dioxide Anion Gap BUN Creatinine Estimated GFR POC Glucose 247 H Random Glucose Calcium Phosphorus Magnesium Total Bilirubin AST ALT Alkaline Phosphatase Total Protein Albumin Microbiology 07/28/18 14:13 Sputum - Expectorated Sputum Acid Fast Bacilli Smear - Final No acid fast bacilli seen 07/30/18 17:00 Sputum - Expectorated Sputum Gram Stain - Final 07/30/18 17:00 Sputum - Expectorated Sputum Sputum Culture - Preliminary Heavy growth normal respiratory nely at 24 hours 07/27/18 16:50 Blood - Peripheral Aerobic Blood Culture - Preliminary No growth in 4 days 07/27/18 16:50 Blood - Peripheral Anaerobic Blood Culture - Preliminary No growth in 4 days 07/27/18 16:45 Blood - Peripheral Aerobic Blood Culture - Preliminary No growth in 4 days 07/27/18 16:45 Blood - Peripheral Anaerobic Blood Culture - Preliminary No growth in 4 days Assessment and Plan - Assessment (1) Pulmonary fibrosis Code(s): J84.10 - Pulmonary fibrosis, unspecified Status: Acute (2) CAP (community acquired pneumonia) Code(s): J18.9 - Pneumonia, unspecified organism Status: Acute (3) Sinus tachycardia Code(s): R00.0 - Tachycardia, unspecified Status: Acute (4) Afib Code(s): I48.91 - Unspecified atrial fibrillation Status: Acute (5) PNA (pneumonia) Code(s): J18.9 - Pneumonia, unspecified organism Status: Acute (6) SOB (shortness of breath) Code(s): R06.02 - Shortness of breath Status: Acute (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 Will leave on O2 3 L. 2. Continue Empiric antibiotics cefipime / Zithromax 3. Duoneb nebs qid. 4. Continue Solumedrol 40 mg IV Q8H 5. BIPAP12/5 CM if he desats on N/C 6. Discussed about doing a Bronchoscopy and Lavage and the patient declined. 7. CBC,BMP , in am (2) CAP (community acquired pneumonia) Qualifiers: Laterality: left Lung location: lower lobe of lung Qualified Code(s): J18.1 - Lobar pneumonia, unspecified organism
[2018-07-31] MEDS: Azithromycin Inj 500 MG in Sodium Chlor 0.9% Inj 250 ML IV.SIG SCH (23:51)
[2018-08-01] MEDS: LEVALBUTEROL 0.63 MG/3 ML NEB ×4 (04:21→20:34)
[2018-08-01 06:05] LABS: Baso % (Auto) 0.1 % (0.0-2.0); Hematocrit 34.8 % (39.0-51.0); Hemoglobin 11.3 gm/dL (13.0-17.0); Lymph # (Auto) 0.4 th/mm3 (1.0-4.8); Lymph % (Auto) 3.9 % (9.0-44.0); Mean Corpuscular HGB Conc 32.6 % (32.0-36.0); Mean Corpuscular Hemoglobin 29.6 pg (27.0-34.0); Mean Platelet Volume 8.2 fL (7.0-11.0); Mono # (Auto) 0.3 th/mm3 (0.0-0.9); Platelet Count 298 th/mm3 (150-450); Red Blood Count 3.82 mil/mm3 (4.50-5.90); Red Cell Distribution Width 14.3 % (11.6-17.2); White Blood Count 9.7 th/mm3 (4.0-11.0)
[2018-08-01 06:24] LABS: Albumin 2.1 g/dL (3.4-5.0); Anion Gap 5 meq/L (5-15); Aspartate Aminotransferase 9 U/L (15-37); Blood Urea Nitrogen 21 mg/dL (7-18); Calcium 8.5 mg/dL (8.5-10.1); Carbon Dioxide 35.7 meq/L (21.0-32.0); Chloride 101 meq/L (98-107); Glomerular Filtration Rate Greater Than 89 mL/min (>89); Glucose,Random 134 mg/dL (74-106); Magnesium 2.1 mg/dL (1.5-2.5); Potassium 4.6 meq/L (3.5-5.1); Sodium 142 meq/L (136-145)
[2018-08-01 06:26] LABS: Alanine Aminotransferase 18 U/L (12-78)
[2018-08-01 06:28] LABS: Alkaline Phosphatase 68 U/L (45-117); Phosphorus 2.6 mg/dL (2.5-4.9); Total Protein 5.8 g/dL (6.4-8.2)
[2018-08-01] MEDS: Insulin NovoLOG Aspart Correctional Sugar Inj SQ SCH ×4 (08:20→20:24)
--- NOTE | 2018-08-01 08:30 | P.PNCC ---
Subjective Subjective Remarks/Hospital Course: 77-year-old male with a medical history significant for hypertension, asbestosis , COPD/pulmonary fibrosis, A. fib who was admitted on 07/27 after [facility] of A. fib with RVR along with shortness of breath and generalized weakness for 2-3 days. CTA chest revealed patchy infiltrates in bilateral upper lobes with extensive chronic appearing changes elsewhere with increased patchy airspace opacities. Chest x-ray revealed pulmonary fibrosis with bilateral upper lobe infiltrates. Patient was admitted by hospitalist service initiated on empiric antibiotic steroids and bronchodilators and was also evaluated by Dr. Cruz from pulmonary medicine. Patient developed worsening shortness of breath around midnight about 20 minutes after breathing treatment for which a rapid response was called and patient was transferred to the ICU. He was initially on 3 L O2 nasal cannula however subsequently during rapid response was placed on 6 L nasal cannula. Patient felt that the breathing treatment appeared to have contributed to anxiety making him more short of breath. Critical care consult was requested by rapid response team following transfer to the ICU. When I evaluated the patient he was resting comfortably on 6 L nasal cannula though he did get short of breath on attempting to speak with me. He was maintaining O2 sats in the 97 % range on 6 L nasal cannula. He did have a productive cough at the time and denied any chest pain nausea or vomiting. 07/31 No events overnight. On 3L oxygen. Afebrile. SUBJECTIVE: 08/01: Febrile. Remains on 3 L nasal cannula. Hemodynamically stable. Requesting eyedrops for dry eyes. Hemoglobin stable. Poor diet. Complaining of "numbness" which correlates like peripheral neuropathy bilateral lower extremities. Objective Vital Signs / I&O: Vital Signs 07/31/18 08:44 07/31/18 09:00 07/31/18 09:38 Temperature Pulse Rate 92 H 91 H 74 Respiratory Rate 10 L 20 20 Blood Pressure 115/65 Pulse Oximetry 95 93 L 07/31/18 10:00 07/31/18 10:12 07/31/18 11:00 Temperature Pulse Rate 68 83 78 Respiratory Rate 0 L 14 21 Blood Pressure 101/59 L 105/64 97/56 L Pulse Oximetry 95 93 L 95 07/31/18 12:00 07/31/18 13:00 07/31/18 14:00 Temperature 97.7 F Pulse Rate 75 87 86 Respiratory Rate 0 L 14 19 Blood Pressure 93/55 L 102/62 96/55 L Pulse Oximetry 96 94 L 97 07/31/18 15:00 07/31/18 15:07 07/31/18 16:00 Temperature 96.7 F L Pulse Rate 89 85 83 Respiratory Rate 3 L 16 24 Blood Pressure 100/59 L 100/67 Pulse Oximetry 95 99 07/31/18 17:00 07/31/18 18:00 07/31/18 19:00 Temperature Pulse Rate 74 74 90 Respiratory Rate 0 L 19 23 Blood Pressure 93/53 L 92/55 L 112/59 L Pulse Oximetry 98 98 94 L 07/31/18 20:00 07/31/18 20:49 07/31/18 21:00 Temperature 98.4 F Pulse Rate 86 90 87 Respiratory Rate 30 H 18 25 H Blood Pressure 99/57 L 95/54 L Pulse Oximetry 96 97 97 07/31/18 22:00 07/31/18 23:00 08/01/18 00:00 Temperature 98.5 F Pulse Rate 92 H 75 75 Respiratory Rate 31 H 20 17 Blood Pressure 103/57 L 99/53 L 98/57 L Pulse Oximetry 97 98 99 08/01/18 01:00 08/01/18 02:00 08/01/18 03:00 Temperature Pulse Rate 82 75 76 Respiratory Rate 20 0 L 18 Blood Pressure 96/53 L 98/56 L 99/58 L Pulse Oximetry 99 99 98 08/01/18 04:00 08/01/18 04:21 08/01/18 05:00 Temperature 97.9 F Pulse Rate 76 95 H 80 Respiratory Rate 16 20 32 H Blood Pressure 101/59 L Pulse Oximetry 98 96 08/01/18 05:05 08/01/18 06:00 08/01/18 08:00 Temperature Pulse Rate 84 80 Respiratory Rate 34 H 21 Blood Pressure 94/55 L 106/57 L Pulse Oximetry 96 96 95 Intake & Output 07/31/18 08/01/18 08/01/18 18:59 06:59 18:59 Intake Total 200 / 200 810 / 810 Output Total 575 / 575 700 / 700 Balance -375 / -375 110 / 110 Weight 56.3 kg Intake: IV 200 / 200 450 / 450 Azithromycin Inj 500 MG In NS 250 / 250 Inj 250 ML @ 250 mls/hr IV.SIG Q24H [facility] Rx#:[id number] Maxipime Inj 1,000 MG In NS Inj 200 / 200 200 / 200 100 ML @ 200 mls/hr IV.SIG Q8H [facility] Rx#:[id number] Oral 360 / 360 Output: Urine 575 / 575 700 / 700 Other: # Voids 0 Date of Last Bowel Movement 08/01/18 # Bowel Movements 1 Result Diagrams: 08/01/18 04:14 08/01/18 04:14 Other Results: Microbiology 07/28/18 14:13 Sputum - Expectorated Sputum Acid Fast Bacilli Smear - Final No acid fast bacilli seen 07/30/18 17:00 Sputum - Expectorated Sputum Gram Stain - Final 07/30/18 17:00 Sputum - Expectorated Sputum Sputum Culture - Preliminary Heavy growth normal respiratory nely at 24 hours 07/27/18 16:50 Blood - Peripheral Aerobic Blood Culture - Preliminary No growth in 4 days 07/27/18 16:50 Blood - Peripheral Anaerobic Blood Culture - Preliminary No growth in 4 days 07/27/18 16:45 Blood - Peripheral Aerobic Blood Culture - Preliminary No growth in 4 days 07/27/18 16:45 Blood - Peripheral Anaerobic Blood Culture - Preliminary No growth in 4 days 07/28/18 14:13 Sputum - Expectorated Sputum Gram Stain - Final 07/28/18 14:13 Sputum - Expectorated Sputum Sputum Culture - Final Heavy growth normal respiratory nely 07/27/18 16:55 Nasal Wash Influenza Types A,B Antigen - Final Negative for FLU A and B antigen Infection due to influenza A or B cannot be ruled out since the antigen present in the sample may be below the detection limit of the test. Imaging: Chest X-Ray 07/27/18 16:29 CONCLUSION: 1. Extensive stable chronic interstitial and parenchymal changes, as above. 2. Slight increased patchy airspace opacities in the left lower lung zone concerning for superimposed pneumonia or aspiration in the appropriate clinical setting.h Chest CTA 07/27/18 18:42 CONCLUSION: 1. Patchy mild infiltrate in the left lower lung may be acute inflammatory in nature. 2. Extensive chronic appearing changes elsewhere as described in detail. 3. No findings to suggest pulmonary embolism Chest X-Ray 07/30/18 00:16 CONCLUSION: Stable chronic consolidation and cavitation in both upper lungs with extensive pleural thickening and calcification. Objective Remarks: GENERAL: Patient is 77yo lying in bed 3 L nasal cannula no acute distress SKIN: Warm and dry. HEAD: Normocephalic. EYES: No scleral icterus. No injection or drainage. NECK: Supple, trachea midline. No JVD or lymphadenopathy. CARDIOVASCULAR: Regular rate and rhythm without murmurs, gallops, or rubs. RESPIRATORY: Breath sounds equal bilaterally. Coarse crackles/BS. GASTROINTESTINAL: Abdomen soft, non-tender, nondistended. MUSCULOSKELETAL: No significant peripheral edema. Decreased sensation light touch pinprick bilateral lower extremities Neuro: Awake, alert. Cranial nerves II through XII grossly intact. Assessment and Plan - Assessment and Plan Plan: Acute hypoxemic and hypercapnic resp insuff -resolving Pneumonia Pulmonary fibrosis Asbestosis COPD Normocytic anemia Hypoalbuminemia A. fib CAD Hyperlipidemia Plan: Neuro: Awake, alert avoid sedatives CV: Monitor HR and BP keep MAP>65mmHG continue apixaban 5 mg twice daily Continue diltiazem 180 daily, metoprolol tartrate 50 twice daily and isosorbide mononitrate 30 mg daily for hypertension Currently holding clopidogrel 75 mg daily Continue atorvastatin 10 mg daily for dyslipidemia Continue furosemide 20 mg daily Echo 07/28: EF 55-60%, [id number] Pulm: Continue with oxygen keep sats >92% Bronchodilators with budesonide/formoterol 160-4.5 1 puff twice daily. On albuterol/ipratropium aerosols every 6 hours with levobutalol every 6 hours as needed dyspnea, BIPAP PRN for resp distress Methylprednisolone succinate 40 mg bid Pulm is following-Dr. Cohen. Patient refused bronchoscopy. CT pulmonary angiogram 07/30 revealed right/left upper lobe consolidation. Left lower lobe infiltrate. Possible chronic thrombus. No acute pulmonary embolism GI/liver: P.o. diet as tolerated Renal/: monitor renal function and replete electrolytes as needed ID: Empiric antibiotic coverage with IV cefepime and Zithromax. Monitor for signs of infections (Fever,WBC) Follow up on sputum cx 07/30: No growth Sputum 07/28: Normal resp nely BC and Influenza screening on 07/27: Negative Endocrine: SSI for glycemic control as needed Heme: Follow CBC Prophylaxis: Protonix/SCDs/apixaban Level 2 Stable from critical care medicine standpoint. Assign care to hospitalist in a.m. 08/02.
[2018-08-01] MEDS: dilTIAZem CD 180 MG Capsule PO SCH (09:08)
[2018-08-01] MEDS: Megestrol Acetate Liq 400 MG/10 ML UDC PO SCH (09:08)
[2018-08-01] MEDS: Metoprolol Tartrate 50 MG Tablet PO SCH ×2 (09:08→20:25)
[2018-08-01] MEDS: Senna/Docusate Sodium 8.6/50 MG Tablet PO SCH ×2 (09:08→20:24)
[2018-08-01] MEDS: Isosorbide Mononitrate 30 MG ER 24HR Tablet (Imdur) PO SCH (09:08)
[2018-08-01] MEDS: MethylPREDNISolone Sod Succinate Inj 40 MG/ML Vial IV.PUSH SCH ×2 (09:09→20:24)
[2018-08-01] MEDS: Budesonide-Formoterol 160/4.5 MCG 6 GM Inhaler INH SCH ×2 (09:09→20:26)
--- NOTE | 2018-08-01 10:41 | P.PN ---
Subjective Interval history: Up in a chair. On O2 3 L N/C . C/O Numbness of feet. Cough and Blurry vision Physical Exam Vital signs: Vital Signs 07/31/18 11:00 07/31/18 12:00 07/31/18 13:00 Temperature 97.7 F Pulse Rate 78 75 87 Respiratory Rate 21 0 L 14 Blood Pressure 97/56 L 93/55 L 102/62 Pulse Oximetry 95 96 94 L 07/31/18 14:00 07/31/18 15:00 07/31/18 15:07 Temperature Pulse Rate 86 89 85 Respiratory Rate 19 3 L 16 Blood Pressure 96/55 L 100/59 L Pulse Oximetry 97 95 07/31/18 16:00 07/31/18 17:00 07/31/18 18:00 Temperature 96.7 F L Pulse Rate 83 74 74 Respiratory Rate 24 0 L 19 Blood Pressure 100/67 93/53 L 92/55 L Pulse Oximetry 99 98 98 07/31/18 19:00 07/31/18 20:00 07/31/18 20:49 Temperature 98.4 F Pulse Rate 90 86 90 Respiratory Rate 23 30 H 18 Blood Pressure 112/59 L 99/57 L Pulse Oximetry 94 L 96 97 07/31/18 21:00 07/31/18 22:00 07/31/18 23:00 Temperature Pulse Rate 87 92 H 75 Respiratory Rate 25 H 31 H 20 Blood Pressure 95/54 L 103/57 L 99/53 L Pulse Oximetry 97 97 98 08/01/18 00:00 08/01/18 01:00 08/01/18 02:00 Temperature 98.5 F Pulse Rate 75 82 75 Respiratory Rate 17 20 0 L Blood Pressure 98/57 L 96/53 L 98/56 L Pulse Oximetry 99 99 99 08/01/18 03:00 08/01/18 04:00 08/01/18 04:21 Temperature 97.9 F Pulse Rate 76 76 95 H Respiratory Rate 18 16 20 Blood Pressure 99/58 L 101/59 L Pulse Oximetry 98 98 08/01/18 05:00 08/01/18 05:05 08/01/18 06:00 Temperature Pulse Rate 80 84 80 Respiratory Rate 32 H 34 H 21 Blood Pressure 94/55 L 106/57 L Pulse Oximetry 96 96 96 08/01/18 08:00 Temperature Pulse Rate Respiratory Rate Blood Pressure Pulse Oximetry 95 Intake & Output 07/31/18 08/01/18 08/01/18 18:59 06:59 18:59 Intake Total 200 / 200 810 / 810 Output Total 575 / 575 700 / 700 Balance -375 / -375 110 / 110 Weight 56.3 kg Intake: IV 200 / 200 450 / 450 Azithromycin Inj 500 MG In NS 250 / 250 Inj 250 ML @ 250 mls/hr IV.SIG Q24H [facility] Rx#:[id number] Maxipime Inj 1,000 MG In NS Inj 200 / 200 200 / 200 100 ML @ 200 mls/hr IV.SIG Q8H [facility] Rx#:[id number] Oral 360 / 360 Output: Urine 575 / 575 700 / 700 Other: # Voids 0 Date of Last Bowel Movement 08/01/18 # Bowel Movements 1 Narrative: Elderly W/M pale appears chronically Ill.Dyspneic. HEENT/Neuro: No pallor or icterus, tongue moist, KAREN, Awake alert oriented 3, Neck: No JVD Chest/pulmonary: Good air entry bilaterally, scattered wheezes and crackles bilaterally. Cardiovascular: S1-S2 regular no gallop or murmur GI/abdomen: Soft, nontender, bowel sounds present Extremities: Warm bilaterally, no edema. Wasted muscles. Neuro: moving all 4 extremities, with no focal deficits. Results - Labs CBC & Chem 7: 08/01/18 04:14 08/01/18 04:14 Laboratory Results - last 24 hr 07/31/18 07/31/18 07/31/18 12:47 12:47 12:56 WBC 8.7 RBC 4.00 L Hgb 11.8 L Hct 35.9 L MCV 89.8 MCH 29.6 MCHC 33.0 RDW 14.4 Plt Count 328 MPV 7.5 Neut % (Auto) 90.8 H Lymph % (Auto) 3.6 L Crosby % (Auto) 5.5 Eos % (Auto) 0.0 Baso % (Auto) 0.1 Neut # (Auto) 7.9 H Lymph # (Auto) 0.3 L Crosby # (Auto) 0.5 Eos # (Auto) 0.0 Baso # (Auto) 0.0 WBC Differential . Differential Comment Auto diff final Sodium 138 Potassium 4.1 Chloride 100 Carbon Dioxide 33.8 H Anion Gap 4 L BUN 15 Creatinine 0.54 L Estimated GFR Greater than 89 POC Glucose 120 H Random Glucose 123 H Calcium 8.4 L Phosphorus 2.4 L Magnesium 2.1 Total Bilirubin 0.2 AST 16 ALT 21 Alkaline Phosphatase 71 Total Protein 6.3 L D Albumin 2.3 L 07/31/18 07/31/18 08/01/18 17:11 20:25 04:14 WBC 9.7 RBC 3.82 L Hgb 11.3 L Hct 34.8 L MCV 91.0 MCH 29.6 MCHC 32.6 RDW 14.3 Plt Count 298 MPV 8.2 Neut % (Auto) 93.0 H Lymph % (Auto) 3.9 L Crosby % (Auto) 3.0 Eos % (Auto) 0.0 Baso % (Auto) 0.1 Neut # (Auto) 9.0 H Lymph # (Auto) 0.4 L Crosby # (Auto) 0.3 Eos # (Auto) 0.0 Baso # (Auto) 0.0 WBC Differential . Differential Comment Auto diff final Sodium Potassium Chloride Carbon Dioxide Anion Gap BUN Creatinine Estimated GFR POC Glucose 247 H 205 H Random Glucose Calcium Phosphorus Magnesium Total Bilirubin AST ALT Alkaline Phosphatase Total Protein Albumin 08/01/18 08/01/18 04:14 08:14 WBC RBC Hgb Hct MCV MCH MCHC RDW Plt Count MPV Neut % (Auto) Lymph % (Auto) Crosby % (Auto) Eos % (Auto) Baso % (Auto) Neut # (Auto) Lymph # (Auto) Crosby # (Auto) Eos # (Auto) Baso # (Auto) WBC Differential Differential Comment Sodium 142 Potassium 4.6 Chloride 101 Carbon Dioxide 35.7 H Anion Gap 5 BUN 21 H Creatinine 0.49 L Estimated GFR Greater than 89 POC Glucose 120 H Random Glucose 134 H Calcium 8.5 Phosphorus 2.6 Magnesium 2.1 Total Bilirubin 0.2 AST 9 L ALT 18 Alkaline Phosphatase 68 Total Protein 5.8 L Albumin 2.1 L Microbiology 07/28/18 14:13 Sputum - Expectorated Sputum Acid Fast Bacilli Smear - Final No acid fast bacilli seen 07/30/18 17:00 Sputum - Expectorated Sputum Gram Stain - Final 07/30/18 17:00 Sputum - Expectorated Sputum Sputum Culture - Preliminary Heavy growth normal respiratory nely at 24 hours 07/27/18 16:50 Blood - Peripheral Aerobic Blood Culture - Preliminary No growth in 4 days 07/27/18 16:50 Blood - Peripheral Anaerobic Blood Culture - Preliminary No growth in 4 days 07/27/18 16:45 Blood - Peripheral Aerobic Blood Culture - Preliminary No growth in 4 days 07/27/18 16:45 Blood - Peripheral Anaerobic Blood Culture - Preliminary No growth in 4 days Assessment and Plan - Assessment (1) Pulmonary fibrosis Code(s): J84.10 - Pulmonary fibrosis, unspecified Status: Acute (2) CAP (community acquired pneumonia) Code(s): J18.9 - Pneumonia, unspecified organism Status: Acute (3) Sinus tachycardia Code(s): R00.0 - Tachycardia, unspecified Status: Acute (4) Afib Code(s): I48.91 - Unspecified atrial fibrillation Status: Acute (5) PNA (pneumonia) Code(s): J18.9 - Pneumonia, unspecified organism Status: Acute (6) SOB (shortness of breath) Code(s): R06.02 - Shortness of breath Status: Acute (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 Will leave on O2 3 L. 2. Continue Empiric antibiotics and switch to PO 3. Duoneb nebs qid. 4. Wean Solumedrol 40 mg IV Q12H 5. BIPAP12/5 CM if he desats on N/C 6. Discussed about doing a Bronchoscopy and Lavage and the patient declined. 7. Transfer to [facility]. (2) CAP (community acquired pneumonia) Qualifiers: Laterality: left Lung location: lower lobe of lung Qualified Code(s): J18.1 - Lobar pneumonia, unspecified organism
[2018-08-01] MEDS: Carboxymethylcellulose 0.5% Opth Drops 15 ML Bottle EACH EYE SCH ×2 (12:02→20:24)
[2018-08-01] MEDS: guaiFENesin 600 MG ER Tablet PO SCH ×2 (14:06→20:24)
[2018-08-02 00:03] LABS: Baso % (Auto) 0.1 % (0.0-2.0); Hematocrit 37.9 % (39.0-51.0); Hemoglobin 12.4 gm/dL (13.0-17.0); Lymph # (Auto) 0.2 th/mm3 (1.0-4.8); Lymph % (Auto) 1.9 % (9.0-44.0); Mean Corpuscular HGB Conc 32.8 % (32.0-36.0); Mean Corpuscular Hemoglobin 29.4 pg (27.0-34.0); Mean Corpuscular Volume 89.6 fL (80.0-100.0); Mean Platelet Volume 7.8 fL (7.0-11.0); Mono # (Auto) 0.4 th/mm3 (0.0-0.9); Mono % (Auto) 3.4 % (0.0-8.0); Neut # (Auto) 10.4 th/mm3 (1.8-7.7); Neut % (Auto) 94.6 % (16.0-70.0); Platelet Count 336 th/mm3 (150-450); Red Blood Count 4.23 mil/mm3 (4.50-5.90); Red Cell Distribution Width 14.4 % (11.6-17.2)
[2018-08-02 00:23] LABS: Albumin 2.2 g/dL (3.4-5.0); Anion Gap 3 meq/L (5-15); Aspartate Aminotransferase 14 U/L (15-37); Blood Urea Nitrogen 24 mg/dL (7-18); Calcium 8.5 mg/dL (8.5-10.1); Carbon Dioxide 37.7 meq/L (21.0-32.0); Chloride 96 meq/L (98-107); Glomerular Filtration Rate Greater Than 89 mL/min (>89); Glucose,Random 162 mg/dL (74-106); Potassium 4.7 meq/L (3.5-5.1); Sodium 137 meq/L (136-145)
[2018-08-02 00:24] LABS: Alanine Aminotransferase 21 U/L (12-78); Phosphorus 1.7 mg/dL (2.5-4.9)
[2018-08-02 00:26] LABS: Alkaline Phosphatase 84 U/L (45-117); Total Protein 6.2 g/dL (6.4-8.2)
[2018-08-02] MEDS: Insulin NovoLOG Aspart Correctional Sugar Inj SQ SCH ×4 (08:20→20:40)
[2018-08-02] MEDS: Megestrol Acetate Liq 400 MG/10 ML UDC PO SCH (08:49)
[2018-08-02] MEDS: Senna/Docusate Sodium 8.6/50 MG Tablet PO SCH ×2 (08:50→21:38)
[2018-08-02] MEDS: Metoprolol Tartrate 50 MG Tablet PO SCH ×2 (08:50→21:38)
[2018-08-02] MEDS: dilTIAZem CD 180 MG Capsule PO SCH (08:50)
[2018-08-02] MEDS: guaiFENesin 600 MG ER Tablet PO SCH ×2 (08:50→21:38)
[2018-08-02] MEDS: Isosorbide Mononitrate 30 MG ER 24HR Tablet (Imdur) PO SCH (08:50)
[2018-08-02] MEDS: Carboxymethylcellulose 0.5% Opth Drops 15 ML Bottle EACH EYE SCH ×2 (08:53→21:39)
[2018-08-02] MEDS: Budesonide-Formoterol 160/4.5 MCG 6 GM Inhaler INH SCH ×2 (08:53→21:39)
--- NOTE | 2018-08-02 09:15 | XR ---
EXAM DATE: 08/02/2018 6:00 AM EDT AGE/SEX: 77 years / Male INDICATIONS: COPD. Shortness of breath. CLINICAL DATA: This is the patient's subsequent encounter. Patient reports that signs and symptoms h ave been present for 1 week and indicates a pain score of 0/10. MEDICAL/SURGICAL HISTORY: . Cardiovascular disease. Chronic obstructive pulmonary disease. No ne. [place] [facility] [place]. . FINDINGS: Study is abnormal with extensive cicatrizing consolidative changes in both upper lobes with large blaze cified pleural plaques bilaterally. Coarse interstitial changes are present in both lower lobes. The heart and pulmonary vascularity are normal. . The portion of the bony skeleton visualized is unremark able. CONCLUSION: Stable chest with chest with chronic consolidation in both upper lobes. Extensive calcified pleural plaquing. Electronically signed by: Andrez Loredo MD 08/02/2018 9:13 AM EDT
[2018-08-02 09:21] LABS: Baso % (Auto) 0.2 % (0.0-2.0); Hematocrit 39.4 % (39.0-51.0); Hemoglobin 12.8 gm/dL (13.0-17.0); Lymph # (Auto) 0.5 th/mm3 (1.0-4.8); Lymph % (Auto) 3.9 % (9.0-44.0); Mean Corpuscular HGB Conc 32.5 % (32.0-36.0); Mean Corpuscular Hemoglobin 29.1 pg (27.0-34.0); Mean Corpuscular Volume 89.6 fL (80.0-100.0); Mean Platelet Volume 8.4 fL (7.0-11.0); Mono # (Auto) 0.4 th/mm3 (0.0-0.9); Mono % (Auto) 3.3 % (0.0-8.0); Neut # (Auto) 11.3 th/mm3 (1.8-7.7); Neut % (Auto) 92.6 % (16.0-70.0); Platelet Count 300 th/mm3 (150-450); Red Cell Distribution Width 14.5 % (11.6-17.2); White Blood Count 12.2 th/mm3 (4.0-11.0)
[2018-08-02 09:48] LABS: Albumin 2.2 g/dL (3.4-5.0); Anion Gap 3 meq/L (5-15); Aspartate Aminotransferase 11 U/L (15-37); Blood Urea Nitrogen 23 mg/dL (7-18); Calcium 8.4 mg/dL (8.5-10.1); Carbon Dioxide 39.3 meq/L (21.0-32.0); Chloride 96 meq/L (98-107); Glomerular Filtration Rate Greater Than 89 mL/min (>89); Glucose,Random 106 mg/dL (74-106); Magnesium 2.1 mg/dL (1.5-2.5); Potassium 4.6 meq/L (3.5-5.1); Sodium 138 meq/L (136-145)
[2018-08-02 09:59] LABS: Alanine Aminotransferase 19 U/L (12-78); Alkaline Phosphatase 69 U/L (45-117); Free T4 (Free Thyroxine) 0.64 ng/dL (0.76-1.46); Phosphorus 2.2 mg/dL (2.5-4.9); Total Protein 5.9 g/dL (6.4-8.2)
--- NOTE | 2018-08-02 10:23 | P.PNIM ---
Subjective Interval history: Follow up pneumonia. Patient was a transfer from the ICU last night. He is sitting up eating breakfast. Only complaint is swelling to his left arm. Physical Exam Vital signs: Vital Signs 08/01/18 10:52 08/01/18 11:00 08/01/18 12:00 Temperature 97.5 F L Pulse Rate 80 78 81 Respiratory Rate 16 25 H 24 Blood Pressure Pulse Oximetry 97 96 08/01/18 13:00 08/01/18 14:00 08/01/18 14:29 Temperature Pulse Rate 82 78 81 Respiratory Rate 37 H 28 H 2 L Blood Pressure 106/59 L Pulse Oximetry 95 96 96 08/01/18 15:00 08/01/18 15:24 08/01/18 16:00 Temperature 98.8 F Pulse Rate 77 85 83 Respiratory Rate 0 L 16 10 L Blood Pressure Pulse Oximetry 97 96 08/01/18 20:35 08/01/18 22:03 08/02/18 00:00 Temperature 97.4 F L 97.2 F L Pulse Rate 91 H 86 68 Respiratory Rate 16 18 18 Blood Pressure 113/70 99/68 L Pulse Oximetry 96 97 98 08/02/18 04:00 08/02/18 08:00 Temperature 97.2 F L 97.6 F Pulse Rate 74 76 Respiratory Rate 18 18 Blood Pressure 106/66 119/71 Pulse Oximetry 97 96 Intake & Output 08/01/18 08/02/18 08/02/18 18:59 06:59 18:59 Intake Total 540 / 540 Output Total 425 / 425 Balance 115 / 115 Weight 56 kg Intake: IV 300 / 300 Maxipime Inj 1,000 MG In NS Inj 300 / 300 100 ML @ 200 mls/hr IV.SIG Q8H [facility] Rx#:[id number] Oral 240 / 240 Output: Urine 425 / 425 Other: # Incontinent Voids 1 Date of Last Bowel Movement 08/01/18 08/01/18 # Bowel Movements 0 Narrative: Elderly W/M pale appears chronically Ill.Dyspneic. HEENT/Neuro: No pallor or icterus, tongue moist, KAREN, Awake alert oriented 3, Neck: No JVD Chest/pulmonary: Good air entry bilaterally, scattered wheezes and crackles bilaterally. Cardiovascular: S1-S2 regular no gallop or murmur GI/abdomen: Soft, nontender, bowel sounds present Extremities: Warm bilaterally, LUE edema. . Neuro: moving all 4 extremities, with no focal deficits. Results - Labs CBC & Chem 7: 08/02/18 08:25 08/02/18 08:25 Laboratory Results - last 24 hr 08/01/18 08/01/18 08/01/18 11:59 14:02 16:49 WBC RBC Hgb Hct MCV MCH MCHC RDW Plt Count MPV Neut % (Auto) Lymph % (Auto) Davis % (Auto) Eos % (Auto) Baso % (Auto) Neut # (Auto) Lymph # (Auto) Davis # (Auto) Eos # (Auto) Baso # (Auto) WBC Differential Differential Comment Sodium Potassium Chloride Carbon Dioxide Anion Gap BUN Creatinine Estimated GFR POC Glucose 184 H 174 H 150 H Random Glucose Calcium Phosphorus Magnesium Total Bilirubin AST ALT Alkaline Phosphatase Total Protein Albumin TSH Free T4 08/01/18 08/01/18 08/01/18 20:24 23:43 23:43 WBC 11.0 RBC 4.23 L Hgb 12.4 L Hct 37.9 L MCV 89.6 MCH 29.4 MCHC 32.8 RDW 14.4 Plt Count 336 MPV 7.8 Neut % (Auto) 94.6 H Lymph % (Auto) 1.9 L Davis % (Auto) 3.4 Eos % (Auto) 0.0 Baso % (Auto) 0.1 Neut # (Auto) 10.4 H Lymph # (Auto) 0.2 L Davis # (Auto) 0.4 Eos # (Auto) 0.0 Baso # (Auto) 0.0 WBC Differential . Differential Comment Auto diff final Sodium 137 Potassium 4.7 Chloride 96 L Carbon Dioxide 37.7 H Anion Gap 3 L BUN 24 H Creatinine 0.61 Estimated GFR Greater than 89 POC Glucose 116 H Random Glucose 162 H Calcium 8.5 Phosphorus 1.7 L Magnesium 2.0 Total Bilirubin 0.2 AST 14 L ALT 21 Alkaline Phosphatase 84 Total Protein 6.2 L Albumin 2.2 L TSH Free T4 08/02/18 08/02/18 08/02/18 08:07 08:25 08:25 WBC 12.2 H RBC 4.40 L Hgb 12.8 L Hct 39.4 MCV 89.6 MCH 29.1 MCHC 32.5 RDW 14.5 Plt Count 300 MPV 8.4 Neut % (Auto) 92.6 H Lymph % (Auto) 3.9 L Davis % (Auto) 3.3 Eos % (Auto) 0.0 Baso % (Auto) 0.2 Neut # (Auto) 11.3 H Lymph # (Auto) 0.5 L Davis # (Auto) 0.4 Eos # (Auto) 0.0 Baso # (Auto) 0.0 WBC Differential . Differential Comment Auto diff final Sodium 138 Potassium 4.6 Chloride 96 L Carbon Dioxide 39.3 H Anion Gap 3 L BUN 23 H Creatinine 0.55 L Estimated GFR Greater than 89 POC Glucose 98 Random Glucose 106 Calcium 8.4 L Phosphorus 2.2 L Magnesium 2.1 Total Bilirubin 0.3 AST 11 L ALT 19 Alkaline Phosphatase 69 Total Protein 5.9 L Albumin 2.2 L TSH 1.000 Free T4 0.64 L Microbiology 07/30/18 17:00 Sputum - Expectorated Sputum Gram Stain - Final 07/30/18 17:00 Sputum - Expectorated Sputum Sputum Culture - Final Heavy growth normal respiratory nely 07/27/18 16:50 Blood - Peripheral Aerobic Blood Culture - Final No growth in 5 days 07/27/18 16:50 Blood - Peripheral Anaerobic Blood Culture - Final No growth in 5 days 07/27/18 16:45 Blood - Peripheral Aerobic Blood Culture - Final No growth in 5 days 07/27/18 16:45 Blood - Peripheral Anaerobic Blood Culture - Final No growth in 5 days - Imaging Impressions Chest X-Ray 08/02/18 06:00 CONCLUSION: Stable chest with chest with chronic consolidation in both upper lobes. Extensive calcified pleural plaquing. Assessment and Plan - Assessment (1) Afib Code(s): I48.91 - Unspecified atrial fibrillation Status: Acute (2) PNA (pneumonia) Code(s): J18.9 - Pneumonia, unspecified organism Status: Acute (3) SOB (shortness of breath) Code(s): R06.02 - Shortness of breath Status: Acute - Plan Acute hypoxemic and hypercapnic resp insuff, pneumonia, resolving -Treated with cefepime for 5 days -Cont 02 as needed keep sats >92% -Walk test ordered for HHC -Patient will need HHC at discharge Afib, chronic, Echo 07/28: EF 55-60%, [id number] -continue apixaban 5 mg twice daily -Continue diltiazem 180 daily, metoprolol tartrate 50 twice daily and isosorbide mononitrate 30 mg daily for hypertension -Currently holding clopidogrel 75 mg daily -Continue atorvastatin 10 mg daily for dyslipidemia -Continue furosemide 20 mg daily -Monitor HR and BP keep MAP>65mmHG COPD, with history of Pulmonary fibrosis and Asbestosis CT pulmonary angiogram 07/30 revealed right/left upper lobe consolidation. Left lower lobe infiltrate. Possible chronic thrombus. No acute pulmonary embolism -Bronchodilators with budesonide/formoterol 160-4.5 1 puff twice daily. On albuterol/ipratropium aerosols every 6 hours with levobutalol every 6 hours as needed dyspnea, BIPAP PRN for resp distress -Pulm is following-Dr. Cohen. Patient refused bronchoscopy, cont prednisone and antibiotics per pulm -Monitor for signs of infections (Fever,WBC), Sputum 07/28: Normal resp nely, BC and Influenza screening on 07/27: Negative -Cefepime d/c, cont levaquin po for 3 more days Left upper extremity edema, likely due to IV infiltrate -Doppler US ordered, no DVT noted -Warm compress and elevate Prophylaxis: Protonix/SCDs/apixaban Discussed Condition With: Patient Discharge Planning: Possible next 1-2 days, HHC needed, walk test pending
--- NOTE | 2018-08-02 11:33 | US ---
EXAM DATE: 08/02/2018 12:00 AM EDT AGE/SEX: 77 years / Male INDICATIONS: Left arm swelling. CLINICAL DATA: This is the patient's initial encounter. Patient reports that signs and symptoms have been present for 4 - 6 days and indicates a pain score of 1/10. MEDICAL/SURGICAL HISTORY: Chronic obstructive pulmonary disease. Atrial fibrillation. Asbestosi s. Coronary artery disease. Fibrosis. Glaucoma. Hyperlipidemia. Vertigo. None. COMPARISON: No prior exams available for comparison. FINDINGS: The vessels are compressible and augmentation response is documented. No filling defects a re seen. The flow is phasic with respiration. Other: None. CONCLUSION: 1. The study is negative for upper extremity deep venous thrombosis. 2. Subcutaneous edema is noted. Electronically signed by: Niles Hahn MD 08/02/2018 11:31 AM EDT
--- NOTE | 2018-08-02 14:14 | P.DCO ---
- Physical Therapy Order: Evaluate and treat, Improve ambulation - Occupational Therapy Order: Evaluate and treat, Improve ADL - Home Health Nursing Order: Medical education, Signs/symptoms of disease process, Medication education-adverse effect, Nursing assessment with vital signs - Case Management Consult No - Certification I have seen patient Radha Albarran JR on 08/02/18. My clinical findings support the need for the requested home health care services because: Limited mobility due to disease progression, Patient has SOB, Deconditioned with increased weakness I certify that my clinical findings support that this patient is homebound because: Post-op weakness, Impaired cognitive ability/safety, Unsteady gait/balance, Unsafe to leave home unassisted
[2018-08-02 17:40] LABS: Hemoglobin A1c 5.3 % (4.3-6.0)
--- NOTE | 2018-08-02 18:32 | P.PN ---
Subjective Interval history: He is better today. Remains on O2 3 L. Cough better. No Fever. Physical Exam Vital signs: Vital Signs 08/01/18 20:35 08/01/18 22:03 08/02/18 00:00 Temperature 97.4 F L 97.2 F L Pulse Rate 91 H 86 68 Respiratory Rate 16 18 18 Blood Pressure 113/70 99/68 L Pulse Oximetry 96 97 98 Pulse Oximetry [Exertion on Room Air] Pulse Oximetry [Resting on Room Air] 08/02/18 04:00 08/02/18 08:00 08/02/18 12:00 Temperature 97.2 F L 97.6 F 97.7 F Pulse Rate 74 76 73 Respiratory Rate 18 18 18 Blood Pressure 106/66 119/71 107/69 Pulse Oximetry 97 96 98 Pulse Oximetry [Exertion on Room Air] Pulse Oximetry [Resting on Room Air] 08/02/18 15:12 Temperature Pulse Rate Respiratory Rate Blood Pressure Pulse Oximetry Pulse Oximetry [Exertion on Room Air] 93 L Pulse Oximetry [Resting on Room Air] 97 Intake & Output 08/01/18 08/02/18 08/02/18 18:59 06:59 18:59 Intake Total 540 / 540 Output Total 425 / 425 Balance 115 / 115 Weight 56 kg Intake: IV 300 / 300 Maxipime Inj 1,000 MG In NS Inj 300 / 300 100 ML @ 200 mls/hr IV.SIG Q8H JAIR Rx#:[id number] Oral 240 / 240 Output: Urine 425 / 425 Other: # Incontinent Voids 1 Date of Last Bowel Movement 08/01/18 08/01/18 08/02/18 # Bowel Movements 0 Narrative: Elderly W/M pale appears chronically Ill.Dyspneic. HEENT/Neuro: No pallor or icterus, tongue moist, PERLL, Awake alert oriented 3, Neck: No JVD Chest/pulmonary:Poor air entry bilaterally, scattered wheezes and crackles bilaterally. Cardiovascular: S1-S2 regular no gallop or murmur GI/abdomen: Soft, nontender, bowel sounds present Extremities: Warm and has LUE edema. . Neuro: moving all 4 extremities, with no focal deficits. Results - Labs CBC & Chem 7: 08/02/18 08:25 08/02/18 08:25 Laboratory Results - last 24 hr 08/01/18 08/01/18 08/01/18 20:24 23:43 23:43 WBC 11.0 RBC 4.23 L Hgb 12.4 L Hct 37.9 L MCV 89.6 MCH 29.4 MCHC 32.8 RDW 14.4 Plt Count 336 MPV 7.8 Neut % (Auto) 94.6 H Lymph % (Auto) 1.9 L [place] % (Auto) 3.4 Eos % (Auto) 0.0 Baso % (Auto) 0.1 Neut # (Auto) 10.4 H Lymph # (Auto) 0.2 L [place] # (Auto) 0.4 Eos # (Auto) 0.0 Baso # (Auto) 0.0 WBC Differential . Differential Comment Auto diff final Sodium 137 Potassium 4.7 Chloride 96 L Carbon Dioxide 37.7 H Anion Gap 3 L BUN 24 H Creatinine 0.61 Estimated GFR Greater than 89 POC Glucose 116 H Random Glucose 162 H Calcium 8.5 Phosphorus 1.7 L Magnesium 2.0 Total Bilirubin 0.2 AST 14 L ALT 21 Alkaline Phosphatase 84 Total Protein 6.2 L Albumin 2.2 L TSH Free T4 08/02/18 08/02/18 08/02/18 08:07 08:25 08:25 WBC 12.2 H RBC 4.40 L Hgb 12.8 L Hct 39.4 MCV 89.6 MCH 29.1 MCHC 32.5 RDW 14.5 Plt Count 300 MPV 8.4 Neut % (Auto) 92.6 H Lymph % (Auto) 3.9 L [place] % (Auto) 3.3 Eos % (Auto) 0.0 Baso % (Auto) 0.2 Neut # (Auto) 11.3 H Lymph # (Auto) 0.5 L [place] # (Auto) 0.4 Eos # (Auto) 0.0 Baso # (Auto) 0.0 WBC Differential . Differential Comment Auto diff final Sodium 138 Potassium 4.6 Chloride 96 L Carbon Dioxide 39.3 H Anion Gap 3 L BUN 23 H Creatinine 0.55 L Estimated GFR Greater than 89 POC Glucose 98 Random Glucose 106 Calcium 8.4 L Phosphorus 2.2 L Magnesium 2.1 Total Bilirubin 0.3 AST 11 L ALT 19 Alkaline Phosphatase 69 Total Protein 5.9 L Albumin 2.2 L TSH 1.000 Free T4 0.64 L 08/02/18 08/02/18 12:14 17:39 WBC RBC Hgb Hct MCV MCH MCHC RDW Plt Count MPV Neut % (Auto) Lymph % (Auto) [place] % (Auto) Eos % (Auto) Baso % (Auto) Neut # (Auto) Lymph # (Auto) [place] # (Auto) Eos # (Auto) Baso # (Auto) WBC Differential Differential Comment Sodium Potassium Chloride Carbon Dioxide Anion Gap BUN Creatinine Estimated GFR POC Glucose 167 H 145 H Random Glucose Calcium Phosphorus Magnesium Total Bilirubin AST ALT Alkaline Phosphatase Total Protein Albumin TSH Free T4 - Imaging Impressions Venous Doppler Study 08/02/18 00:00 CONCLUSION: 1. The study is negative for upper extremity deep venous thrombosis. 2. Subcutaneous edema is noted. Chest X-Ray 08/02/18 06:00 CONCLUSION: Stable chest with chest with chronic consolidation in both upper lobes. Extensive calcified pleural plaquing. Assessment and Plan - Assessment (1) Pulmonary fibrosis Code(s): J84.10 - Pulmonary fibrosis, unspecified Status: Acute (2) CAP (community acquired pneumonia) Code(s): J18.9 - Pneumonia, unspecified organism Status: Acute (3) Sinus tachycardia Code(s): R00.0 - Tachycardia, unspecified Status: Acute (4) Afib Code(s): I48.91 - Unspecified atrial fibrillation Status: Acute (5) PNA (pneumonia) Code(s): J18.9 - Pneumonia, unspecified organism Status: Acute (6) SOB (shortness of breath) Code(s): R06.02 - Shortness of breath Status: Acute (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 Will leave on O2 3 L. 2. Continue Empiric antibiotics and switch to PO 3. Duoneb nebs qid. 4. D/C Solumedrol 5. BIPAP12/5 CM if he desats on N/C 6. Discussed about doing a Bronchoscopy and Lavage and the patient declined. 7. Add prednisone 30 mg daily and taper (2) CAP (community acquired pneumonia) Qualifiers: Laterality: left Lung location: lower lobe of lung Qualified Code(s): J18.1 - Lobar pneumonia, unspecified organism
[2018-08-03 06:16] LABS: Baso % (Auto) 0.1 % (0.0-2.0); Eos % (Auto) 0.1 % (0.0-4.0); Hematocrit 37.9 % (39.0-51.0); Hemoglobin 12.6 gm/dL (13.0-17.0); Lymph # (Auto) 0.8 th/mm3 (1.0-4.8); Lymph % (Auto) 6.5 % (9.0-44.0); Mean Corpuscular HGB Conc 33.2 % (32.0-36.0); Mean Corpuscular Hemoglobin 29.7 pg (27.0-34.0); Mean Corpuscular Volume 89.6 fL (80.0-100.0); Mean Platelet Volume 7.9 fL (7.0-11.0); Mono # (Auto) 1.1 th/mm3 (0.0-0.9); Mono % (Auto) 9.5 % (0.0-8.0); Neut # (Auto) 10.1 th/mm3 (1.8-7.7); Neut % (Auto) 83.8 % (16.0-70.0); Platelet Count 321 th/mm3 (150-450); Red Blood Count 4.23 mil/mm3 (4.50-5.90); Red Cell Distribution Width 14.2 % (11.6-17.2)
[2018-08-03 06:44] LABS: Anion Gap 4 meq/L (5-15); Blood Urea Nitrogen 22 mg/dL (7-18); Calcium 8.4 mg/dL (8.5-10.1); Carbon Dioxide 40.3 meq/L (21.0-32.0); Chloride 95 meq/L (98-107); Glomerular Filtration Rate Greater Than 89 mL/min (>89); Glucose,Random 96 mg/dL (74-106); Potassium 4.7 meq/L (3.5-5.1); Sodium 139 meq/L (136-145)
[2018-08-03 07:51] LABS: Lymphocytes 6 % (9-44); Monocytes 6 % (0-8); Promyelocyte 2 % (0-0)
[2018-08-03 07:52] LABS: Platelet Estimate Normal (Normal); Platelet Morphology Normal (Normal); RBC Morphology Normal (Normal); Toxic Granulation 1+
[2018-08-03] MEDS: Insulin NovoLOG Aspart Correctional Sugar Inj SQ SCH ×4 (08:49→20:25)
[2018-08-03] MEDS: Megestrol Acetate Liq 400 MG/10 ML UDC PO SCH (08:50)
[2018-08-03] MEDS: Isosorbide Mononitrate 30 MG ER 24HR Tablet (Imdur) PO SCH (08:50)
[2018-08-03] MEDS: dilTIAZem CD 180 MG Capsule PO SCH (08:50)
[2018-08-03] MEDS: predniSONE 10 MG Tablet PO SCH (08:50)
[2018-08-03] MEDS: Senna/Docusate Sodium 8.6/50 MG Tablet PO SCH ×2 (08:50→20:25)
[2018-08-03] MEDS: guaiFENesin 600 MG ER Tablet PO SCH ×2 (08:51→20:25)
[2018-08-03] MEDS: Metoprolol Tartrate 50 MG Tablet PO SCH ×2 (08:51→20:25)
[2018-08-03] MEDS: Budesonide-Formoterol 160/4.5 MCG 6 GM Inhaler INH SCH ×2 (08:53→20:25)
[2018-08-03] MEDS: Carboxymethylcellulose 0.5% Opth Drops 15 ML Bottle EACH EYE SCH ×2 (08:54→20:25)
--- NOTE | 2018-08-03 14:13 | P.PN ---
Subjective Interval history: awake and alert has home 02 at home easily fatigued without 02 minimla sputum Physical Exam Vital signs: Vital Signs 08/02/18 15:12 08/02/18 16:00 08/02/18 20:00 Temperature 97.9 F Pulse Rate 76 96 H Respiratory Rate 16 Blood Pressure 117/66 Pulse Oximetry 100 Pulse Oximetry [Exertion on Room Air] 93 L Pulse Oximetry [Resting on Room Air] 97 08/03/18 00:00 08/03/18 04:00 08/03/18 04:50 Temperature 97.9 F 97.9 F Pulse Rate 82 72 87 Respiratory Rate 16 Blood Pressure 123/62 102/55 L Pulse Oximetry 94 L 100 Pulse Oximetry [Exertion on Room Air] Pulse Oximetry [Resting on Room Air] 08/03/18 08:00 08/03/18 09:00 08/03/18 12:00 Temperature 97.9 F 97.5 F L Pulse Rate 73 72 88 Respiratory Rate 20 20 Blood Pressure 101/58 L 106/55 L Pulse Oximetry 100 99 Pulse Oximetry [Exertion on Room Air] Pulse Oximetry [Resting on Room Air] Intake & Output 08/02/18 08/03/18 08/03/18 18:59 06:59 18:59 Intake Total 440 / 440 480 / 480 Output Total 1000 / 1000 800 / 800 Balance -560 / -560 -320 / -320 Weight 56.1 kg Intake: Oral 440 / 440 480 / 480 Output: Urine 1000 / 1000 800 / 800 Other: Date of Last Bowel Movement 08/02/18 08/02/18 08/02/18 # Bowel Movements 0 Narrative: Elderly W/M HEENT/Neuro: No pallor or icterus, tongue moist, KAREN, Awake alert oriented 3, Neck: No JVD Lungs- decreased breath sounds,nio wheezes, no rales Cardiovascular: S1-S2 regular no gallop or murmur GI/abdomen: Soft, nontender, bowel sounds present Extremities: Warm bilaterally, no edema Neuro: moving all 4 extremities, with no focal deficits. Results - Labs CBC & Chem 7: 08/03/18 05:36 08/03/18 05:36 Laboratory Results - last 24 hr 08/02/18 08/02/18 08/03/18 08:25 17:39 05:36 WBC 12.0 H RBC 4.23 L Hgb 12.6 L Hct 37.9 L MCV 89.6 MCH 29.7 MCHC 33.2 RDW 14.2 Plt Count 321 MPV 7.9 Prelim Diff (Auto) Slide review pending Neut % (Auto) 83.8 H Lymph % (Auto) 6.5 L [place] % (Auto) 9.5 H Eos % (Auto) 0.1 Baso % (Auto) 0.1 Neut # (Auto) 10.1 H Lymph # (Auto) 0.8 L [place] # (Auto) 1.1 H Eos # (Auto) 0.0 Baso # (Auto) 0.0 WBC Differential Manual diff final Seg Neuts % (Manual) 86 H Lymphocytes % (Manual) 6 L Monocytes % (Manual) 6 Promyelocytes % (Man) 2 H Abs Neuts (Manual) 10.6 H Differential Comment . Toxic Granulation 1+ H Platelet Estimate Normal Platelet Morphology Normal RBC Morphology Normal Sodium Potassium Chloride Carbon Dioxide Anion Gap BUN Creatinine Estimated GFR POC Glucose 145 H Random Glucose Hemoglobin A1c 5.3 Calcium 08/03/18 08/03/18 05:36 07:46 WBC RBC Hgb Hct MCV MCH MCHC RDW Plt Count MPV Prelim Diff (Auto) Neut % (Auto) Lymph % (Auto) [place] % (Auto) Eos % (Auto) Baso % (Auto) Neut # (Auto) Lymph # (Auto) [place] # (Auto) Eos # (Auto) Baso # (Auto) WBC Differential Seg Neuts % (Manual) Lymphocytes % (Manual) Monocytes % (Manual) Promyelocytes % (Man) Abs Neuts (Manual) Differential Comment Toxic Granulation Platelet Estimate Platelet Morphology RBC Morphology Sodium 139 Potassium 4.7 Chloride 95 L Carbon Dioxide 40.3 H Anion Gap 4 L BUN 22 H Creatinine 0.47 L Estimated GFR Greater than 89 POC Glucose 98 Random Glucose 96 Hemoglobin A1c Calcium 8.4 L Assessment and Plan - Assessment (1) Afib Code(s): I48.91 - Unspecified atrial fibrillation Status: Acute (2) PNA (pneumonia) Code(s): J18.9 - Pneumonia, unspecified organism Status: Acute (3) SOB (shortness of breath) Code(s): R06.02 - Shortness of breath Status: Acute - Plan 77 F Acute hypoxemic and hypercapnic resp insuff, pneumonia, resolving -on po Levaquin -Cont 02 as needed keep sats >92% -Walk test ordered for HHC -Patient will need HHC at discharge Paroxysmal Afib, chronic, Echo 07/28: EF 55-60%, [id number]- telemetry reviewed- goes into paroxysmal a fib- currently in sinus -continue apixaban 5 mg twice daily -Continue diltiazem 180 daily, metoprolol tartrate 50 twice daily and isosorbide mononitrate 30 mg daily for hypertension -Currently holding clopidogrel 75 mg daily -Continue atorvastatin 10 mg daily for dyslipidemia -Continue furosemide 20 mg daily -Monitor HR and BP keep MAP>65mmHG COPD, with history of Pulmonary fibrosis and Asbestosis CT pulmonary angiogram 07/30 revealed right/left upper lobe consolidation. Left lower lobe infiltrate. Possible chronic thrombus. No acute pulmonary embolism -Bronchodilators with budesonide/formoterol 160-4.5 1 puff twice daily. On albuterol/ipratropium aerosols every 6 hours with levobutalol every 6 hours as needed dyspnea, BIPAP PRN for resp distress -Pulm is following-Dr. Cohen. Patient refused bronchoscopy, cont prednisone and antibiotics per pulm -Monitor for signs of infections (Fever,WBC), Sputum 07/28: Normal resp nely, BC and Influenza screening on 07/27: Negative -Cefepime d/c, cont levaquin po for 3 more days Left upper extremity edema, likely due to IV infiltrate - improving -Doppler US ordered, no DVT noted -Warm compress and elevate Prophylaxis: Protonix/SCDs/apixaban CM - [facility]
--- NOTE | 2018-08-03 18:18 | P.PN ---
Subjective Interval history: Up and eating lunch. O2 sat 96 on 3 l. Good output. Physical Exam Vital signs: Vital Signs 08/02/18 20:00 08/03/18 00:00 08/03/18 04:00 Temperature 97.9 F 97.9 F 97.9 F Pulse Rate 96 H 82 72 Respiratory Rate 16 16 Blood Pressure 117/66 123/62 102/55 L Pulse Oximetry 100 94 L 100 08/03/18 04:50 08/03/18 08:00 08/03/18 09:00 Temperature 97.9 F Pulse Rate 87 73 72 Respiratory Rate 20 Blood Pressure 101/58 L Pulse Oximetry 100 08/03/18 12:00 08/03/18 16:00 08/03/18 16:08 Temperature 97.5 F L 97.6 F Pulse Rate 84 89 95 H Respiratory Rate 20 21 Blood Pressure 106/55 L 123/58 L Pulse Oximetry 99 98 Intake & Output 08/02/18 08/03/18 08/03/18 18:59 06:59 18:59 Intake Total 440 / 440 480 / 480 Output Total 1000 / 1000 800 / 800 Balance -560 / -560 -320 / -320 Weight 56.1 kg Intake: Oral 440 / 440 480 / 480 Output: Urine 1000 / 1000 800 / 800 Other: Date of Last Bowel Movement 08/02/18 08/02/18 08/02/18 # Bowel Movements 0 Narrative: Elderly W/M emaciated and Dyspneic. HEENT/Neuro: + pallor no icterus, tongue moist, KAREN, Awake alert oriented 3, Neck: No JVD Lungs- decreased breath sounds, with wheezes, and basal crackles Cardiovascular: S1-S2 regular no gallop or murmur GI/abdomen: Soft, nontender, bowel sounds present Extremities: Warm bilaterally, no edema Neuro: moving all 4 extremities, with no focal deficits. Results - Labs CBC & Chem 7: 08/03/18 05:36 08/03/18 05:36 Laboratory Results - last 24 hr 08/02/18 08/03/18 08/03/18 08:25 05:36 05:36 WBC 12.0 H RBC 4.23 L Hgb 12.6 L Hct 37.9 L MCV 89.6 MCH 29.7 MCHC 33.2 RDW 14.2 Plt Count 321 MPV 7.9 Prelim Diff (Auto) Slide review pending Neut % (Auto) 83.8 H Lymph % (Auto) 6.5 L [place] % (Auto) 9.5 H Eos % (Auto) 0.1 Baso % (Auto) 0.1 Neut # (Auto) 10.1 H Lymph # (Auto) 0.8 L [place] # (Auto) 1.1 H Eos # (Auto) 0.0 Baso # (Auto) 0.0 WBC Differential Manual diff final Seg Neuts % (Manual) 86 H Lymphocytes % (Manual) 6 L Monocytes % (Manual) 6 Promyelocytes % (Man) 2 H Abs Neuts (Manual) 10.6 H Differential Comment . Toxic Granulation 1+ H Platelet Estimate Normal Platelet Morphology Normal RBC Morphology Normal Sodium 139 Potassium 4.7 Chloride 95 L Carbon Dioxide 40.3 H Anion Gap 4 L BUN 22 H Creatinine 0.47 L Estimated GFR Greater than 89 POC Glucose Random Glucose 96 Hemoglobin A1c 5.3 Calcium 8.4 L 08/03/18 08/03/18 07:46 16:46 WBC RBC Hgb Hct MCV MCH MCHC RDW Plt Count MPV Prelim Diff (Auto) Neut % (Auto) Lymph % (Auto) [place] % (Auto) Eos % (Auto) Baso % (Auto) Neut # (Auto) Lymph # (Auto) [place] # (Auto) Eos # (Auto) Baso # (Auto) WBC Differential Seg Neuts % (Manual) Lymphocytes % (Manual) Monocytes % (Manual) Promyelocytes % (Man) Abs Neuts (Manual) Differential Comment Toxic Granulation Platelet Estimate Platelet Morphology RBC Morphology Sodium Potassium Chloride Carbon Dioxide Anion Gap BUN Creatinine Estimated GFR POC Glucose 98 174 H Random Glucose Hemoglobin A1c Calcium Assessment and Plan - Assessment (1) Pulmonary fibrosis Code(s): J84.10 - Pulmonary fibrosis, unspecified Status: Acute (2) CAP (community acquired pneumonia) Code(s): J18.9 - Pneumonia, unspecified organism Status: Acute (3) Sinus tachycardia Code(s): R00.0 - Tachycardia, unspecified Status: Acute (4) Afib Code(s): I48.91 - Unspecified atrial fibrillation Status: Acute (5) PNA (pneumonia) Code(s): J18.9 - Pneumonia, unspecified organism Status: Acute (6) SOB (shortness of breath) Code(s): R06.02 - Shortness of breath Status: Acute (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 Will leave on O2 3 L. 2. Continue antibiotics and switch to PO for 3 days 3. Duoneb nebs qid. 4. Rehab placement and start PT. 5. D/C BIPAP 6. Discussed about doing a Bronchoscopy and Lavage and the patient declined. 7. Add prednisone 30 mg daily and taper 8. PFT with broncho. (2) CAP (community acquired pneumonia) Qualifiers: Laterality: left Lung location: lower lobe of lung Qualified Code(s): J18.1 - Lobar pneumonia, unspecified organism
[2018-08-03 20:48] VITALS: RESP 18
[2018-08-03] MEDS: levoFLOXacin 750 MG Tablet PO SCH (22:02)
[2018-08-04] MEDS: Insulin NovoLOG Aspart Correctional Sugar Inj SQ SCH ×2 (08:53→13:53)
[2018-08-04] MEDS: guaiFENesin 600 MG ER Tablet PO SCH (08:54)
[2018-08-04] MEDS: Megestrol Acetate Liq 400 MG/10 ML UDC PO SCH (08:54)
[2018-08-04] MEDS: Metoprolol Tartrate 50 MG Tablet PO SCH (08:54)
[2018-08-04] MEDS: predniSONE 10 MG Tablet PO SCH (08:54)
[2018-08-04] MEDS: Senna/Docusate Sodium 8.6/50 MG Tablet PO SCH (08:54)
[2018-08-04] MEDS: dilTIAZem CD 180 MG Capsule PO SCH (08:54)
[2018-08-04] MEDS: Isosorbide Mononitrate 30 MG ER 24HR Tablet (Imdur) PO SCH (08:54)
[2018-08-04] MEDS: levoFLOXacin 750 MG Tablet PO SCH (08:54)
[2018-08-04] MEDS: Carboxymethylcellulose 0.5% Opth Drops 15 ML Bottle EACH EYE SCH (08:55)
[2018-08-04] MEDS: Budesonide-Formoterol 160/4.5 MCG 6 GM Inhaler INH SCH (08:55)
--- NOTE | 2018-08-04 11:25 | P.PN ---
Subjective Interval history: up in chair seen with ready to go home- no complains has home 02 reviewed with him meds- states he not been on Plavis for 4 weeks Physical Exam Vital signs: Vital Signs 08/03/18 12:00 08/03/18 16:00 08/03/18 16:08 Temperature 97.5 F L 97.6 F Pulse Rate 84 89 95 H Respiratory Rate 20 21 Blood Pressure 106/55 L 123/58 L Pulse Oximetry 99 98 08/03/18 20:00 08/04/18 00:00 08/04/18 04:00 Temperature 98 F 97.6 F 98 F Pulse Rate 88 64 78 Respiratory Rate 18 18 18 Blood Pressure 109/58 L 101/59 L 98/61 L Pulse Oximetry 99 98 99 08/04/18 08:00 08/04/18 09:00 Temperature 97.6 F Pulse Rate 85 83 Respiratory Rate 18 Blood Pressure 111/58 L Pulse Oximetry 99 Intake & Output 08/03/18 08/04/18 08/04/18 18:59 06:59 18:59 Intake Total 720 / 720 440 / 440 Output Total 800 / 800 975 / 975 Balance -80 / -80 -535 / -535 Weight 57 kg Intake: Oral 720 / 720 440 / 440 Output: Urine 800 / 800 975 / 975 Other: # Voids 2 Date of Last Bowel Movement 08/02/18 08/03/18 # Bowel Movements 0 Narrative: Elderly W/M up in chair, no acute distress anicteric no rales, no wheezes irregular rhythm- rate controlled abdomen soft nontender extremiteis no edmea neuro exam- non focal Results - Labs CBC & Chem 7: 08/03/18 05:36 08/03/18 05:36 Laboratory Results - last 24 hr 08/03/18 08/03/18 08/04/18 16:46 19:25 07:21 POC Glucose 174 H 177 H 84 Assessment and Plan - Assessment (1) Afib Code(s): I48.91 - Unspecified atrial fibrillation Status: Acute (2) PNA (pneumonia) Code(s): J18.9 - Pneumonia, unspecified organism Status: Acute (3) SOB (shortness of breath) Code(s): R06.02 - Shortness of breath Status: Acute - Plan 77 F Acute hypoxemic and hypercapnic resp insuff, pneumonia, resolving on top of chronic Lung disease -on po Levaquin till 08/06 COPD- -Cont 02 as needed keep sats >92% - po Prednisone Paroxysmal Afib, chronic, Echo 07/28: EF 55-60%, [id number] telemetry reviewed- goes into paroxysmal a fib- currently in sinus -continue apixaban 5 mg twice daily -Continue diltiazem 180 daily, metoprolol tartrate 50 twice daily and isosorbide mononitrate 30 mg daily for hypertension -Currently holding clopidogrel 75 mg daily -Continue atorvastatin 10 mg daily for dyslipidemia -Continue furosemide 20 mg daily -Monitor HR and BP keep MAP>65mmHG COPD, with history of Pulmonary fibrosis and Asbestosis CT pulmonary angiogram 07/30 revealed right/left upper lobe consolidation. Left lower lobe infiltrate. Possible chronic thrombus. No acute pulmonary embolism -Bronchodilators with budesonide/formoterol 160-4.5 1 puff twice daily. On albuterol/ipratropium aerosols every 6 hours with levobutalol every 6 hours as needed dyspnea, BIPAP PRN for resp distress -Pulm is following-Dr. Cohen. Patient refused bronchoscopy, cont prednisone and antibiotics per pulm -Monitor for signs of infections (Fever,WBC), Sputum 07/28: Normal resp nely, BC and Influenza screening on 07/27: Negative -Cefepime d/c, cont levaquin po for 3 more days Left upper extremity edema, likely due to IV infiltrate - improving -Doppler US ordered, no DVT noted -Warm compress and elevate Prophylaxis: Protonix/SCDs/apixaban CM - for DC planning with home [facility] today if arranged
[2018-08-04 16:05] VITALS: BP 119/66; PULSE 95; TEMP 97.4; O2SAT 93
--- NOTE | 2018-08-04 17:35 | P.DS ---
Date of admission: 07/28/18 13:24 Primary care physician: [facility] Attending physician on discharge: Skip Boyd Anticipated date of discharge: 08/04/18 Brief History from admission: This is a 77-year-old male with a PMH of HTN, Asbestosis, COPD, Fibrosis, Vertigo and A. fib who was sent to the ER by the [facility] for episode of A. fib with RVR. Pt reports nasal congestion, SOB and generalized weakness x2-3 days, went to the [facility] for evaluation today and was found to be in A-fib w/ RVR, HR 120's at which time he was referred to the ER. Pt denies c/o chest pain, main complaint is SOB. On arrival, BP 136/61, HR 142, O2 sat 95% on RA, Afebrile. WBC 11.9. INR 1.7. Chemistry unremarkable. Lactic acid 3.6. Troponin negative. BNP 118. UA negative for UTI. Exar with extensive stable chronic interstitial and parenchymal changes, increased patchy airspace opacity left lower lung concerning for pneumonia. CTA Chest patchy infiltrate left lower lung, extensive chronic appearing changes elsewhere. S/p Rocephin/Zithro in ER. Currently in Sinus Tachycardia w/ HR 100's. Patient update on day of discharge: awake and alert, no distress on DS: Diagnosis - Discharge Diagnosis (1) Afib Status: Acute (2) PNA (pneumonia) Status: Acute (3) SOB (shortness of breath) Status: Acute DS: Medications - Discharge Medications Prescriptions: budesonide-formoterol [Symbicort] 2 puff INH BID #1 g prednisone 30 mg PO DAILY 12 Days #17 tab DS: Summary Hospital Course: 77 F Acute hypoxemic and hypercapnic resp insuff, pneumonia, resolving on top of chronic Lung disease -on po Levaquin till 08/06 COPD- -Cont 02 as needed keep sats >92% - po Prednisone Paroxysmal Afib, chronic, Echo 07/28: EF 55-60%, [id number] telemetry reviewed- goes into paroxysmal a fib- currently in sinus -continue apixaban 5 mg twice daily -Continue diltiazem 180 daily, metoprolol tartrate 50 twice daily and isosorbide mononitrate 30 mg daily for hypertension -Currently holding clopidogrel 75 mg daily -Continue atorvastatin 10 mg daily for dyslipidemia -Continue furosemide 20 mg daily -Monitor HR and BP keep MAP>65mmHG COPD, with history of Pulmonary fibrosis and Asbestosis CT pulmonary angiogram 07/30 revealed right/left upper lobe consolidation. Left lower lobe infiltrate. Possible chronic thrombus. No acute pulmonary embolism -Bronchodilators with budesonide/formoterol 160-4.5 1 puff twice daily. On albuterol/ipratropium aerosols every 6 hours with levobutalol every 6 hours as needed dyspnea, BIPAP PRN for resp distress -Pulm is following-Dr. Cohen. Patient refused bronchoscopy, cont prednisone and antibiotics per pulm -Monitor for signs of infections (Fever,WBC), Sputum 07/28: Normal resp nely, BC and Influenza screening on 07/27: Negative -Cefepime d/c, cont levaquin po for 3 more days Left upper extremity edema, likely due to IV infiltrate - improving -Doppler US ordered, no DVT noted -Warm compress and elevate Prophylaxis: Protonix/SCDs/apixaban CM - for DC planning with home [facility] today if arranged - Time Spent with Patient Total time spent providing and/or coordinating discharge services: Greater than 30 minutes - Quality: VTE Deep Vein Thrombosis/Pulmonary Embolism Present on Admission: No Exam Vital signs: Vital Signs 08/03/18 20:00 08/04/18 00:00 08/04/18 04:00 Temperature 98 F 97.6 F 98 F Pulse Rate 88 64 78 Respiratory Rate 18 18 18 Blood Pressure 109/58 L 101/59 L 98/61 L Pulse Oximetry 99 98 99 08/04/18 08:00 08/04/18 09:00 08/04/18 12:00 Temperature 97.6 F 97.6 F Pulse Rate 85 83 75 Respiratory Rate 18 18 Blood Pressure 111/58 L 105/68 Pulse Oximetry 99 99 08/04/18 16:03 Temperature 97.4 F L Pulse Rate 95 H Respiratory Rate 18 Blood Pressure 119/66 Pulse Oximetry 93 L Intake & Output 08/03/18 08/04/18 08/04/18 18:59 06:59 18:59 Intake Total 720 / 720 440 / 440 720 / 720 Output Total 800 / 800 975 / 975 950 / 950 Balance -80 / -80 -535 / -535 -230 / -230 Weight 57 kg Intake: Oral 720 / 720 440 / 440 720 / 720 Output: Urine 800 / 800 975 / 975 950 / 950 Other: # Voids 2 Date of Last Bowel Movement 08/02/18 08/03/18 # Bowel Movements 0 Narrative: Elderly W/M up in chair, no acute distress anicteric no rales, no wheezes irregular rhythm- rate controlled abdomen soft nontender extremiteis no edmea neuro exam- non focal Results Procedures completed during hospitalization: none Labs on day of discharge: Labs from last 24 hours 08/04/18 08/04/18 08/03/18 14:35 07:21 19:25 POC Glucose 148 H 84 177 H Preliminary micro results at discharge 07/28/18 14:13 Mycobacterial Culture - Preliminary Sputum - Expectorated Sputum No growth in 1 week - Impressions ITS Impressions Chest CTA 07/27/18 18:42 CONCLUSION: 1. Patchy mild infiltrate in the left lower lung may be acute inflammatory in nature. 2. Extensive chronic appearing changes elsewhere as described in detail. 3. No findings to suggest pulmonary embolism Venous Doppler Study 08/02/18 00:00 CONCLUSION: 1. The study is negative for upper extremity deep venous thrombosis. 2. Subcutaneous edema is noted. Chest X-Ray 08/02/18 06:00 CONCLUSION: Stable chest with chest with chronic consolidation in both upper lobes. Extensive calcified pleural plaquing. Discharge Plan - Discharge Disposition Patient Disposition: W/Home Health Service - Discharge Condition Condition: Stable - Discharge Order Discharge Orders: Discharge Order (Routine); Ordered 08/04/18 Ordered By: Skip Boyd - Discharge Details Anticipated Discharge Date: 08/04/18 - Physicians Team Primary Care Provider: [facility] Attending Provider: Skip Boyd Other Providers: Nathan Cohen MD ; [employer]
--- NOTE | 2018-08-04 18:13 | P.PN ---
Subjective Interval history: Doing better. On O2 3 L. No chest pains. Physical Exam Vital signs: Vital Signs 08/03/18 20:00 08/04/18 00:00 08/04/18 04:00 Temperature 98 F 97.6 F 98 F Pulse Rate 88 64 78 Respiratory Rate 18 18 18 Blood Pressure 109/58 L 101/59 L 98/61 L Pulse Oximetry 99 98 99 08/04/18 08:00 08/04/18 09:00 08/04/18 12:00 Temperature 97.6 F 97.6 F Pulse Rate 85 83 75 Respiratory Rate 18 18 Blood Pressure 111/58 L 105/68 Pulse Oximetry 99 99 08/04/18 16:03 Temperature 97.4 F L Pulse Rate 95 H Respiratory Rate 18 Blood Pressure 119/66 Pulse Oximetry 93 L Intake & Output 08/03/18 08/04/18 08/04/18 18:59 06:59 18:59 Intake Total 720 / 720 440 / 440 720 / 720 Output Total 800 / 800 975 / 975 950 / 950 Balance -80 / -80 -535 / -535 -230 / -230 Weight 57 kg Intake: Oral 720 / 720 440 / 440 720 / 720 Output: Urine 800 / 800 975 / 975 950 / 950 Other: # Voids 2 Date of Last Bowel Movement 08/02/18 08/03/18 # Bowel Movements 0 Narrative: Elderly W/M emaciated and up in chair, no acute distress HEENT: anicteric PERRL Chest :Occ rales, no wheezes Heart: irregular rhythm- rate controlled abdomen soft nontender, and No organomegaly extremities with no edema neuro exam- non focal Results - Labs CBC & Chem 7: 08/03/18 05:36 08/03/18 05:36 Laboratory Results - last 24 hr 08/03/18 08/04/18 08/04/18 19:25 07:21 14:35 POC Glucose 177 H 84 148 H Microbiology 07/28/18 14:13 Sputum - Expectorated Sputum Acid Fast Bacilli Smear - Final No acid fast bacilli seen 07/28/18 14:13 Sputum - Expectorated Sputum Mycobacterial Culture - Preliminary No growth in 1 week Assessment and Plan - Assessment (1) Pulmonary fibrosis Code(s): J84.10 - Pulmonary fibrosis, unspecified Status: Acute (2) CAP (community acquired pneumonia) Code(s): J18.9 - Pneumonia, unspecified organism Status: Acute (3) Sinus tachycardia Code(s): R00.0 - Tachycardia, unspecified Status: Acute (4) Afib Code(s): I48.91 - Unspecified atrial fibrillation Status: Acute (5) PNA (pneumonia) Code(s): J18.9 - Pneumonia, unspecified organism Status: Acute (6) SOB (shortness of breath) Code(s): R06.02 - Shortness of breath Status: Acute (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 Will leave on O2 3 L. 2. Continue antibiotics for 2 days 3. Duoneb nebs tid 4. Rehab placement and start PT. 5. Will see as OP in 3 weeks 6. Discussed about doing a Bronchoscopy and Lavage and the patient declined. 7. Cont prednisone 30 mg daily and taper (2) CAP (community acquired pneumonia) Qualifiers: Laterality: left Lung location: lower lobe of lung Qualified Code(s): J18.1 - Lobar pneumonia, unspecified organism
== END 2018-08-04 16:38 | disposition home health service (06) ==
LOC: NEPC 16:13 → NEDA 16:13 → NEPGCP 22:32 → N07 07-29 18:47 → HIMC 07-30 00:40 → N04 08-01 21:42
PROVIDERS: ADMIT Internal Medicine; ATTEND Internal Medicine